=== PATIENT | male | born 1975 | race Caucasian/White ===

== ENCOUNTER → 2019-08-23 08:55 | Outpatient (CLI) | payer OTHER, SELFPAY ==
--- NOTE | 2019-08-23 09:07 | US_ITS ---
PROCEDURE: US URINARY BLADDER CLINICAL INDICATION: ABD PAIN,HEMATURIA COMPARISON: No exams were available for comparison FINDINGS: Urinary bladder measures 1.5 x 8.5 x 9.8 centimeters with a volume of 671 milliliters. The postvoid urinary bladder measures 6.3 x 1.4 by 6.9 centimeters with a volume of 33 milliliters. The singh of the urinary bladder appear normal. Bilateral ureteral jets are visualized. IMPRESSION: Unremarkable urinary bladder ultrasound. Mild postvoid residual. Dictated by: Andre Miguel 08/23/2019 14:46 Electronically signed by Andre Miguel in [place] 08/23/2019 14:46
== END ==
PROVIDERS: PCP Family Medicine; Visit Provider Family Medicine
DX: R10.2 Pelvic and perineal pain (principal); R31.29 Other microscopic hematuria
CPT/HCPCS: 76857

== ENCOUNTER 2020-01-25 18:35 | Emergency (ER) | payer OTHER, SELFPAY ==
[2020-01-25 18:40] VITALS: BP 140/73; PULSE 90; RESP 18; O2SAT 99; BMI 27.0
--- NOTE | 2020-01-25 18:49 | XR_ITS ---
PROCEDURE: XR FOOT RT MIN 3V CLINICAL INDICATION: stepped on nail Puncture wound COMPARISON: No exams were available for comparison FINDINGS: No fracture or dislocation. No lytic or blastic change. There is normal mineralization. The joint spaces are well-preserved. No significant degenerative/arthritic changes. No erosive changes evident. Other findings:There does appear to be a chronic defect at the tip of the distal phalanx of the great toe. This is well-circumscribed. There is minimal hallux valgus IMPRESSION: No acute findings. Dictated by: Nghia Collier MD 01/26/2020 08:26 Electronically signed by Nghia Collier MD in [place] 01/26/2020 08:26
[2020-01-25 18:50] VITALS: BP 140/73; PULSE 90; RESP 18; TEMP 36.8; O2SAT 99; BMI 27.1
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
[2020-01-25 19:18] VITALS: BP 140/73; PULSE 90; RESP 18; TEMP 36.8; O2SAT 99
== END 2020-01-25 19:26 | disposition home or self-care (01) ==
PROVIDERS: Emergency Provider Nurse Practitioner; PCP Family Medicine
DX: S91.331A Puncture wound without foreign body, right foot, initial encounter (principal); W22.8XXA Striking against or struck by other objects, initial encounter; Y92.89 Other specified places as the place of occurrence of the external cause; Z23 Encounter for immunization
CPT/HCPCS: 73630; 90471; 90715; 99201

== ENCOUNTER → 2020-03-01 10:15 | Outpatient (CLI) | payer OTHER, SELFPAY ==
--- NOTE | 2020-03-01 10:19 | US_ITS ---
PROCEDURE: US ABDOMEN COMPLETE CLINICAL INDICATION: PERIUMBILICAL ABD PAIN COMPARISON: No exams were available for comparison FINDINGS: PANCREAS: Pancreas is not well delineated due to overlying bowel gas. CT or MRI without and with contrast with pancreatic protocol may provide further evaluation if clinically desired. LIVER: There is a hyperechoic nodule in the left lobe of the liver measuring approximately 3 cm with some posterior acoustical shadowing. The remaining liver has an unremarkable appearance. There is appropriate direction of blood flow within non dilated portal vein. RIGHT KIDNEY: Unremarkable. Normal size and echogenicity. No hydronephrosis LEFT KIDNEY: Unremarkable. Normal size and echogenicity. No hydronephrosis GALLBLADDER: No gallstones, gallbladder wall thickening, pericholecystic fluid, or biliary dilatation. AORTA: No evidence of aneurysmal dilatation. SPLEEN: Unremarkable. Normal size and echogenicity ASCITES: None demonstrated. IMPRESSION: 1. 2.8 cm hyperechoic nodule in the left lobe of the liver. This could be due to a hemangioma. MRI or CT with hemangioma protocol suggested for confirmation 2. Pancreas not well delineated and may be better evaluated with MRI or CT if clinically warranted 3. Otherwise negative Dictated by: Nghia Collier MD 03/01/2020 16:01 Electronically signed by Nghia Collier MD in [place] 03/01/2020 16:01
== END ==
PROVIDERS: PCP Family Medicine; Visit Provider Family Medicine
DX: R10.33 Periumbilical pain (principal)
CPT/HCPCS: 76700

== ENCOUNTER → 2020-03-30 09:31 | Outpatient (CLI) | payer OTHER, MEDICAID, SELFPAY ==
--- NOTE | 2020-03-30 09:37 | CT_ITS ---
PROCEDURE: CT ABDOMEN W CON CLINICAL HISTORY: BLOOD IN STOOL Blood in stool, liver nodule 5 previous ultrasound COMPARISON: US ABDOMEN COMPLETE from 03/01/2020 TECHNIQUE: 75 mL Optiray 350 IV Axial images obtained with sagittal and coronal reformats. All CT scans at the facility use one or more dose reduction, viz: automated exposure control, ma/kV adjustment per patient size (including targeted exams where dose is matched to indication, i.e. head), or iterative reconstruction technique. FINDINGS: The the this study is not performed with the hemangioma protocol as suggested on the ultrasound of 03/01/2020. Only portal venous and 5 minutes delayed images are obtained. There are multiple hypodense liver lesions the largest in the anterior segment of the right hepatic lobe measuring 4 by 2.5 cm with some mild heterogeneous peripheral enhancement which does somewhat fill in on the delayed images. Other smaller lesions are present including an 11 mm hypodense lesion at the inferior aspect of the right hepatic lobe and a 13 mm hypodensity in the right hepatic lobe inferiorly posterior to the gallbladder fossa. The spleen, adrenal glands, and kidneys have an unremarkable appearance. There is a small umbilical hernia. The 5 minutes delayed post enhanced images were carried through the pelvis.. There is an area of thickening involving the sigmoid colon and at the rectosigmoid junction. The mucosal margins are somewhat irregular at this area. A sigmoid mass is considered and sigmoidoscopy is suggested for further evaluation. There are mildly prominent lymph nodes superior to the sigmoid colon in the upper presacral region. These measure up to 1.2 cm. IMPRESSION: 1. Abnormal appearing thickening of the sigmoid colon at the rectosigmoid junction with some irregularity of the mucosal surface. This area of thickening is approximately 7 cm in length. Neoplasm is considered and sigmoidoscopy is suggested for further evaluation. There are some mildly prominent adjacent lymph nodes at this area. Colitis would be included in the differential diagnosis. 2. Multiple lesions of the liver as described above. Leads are indeterminate and may represent hemangiomas or metastatic disease. Suggest MRI of the liver with hemangioma protocol for further evaluation Dictated by: Nghia Collier MD 03/31/2020 09:03 Electronically signed by Nghia Collier MD in [place] 03/31/2020 09:03
== END ==
PROVIDERS: PCP Family Medicine; Visit Provider Family Medicine
DX: K92.1 Melena (principal)
CPT/HCPCS: 74160; Q9967

== ENCOUNTER → 2020-04-24 08:46 | Outpatient (CLI) | payer OTHER, MEDICAID, SELFPAY ==
--- NOTE | 2020-04-24 | MR_ITS ---
PROCEDURE: MR ABDOMEN WO/W CON CLINICAL INDICATION: HEPATIC LESION Hx liver lesion and abnormal CT scan. Pt. C/o abd pain x 6 months. COMPARISON: US US ABDOMEN COMPLETE from 03/01/[address] ABDOMEN W CON from 03/30/2020 TECHNIQUE: Routine multiplanar multi echo sequences are performed without and with gadolinium enhancement. 18ml prohance used. Dynamic post enhanced images are obtained. Lot #[id number] 06/2022 FINDINGS: There are multiple small hepatic cyst. There is a 4 x 3 cm mass within the left hepatic lobe segment 4A. This is hypointense on T1 and slightly hyperintense on T2. Lesion is hyperintense on the DWI images. There is peripheral contrast enhancement. This does appear to fill in on the delayed images but shows more enhancement centrally than peripherally on the delayed images. This would be somewhat atypical for a hemangioma. However, the ultrasound does show this to have increased echogenicity as 1 would expect for a hemangioma. There is a central area of decreased signal intensity. This is hypointense on T1 and slightly hyperintense on T2 and could even be due to a central scar. Focal nodular hyperplasia is a consideration as well. There is a small focal area of contrast enhancement involving the right hepatic lobe posteriorly on the initial arterial phase images and may be due to an area of altered hepatic enhancement. IMPRESSION: 4 x 3 cm complex enhancing mass in the left hepatic lobe segment 4A. The lesion demonstrates early peripheral enhancement but on the delayed images shows centripetal enhancement which is the opposite of what 1 would expect for a hemangioma. Focal nodular hyperplasia and hemangioma are the main considerations. Either lesion would be considered a no-touch lesion. Therefore, would recommend a 3 month follow-up to confirm short term stability. Multiple a Paddock cysts are also present. Dictated by: Nghia Collier MD 05/02/2020 09:36 Nghia Collier MD in [place] 05/02/2020 09:36
== END ==
PROVIDERS: PCP Family Medicine; Visit Provider Family Medicine
DX: R93.5 Abnormal findings on diagnostic imaging of other abdominal regions, including retroperitoneum (principal); K76.9 Liver disease, unspecified
CPT/HCPCS: 74183; A9576

== ENCOUNTER → 2020-04-29 11:24 | Outpatient (CLI) | payer OTHER, MEDICAID, SELFPAY ==
[2020-04-29 13:00] LABS: Coronavirus 19 IgG Antibody Negative (Negative); Coronavirus 19 IgM Antibody Negative (Negative)
== END ==
PROVIDERS: Visit Provider Internal Medicine Gastroenterology
DX: Z03.818 Encounter for observation for suspected exposure to other biological agents ruled out (principal)
CPT/HCPCS: 36415; 86328

== ENCOUNTER 2020-05-01 07:19 | Day surgery (SDC) | payer OTHER, MEDICAID, SELFPAY ==
[2020-04-25 13:46] VITALS: BMI 26.2
[2020-05-01] VITALS (9 sets, daily range): BP systolic 112–143; BP diastolic 67–79; PULSE 66–84; RESP 12–20; TEMP 36.2–36.4; O2SAT 94–100
--- NOTE | 2020-05-01 07:56 | P.PN_ITS ---
[facility] Anesthesia Checklist - Patient Identification Patient Identification: Arm Band - Structural Data Admitted From: Home Planned Operative Procedure/s: colonoscopy Consent for Planned Operative Procedure(s) Verified: Yes Verified Documents: Surgical Consent, History and Physical - NPO Status Verified Time NPO: 00:00 - Additional verifications Anesthesia Reactions: No - Airway Assessment C-Spine Mobility Assessed: Yes (mp2) TMJ Mobility Assessed: Yes Dentition: Edentulous - Neurological Assessment Level of Consciousness: Awake, Alert - Anesthesia Plan Anesthesia Risk discussed: Yes Anesthesia Plan: Verified ASA Class: II Anesthesia Type: MAC [facility] History I have reviewed the patient's past medical history: Yes Medical History: Denies:: Cancer, Diabetes Mellitus Type 1, Diabetes Mellitus Type 2, Internal Pacemaker, MRSA, Seizures *Have you ever received a pneumonia vaccine?: No *Have you received a flu vaccine this season?: No Anesthesia experience/problems:: nac Laterality Cases: Bilateral: Myringotomy (Ear Tubes), Tonsillectomy Other Surgeries: No: Pacemaker Amputation: No - *Social History Last grade of school completed: 11th or 12th Smoking Status: Current every day smoker Tobacco Type: cigarettes # Packs/Day (cigarettes): 1 Alcohol Intake: never Substance Use Type: denies use *Occupational Status:: employed Housing: house Household Members: spouse *Travel in the last 8 weeks: None Family Hx:: Heart Attack
--- NOTE | 2020-05-01 08:08 | HMH.PROC ---
[facility] Procedure Note Procedure Note:: Colonoscopy Procedure Report: Sigmoidoscopy/attempted colonoscopy (aborted) Endoscopist: Evan Campbell II, MD Referring physician: Marcello Merchant MD Date of Procedure: May 01, 2020 Equipment: Olympus 180 variable stiffness pediatric colonoscope Sedation: MAC sedation Indication: Mr. Tomlin is a 44-year-old gentleman who is here for diagnostic colonoscopy. He has had lower abdominal pain and discomfort for the last 4 to 5 months. He also has irregular bowel function with bowel movements up to 10-15 times daily. This is often small caliber and sometimes loose bowel movements but not diarrhea. He does report a 40 pound weight loss in the last 4 months. He has noted blood once or twice. He has moderate bloating and gassiness. He reports no family history of colon cancer. This is his first colonoscopy performed for diagnostic purposes. Procedure: Prior to the procedure, a history and physical exam was performed, and patient's medications and allergies were reviewed. The risks, benefits and alternatives of the sedation and procedure were discussed with the patient. All questions were answered and informed consent was obtained. The patient was brought to the procedure room. Patient identification and proposed procedure were verified by the physician and the nurse. The patient was placed in a left lateral decubitus position and the scope was passed under direct vision. Throughout the procedure, the patient's blood pressure, pulse, and oxygen saturations were monitored continuously. The colonoscopy was accomplished without difficulty. The patient tolerated the procedure well. Findings: On digital rectal examination there was normal rectal tone. There were no external hemorrhoids. The scope was then inserted through the anal canal into the rectum and advanced to 30 cm. The preparation was very poor with brown liquid stool and some semisolid stool making visualization poor. The procedure was aborted. There was a 6 mm polyp in the rectum identified through the poor preparation. Impression: 1. Poor bowel preparation Plan: I will discuss everything with the patient and family. I would recommend that we repeat a colonoscopy with improved bowel preparation.
--- NOTE | 2020-05-01 08:35 | PC.NURSE ---
Lboitoets enema x2 admininstered per Dr.Robbins plaza
--- NOTE | 2020-05-01 09:29 | PC.NURSE ---
Pt stool light brown and small particulates noted, aware
--- NOTE | 2020-05-01 10:04 | HMH.PROC ---
[facility] Procedure Note Procedure Note:: Flexible Sigmoidoscopy Procedure Report: Sigmoidoscopy with cold biopsies Endoscopist: Evan Campbell II, MD Referring physician: Marcello Merchant MD Date of Procedure: May 01, 2020 Equipment: Olympus 180 variable stiffness pediatric colonoscope Sedation: MAC sedation Indication: Mr. Tomlin is a 44-year-old gentleman who had an attempted colonoscopy earlier this morning and it was completely unprepped. He has had lower abdominal pain and weight loss of up to 40 pounds in the last 4 months. He has had a change in bowel habits with bowel frequency (up to 10-15 bowel movements daily) and smaller stool caliber. He had noted some blood once or twice. His recent ultrasound on March 01, 2020 revealed a 2.8 cm hyperechoic nodule in the left lobe of the liver possibly been a hemangioma. A recent CAT scan of the abdomen and pelvis on March 31, 2020 revealed abnormal appearing thickened sigmoid colon at the rectosigmoid junction with some irregularity of the mucosal surface and an area of thickening approximately 7 cm in length. Neoplasm is considered a possibility and there were multiple lesions of the liver as well as mildly prominent adjacent lymph nodes in the area of the sigmoid colon. The patient reports no family history of colon cancer. Procedure: Prior to the procedure, a history and physical exam was performed, and patient's medications and allergies were reviewed. The risks, benefits and alternatives of the sedation and procedure were discussed with the patient. All questions were answered and informed consent was obtained. The patient was brought to the procedure room. Patient identification and proposed procedure were verified by the physician and the nurse. The patient was placed in a left lateral decubitus position and the scope was passed under direct vision. Throughout the procedure, the patient's blood pressure, pulse, and oxygen saturations were monitored continuously. The colonoscopy was accomplished without difficulty. The patient tolerated the procedure well. Findings: After the 2 fleets enemas the procedure was repeated. On digital rectal examination, there was normal rectal tone there were no external hemorrhoids and the mass could not immediately be palpated in the rectum. The scope was then inserted through the anal canal into the rectum. The preparation was markedly improved. The scope was advanced to the rectosigmoid area at 15 cm from the anal verge. There was a circumferential apple core elongated lesion with stricturing. This was a malignant mass with friability and fungating. There was spontaneous hemorrhage. Multiple biopsies were obtained. The scope could not be advanced beyond the distal sigmoid colon because of this strictured lesion. After the lesion was identified, this could be palpated very deeply with the digital exam and was a very fixed lesion by digital exam. Impression: 1. 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 I would consider sending to oncology initially but because this is near obstructive, I am going to discuss this with colorectal surgery. He will need LAR (low anterior resection) because of the obstructive nature. I do feel that this is advanced based upon exam and imaging studies. I will also arrange oncology follow-up locally.
--- NOTE | 2020-05-01 10:35 | PC.NURSE ---
Pt taken back for repeat colonoscopy
--- NOTE | 2020-05-01 10:37 | PC.NURSE ---
Pt returned to postop from endoscopy suite
== END 2020-05-01 11:15 | disposition home or self-care (01) ==
LOC: OUTP 07:20
PROVIDERS: PCP Family Medicine; Visit Provider Internal Medicine Gastroenterology
PROC: 0DJD8ZZ Inspection of Lower Intestinal Tract, Via Natural or Artificial Opening Endoscopic (ICD-10-PCS; CPT 45378; principal; 2020-05-01 08:30)
DX: C18.7 Malignant neoplasm of sigmoid colon (principal); Z87.19 Personal history of other diseases of the digestive system; R63.4 Abnormal weight loss; Z68.26 Body mass index [BMI] 26.0-26.9, adult; Z96.22 Myringotomy tube(s) status; Z90.89 Acquired absence of other organs; Z72.0 Tobacco use
CPT/HCPCS: 45331

== ENCOUNTER → 2020-05-05 13:41 | Outpatient (CLI) | payer OTHER, MEDICAID, SELFPAY ==
[2020-05-06 15:13] LABS: Covid-19 Nasal PCR Sendout Lex Not Detected
== END ==
PROVIDERS: Visit Provider Surgery
DX: Z03.818 Encounter for observation for suspected exposure to other biological agents ruled out (principal)
CPT/HCPCS: U0004

== ENCOUNTER → 2020-06-09 10:54 | Outpatient (CLI) | payer OTHER, MEDICAID, SELFPAY ==
[2020-06-09 11:57] LABS: Basophils % 0.4 % (0.1-2.0); Eosinophils # 0.2 K/mm3 (0.0-0.4); Eosinophils % 3.3 % (0.1-12.0); Hematocrit 41.4 % (42.0-52.0); Hemoglobin 13.3 g/dL (14.1-18.0); Lymphocytes # 1.9 K/mm3 (0.7-4.5); Lymphocytes % 26.3 % (10-50); Mean Corpuscular HGB Conc 32.1 g/dL (31.8-35.4); Mean Corpuscular Hemoglobin 29.2 pg (27.0-31.2); Monocytes # 0.6 K/mm3 (0.1-1.0); Monocytes % 7.8 % (1.7-9.3); Neutrophils # 4.5 K/mm3 (1.8-7.8); Neutrophils % 62.2 % (37.0-80.0); Platelet Count 291 K/mm3 (142-424); Red Blood Count 4.56 M/mm3 (4.60-6.20); White Blood Count 7.2 K/mm3 (4.8-10.8)
[2020-06-09 13:46] LABS: Alanine Aminotransferase 21 U/L (12-78); Albumin Level 4.7 g/dl (3.5-5.0); Albumin/Globulin Ratio 1.7 (1.1-1.8); Alkaline Phosphatase 110 U/L (38-126); Anion Gap 15.3 mEq/L (5-15); Aspartate Amino Transferase 26 U/L (17-59); Bilirubin,Total 0.6 mg/dl (0.2-1.3); Blood Urea Nitrogen 11 mg/dl (9-20); Calcium 9.8 mg/dl (8.4-10.2); Carbon Dioxide 25 mmol/L (22.0-30.0); Chloride 106 mmol/L (98-107); Estimated Glomerular Filt Rate 105 ml/min (>60); GFR (African American) 126 ML/MIN (>60); Globulin 2.8 g/dL (1.3-3.2); Glucose 74 mg/dl (74-100); Potassium 4.3 mmoL/L (3.5-5.1); Sodium 142 mmol/L (136-145); Total Protein,Serum 7.5 g/dl (6.3-8.2)
== END ==
PROVIDERS: Visit Provider Internal Medicine Medical Oncology
DX: C18.9 Malignant neoplasm of colon, unspecified (principal)
CPT/HCPCS: 36415; 80053; 82378; 85025

== ENCOUNTER → 2020-06-12 11:52 | Outpatient (CLI) | payer OTHER, MEDICAID, SELFPAY ==
[2020-06-12 14:48] LABS: Coronavirus 19 IgG Antibody Negative (Negative); Coronavirus 19 IgM Antibody Negative (Negative)
== END ==
PROVIDERS: Visit Provider Surgery
DX: Z01.89 Encounter for other specified special examinations (principal); C18.9 Malignant neoplasm of colon, unspecified
CPT/HCPCS: 36415; 86328

== ENCOUNTER 2020-06-14 06:05 | Day surgery (SDC) | payer OTHER, MEDICAID, SELFPAY ==
[2020-06-12 12:17] VITALS: BMI 25.7
[2020-06-14] VITALS (13 sets, daily range): BP systolic 110–145; BP diastolic 65–84; PULSE 65–73; RESP 15–23; TEMP 36.2–36.4; O2SAT 95–100
--- NOTE | 2020-06-14 06:58 | P.PN_ITS ---
[facility] Anesthesia Checklist - Structural Data Admitted From: Home Planned Operative Procedure/s: marylin cath Consent for Planned Operative Procedure(s) Verified: Yes - Additional verifications Anesthesia Reactions: No Hx Blood Transfusions: No Blood Transfusion Reaction: No - Airway Assessment C-Spine Mobility Assessed: Yes TMJ Mobility Assessed: Yes Dentition: Edentulous - Neurological Assessment Level of Consciousness: Awake, Alert, Appropriate - Anesthesia Plan Anesthesia Risk discussed: Yes Anesthesia Plan: Verified ASA Class: II Anesthesia Type: MAC [facility] History I have reviewed the patient's past medical history: Yes Medical History: Denies:: Cancer, Diabetes Mellitus Type 1, Diabetes Mellitus Type 2, Internal Pacemaker, MRSA, Seizures *Have you ever received a pneumonia vaccine?: No *Have you received a flu vaccine this season?: No Other Medical History: Denies: Blood Transfusion Reaction Anesthesia experience/problems:: none Laterality Cases: Bilateral: Myringotomy (Ear Tubes), Tonsillectomy Other Surgeries: Yes: Colonoscopy. No: Pacemaker Amputation: No Fractures: No - *Social History Last grade of school completed: 11th or 12th Smoking Status: Current every day smoker Tobacco Type: cigarettes # Packs/Day (cigarettes): 1 Alcohol Intake: never Substance Use Type: denies use *Occupational Status:: employed Housing: house Household Members: spouse *Travel in the last 8 weeks: None Family Hx:: Heart Attack
--- NOTE | 2020-06-14 08:17 | P.OP_ITS ---
Date of procedure: 06/14/20 Pre-op Diagnosis:: Metastatic rectal cancer, need for chemotherapy Post-op Diagnosis:: Same Procedure performed:: Placement of single-lumen 8 Maltese tunneled catheter into left subclavian vein with implantable subcutaneous reservoir port (PowerPort) Surgeon:: Santos Duque MD ASSISTANT FITNESS MANAGER:: William Petty Anesthesia: LMA Estimated blood loss (mL): 15 Clinical Note:: Patient is a 45-year-old sent for port placement. Recently he has had some symptoms of lower abdominal pain and approximately a 40 pound weight loss. He is also had decreased caliber of stool with increasing frequency of stool. He had a CT scan which revealed thickening at the rectosigmoid region. On 05/01/2020 he underwent sigmoidoscopy by Dr. Campbell which revealed a circumferential nearly obstructing mass at 15 cm from the anal verge. Patient underwent diverting colostomy by Dr. Abelino Mars at [facility] on 05/10/2020. He did undergo PET CT scan which reveals multiple hepatic lesions and adenopathy. Plan is for initiation of neoadjuvant chemotherapy with radiation. Operative findings:: Normal anatomy Operative note:: Patient was taken to the operating room. He was positioned in a supine position. General anesthesia was induced via LMA. The upper chest and neck area were prepped and draped in the standard surgical fashion. He was positioned in Trendelenburg position. Local anesthetic was infiltrated inferior to the clavicle. 18-gauge needle was inserted. With a couple of passes the left subclavian vein was cannulated with return of venous blood. Guidewire was inserted. Fluoroscopy was used to confirm appropriate positioning of the guidewire. Small incision was made at the insertion site. Subcutaneous tissues were dilated. Dilated with the breakaway sheath was inserted. Guidewire with dilator were removed. Single-lumen 8 Maltese catheter was then inserted through the breakaway sheath which was then removed. Fluoroscopy was used to position the tip of the catheter near the atrial caval junction. Skin was marked with a skin marker for planned subcutaneous tiling. Additional local anesthetic was infiltrated for subcutaneous tunnel and subcutaneous pocket. Incision was made on the upper chest. Using electrocautery subcutaneous pocket was created. Ca theter was tunneled subcutaneously. And once again fluoroscopy was used to confirm appropriate positioning. The catheter was cut to the appropriate length and secured to the implantable reservoir port. Catheter flushed and aspirated without difficulty. The reservoir port was secured into the subcutaneous pocket with interrupted 2-0 Vicryl sutures. Subdermal tissues were closed with running 2-0 Vicryl. Skin was closed with 4-0 Monocryl in a subcuticular fashion. Dressings were applied. At the completion of the procedure the port was accessed with the Kearns needle with infusion tubing. It aspirated and flushed without difficulty with saline. It was then flushed with heparinized saline. Dressing was applied. Condition: stable Disposition: PACU Complications:: None immediately apparent
--- NOTE | 2020-06-14 08:20 | XR_ITS ---
PROCEDURE: XR CHEST PORTABLE CLINICAL HISTORY: port-a-cath placement, pt in PACU COMPARISON: MR MR ABDOMEN WO/W CON from 04/24/2020 FINDINGS: The cardiomediastinal silhouette and pulmonary vascularity are within normal limits. Left subclavian Port-A-Cath has been placed. Tip is in the region the SVC. There is a faint linear lucency at the left apex. This may very well represent a carding machine operator shadow as opposed to a pneumothorax. Follow-up may confirm. Otherwise unremarkable. IMPRESSION: Status post left subclavian Port-A-Cath placement with good positioning. Faint lucency left apex which may represent a carding machine operator shadow of the rib.. Follow-up may confirm Dictated by: Nghia Collier MD 06/14/2020 08:47 Nghia Collier MD in OV 06/14/2020 08:47
--- NOTE | 2020-06-14 08:20 | HMH.ANESI ---
[facility] Anesthesia Record Part I Intake, IV Amount: 1,000 Estimated blood loss (mL): 5 Urine output (mL): 0 Blood Pressure: 121/65 SaO2: 96 Pulse Rate: 69 Respiratory Rate: 16 Temperature: 97.4 F Patient is:: Drowsy, Stable Stable to PACU at:: 08:15
--- NOTE | 2020-06-14 08:45 | FL_ITS ---
PROCEDURE: FL GUIDED CENTRAL LINE PLACEMT CLINICAL INDICATION: PORTACATH PLACEMENT IN OR COMPARISON: No exams were available for comparison FINDINGS: Fluoroscopy time: 13.4 seconds Single image shows left subclavian MediPort catheter in place. The tip is not demonstrated. IMPRESSION: Fluoro guided left subclavian MediPort catheter placement Dictated by: Nghia Collier MD 06/14/2020 09:29 Nghia Collier MD in OV 06/14/2020 09:29
--- NOTE | 2020-06-14 10:13 | HMH.ANESII ---
[facility] Anesthesia Record Part II Discharge Time: 09:04 Destination: Surgical Day Care (OP Surgery) PACU nurse assessment reviewed?: Yes Patient Condition:: Good Anesthesia Complications:: None Swallowing reflex intact?: Yes Cyanosis?: No Blood Pressure: 119/72 Pulse Rate: 70 Temperature: 97.4 F Mental Status: Alert & Oriented Pain level:: 0 Nausea and/or vomitting:: None Intake, IV Amount: 0
== END 2020-06-14 09:42 | disposition home or self-care (01) ==
LOC: OR 06:07
PROVIDERS: PCP Family Medicine; Visit Provider Surgery
PROC: (CPT 36561; principal; 2020-06-14 08:00)
DX: C18.9 Malignant neoplasm of colon, unspecified (principal); Z96.22 Myringotomy tube(s) status; Z90.89 Acquired absence of other organs; Z72.0 Tobacco use; Z82.3 Family history of stroke
CPT/HCPCS: 36561; 71045; 77001; 96374; C1788; J1642; J2405

== ENCOUNTER 2020-06-15 10:30 | Outpatient (CLI) | payer OTHER, MEDICAID, SELFPAY ==
[2020-06-15] VITALS (15 sets, daily range): BP systolic 124–148; BP diastolic 74–92; PULSE 67–79; RESP 18–20; TEMP 36.6; O2SAT 99
== END 2020-06-15 15:25 | disposition home or self-care (01) ==
PROVIDERS: Visit Provider Internal Medicine Medical Oncology
DX: Z51.11 Encounter for antineoplastic chemotherapy (principal); C18.9 Malignant neoplasm of colon, unspecified
CPT/HCPCS: 96413; 96415; J1642; J8501; J9263; Q0166

== ENCOUNTER 2020-06-23 14:05 | Outpatient (CLI) | payer OTHER, MEDICAID, SELFPAY ==
[2020-06-23 14:10] VITALS: BMI 26.0
[2020-06-23 14:28] LABS: Basophils % 0.4 % (0.1-2.0); Chloride 103 mmol/L (98-107); Eosinophils # 0.2 K/mm3 (0.0-0.4); Eosinophils % 2.4 % (0.1-12.0); Hematocrit 38.8 % (42.0-52.0); Hemoglobin 13.3 g/dL (14.1-18.0); Lymphocytes # 2.1 K/mm3 (0.7-4.5); Lymphocytes % 23.9 % (10-50); Mean Corpuscular HGB Conc 34.4 g/dL (31.8-35.4); Mean Corpuscular Volume 87.2 fl (80-94); Mean Platelet Volume 7.4 fl (7.4-10.4); Monocytes # 0.5 K/mm3 (0.1-1.0); Monocytes % 6.1 % (1.7-9.3); Neutrophils % 67.2 % (37.0-80.0); Platelet Count 327 K/mm3 (142-424); Red Blood Count 4.45 M/mm3 (4.60-6.20); Red Cell Distribution Width 13.4 % (11.5-17.5); White Blood Count 8.9 K/mm3 (4.8-10.8)
[2020-06-23 14:29] LABS: Sodium 140 mmol/L (136-145)
[2020-06-23 14:31] LABS: Alanine Aminotransferase 18 U/L (12-78); Aspartate Amino Transferase 23 U/L (17-59); Blood Urea Nitrogen 11 mg/dl (9-20); Creatinine Clearance Estimated 115 mL/min (50-200); Estimated Glomerular Filt Rate 81 ml/min (>60); GFR (African American) 98 ML/MIN (>60)
[2020-06-23 14:32] LABS: Albumin Level 4.6 g/dl (3.5-5.0); Albumin/Globulin Ratio 1.4 (1.1-1.8); Alkaline Phosphatase 99 U/L (38-126); Bilirubin,Total 0.4 mg/dl (0.2-1.3); Calcium 9.6 mg/dl (8.4-10.2); Carbon Dioxide 26 mmol/L (22.0-30.0); Globulin 3.2 g/dL (1.3-3.2); Glucose 91 mg/dl (74-100); Total Protein,Serum 7.8 g/dl (6.3-8.2)
== END 2020-06-23 14:20 | disposition home or self-care (01) ==
LOC: INF 14:09
PROVIDERS: Visit Provider Internal Medicine Medical Oncology
DX: C18.9 Malignant neoplasm of colon, unspecified (principal); Z45.2 Encounter for adjustment and management of vascular access device
CPT/HCPCS: 80053; 85025; J1642

== ENCOUNTER 2020-07-06 09:59 | Outpatient (CLI) | payer OTHER, SELFPAY ==
[2020-07-06] VITALS (14 sets, daily range): BP systolic 112–141; BP diastolic 71–91; PULSE 72–87; RESP 18–20; TEMP 37; O2SAT 99; BMI 25.7
[2020-07-06 10:28] LABS: Basophils % 0.3 % (0.1-2.0); Eosinophils # 0.1 K/mm3 (0.0-0.4); Eosinophils % 1.7 % (0.1-12.0); Hematocrit 38.8 % (42.0-52.0); Hemoglobin 12.4 g/dL (14.1-18.0); Lymphocytes % 24.1 % (10-50); Mean Corpuscular Hemoglobin 29.2 pg (27.0-31.2); Mean Corpuscular Volume 91.4 fl (80-94); Mean Platelet Volume 7.2 fl (7.4-10.4); Monocytes # 0.7 K/mm3 (0.1-1.0); Monocytes % 8.8 % (1.7-9.3); Neutrophils # 5.5 K/mm3 (1.8-7.8); Neutrophils % 65.1 % (37.0-80.0); Platelet Count 268 K/mm3 (142-424); Red Blood Count 4.24 M/mm3 (4.60-6.20); Red Cell Distribution Width 16.5 % (11.5-17.5); White Blood Count 8.4 K/mm3 (4.8-10.8)
[2020-07-06 10:29] LABS: Chloride 105 mmol/L (98-107); Potassium 3.7 mmoL/L (3.5-5.1); Sodium 140 mmol/L (136-145)
[2020-07-06 10:31] LABS: Blood Urea Nitrogen 7 mg/dl (9-20); Creatinine Clearance Estimated 142 mL/min (50-200); Estimated Glomerular Filt Rate 105 ml/min (>60); GFR (African American) 126 ML/MIN (>60)
[2020-07-06 10:32] LABS: Alanine Aminotransferase 22 U/L (12-78); Albumin Level 4.5 g/dl (3.5-5.0); Albumin/Globulin Ratio 1.6 (1.1-1.8); Alkaline Phosphatase 87 U/L (38-126); Anion Gap 11.7 mEq/L (5-15); Aspartate Amino Transferase 25 U/L (17-59); Bilirubin,Total 0.4 mg/dl (0.2-1.3); Calcium 9.4 mg/dl (8.4-10.2); Carbon Dioxide 27 mmol/L (22.0-30.0); Globulin 2.8 g/dL (1.3-3.2); Glucose 80 mg/dl (74-100); Total Protein,Serum 7.3 g/dl (6.3-8.2)
== END 2020-07-06 15:25 | disposition home or self-care (01) ==
LOC: INF 09:59
PROVIDERS: Visit Provider Internal Medicine Medical Oncology
DX: Z51.11 Encounter for antineoplastic chemotherapy (principal); C18.9 Malignant neoplasm of colon, unspecified
CPT/HCPCS: 80053; 85025; 96413; 96415; J1642; J7060; J9263; Q0166

== ENCOUNTER 2020-07-25 10:10 | Outpatient (CLI) | payer OTHER, SELFPAY ==
[2020-07-25 10:12] VITALS: BMI 57.4
[2020-07-25 10:43] LABS: Chloride 106 mmol/L (98-107); Potassium 3.6 mmoL/L (3.5-5.1); Sodium 139 mmol/L (136-145)
[2020-07-25 10:45] LABS: Alanine Aminotransferase 26 U/L (12-78); Aspartate Amino Transferase 28 U/L (17-59); Blood Urea Nitrogen 9 mg/dl (9-20); Creatinine Clearance Estimated 114 mL/min (50-200); Estimated Glomerular Filt Rate 91 ml/min (>60); GFR (African American) 110 ML/MIN (>60)
[2020-07-25 10:46] LABS: Albumin Level 4.5 g/dl (3.5-5.0); Albumin/Globulin Ratio 1.7 (1.1-1.8); Alkaline Phosphatase 92 U/L (38-126); Anion Gap 11.6 mEq/L (5-15); Bilirubin,Total 0.5 mg/dl (0.2-1.3); Calcium 9.5 mg/dl (8.4-10.2); Carbon Dioxide 25 mmol/L (22.0-30.0); Globulin 2.7 g/dL (1.3-3.2); Glucose 114 mg/dl (74-100); Total Protein,Serum 7.2 g/dl (6.3-8.2)
[2020-07-25 11:01] LABS: Basophils % 0.3 % (0.1-2.0); Eosinophils # 0.1 K/mm3 (0.0-0.4); Hematocrit 37.6 % (42.0-52.0); Lymphocytes % 32.8 % (10-50); Mean Corpuscular HGB Conc 31.9 g/dL (31.8-35.4); Mean Platelet Volume 7.3 fl (7.4-10.4); Monocytes # 0.5 K/mm3 (0.1-1.0); Monocytes % 8.1 % (1.7-9.3); Neutrophils # 3.5 K/mm3 (1.8-7.8); Neutrophils % 56.8 % (37.0-80.0); Platelet Count 245 K/mm3 (142-424); Red Cell Distribution Width 19.3 % (11.5-17.5); White Blood Count 6.2 K/mm3 (4.8-10.8)
== END 2020-07-25 11:15 | disposition home or self-care (01) ==
LOC: INF 10:10
PROVIDERS: Visit Provider Internal Medicine Medical Oncology
DX: C18.9 Malignant neoplasm of colon, unspecified (principal)
CPT/HCPCS: 80053; 85025; J1642

== ENCOUNTER 2020-07-31 09:21 | Outpatient (CLI) | payer OTHER, SELFPAY ==
[2020-07-31] VITALS (13 sets, daily range): BP systolic 123–152; BP diastolic 64–98; PULSE 61–70; RESP 18; O2SAT 99; BMI 24.9
[2020-07-31 09:51] LABS: Chloride 105 mmol/L (98-107); Potassium 3.4 mmoL/L (3.5-5.1); Sodium 139 mmol/L (136-145)
[2020-07-31 09:52] LABS: Basophils % 0.6 % (0.1-2.0); Eosinophils # 0.2 K/mm3 (0.0-0.4); Eosinophils % 2.6 % (0.1-12.0); Hematocrit 38.9 % (42.0-52.0); Hemoglobin 12.8 g/dL (14.1-18.0); Lymphocytes % 29.9 % (10-50); Mean Corpuscular HGB Conc 32.9 g/dL (31.8-35.4); Mean Corpuscular Volume 94.2 fl (80-94); Mean Platelet Volume 7.5 fl (7.4-10.4); Monocytes # 0.5 K/mm3 (0.1-1.0); Monocytes % 7.9 % (1.7-9.3); Neutrophils # 3.9 K/mm3 (1.8-7.8); Platelet Count 206 K/mm3 (142-424); Red Blood Count 4.14 M/mm3 (4.60-6.20); Red Cell Distribution Width 19.9 % (11.5-17.5); White Blood Count 6.5 K/mm3 (4.8-10.8)
[2020-07-31 09:54] LABS: Alanine Aminotransferase 35 U/L (12-78); Albumin Level 4.3 g/dl (3.5-5.0); Albumin/Globulin Ratio 1.6 (1.1-1.8); Alkaline Phosphatase 100 U/L (38-126); Anion Gap 12.4 mEq/L (5-15); Aspartate Amino Transferase 36 U/L (17-59); Bilirubin,Total 0.5 mg/dl (0.2-1.3); Blood Urea Nitrogen 7 mg/dl (9-20); Calcium 9.3 mg/dl (8.4-10.2); Carbon Dioxide 25 mmol/L (22.0-30.0); Creatinine Clearance Estimated 122 mL/min (50-200); Estimated Glomerular Filt Rate 91 ml/min (>60); GFR (African American) 110 ML/MIN (>60); Globulin 2.7 g/dL (1.3-3.2); Glucose 118 mg/dl (74-100)
== END 2020-07-31 13:55 | disposition home or self-care (01) ==
LOC: INF 09:21
PROVIDERS: Visit Provider Internal Medicine Medical Oncology
DX: Z51.11 Encounter for antineoplastic chemotherapy (principal); C18.9 Malignant neoplasm of colon, unspecified
CPT/HCPCS: 80053; 85025; 96413; 96415; J1642; J7060; J9263; Q0166

== ENCOUNTER 2020-08-22 09:44 | Outpatient (CLI) | payer OTHER, SELFPAY ==
[2020-08-22] VITALS (14 sets, daily range): BP systolic 107–135; BP diastolic 66–98; PULSE 65–73; RESP 18; TEMP 36.5; O2SAT 99; BMI 25.7
[2020-08-22 10:06] LABS: Basophils % 0.5 % (0.1-2.0); Eosinophils # 0.2 K/mm3 (0.0-0.4); Eosinophils % 3.2 % (0.1-12.0); Hematocrit 41.2 % (42.0-52.0); Hemoglobin 13.4 g/dL (14.1-18.0); Lymphocytes # 2.1 K/mm3 (0.7-4.5); Lymphocytes % 37.4 % (10-50); Mean Corpuscular HGB Conc 32.5 g/dL (31.8-35.4); Mean Corpuscular Hemoglobin 32.2 pg (27.0-31.2); Mean Corpuscular Volume 99.3 fl (80-94); Mean Platelet Volume 8.4 fl (7.4-10.4); Monocytes # 0.5 K/mm3 (0.1-1.0); Monocytes % 8.2 % (1.7-9.3); Neutrophils # 2.8 K/mm3 (1.8-7.8); Neutrophils % 50.7 % (37.0-80.0); Platelet Count 206 K/mm3 (142-424); Red Blood Count 4.15 M/mm3 (4.60-6.20); Red Cell Distribution Width 21.2 % (11.5-17.5); White Blood Count 5.5 K/mm3 (4.8-10.8)
[2020-08-22 10:12] LABS: Chloride 108 mmol/L (98-107); Sodium 140 mmol/L (136-145)
[2020-08-22 10:15] LABS: Alanine Aminotransferase 44 U/L (12-78); Albumin Level 4.2 g/dl (3.5-5.0); Albumin/Globulin Ratio 1.4 (1.1-1.8); Alkaline Phosphatase 78 U/L (38-126); Aspartate Amino Transferase 37 U/L (17-59); Bilirubin,Total 0.4 mg/dl (0.2-1.3); Blood Urea Nitrogen 6 mg/dl (9-20); Calcium 9.4 mg/dl (8.4-10.2); Carbon Dioxide 24 mmol/L (22.0-30.0); Creatinine Clearance Estimated 126 mL/min (50-200); Estimated Glomerular Filt Rate 91 ml/min (>60); GFR (African American) 110 ML/MIN (>60); Globulin 2.9 g/dL (1.3-3.2); Glucose 120 mg/dl (74-100); Total Protein,Serum 7.1 g/dl (6.3-8.2)
== END 2020-08-22 15:13 | disposition home or self-care (01) ==
LOC: INF 09:44
PROVIDERS: Visit Provider Internal Medicine Medical Oncology
DX: Z51.11 Encounter for antineoplastic chemotherapy (principal); C18.9 Malignant neoplasm of colon, unspecified
CPT/HCPCS: 80053; 85025; 96413; 96415; J1642; J7060; J9263; Q0166

== ENCOUNTER 2020-09-14 09:47 | Outpatient (CLI) | payer OTHER, SELFPAY ==
[2020-09-14] VITALS (13 sets, daily range): BP systolic 108–136; BP diastolic 65–86; PULSE 63–73; RESP 18; TEMP 36.4; O2SAT 97; BMI 27.6
[2020-09-14 10:08] LABS: Basophils % 0.6 % (0.1-2.0); Eosinophils # 0.2 K/mm3 (0.0-0.4); Eosinophils % 3.6 % (0.1-12.0); Hematocrit 42.5 % (42.0-52.0); Hemoglobin 14.3 g/dL (14.1-18.0); Lymphocytes # 2.3 K/mm3 (0.7-4.5); Lymphocytes % 37.1 % (10-50); Mean Corpuscular HGB Conc 33.6 g/dL (31.8-35.4); Mean Corpuscular Hemoglobin 33.6 pg (27.0-31.2); Mean Corpuscular Volume 99.9 fl (80-94); Mean Platelet Volume 8.1 fl (7.4-10.4); Monocytes # 0.5 K/mm3 (0.1-1.0); Monocytes % 8.4 % (1.7-9.3); Neutrophils # 3.1 K/mm3 (1.8-7.8); Neutrophils % 50.1 % (37.0-80.0); Platelet Count 213 K/mm3 (142-424); Red Blood Count 4.25 M/mm3 (4.60-6.20); Red Cell Distribution Width 18.7 % (11.5-17.5); White Blood Count 6.3 K/mm3 (4.8-10.8)
[2020-09-14 10:16] LABS: Chloride 107 mmol/L (98-107); Potassium 3.6 mmoL/L (3.5-5.1); Sodium 139 mmol/L (136-145)
[2020-09-14 10:19] LABS: Alanine Aminotransferase 55 U/L (12-78); Albumin Level 4.4 g/dl (3.5-5.0); Albumin/Globulin Ratio 1.4 (1.1-1.8); Alkaline Phosphatase 87 U/L (38-126); Anion Gap 10.6 mEq/L (5-15); Aspartate Amino Transferase 42 U/L (17-59); Bilirubin,Total 0.3 mg/dl (0.2-1.3); Blood Urea Nitrogen 6 mg/dl (9-20); Calcium 9.4 mg/dl (8.4-10.2); Carbon Dioxide 25 mmol/L (22.0-30.0); Creatinine Clearance Estimated 153 mL/min (50-200); Estimated Glomerular Filt Rate 105 ml/min (>60); GFR (African American) 126 ML/MIN (>60); Globulin 3.1 g/dL (1.3-3.2); Glucose 124 mg/dl (74-100); Total Protein,Serum 7.5 g/dl (6.3-8.2)
== END 2020-09-14 14:32 | disposition home or self-care (01) ==
LOC: INF 09:47
PROVIDERS: Visit Provider Internal Medicine Medical Oncology
DX: Z51.11 Encounter for antineoplastic chemotherapy (principal); C18.9 Malignant neoplasm of colon, unspecified
CPT/HCPCS: 80053; 85025; 96413; 96415; J1642; J7060; J9263; Q0166

== ENCOUNTER 2020-10-05 09:53 | Outpatient (CLI) | payer OTHER, SELFPAY ==
[2020-10-05] VITALS (15 sets, daily range): BP systolic 99–143; BP diastolic 74–93; PULSE 75–83; RESP 18; TEMP 36.6; O2SAT 96; BMI 26.8
[2020-10-05 10:08] LABS: Basophils # 0.1 K/mm3 (0-0.2); Basophils % 0.7 % (0.1-2.0); Eosinophils # 0.2 K/mm3 (0.0-0.4); Eosinophils % 3.6 % (0.1-12.0); Hematocrit 41.1 % (42.0-52.0); Hemoglobin 13.3 g/dL (14.1-18.0); Lymphocytes # 2.4 K/mm3 (0.7-4.5); Lymphocytes % 36.6 % (10-50); Mean Corpuscular HGB Conc 32.5 g/dL (31.8-35.4); Mean Corpuscular Hemoglobin 32.3 pg (27.0-31.2); Mean Corpuscular Volume 99.5 fl (80-94); Mean Platelet Volume 7.5 fl (7.4-10.4); Monocytes # 0.5 K/mm3 (0.1-1.0); Monocytes % 8.3 % (1.7-9.3); Neutrophils # 3.3 K/mm3 (1.8-7.8); Neutrophils % 50.9 % (37.0-80.0); Platelet Count 192 K/mm3 (142-424); Red Blood Count 4.13 M/mm3 (4.60-6.20); Red Cell Distribution Width 18.6 % (11.5-17.5); White Blood Count 6.5 K/mm3 (4.8-10.8)
[2020-10-05 10:11] LABS: Chloride 107 mmol/L (98-107); Potassium 3.7 mmoL/L (3.5-5.1); Sodium 139 mmol/L (136-145)
[2020-10-05 10:14] LABS: Alanine Aminotransferase 37 U/L (12-78); Albumin Level 4.5 g/dl (3.5-5.0); Albumin/Globulin Ratio 1.4 (1.1-1.8); Alkaline Phosphatase 91 U/L (38-126); Anion Gap 9.7 mEq/L (5-15); Aspartate Amino Transferase 39 U/L (17-59); Bilirubin,Total 0.5 mg/dl (0.2-1.3); Blood Urea Nitrogen 7 mg/dl (9-20); Carbon Dioxide 26 mmol/L (22.0-30.0); Creatinine Clearance Estimated 132 mL/min (50-200); Estimated Glomerular Filt Rate 91 ml/min (>60); GFR (African American) 110 ML/MIN (>60); Globulin 3.3 g/dL (1.3-3.2); Total Protein,Serum 7.8 g/dl (6.3-8.2)
[2020-10-05 10:15] LABS: Calcium 9.6 mg/dl (8.4-10.2); Glucose 123 mg/dl (74-100)
== END 2020-10-05 14:55 | disposition home or self-care (01) ==
LOC: INF 09:53
PROVIDERS: Visit Provider Internal Medicine Medical Oncology
DX: Z51.11 Encounter for antineoplastic chemotherapy (principal); C18.9 Malignant neoplasm of colon, unspecified
CPT/HCPCS: 80053; 85025; 96413; 96415; J1642; J7060; J9263; Q0166

== ENCOUNTER 2020-10-27 09:49 | Outpatient (CLI) | payer OTHER, SELFPAY ==
[2020-10-27] VITALS (15 sets, daily range): BP systolic 71–130; BP diastolic 38–73; PULSE 55–83; RESP 18; TEMP 36.3; O2SAT 99; BMI 26.8
[2020-10-27 10:09] LABS: Basophils % 0.8 % (0.1-2.0); Eosinophils # 0.1 K/mm3 (0.0-0.4); Eosinophils % 2.8 % (0.1-12.0); Hematocrit 40.4 % (42.0-52.0); Hemoglobin 12.9 g/dL (14.1-18.0); Lymphocytes # 2.1 K/mm3 (0.7-4.5); Lymphocytes % 41.5 % (10-50); Mean Corpuscular Hemoglobin 34.4 pg (27.0-31.2); Mean Corpuscular Volume 107.3 fl (80-94); Mean Platelet Volume 8.1 fl (7.4-10.4); Monocytes # 0.5 K/mm3 (0.1-1.0); Monocytes % 9.3 % (1.7-9.3); Neutrophils # 2.3 K/mm3 (1.8-7.8); Neutrophils % 45.6 % (37.0-80.0); Platelet Count 166 K/mm3 (142-424); Red Blood Count 3.77 M/mm3 (4.60-6.20); Red Cell Distribution Width 19.3 % (11.5-17.5)
[2020-10-27 10:10] LABS: Chloride 109 mmol/L (98-107); Potassium 3.8 mmoL/L (3.5-5.1); Sodium 139 mmol/L (136-145)
[2020-10-27 10:13] LABS: Alanine Aminotransferase 38 U/L (12-78); Albumin Level 4.3 g/dl (3.5-5.0); Albumin/Globulin Ratio 1.3 (1.1-1.8); Alkaline Phosphatase 83 U/L (38-126); Anion Gap 9.8 mEq/L (5-15); Aspartate Amino Transferase 42 U/L (17-59); Bilirubin,Total 0.5 mg/dl (0.2-1.3); Blood Urea Nitrogen 10 mg/dl (9-20); Calcium 9.2 mg/dl (8.4-10.2); Carbon Dioxide 24 mmol/L (22.0-30.0); Creatinine Clearance Estimated 132 mL/min (50-200); Estimated Glomerular Filt Rate 91 ml/min (>60); GFR (African American) 110 ML/MIN (>60); Globulin 3.2 g/dL (1.3-3.2); Glucose 90 mg/dl (74-100); Total Protein,Serum 7.5 g/dl (6.3-8.2)
== END 2020-10-27 14:55 | disposition home or self-care (01) ==
LOC: INF 09:49
PROVIDERS: Visit Provider Internal Medicine Medical Oncology
DX: Z51.11 Encounter for antineoplastic chemotherapy (principal); C18.9 Malignant neoplasm of colon, unspecified
CPT/HCPCS: 80053; 85025; 96413; 96415; J1642; J7060; J9263

== ENCOUNTER → 2021-05-14 09:51 | Outpatient (CLI) | payer OTHER, SELFPAY | PROVIDERS: Visit Provider Surgery | DX: Z20.822 Contact with and (suspected) exposure to COVID-19 (principal) | CPT/HCPCS: C9803; U0003; U0005 ==

== ENCOUNTER 2021-07-19 08:29 | Outpatient (CLI) | payer OTHER, SELFPAY ==
[2021-07-19] VITALS (10 sets, daily range): BP systolic 122–153; BP diastolic 69–89; PULSE 65–72; RESP 20; TEMP 36.9; O2SAT 95–98; BMI 29.9
[2021-07-19 08:57] LABS: Basophils # 0.1 K/mm3 (0-0.2); Basophils % 0.9 % (0.1-2.0); Eosinophils # 0.2 K/mm3 (0.0-0.4); Eosinophils % 3.1 % (0.1-12.0); Hematocrit 40.1 % (42.0-52.0); Hemoglobin 13.5 g/dL (14.1-18.0); Lymphocytes # 2.1 K/mm3 (0.7-4.5); Lymphocytes % 36.1 % (10-50); Mean Corpuscular HGB Conc 33.7 g/dL (31.8-35.4); Mean Corpuscular Hemoglobin 31.1 pg (27.0-31.2); Mean Corpuscular Volume 92.3 fl (80-94); Mean Platelet Volume 8.7 fl (7.4-10.4); Monocytes # 0.4 K/mm3 (0.1-1.0); Monocytes % 6.4 % (1.7-9.3); Neutrophils # 3.1 K/mm3 (1.8-7.8); Neutrophils % 53.4 % (37.0-80.0); Platelet Count 175 K/mm3 (142-424); Red Blood Count 4.35 M/mm3 (4.60-6.20); Red Cell Distribution Width 13.5 % (11.5-17.5); White Blood Count 5.8 K/mm3 (4.8-10.8)
[2021-07-19 09:02] LABS: Chloride 106 mmol/L (98-107); Sodium 138 mmol/L (136-145)
[2021-07-19 09:03] LABS: Potassium 3.5 mmoL/L (3.5-5.1)
[2021-07-19 09:05] LABS: Alanine Aminotransferase 44 U/L (12-78); Albumin Level 4.2 g/dl (3.5-5.0); Albumin/Globulin Ratio 1.6 (1.1-1.8); Alkaline Phosphatase 82 U/L (38-126); Anion Gap 12.5 mEq/L (5-15); Aspartate Amino Transferase 39 U/L (17-59); Bilirubin,Total 0.4 mg/dl (0.2-1.3); Blood Urea Nitrogen 15 mg/dl (9-20); Carbon Dioxide 23 mmol/L (22.0-30.0); Creatinine Clearance Estimated 131 mL/min (50-200); Estimated Glomerular Filt Rate 80 ml/min (>60); GFR (African American) 97 ML/MIN (>60); Globulin 2.7 g/dL (1.3-3.2); Glucose 119 mg/dl (74-100); Total Protein,Serum 6.9 g/dl (6.3-8.2)
[2021-07-19 09:06] LABS: Calcium 8.8 mg/dl (8.4-10.2)
[2021-07-19 12:00] LABS: Microscopic, Urine URINE MICROSCOPIC (MICROSCOPIC)
[2021-07-19 12:03] LABS: Appearance,Urine CLEAR (Clear); Bilirubin,Urine Negative (Negative); Blood, Urine TRACE-I (Negative); Color,Urine YELLOW (Yellow); Glucose,Urine (UA) Negative (Negative); Ketones,Urine Negative (Negative); Leukocyte Esterase,Urine Negative (Negative); Nitrate,Urine Negative (Negative); Protein,Urine Negative (Negative); Urobilinogen,Urine 0.2 EU/dl (0.2)
[2021-07-19 12:15] LABS: RBC,Urine Occasional #/hpf (0-3); Squamous Epithelial Cell,Urine Occasional #/hpf (0-5)
== END 2021-07-19 14:40 | disposition home or self-care (01) ==
LOC: INF 08:30
PROVIDERS: PCP Family Medicine; Visit Provider Internal Medicine Medical Oncology
DX: Z51.11 Encounter for antineoplastic chemotherapy (principal); C18.9 Malignant neoplasm of colon, unspecified
CPT/HCPCS: 80053; 81001; 85025; 96413; 96415; 96417; J1642; J7060; J9035; J9263; Q0166

== ENCOUNTER 2021-08-09 08:34 | Outpatient (CLI) | payer OTHER, SELFPAY ==
[2021-08-09] VITALS (19 sets, daily range): BP systolic 103–171; BP diastolic 65–109; PULSE 70–110; RESP 16–20; TEMP 35.9; O2SAT 97; BMI 29.9
[2021-08-09 09:10] LABS: Basophils # 0.1 K/mm3 (0-0.2); Basophils % 0.8 % (0.1-2.0); Eosinophils # 0.3 K/mm3 (0.0-0.4); Eosinophils % 3.1 % (0.1-12.0); Hematocrit 40.6 % (42.0-52.0); Hemoglobin 14.5 g/dL (14.1-18.0); Lymphocytes # 2.9 K/mm3 (0.7-4.5); Mean Corpuscular HGB Conc 35.6 g/dL (31.8-35.4); Mean Corpuscular Hemoglobin 32.6 pg (27.0-31.2); Mean Corpuscular Volume 91.5 fl (80-94); Mean Platelet Volume 8.2 fl (7.4-10.4); Monocytes # 0.6 K/mm3 (0.1-1.0); Monocytes % 7.6 % (1.7-9.3); Neutrophils # 4.1 K/mm3 (1.8-7.8); Neutrophils % 51.5 % (37.0-80.0); Platelet Count 203 K/mm3 (142-424); Red Blood Count 4.44 M/mm3 (4.60-6.20); Red Cell Distribution Width 15.9 % (11.5-17.5); White Blood Count 7.9 K/mm3 (4.8-10.8)
[2021-08-09 09:19] LABS: Alanine Aminotransferase 46 U/L (12-78); Albumin Level 4.3 g/dl (3.5-5.0); Albumin/Globulin Ratio 1.3 (1.1-1.8); Alkaline Phosphatase 80 U/L (38-126); Anion Gap 11.4 mEq/L (5-15); Aspartate Amino Transferase 52 U/L (17-59); Bilirubin,Total 0.7 mg/dl (0.2-1.3); Blood Urea Nitrogen 16 mg/dl (9-20); Calcium 9.5 mg/dl (8.4-10.2); Carbon Dioxide 24 mmol/L (22.0-30.0); Chloride 105 mmol/L (98-107); Creatinine Clearance Estimated 131 mL/min (50-200); Estimated Glomerular Filt Rate 80 ml/min (>60); GFR (African American) 97 ML/MIN (>60); Globulin 3.2 g/dL (1.3-3.2); Glucose 98 mg/dl (74-100); Potassium 4.4 mmoL/L (3.5-5.1); Sodium 136 mmol/L (136-145); Total Protein,Serum 7.5 g/dl (6.3-8.2)
[2021-08-09 09:44] LABS: Microscopic, Urine URINE MICROSCOPIC (MICROSCOPIC)
[2021-08-09 09:48] LABS: Appearance,Urine CLEAR (Clear); Bilirubin,Urine Negative (Negative); Blood, Urine 2+ (Negative); Color,Urine YELLOW (Yellow); Glucose,Urine (UA) Negative (Negative); Ketones,Urine Negative (Negative); Leukocyte Esterase,Urine Negative (Negative); Nitrate,Urine Negative (Negative); Protein,Urine Negative (Negative); Specific Gravity, Urine 1.025 (1.005-1.030); Urobilinogen,Urine 0.2 EU/dl (0.2)
[2021-08-09 10:00] LABS: RBC,Urine Occasional #/hpf (0-3)
== END 2021-08-09 15:30 | disposition home or self-care (01) ==
LOC: INF 08:35
PROVIDERS: PCP Family Medicine; Visit Provider Internal Medicine Medical Oncology
DX: Z51.11 Encounter for antineoplastic chemotherapy (principal); C18.9 Malignant neoplasm of colon, unspecified
CPT/HCPCS: 80053; 81001; 85025; 96375; 96413; 96415; 96417; J1642; J2469; J7060; J9035; J9263; Q0166

== ENCOUNTER → 2021-12-11 10:48 | Outpatient (CLI) | payer OTHER, SELFPAY ==
--- NOTE | 2021-12-11 11:01 | XR_ITS ---
FINAL REPORT CLINICAL HISTORY: .BILATERAL HAND PAIN, X 2 WEEKS , NO INJURY FINDINGS: LEFT HAND Three views demonstrate no acute fracture or dislocation. The visualized joint spaces are normally aligned. The soft tissues are unremarkable. IMPRESSION: No acute process. Reviewed, Interpreted and Dictated by Abelino Ceballos MD Transcribed by Jaylyn Gloria Authenticated by Abelino Ceballos MD on 12/11/2021 02:04:25 PM [facility]
--- NOTE | 2021-12-11 11:01 | XR_ITS ---
FINAL REPORT CLINICAL HISTORY: LEFT AND RIGHT HAND PAIN, NO INJURY, PAIN X 2 WEEKS FINDINGS: RIGHT HAND Three views demonstrate no acute fracture or dislocation. There is healed fracture deformity of the 5th metacarpal best seen on the oblique and lateral views. The soft tissues are unremarkable. IMPRESSION: No acute bony abnormality. Reviewed, Interpreted and Dictated by Abelino Ceballos MD Transcribed by Jaylyn Gloria Authenticated by Abelino Ceballos MD on 12/11/2021 02:04:[address] [facility]
[2021-12-11 12:12] LABS: Basophils # 0.1 K/mm3 (0-0.2); Basophils % 1.1 % (0.1-2.0); Eosinophils # 0.1 K/mm3 (0.0-0.4); Eosinophils % 1.7 % (0.1-12.0); Hematocrit 48.4 % (42.0-52.0); Lymphocytes # 2.4 K/mm3 (0.7-4.5); Lymphocytes % 35.1 % (10-50); Mean Corpuscular Hemoglobin 32.5 pg (27.0-31.2); Mean Corpuscular Volume 98.4 fl (80-94); Mean Platelet Volume 8.7 fl (7.4-10.4); Monocytes # 0.5 K/mm3 (0.1-1.0); Neutrophils # 3.7 K/mm3 (1.8-7.8); Platelet Count 171 K/mm3 (142-424); Red Blood Count 4.92 M/mm3 (4.60-6.20); Red Cell Distribution Width 13.5 % (11.5-17.5); White Blood Count 6.7 K/mm3 (4.8-10.8)
[2021-12-11 12:36] LABS: Erythrocyte Sedimentation Rate 12 mm/hr (0-15)
[2021-12-11 17:55] LABS: Uric Acid 5.9 mg/dl (3.5-8.5)
[2021-12-12 08:38] LABS: RA Latex Turbid. 12.5 IU/mL (<14.0)
[2021-12-13 10:14] LABS: Antinuclear Antibodies, IFA Negative (.)
== END ==
PROVIDERS: PCP Nurse Practitioner Family; Visit Provider Nurse Practitioner Family
DX: M79.642 Pain in left hand (principal); M79.671 Pain in right foot
CPT/HCPCS: 36415; 73130; 84550; 85025; 85651; 86038; 86140; 86431

== ENCOUNTER → 2022-02-07 12:48 | Outpatient (CLI) | payer OTHER, SELFPAY | PROVIDERS: PCP Nurse Practitioner Family; Visit Provider Surgery | DX: Z01.818 Encounter for other preprocedural examination (principal); Z20.822 Contact with and (suspected) exposure to COVID-19; C20 Malignant neoplasm of rectum | CPT/HCPCS: C9803; U0003; U0005 ==

== ENCOUNTER 2022-09-23 09:51 | Outpatient (CLI) | payer OTHER, SELFPAY ==
[2022-09-23 09:58] VITALS: BMI 30.7
[2022-09-23 10:18] LABS: Basophils % 0.8 % (0.1-2.0); Eosinophils # 0.1 K/mm3 (0.0-0.4); Eosinophils % 3.2 % (0.1-12.0); Hemoglobin 13.1 g/dL (14.1-18.0); Lymphocytes # 1.2 K/mm3 (0.7-4.5); Lymphocytes % 27.3 % (10-50); Mean Corpuscular HGB Conc 33.6 g/dL (31.8-35.4); Mean Corpuscular Hemoglobin 30.9 pg (27.0-31.2); Mean Corpuscular Volume 91.9 fl (80-94); Mean Platelet Volume 7.9 fl (7.4-10.4); Monocytes # 0.3 K/mm3 (0.1-1.0); Monocytes % 6.2 % (1.7-9.3); Neutrophils # 2.7 K/mm3 (1.8-7.8); Neutrophils % 62.4 % (37.0-80.0); Platelet Count 183 K/mm3 (142-424); Red Blood Count 4.24 M/mm3 (4.60-6.20); Red Cell Distribution Width 14.2 % (11.5-17.5); White Blood Count 4.4 K/mm3 (4.8-10.8)
[2022-09-23 10:22] LABS: Chloride 106 mmol/L (98-107); Potassium 3.5 mmoL/L (3.5-5.1); Sodium 140 mmol/L (136-145)
[2022-09-23 10:24] LABS: Blood Urea Nitrogen 11 mg/dl (9-20); Creatinine Clearance Estimated 133 mL/min (50-200); Estimated Glomerular Filt Rate 80 ml/min (>60); GFR (African American) 97 ML/MIN (>60)
[2022-09-23 10:25] LABS: Alanine Aminotransferase 54 U/L (12-78); Albumin Level 4.3 g/dl (3.5-5.0); Albumin/Globulin Ratio 1.4 (1.1-1.8); Alkaline Phosphatase 83 U/L (38-126); Anion Gap 14.5 mEq/L (5-15); Aspartate Amino Transferase 44 U/L (17-59); Bilirubin,Total 0.7 mg/dl (0.2-1.3); Calcium 8.8 mg/dl (8.4-10.2); Carbon Dioxide 23 mmol/L (22.0-30.0); Glucose 156 mg/dl (74-100); Magnesium 1.8 mg/dl (1.6-2.3); Total Protein,Serum 7.3 g/dl (6.3-8.2)
[2022-09-23 10:39] VITALS: BP 129/71; PULSE 82; RESP 18; TEMP 36.5; O2SAT 98
[2022-09-23 11:12] VITALS: BP 122/73; PULSE 78; RESP 18; O2SAT 98
[2022-09-23 11:42] VITALS: BP 126/75; PULSE 65; RESP 18; O2SAT 98
[2022-09-23 12:12] VITALS: BP 123/76; PULSE 69; RESP 18; O2SAT 97
[2022-09-23 12:42] VITALS: BP 127/70; PULSE 72; RESP 18; O2SAT 98
[2022-09-23 13:10] VITALS: BP 122/75; PULSE 66; RESP 18; O2SAT 98
== END 2022-09-23 13:15 | disposition home or self-care (01) ==
LOC: INF 09:52
PROVIDERS: PCP Nurse Practitioner Family; Visit Provider Internal Medicine Medical Oncology
DX: Z51.11 Encounter for antineoplastic chemotherapy (principal); C18.9 Malignant neoplasm of colon, unspecified
CPT/HCPCS: 80053; 83735; 85025; 96413; 96415; J1642; J2469; J9206; Q0166

== ENCOUNTER 2022-10-10 09:41 | Outpatient (CLI) | payer MEDICARE, OTHER, SELFPAY ==
[2022-10-10 09:45] VITALS: BMI 30.7
[2022-10-10 10:40] LABS: Alanine Aminotransferase 58 U/L (12-78); Albumin Level 4.2 g/dl (3.5-5.0); Albumin/Globulin Ratio 1.4 (1.1-1.8); Alkaline Phosphatase 88 U/L (38-126); Anion Gap 12.7 mEq/L (5-15); Aspartate Amino Transferase 44 U/L (17-59); Bilirubin,Total 0.3 mg/dl (0.2-1.3); Blood Urea Nitrogen 9 mg/dl (9-20); Calcium 8.8 mg/dl (8.4-10.2); Carbon Dioxide 22 mmol/L (22.0-30.0); Chloride 109 mmol/L (98-107); Creatinine Clearance Estimated 148 mL/min (50-200); Estimated Glomerular Filt Rate 90 ml/min (>60); GFR (African American) 109 ML/MIN (>60); Globulin 3.1 g/dL (1.3-3.2); Glucose 99 mg/dl (74-100); Potassium 3.7 mmoL/L (3.5-5.1); Sodium 140 mmol/L (136-145); Total Protein,Serum 7.3 g/dl (6.3-8.2)
[2022-10-10 10:41] LABS: Basophils % 0.6 % (0.1-2.0); Eosinophils # 0.4 K/mm3 (0.0-0.4); Eosinophils % 7.6 % (0.1-12.0); Hematocrit 39.2 % (42.0-52.0); Hemoglobin 13.1 g/dL (14.1-18.0); Lymphocytes # 1.3 K/mm3 (0.7-4.5); Mean Corpuscular HGB Conc 33.5 g/dL (31.8-35.4); Mean Corpuscular Hemoglobin 31.6 pg (27.0-31.2); Mean Corpuscular Volume 94.3 fl (80-94); Mean Platelet Volume 7.9 fl (7.4-10.4); Monocytes # 0.3 K/mm3 (0.1-1.0); Monocytes % 6.5 % (1.7-9.3); Neutrophils # 2.7 K/mm3 (1.8-7.8); Neutrophils % 58.2 % (37.0-80.0); Platelet Count 198 K/mm3 (142-424); Red Blood Count 4.16 M/mm3 (4.60-6.20); Red Cell Distribution Width 15.5 % (11.5-17.5); White Blood Count 4.6 K/mm3 (4.8-10.8)
== END 2022-10-10 11:07 | disposition home or self-care (01) ==
LOC: INF 09:41
PROVIDERS: PCP Nurse Practitioner Family; Visit Provider Internal Medicine Medical Oncology
DX: Z45.2 Encounter for adjustment and management of vascular access device (principal); C18.9 Malignant neoplasm of colon, unspecified
CPT/HCPCS: 36415; 80053; 83735; 85025; 96523; J1642

== ENCOUNTER 2022-10-17 09:20 | Outpatient (CLI) | payer OTHER, SELFPAY ==
[2022-10-17] VITALS (7 sets, daily range): BP systolic 125–158; BP diastolic 73–86; PULSE 68–77; RESP 16–18; TEMP 36.4; O2SAT 97; BMI 30.1
[2022-10-17 09:39] LABS: Basophils % 0.7 % (0.1-2.0); Eosinophils # 0.3 K/mm3 (0.0-0.4); Eosinophils % 5.1 % (0.1-12.0); Hematocrit 38.6 % (42.0-52.0); Hemoglobin 13.3 g/dL (14.1-18.0); Lymphocytes # 1.6 K/mm3 (0.7-4.5); Lymphocytes % 25.6 % (10-50); Mean Corpuscular HGB Conc 34.4 g/dL (31.8-35.4); Mean Corpuscular Hemoglobin 32.1 pg (27.0-31.2); Mean Corpuscular Volume 93.3 fl (80-94); Mean Platelet Volume 7.9 fl (7.4-10.4); Monocytes # 0.5 K/mm3 (0.1-1.0); Neutrophils # 3.7 K/mm3 (1.8-7.8); Neutrophils % 60.6 % (37.0-80.0); Platelet Count 194 K/mm3 (142-424); Red Blood Count 4.13 M/mm3 (4.60-6.20); Red Cell Distribution Width 15.7 % (11.5-17.5); White Blood Count 6.1 K/mm3 (4.8-10.8)
[2022-10-17 09:45] LABS: Chloride 108 mmol/L (98-107); Sodium 138 mmol/L (136-145)
[2022-10-17 09:46] LABS: Potassium 3.5 mmoL/L (3.5-5.1)
[2022-10-17 09:48] LABS: Alanine Aminotransferase 39 U/L (12-78); Albumin Level 3.9 g/dl (3.5-5.0); Albumin/Globulin Ratio 1.2 (1.1-1.8); Alkaline Phosphatase 111 U/L (38-126); Anion Gap 9.5 mEq/L (5-15); Aspartate Amino Transferase 37 U/L (17-59); Bilirubin,Total 0.4 mg/dl (0.2-1.3); Blood Urea Nitrogen 12 mg/dl (9-20); Carbon Dioxide 24 mmol/L (22.0-30.0); Creatinine Clearance Estimated 130 mL/min (50-200); Estimated Glomerular Filt Rate 80 ml/min (>60); GFR (African American) 97 ML/MIN (>60); Globulin 3.2 g/dL (1.3-3.2); Total Protein,Serum 7.1 g/dl (6.3-8.2)
[2022-10-17 09:49] LABS: Calcium 8.2 mg/dl (8.4-10.2); Glucose 115 mg/dl (74-100)
[2022-10-17 10:10] LABS: Magnesium 2.1 mg/dl (1.6-2.3)
== END 2022-10-17 12:30 | disposition home or self-care (01) ==
LOC: INF 09:20
PROVIDERS: PCP Nurse Practitioner Family; Visit Provider Internal Medicine Medical Oncology
DX: Z51.11 Encounter for antineoplastic chemotherapy (principal); C18.9 Malignant neoplasm of colon, unspecified
CPT/HCPCS: 80053; 83735; 85025; 96413; 96415; J1642; J2469; J9206; Q0166

== ENCOUNTER 2022-11-07 08:59 | Outpatient (CLI) | payer MEDICARE, OTHER, SELFPAY ==
[2022-11-07 09:02] VITALS: BMI 30.2
[2022-11-07 09:24] LABS: Basophils # 0.1 K/mm3 (0-0.2); Basophils % 0.7 % (0.1-2.0); Eosinophils # 0.3 K/mm3 (0.0-0.4); Hematocrit 39.9 % (42.0-52.0); Hemoglobin 13.3 g/dL (14.1-18.0); Lymphocytes # 1.5 K/mm3 (0.7-4.5); Lymphocytes % 21.6 % (10-50); Mean Corpuscular HGB Conc 33.3 g/dL (31.8-35.4); Mean Corpuscular Hemoglobin 31.7 pg (27.0-31.2); Mean Corpuscular Volume 95.2 fl (80-94); Monocytes # 0.6 K/mm3 (0.1-1.0); Monocytes % 8.6 % (1.7-9.3); Neutrophils # 4.5 K/mm3 (1.8-7.8); Neutrophils % 65.1 % (37.0-80.0); Platelet Count 227 K/mm3 (142-424); Red Blood Count 4.19 M/mm3 (4.60-6.20); Red Cell Distribution Width 15.2 % (11.5-17.5); White Blood Count 6.9 K/mm3 (4.8-10.8)
[2022-11-07 09:33] LABS: Alanine Aminotransferase 46 U/L (12-78); Albumin Level 4.4 g/dl (3.5-5.0); Albumin/Globulin Ratio 1.6 (1.1-1.8); Alkaline Phosphatase 92 U/L (38-126); Anion Gap 9.8 mEq/L (5-15); Aspartate Amino Transferase 35 U/L (17-59); Bilirubin,Total 0.5 mg/dl (0.2-1.3); Blood Urea Nitrogen 13 mg/dl (9-20); Calcium 8.7 mg/dl (8.4-10.2); Carbon Dioxide 25 mmol/L (22.0-30.0); Chloride 106 mmol/L (98-107); Creatinine Clearance Estimated 145 mL/min (50-200); Estimated Glomerular Filt Rate 90 ml/min (>60); GFR (African American) 109 ML/MIN (>60); Globulin 2.8 g/dL (1.3-3.2); Glucose 90 mg/dl (74-100); Potassium 3.8 mmoL/L (3.5-5.1); Sodium 137 mmol/L (136-145); Total Protein,Serum 7.2 g/dl (6.3-8.2)
[2022-11-07 10:34] LABS: Magnesium 2.1 mg/dl (1.6-2.3)
[2022-11-07 10:40] VITALS: BP 139/70; PULSE 71; RESP 18; TEMP 36.7; O2SAT 98
[2022-11-07 11:00] VITALS: BP 124/68; PULSE 65; RESP 18
[2022-11-07 11:20] VITALS: BP 126/73; PULSE 65; RESP 18
[2022-11-07 12:00] VITALS: BP 133/69; PULSE 63; RESP 18
[2022-11-07 12:20] VITALS: BP 142/75; PULSE 71; RESP 18
== END 2022-11-07 12:20 | disposition home or self-care (01) ==
LOC: INF 09:00
PROVIDERS: PCP Nurse Practitioner Family; Visit Provider Internal Medicine Medical Oncology
DX: Z51.11 Encounter for antineoplastic chemotherapy (principal); C18.9 Malignant neoplasm of colon, unspecified
CPT/HCPCS: 80053; 83735; 85025; 96413; 96415; J1642; J2469; J9206; Q0166

== ENCOUNTER 2022-12-02 09:41 | Outpatient (CLI) | payer MEDICARE, OTHER, SELFPAY ==
[2022-12-02 09:46] VITALS: BMI 30.4
[2022-12-02 10:09] LABS: Basophils % 0.7 % (0.1-2.0); Eosinophils # 0.3 K/mm3 (0.0-0.4); Eosinophils % 6.1 % (0.1-12.0); Hematocrit 41.3 % (42.0-52.0); Hemoglobin 13.1 g/dL (14.1-18.0); Lymphocytes # 1.3 K/mm3 (0.7-4.5); Lymphocytes % 25.1 % (10-50); Mean Corpuscular HGB Conc 31.6 g/dL (31.8-35.4); Mean Corpuscular Hemoglobin 30.9 pg (27.0-31.2); Mean Corpuscular Volume 97.6 fl (80-94); Mean Platelet Volume 7.6 fl (7.4-10.4); Monocytes # 0.4 K/mm3 (0.1-1.0); Monocytes % 7.3 % (1.7-9.3); Neutrophils # 3.1 K/mm3 (1.8-7.8); Neutrophils % 60.7 % (37.0-80.0); Platelet Count 235 K/mm3 (142-424); Red Blood Count 4.23 M/mm3 (4.60-6.20); Red Cell Distribution Width 15.1 % (11.5-17.5); White Blood Count 5.1 K/mm3 (4.8-10.8)
[2022-12-02 10:18] LABS: Alanine Aminotransferase 52 U/L (12-78); Albumin Level 4.1 g/dl (3.5-5.0); Albumin/Globulin Ratio 1.4 (1.1-1.8); Alkaline Phosphatase 77 U/L (38-126); Anion Gap 10.7 mEq/L (5-15); Aspartate Amino Transferase 43 U/L (17-59); Bilirubin,Total 0.5 mg/dl (0.2-1.3); Blood Urea Nitrogen 10 mg/dl (9-20); Calcium 8.6 mg/dl (8.4-10.2); Carbon Dioxide 25 mmol/L (22.0-30.0); Chloride 105 mmol/L (98-107); Creatinine Clearance Estimated 146 mL/min (50-200); Estimated Glomerular Filt Rate 90 ml/min (>60); GFR (African American) 109 ML/MIN (>60); Globulin 2.9 g/dL (1.3-3.2); Glucose 114 mg/dl (74-100); Magnesium 2.1 mg/dl (1.6-2.3); Potassium 3.7 mmoL/L (3.5-5.1); Sodium 137 mmol/L (136-145)
[2022-12-02 10:43] VITALS: BP 115/63; PULSE 73; RESP 18; TEMP 36.8; O2SAT 97
[2022-12-02 11:23] VITALS: BP 123/69; PULSE 75; RESP 18; O2SAT 97
[2022-12-02 11:53] VITALS: BP 136/54; PULSE 78; RESP 18; O2SAT 99
[2022-12-02 12:23] VITALS: BP 128/61; PULSE 76; RESP 18; O2SAT 98
[2022-12-02 13:05] VITALS: BP 127/63; PULSE 73; RESP 18; O2SAT 98
== END 2022-12-02 13:05 | disposition home or self-care (01) ==
LOC: INF 09:42
PROVIDERS: PCP Nurse Practitioner Family; Visit Provider Internal Medicine Medical Oncology
DX: Z51.11 Encounter for antineoplastic chemotherapy (principal); Z45.2 Encounter for adjustment and management of vascular access device; C18.9 Malignant neoplasm of colon, unspecified
CPT/HCPCS: 80053; 83735; 85025; 96413; 96415; J1642; J2469; J9206; Q0166

== ENCOUNTER → 2023-02-14 10:10 | Outpatient (CLI) | payer MEDICARE, OTHER, SELFPAY ==
[2023-02-14 10:50] LABS: Hematocrit 43.2 % (42.0-52.0); Mean Corpuscular HGB Conc 32.3 g/dL (31.8-35.4); Mean Corpuscular Hemoglobin 30.1 pg (27.0-31.2); Mean Corpuscular Volume 93.2 fl (80-94); Platelet Count 179 K/mm3 (142-424); Red Blood Count 4.64 M/mm3 (4.60-6.20); Red Cell Distribution Width 13.9 % (11.5-17.5); White Blood Count 5.9 K/mm3 (4.8-10.8)
[2023-02-14 11:39] LABS: Alanine Aminotransferase 50 U/L (12-78); Albumin Level 4.6 g/dl (3.5-5.0); Albumin/Globulin Ratio 1.7 (1.1-1.8); Alkaline Phosphatase 92 U/L (38-126); Anion Gap 16.7 mEq/L (5-15); Aspartate Amino Transferase 48 U/L (17-59); Bilirubin,Total 0.5 mg/dl (0.2-1.3); Blood Urea Nitrogen 12 mg/dl (9-20); Calcium 9.4 mg/dl (8.4-10.2); Carbon Dioxide 23 mmol/L (22.0-30.0); Chloride 105 mmol/L (98-107); Estimated Glomerular Filt Rate 90 ml/min (>60); GFR (African American) 109 ML/MIN (>60); Globulin 2.7 g/dL (1.3-3.2); Glucose 109 mg/dl (74-100); Potassium 3.7 mmoL/L (3.5-5.1); Sodium 141 mmol/L (136-145); Total Protein,Serum 7.3 g/dl (6.3-8.2)
[2023-02-15 12:10] LABS: CEA 2.1 ng/mL (0.0-4.7)
== END ==
LOC: LAB 10:13
PROVIDERS: PCP Nurse Practitioner Family; Visit Provider Urology
DX: C20 Malignant neoplasm of rectum (principal); N39.0 Urinary tract infection, site not specified
CPT/HCPCS: 36415; 80053; 82378; 85014; 85018; 85048; 85049; 87086

== ENCOUNTER 2023-04-11 10:29 | Outpatient (CLI) | payer MEDICARE, OTHER, SELFPAY ==
[2023-04-11 10:35] VITALS: BMI 30.5
[2023-04-11 10:58] LABS: Basophils % 0.6 % (0.1-2.0); Eosinophils # 0.2 K/mm3 (0.0-0.4); Hematocrit 41.6 % (42.0-52.0); Hemoglobin 13.6 g/dL (14.1-18.0); Lymphocytes # 1.8 K/mm3 (0.7-4.5); Lymphocytes % 34.5 % (10-50); Mean Corpuscular HGB Conc 32.7 g/dL (31.8-35.4); Mean Corpuscular Hemoglobin 29.2 pg (27.0-31.2); Mean Corpuscular Volume 89.5 fl (80-94); Monocytes # 0.5 K/mm3 (0.1-1.0); Monocytes % 10.4 % (1.7-9.3); Neutrophils # 2.6 K/mm3 (1.8-7.8); Neutrophils % 51.4 % (37.0-80.0); Platelet Count 167 K/mm3 (142-424); Red Blood Count 4.65 M/mm3 (4.60-6.20); White Blood Count 5.1 K/mm3 (4.8-10.8)
[2023-04-11 11:02] LABS: Chloride 108 mmol/L (98-107); Potassium 3.9 mmoL/L (3.5-5.1); Sodium 140 mmol/L (136-145)
[2023-04-11 11:04] LABS: Blood Urea Nitrogen 13 mg/dl (9-20)
[2023-04-11 11:05] LABS: Alanine Aminotransferase 44 U/L (12-78); Albumin Level 4.1 g/dl (3.5-5.0); Albumin/Globulin Ratio 1.3 (1.1-1.8); Alkaline Phosphatase 106 U/L (38-126); Anion Gap 12.9 mEq/L (5-15); Aspartate Amino Transferase 44 U/L (17-59); Bilirubin,Total 0.5 mg/dl (0.2-1.3); Calcium 9.5 mg/dl (8.4-10.2); Carbon Dioxide 23 mmol/L (22.0-30.0); Creatinine Clearance Estimated 120 mL/min (50-200); Estimated Glomerular Filt Rate 72 ml/min (>60); GFR (African American) 87 ML/MIN (>60); Globulin 3.2 g/dL (1.3-3.2); Glucose 93 mg/dl (74-100); Total Protein,Serum 7.3 g/dl (6.3-8.2)
[2023-04-12 10:52] LABS: CEA 3.9 ng/mL (0.0-4.7)
== END 2023-04-11 10:48 | disposition home or self-care (01) ==
LOC: INF 10:31
PROVIDERS: PCP Nurse Practitioner Family; Visit Provider Internal Medicine Medical Oncology
DX: C18.9 Malignant neoplasm of colon, unspecified (principal); Z45.2 Encounter for adjustment and management of vascular access device
CPT/HCPCS: 36591; 80053; 82378; 85025; J1642

== ENCOUNTER → 2023-04-14 11:29 | Outpatient (CLI) | payer MEDICARE, OTHER, SELFPAY ==
--- NOTE | 2023-04-14 12:03 | CT_ITS ---
FINAL REPORT TECHNIQUE: Pre and postcontrast axial imaging of the chest was obtained. Reformatted images were also obtained and reviewed. This study was performed with techniques to keep radiation doses as low as reasonably achievable (ALARA). Individualized dose reduction techniques using automated exposure control or adjustment of mA and/or kV according to the patient's size were employed. CLINICAL HISTORY: COLON CANCER FINDINGS: There is a right subclavian chest port in place. Multiple bilateral noncalcified pulmonary nodules are seen with the largest in the right lung seen in the right upper lobe measuring 9 mm. Largest in the left lung, in the left upper lobe measures 7 mm. Findings are most consistent with pulmonary metastasis. There are areas of scarring or atelectasis bilaterally. There is no pleural or pericardial effusion. There is no pneumothorax. Heart is normal in size. IMPRESSION: Bilateral pulmonary nodules measuring up to 9 mm consistent with pulmonary metastasis. Reviewed, Interpreted and Dictated by Santos Faulkner III, MD Transcribed by Jenise Gaston Authenticated and [facility]
--- NOTE | 2023-04-14 12:04 | CT_ITS ---
FINAL REPORT TECHNIQUE: Axial CT images of the abdomen and pelvis were obtained before and after the administration of IV contrast. Oral contrast was administered.This study was performed with techniques to keep radiation doses as low as reasonably achievable (ALARA). Individualized dose reduction techniques using automated exposure control or adjustment of mA and/or kV according to the patient''s size were employed. CLINICAL HISTORY: COLON CANCER COMPARISON: 03/30/2020 FINDINGS: Abdomen: There is postoperative change in the left liver dome. The prior mass seen on the CT of 2019 in the left hepatic lobe is no longer present consistent with interval surgical resection. There is a new mass in the inferior right hepatic lobe measuring 3.4 x 2.2 cm in size, which may be partially calcified at its center, worrisome for metastatic disease in this patient with known colon carcinoma. There is an 8 mm low-attenuation focus in the liver dome not seen on the prior CT, nonspecific, small metastasis not excluded. The patient is post cholecystectomy and there is no evidence of biliary ductal dilatation. . The spleen is unremarkable. No adrenal masses present. The pancreas has an unremarkable appearance. There is moderate left hydronephrosis with hydroureter. There are multiple mildly enlarged retroperitoneal nodes. There are para-aortic nodes at the L4 level, measuring 14 millimeters in diameter, was 10 mm. There are several other enlarged para-aortic nodes now more prominent than noted on the prior CT. There are multiple abdominal wall hernias anteriorly, new, containing fat and nonobstructed small bowel loops. The aorta is normal in caliber. Pelvis: The appendix is not well visualized. There is interval postoperative change in the rectosigmoid colon. There is a left sided 9 mm focus of density in the left common iliac sam chain, and the dilated left ureter extends to this point. This may be a soft tissue mass or treated adenopathy. The urinary bladder is unremarkable. No inflammatory process is seen. There is no evidence of bowel obstruction. IMPRESSION: There is a new mass in the inferior right lobe of the liver measuring 3.4 x 2.2 cm in size, which may be partially calcified at its center, worrisome for a metastasis. There is another 8 mm low-attenuation focus in the liver dome that was not present on the prior CT, and a small mass or metastasis cannot be excluded as well. Moderate left hydronephrosis and hydroureter extending to the L4 level, where there is a 9 mm retroperitoneal density, that may represent treated adenopathy or other soft tissue mass. The ureter extends to this point, and is normal in size distal to this mass or node. There are also multiple para-aortic nodes at the L4 level, which have enlarged somewhat since the prior CT. Multiple abdominal wall hernias anteriorly, new, containing fat and nonobstructed small bowel loops. Reviewed, Interpreted and Dictated by Santos Faulkner III, MD Transcribed by Pamela Ruby Authenticated and [facility]
== END ==
PROVIDERS: PCP Nurse Practitioner Family; Visit Provider Internal Medicine Medical Oncology
DX: C18.9 Malignant neoplasm of colon, unspecified (principal)
CPT/HCPCS: 71270; 74178; J1642; Q9967

== ENCOUNTER 2023-05-01 14:08 | Emergency (ER) | payer MEDICARE, OTHER, SELFPAY ==
--- NOTE | 2023-05-01 | CA_ITS ---
APPROVED REPORT EXAM: Limited 2D Echocardiogram Shower Screen Installer: Lilly Amos, RCS, RVS Ht: 6 ft 0 in Wt: 225lbs BSA: 2.24 BP: 156/87 mmHg Indications: STEMI , chemo therapy for metastaic colon,lung & liver Cancer, HTN M-Mode Dimensions RVDd 2.02 cm (0.9-2.6) LVDd 4.62 cm (3.5-5.7) LVDs 2.95 cm (3.5-5.7) IVSd 0.87 cm (0.6-1.1) PWd 1.27 cm (0.6-1.1) EF (Teich) 65.80% FS 36.10% EDV (Teich) 98.30 mL ESV (Teich) 33.60 mL Other Information Study Quality: Technically Difficult Conclusion This is a limited study to evaluate for LVEF and wall motion abnormalities in the setting of recent STEMI. This is a technically difficult study due to poor accoustic windows. The LV appears normal in size and function. There is no evidence of regional wall motion abnormalities. LVEF is 60%. The RV free wall is not well visualized. No evidence of pericardial effusion in the available images. Electronically signed by : Elina Warren, 05/21/2023 14:29:35
[2023-05-01 14:09] VITALS: BMI 32.3
--- NOTE | 2023-05-01 14:09 | PC.NURSE ---
Pt brought to ER room 3 from Infusion by MD Miranda and other staff after a possible anaphylaxis reaction to a new chemo drug. Pt arrived cool to touch, diaphoretic, lethargic and resistive to care but able to answer questions appropriately. Pt was given 50mg of Benadryl and 20mg of Pepcid in infusion, as well as 0.4mg of IM epi. 1410- in ED- FS of 133. 92% on 15LPM blowby O2 d/t pt not keeping non-rebreather on. 1412- EKG obtained and reviewed by MD Adiel who requested it be sent to MD Michael 1414- Michael consulted and requested pt be straight to carpenter/labor 1418- Levo gtt started 141- Pt transported to carpenter/labor via stretcher with zoll pads and monitor in place by Rey Pederson K.Eubanks, K.Hill, and RT as well as MD Miranda and MD Michael.
--- NOTE | 2023-05-01 14:14 | ECG_ITS ---
APPROVED REPORT Exam: Resting ECG HR:63 bpm ECG Measurements Heart Rate 63 AXES NH 163 P 67 QRSd 97 QRS 85 QT 322 T -14 QTc 328 Conclusion SINUS RHYTHM RIGHT ATRIAL ENLARGEMENT [0.3mV P-WAVE] POSSIBLE LEFT ATRIAL ENLARGEMENT [-0.1mV P-WAVE IN V1/V2] ST ELEVATION, CONSIDER INFERIOR INJURY [MARKED ST ELEVATION W/O NORMALLY INFLECTED T-WAVE IN II/aVF] ACUTE DC UNCONFIRMED REPORT Electronically signed by : Marcello Cheema MD 05/01/2023 18:30:27
[2023-05-01 14:19] LABS: POC Glucose,Bedside 133 (70-110)
[2023-05-01 14:20] VITALS: BP 106/89; PULSE 133; RESP 20; TEMP 36.9; O2SAT 92
--- NOTE | 2023-05-01 14:20 | IR_ITS ---
APPROVED REPORT Patient Location: Emergent Celebrity Manager: TAYA Arenas RT (R) PROCEDURES Left heart catheterization Left ventriculogram Selective coronary angiogram Drug-eluting stent deployment to the ostial proximal mid right coronary artery in a contiguous manner Drug-eluting stent deployment to the posterior descending artery Right femoral vein central access Endotracheal intubation INDICATION Acute inferolateral right ventricular ST elevation myocardial infarction, Cardiogenic shock, Second and third-degree AV block Informed consent was obtained prior to the procedure. Estimated Blood Loss: 10 mls isovue 370 TECHNIQUE 1% lidocaine used anesthetize right groin the right femoral vein was accessed via the Salinger technique and a 6 Danish sheath was placed in the right femoral vein. 1% lidocaine was then used to anesthetize the left groin and the left femoral artery was accessed via the Salinger technique and a 6 Danish sheath was placed in the left femoral artery. Therapeutic heparin was administered giving a therapeutic ACT. A JR4 guide catheter was placed in the right coronary artery and angiography was performed. A Choice PT extra-support wire was placed distally and a 3 mm x 27 mm balloon was inflated several times up and down the right coronary artery. This restored MILTON-3 flow. The emergency room physician then proceeded with endotracheal intubation. The ET tube was verified with fluoroscopic guidance as well as and CO2 monitoring. At this point a 4 mm x 38 mm Louis frontier stent was deployed at 20 donis in the mid to distal right coronary artery. An additional 3.5 x 38 mm Louis frontier stent was placed distal to this extending into the posterior descending artery and deployed at 14 donis. The balloon was brought back and deployed at 20 donis to help mesh the stents. An additional 4 mm x 30 mm Muir frontier stent was placed in the ostial proximal segment which overlapped the first stent which was deployed. MILTON I flow was present at the beginning of the procedure with MILTON-3 flow at the end of the procedure. Intracoronary Integrilin was administered as well as a continuous IV drip. Patient received intra venous epinephrine as well as atropine due to second and third-degree AV block. Left heart catheterization as well as LV gram was performed. A 6 Danish JL 4 guide catheter was placed in the left main artery where a severe stenosis was identified in the circumflex artery accompanied by MILTON II flow distal to the stenosis. A Choice PT extra-support wire was placed distally and just prior to stenting repeat angiography demonstrated the vessel was actually not stenosed but rather spastic. The wire was pulled back and no other manipulation was performed in the circumflex artery. At this point it was believed patient was bleeding. Because the right femoral artery was extensively calcified catheter was placed into the right external iliac artery and antegrade angiography demonstrated extravasation at the femoral artery indicating an active bleed. At this point manual pressure was given while IV fluids were continued. FemoStop was then placed with hemostasis being achieved and immediate islam of blood pressure and excellent hemodynamics. Patient maintained sinus rhythm with one-to-one conduction and resolution of ST segments. He was then switched over to a ventilator. Multiple blood gases were monitored and acid-base therapy administered periodically. At the end of the procedure the patient was transferred to the postop holding area intubated hemodynamically stable with a FemoStop in place and the left femoral sheath sewn into place. ANGIOGRAPHIC RESULTS The left main artery Normal The left anterior descending artery Has mild 10% proximal stenos
--- NOTE | 2023-05-01 14:30 | PC.NURSE ---
Pt transported straight to label paster per [facility] at [address] Accompanied by LYNNE Rosa,RT and myself, as well as .
--- NOTE | 2023-05-01 15:04 | HMH.EDGENADL ---
Discharge Plan Disposition Patient Disposition: Admitted Referrals Follow up/Referrals: Provider,Referral, [Primary Care Provider] - See instructions Clinical Impressions Clinical Impression: Acute inferior myocardial infarction, Chemotherapy adverse reaction Discharge ED Provider: Behzad Jean General Adult HPI General Chief complaint: Allergic Reaction Stated complaint: Allergic reation to chemo Time Seen by Provider: 05/01/23 14:08 History of Present Illness HPI narrative: Patient is a 47-year-old male with past medical history of colon cancer status postresection who was alerted as a rapid response in the setting of recent chemotherapy initiation. No other history is able to be obtained at this time given patient's status. Related Data Allergies Allergy/AdvReac Type Severity Reaction Status Date / Time cetuximab [From Erbitux] Allergy Severe Anaphylaxis Verified 05/01/23 14:53 [facility] Disclaimer: The information contained in this section may have been updated after the patient was seen, as this information can be updated by other users. Medical History Colon cancer Surgical History Hx of myringotomy Hx of tonsillectomy Family History Other No significant family history Social History Smoking Status: Current every day smoker tobacco type: smokeless tobacco alcohol intake: former substance use type: denies use current occupational status: disabled Travel in the last 8 weeks: None household members: spouse housing: house current occupation: pain line current occupational exposures/hazards: No caffeine: Yes ROS Obtained: Yes unobtainable due to mental status Physical Exam General General appearance: in no apparent distress, lethargic and other (Diaphoretic) Respiratory Respiratory exam: Present respiratory distress; Absent normal lung sounds bilaterally (Coarse breath sounds bilaterally) Cardiovascular Cardiovascular exam: Present tachycardia Neurological Exam Neurological exam: Present other (GCS 6) Medical Decision Making William Inquiry Pt receiving controlled substance: No Lab Data Lab Results 05/01/23 14:12: POC Glucose 133 H Orders (Tests/Meds): ORDERS Category Date Time Status POC Glucose,Bedside Routine Lab 05/01/23 14:12 Completed Medical Decision Narrative: In summary patient is a 47-year-old male with limited past medical history who was alerted as a rapid response in the setting of colorectal cancer with new chemotherapy initiation. Upon my arrival to infusion clinic patient is diaphoretic, tachycardic, coarse breath sounds bilaterally, encephalopathic. Pulse ox intermittently unreliable however he was hypoxic in the high 70s and low 80s. Patient was immediately placed on nonrebreather. 0.4 mg of intramuscular epinephrine was injected in the right thigh given concern for possible anaphylaxis without skin findings. Patient was immediately wheeled down to the emergency room into a critical room. Patient had some improvement of encephalopathy, persistent hypoxia in the 80s despite nonrebreather. EKG was obtained showing right-sided NJ with reciprocal changes in the septal leads. Patient's heart rate and blood pressure were downtrending and unacceptable, patient was therefore placed on Levophed through his PICC line. The case was immediately discussed with cardiology who recommended immediate Cutting Table Operator transfer. I personally walked patient to the Cutting Table Operator with respiratory and pharmacy. Cardiac management proceeded with Dr. Rodriguez. Given that patient was hypotensive he was intermittently bagged to saturations in the 80s until cath was complete given that it was felt if patient was paralyzed it would be deleterious to hi
[2023-05-01 15:46] LABS: ABG Base Excess -25.8 mmol/L (-2.4-2.3); ABG Oxygen Saturation 100 % (90-100); ABG PCO2 35.9 mmhg (35.0-45.0); ABG PO2 542.2 mmhg (80-100); ABG TCO2 8.1 mmhg (23-27); Oxygen 100% %
[2023-05-01 15:47] LABS: ABG PH 6.91 mmol/L (7.35-7.45); Source ART LINE
[2023-05-01 15:48] LABS: ABG Base Excess -20.6 mmol/L (-2.4-2.3); ABG HCO3 10.6 mmhg (22.0-26.0); ABG Oxygen Saturation 99 % (90-100); ABG PCO2 43.7 mmhg (35.0-45.0); ABG PO2 485.4 mmhg (80-100); Oxygen 100% %; Source ART LINE
--- NOTE | 2023-05-01 15:48 | EXP.HP ---
[facility] Disclaimer: The information contained in this section may have been updated after the patient was seen, as this information can be updated by other users. Medical History Colon cancer Surgical History Hx of myringotomy Hx of tonsillectomy Family History Other No significant family history Social History Smoking Status: Current every day smoker tobacco type: smokeless tobacco alcohol intake: former substance use type: denies use current occupational status: disabled Travel in the last 8 weeks: None household members: spouse housing: house current occupation: pain line current occupational exposures/hazards: No caffeine: Yes Meds Home Medications and Allergies New Prescriptions to Start Prescriptions: Allergies Allergy/AdvReac Type Severity Reaction Status Date / Time cetuximab [From Erbitux] Allergy Severe Anaphylaxis Verified 05/01/23 14:53 Exam Data for Last 24 hours Vital signs and Labs for Last 24 Hours: Laboratory Results - last 24 hr 05/01/23 14:12: POC Glucose 133 H 05/01/23 15:00: Specimen Source Art line, O2 % 100%, ABG pH 6.91 L*, ABG pCO2 35.9, ABG pO2 542.2 H, ABG HCO3 7.0 L, ABG Total CO2 8.1 L, ABG O2 Saturation 100, ABG Base Excess -25.8 L 05/01/23 15:15: Specimen Source Art line, O2 % 100%, ABG pH 7.00 L*, ABG pCO2 43.7, ABG pO2 485.4 H, ABG HCO3 10.6 L, ABG Total CO2 12.0 L, ABG O2 Saturation 99, ABG Base Excess -20.6 L I & O for Last 24 hours: Intake & Output 04/28/23 04/29/23 04/30/23 05/01/23 23:59 23:59 23:59 23:59 Weight 102.058 kg
[2023-05-01 15:53] LABS: CATHL Activated Clotting Time > 400 SEC (74-125)
--- NOTE | 2023-05-01 15:55 | XR_ITS ---
PROCEDURE INFORMATION: Exam: XR Chest Exam date and time: 05/01/2023 4:26 PM Age: 47 years old Clinical indication: Device placement; Ett placement (vent status); Patient HX: Patient had a cardiac cath today. Placed on ventillator today as well. Patient is in critical condition. ; Additional info: Ntubated TECHNIQUE: Imaging protocol: Radiologic exam of the chest. Views: 1 view. COMPARISON: CT CHEST WO/W CON 04/14/2023 12:18 PM FINDINGS: Tubes, catheters and devices: There is a right tunneled catheter with its tip in the cavoatrial junction. There is an endotracheal tube in place terminating above the estefany. Lungs: Lungs are hypoaerated. No evidence of pneumonia or interstitial edema. Pleural spaces: Unremarkable. No pleural effusion. No pneumothorax. Heart/Mediastinum: Unremarkable. No cardiomegaly. Bones/joints: Unremarkable. IMPRESSION: Lungs are hypoaerated. No evidence of pneumonia or interstitial edema.
--- NOTE | 2023-05-01 15:55 | CT_ITS ---
PROCEDURE INFORMATION: Exam: CT Head Without Contrast Exam date and time: 05/01/2023 5:05 PM Age: 47 years old Clinical indication: Coma or unconsciousness; Additional info: Seizures mets colon CA TECHNIQUE: Imaging protocol: Computed tomography of the head without contrast. Radiation optimization: All CT scans at this facility use at least one of these dose optimization techniques: automated exposure control; mA and/or kV adjustment per patient size (includes targeted exams where dose is matched to clinical indication); or iterative reconstruction. REPORTING DATA: Count of CT and Cardiac NM exams in prior 12 months: This patient has received 2 known CTs and 0 known cardiac nuclear medicine studies in the 12 months prior to the current study. COMPARISON: No relevant prior studies available. FINDINGS: Limitations: Intravascular material obscures the assessment for subarachnoid/extra-axial hemorrhage. Brain: Hyperattenuating appearance along the sulci in the superior convexity, and basal ganglia. No evidence of obvious acute parenchymal hemorrhage, extra-axial collection or local regional mass effect. Cerebral ventricles: The ventricles, sulci and cisterns are normal in size and configuration. No hydrocephalus or midline structure shift Pituitary gland and sella: Sellar/parasellar structures, orbits and craniocervical junction are unremarkable Paranasal sinuses: Visualized sinuses are unremarkable. No fluid levels. Mastoid air cells: Visualized mastoid air cells are well aerated. Bones/joints: No calvarial fracture Soft tissues: Unremarkable. IMPRESSION: Hyperattenuating appearance along the sulci in the superior convexity and basal ganglia are indeterminate. Further evaluation with brain MRI is recommended.
[2023-05-01 16:02] LABS: ABG Base Excess -11.4 mmol/L (-2.4-2.3); ABG Oxygen Saturation 100 % (90-100); ABG PH 7.24 mmol/L (7.35-7.45); ABG PO2 425.5 mmhg (80-100); ABG TCO2 17.2 mmhg (23-27)
[2023-05-01 16:44] LABS: Chloride 109 mmol/L (98-107); Sodium 140 mmol/L (136-145)
[2023-05-01 16:46] LABS: Blood Urea Nitrogen 14 mg/dl (9-20); Creatinine Clearance Estimated 110 mL/min (50-200); Estimated Glomerular Filt Rate 65 ml/min (>60); GFR (African American) 79 ML/MIN (>60)
[2023-05-01 16:47] LABS: Alanine Aminotransferase 49 U/L (12-78); Alkaline Phosphatase 75 U/L (38-126); Aspartate Amino Transferase 70 U/L (17-59); Bilirubin,Total 0.5 mg/dl (0.2-1.3); Carbon Dioxide 15 mmol/L (22.0-30.0); Glucose 196 mg/dl (74-100); Magnesium 1.7 mg/dl (1.6-2.3)
[2023-05-01 16:56] LABS: Basophils % 0.2 % (0.1-2.0); Eosinophils # 0.1 K/mm3 (0.0-0.4); Eosinophils % 0.6 % (0.1-12.0); Hemoglobin 14.3 g/dL (14.1-18.0); Lymphocytes # 1.2 K/mm3 (0.7-4.5); Lymphocytes % 8.6 % (10-50); Mean Corpuscular HGB Conc 33.2 g/dL (31.8-35.4); Mean Corpuscular Hemoglobin 30.3 pg (27.0-31.2); Mean Corpuscular Volume 91.1 fl (80-94); Monocytes # 0.5 K/mm3 (0.1-1.0); Monocytes % 3.9 % (1.7-9.3); Neutrophils # 11.9 K/mm3 (1.8-7.8); Neutrophils % 86.8 % (37.0-80.0); Platelet Count 183 K/mm3 (142-424); Red Blood Count 4.72 M/mm3 (4.60-6.20); Red Cell Distribution Width 13.9 % (11.5-17.5); White Blood Count 13.6 K/mm3 (4.8-10.8)
[2023-05-01 16:59] LABS: MANUAL DIFFERENTIAL MANUAL DIFFERENTIAL (MANUAL DIFF)
[2023-05-01 17:38] LABS: Eosinophils % 1 % (0-3); Lymphocytes % 6 % (10-50); Monocytes % 1 % (2-9); Neutrophils % 92 % (42-76); Platelet Estimate Normal; RBC Morphology Normal; Total Cells Counted 100
--- NOTE | 2023-05-02 06:00 | XR_ITS ---
PROCEDURE INFORMATION: Exam: XR Chest Exam date and time: 05/02/2023 5:09 AM Age: 47 years old Clinical indication: Device placement; Ett placement (vent status); Additional info: Pneumonia mechanical ventilation TECHNIQUE: Imaging protocol: Radiologic exam of the chest. Views: 1 view. COMPARISON: CR XR CHEST PORTABLE 05/01/2023 4:26 PM FINDINGS: Tubes, catheters and devices: ET tube is in good position. Central venous catheters in good position. Lungs: Unremarkable. No consolidation. Pleural spaces: Unremarkable. No pleural effusion. No pneumothorax. Heart/Mediastinum: Unremarkable. No cardiomegaly. Bones/joints: Unremarkable. IMPRESSION: ET tube in good position.
--- NOTE | 2023-05-03 06:38 | HMH.ITSTN ---
Shaun went to do the Xray on patient and was told to cancel it. Patient is no longer on the ventilator. xray canceled
== END 2023-05-01 14:20 | disposition admitted as inpatient to this hospital (09) ==
PROVIDERS: Emergency Medicine; Internal Medicine; Internal Medicine Pulmonary Disease; Emergency Provider Emergency Medicine
DX: I21.9 Acute myocardial infarction, unspecified (principal); T45.1X5A Adverse effect of antineoplastic and immunosuppressive drugs, initial encounter; R09.02 Hypoxemia; F17.290 Nicotine dependence, other tobacco product, uncomplicated
CPT/HCPCS: 36415; 70450; 71045; 80053; 82803; 82962; 83735; 84100; 85007; 85025; 85347; 87040; 87070; 87205; 93005; 93308; 99291; Q9967

== ENCOUNTER 2023-05-01 15:46 | Inpatient (IN) | payer MEDICARE, OTHER, SELFPAY ==
[2023-05-01] VITALS (31 sets, daily range): BP systolic 73–146; BP diastolic 48–81; PULSE 63–112; RESP 15–31; TEMP 35.9–36.9; O2SAT 94–100; BMI 30.9; BMI 31.1; BMI 31.0
[2023-05-01 10:21] LABS: Basophils % 0.5 % (0.1-2.0); Eosinophils # 0.2 K/mm3 (0.0-0.4); Eosinophils % 3.3 % (0.1-12.0); Hematocrit 42.2 % (42.0-52.0); Hemoglobin 14.1 g/dL (14.1-18.0); Lymphocytes # 1.5 K/mm3 (0.7-4.5); Lymphocytes % 30.6 % (10-50); Mean Corpuscular HGB Conc 33.5 g/dL (31.8-35.4); Mean Corpuscular Hemoglobin 29.7 pg (27.0-31.2); Mean Corpuscular Volume 88.6 fl (80-94); Mean Platelet Volume 7.9 fl (7.4-10.4); Monocytes # 0.4 K/mm3 (0.1-1.0); Monocytes % 8.8 % (1.7-9.3); Neutrophils # 2.8 K/mm3 (1.8-7.8); Neutrophils % 56.7 % (37.0-80.0); Platelet Count 165 K/mm3 (142-424); Red Blood Count 4.76 M/mm3 (4.60-6.20); Red Cell Distribution Width 13.9 % (11.5-17.5); White Blood Count 4.9 K/mm3 (4.8-10.8)
[2023-05-01 10:48] LABS: Alanine Aminotransferase 42 U/L (12-78); Albumin Level 4.7 g/dl (3.5-5.0); Albumin/Globulin Ratio 1.4 (1.1-1.8); Alkaline Phosphatase 112 U/L (38-126); Anion Gap 15.9 mEq/L (5-15); Aspartate Amino Transferase 39 U/L (17-59); Bilirubin,Total 0.6 mg/dl (0.2-1.3); Blood Urea Nitrogen 15 mg/dl (9-20); Calcium 9.4 mg/dl (8.4-10.2); Carbon Dioxide 23 mmol/L (22.0-30.0); Chloride 106 mmol/L (98-107); Creatinine Clearance Estimated 111 mL/min (50-200); Estimated Glomerular Filt Rate 65 ml/min (>60); GFR (African American) 79 ML/MIN (>60); Globulin 3.4 g/dL (1.3-3.2); Glucose 101 mg/dl (74-100); Magnesium 1.9 mg/dl (1.6-2.3); Potassium 3.9 mmoL/L (3.5-5.1); Sodium 141 mmol/L (136-145); Total Protein,Serum 8.1 g/dl (6.3-8.2)
--- NOTE | 2023-05-01 14:52 | PC.NURSE ---
1347- BP- 127/69, O2 97%, HR 94. This RN started Erbitux per mar at 275ml/hr post premeds (50mg IV benedryl, 50mg IV Pepcid) 30 mins prior. approx 4 mins later, family came and told RN that pt said he didn't feel right 1348- This RN responded right away and stopped chemo immediately. Pt began stating he doesn't feel right and he needed to pee badly and was tingling all over . BP at this time was 108/45, HR 100, O2 90%. RN asked for an oxygen tank to be brought to the bedside. 1354- pt condition began to deteriorate rapidly and pt began to seize for approx 1 min. and became unresponsive and diaphoretic. Rapid response was called immediately. 1355- Pt was laid flat in chair, NS was hung wide open. Nasal cannula applied @ 10L. pulse present and rapid. port was accessed and 20g started in right hand. crash cart obtained. 1356- rapid response team arrived with respiratory (julien beck, apuline obregon), nursing staff (darshana hardin, charles cordon, suzanne pedroza), pharmacist Ami Marrero, and ER doc Behzad Jean. 1358- Pt assessed by Dr. Jean, NRB applied at 100% oxygen, portable suction set up. 1400- Epi 0.4mg/1ml IM given in thigh. 1402- Benedryl 50mg IV and Hydrocortisone 200mg IV given. 1404- IVF infusing, NRB in place, pulse present. Pt stabilized and transferred to [facility] for transport to ER. 1406- pt transferred with MD, respiratory, and nursing staff to ER. Pt son-in-law with patient during transport.
--- NOTE | 2023-05-01 16:17 | EXP.PHA.CONS ---
Pharmacy Consult Date: 05/01/23 Time: 16:17 Referring provider: DR. RASCON Reason for Consult:: VANCOMYCIN DOSING Allergies Allergy/AdvReac Type Severity Reaction Status Date / Time cetuximab [From Erbitux] Allergy Severe Anaphylaxis Verified 05/01/23 14:53 New Prescriptions to Start Prescriptions: Height: 1.83 m Weight: 103.419 kg Laboratory Results:: Laboratory Results - last 24 hr 05/01/23 10:09: WBC 4.9, RBC 4.76, Hgb 14.1, Hct 42.2, MCV 88.6, MCH 29.7, MCHC 33.5, RDW 13.9, Plt Count 165, MPV 7.9, Neut % (Auto) 56.7, Lymph % (Auto) 30.6, [place] % (Auto) 8.8, Eos % (Auto) 3.3, Baso % (Auto) 0.5, Neut # (Auto) 2.8, Lymph # (Auto) 1.5, [place] # (Auto) 0.4, Eos # (Auto) 0.2, Baso # (Auto) 0.0, Sodium 141, Potassium 3.9, Chloride 106, Carbon Dioxide 23, Anion Gap 15.9 H, BUN 15, Creatinine 1.20, Estimated Creat Clear 111, Estimated GFR 65, Est GFR ( Amer) 79, Glucose 101 H, Calcium 9.4, Magnesium 1.9, Total Bilirubin 0.6, AST 39, ALT 42, Alkaline Phosphatase 112, Total Protein 8.1, Albumin 4.7, Globulin 3.4 H, Albumin/Globulin Ratio 1.4 Medical History: Medical History (Updated 05/01/23 @ 15:15 by Behzad Jean MD) Colon cancer Assessment and Plan Assessment and plan all Dx Assessment and Plan for all problems:: Pharmacokinetic dosing service Objective: Patient: Floor: Age: 47 yo Serum creatinine: 1.2 mg/dL Height: 72.0 Inches Weight (kg): 103.5 Assessment: IBW (kg): 77.60 Dosing wt(kg): 103.5 Estimated Creatinine clearance (ml/min): 83.5 CRCL method: Cockcroft and Gault using ibw(default). Drug selected: Vancomycin Loading dose (mg): 0 Vd (liters): 82.8 (factor used: 0.8 L/kg) Kwesi (hr-1): 0.074 Half life (hrs): 9.37 Recommended dose: 1750 mg Interval: 12 hrs Infusion time (hrs): 2.0 Predicted peak (mcg/mL): 33.4 Predicted trough (mcg/mL): 15.94 Total body weight is being used for vancomycin dosing. Recommendations: Give Vancomycin 1750 mg q 12 hrs with an expected Cpeak of 33.4 mcg/ml and an expected Ctrough of 15.94 mcg/ml ----Vanco only - ignore for aminoglycosides----- CLvanco= 6.13 L/hr AUC 0-24 /ALINE Data: ALINE 0.5 mcg/mL: AUC/ALINE: 1141.9 ALINE 1.0 mcg/mL: AUC/ALINE: 571.0 --------- ALINE 1.5 mcg/mL: AUC/ALINE: 380.6 ALINE 2.0 mcg/mL: AUC/ALINE: 285.5
--- NOTE | 2023-05-01 16:25 | PC.NURSE ---
pt has not been weighed yet due to not being able roll pt. pt must lay flat. weight was given by bed laborer.
--- NOTE | 2023-05-01 16:28 | EXP.PULM.CON ---
History of Present Illness History of present illness: Mr. Tomlin is a 47-year-old male stage IV colon cancer s/p surgery with worsening disease progression recent to reestablish care with oncology plan for outpatient chemotherapy history experienced as what appeared to be infusion reaction, non-ST elevation MT status post left heart Image bleeding intubation mechanical ventilatory support and pulmonary was called for further evaluation and management. [facility] Disclaimer: The information contained in this section may have been updated after the patient was seen, as this information can be updated by other users. Medical History (Updated 05/01/23 @ 16:28 by Ritesh Lopez MD) Colon cancer On mechanically assisted ventilation Shock Surgical History Hx of myringotomy Hx of tonsillectomy Family History Other No significant family history Social History Smoking Status: Current every day smoker tobacco type: smokeless tobacco alcohol intake: former substance use type: denies use current occupational status: disabled Travel in the last 8 weeks: None household members: spouse housing: house current occupation: pain line current occupational exposures/hazards: No caffeine: Yes Review of Systems Review of Systems Review of systems:: unable to obtain Review of systems (narrative): Intubated And Sedated Pulmonology Exam Inpatient Vital signs and Labs for Last 24 Hours: Temp Pulse Resp BP Pulse Ox O2 Del Method 98.4 F 63 18 127/69 97 Room Air 05/01/23 11:50 05/01/23 13:47 05/01/23 11:50 05/01/23 13:47 05/01/23 11:50 05/01/23 11:50 Laboratory Results - last 24 hr 05/01/23 10:09: WBC 4.9, RBC 4.76, Hgb 14.1, Hct 42.2, MCV 88.6, MCH 29.7, MCHC 33.5, RDW 13.9, Plt Count 165, MPV 7.9, Neut % (Auto) 56.7, Lymph % (Auto) 30.6, [place] % (Auto) 8.8, Eos % (Auto) 3.3, Baso % (Auto) 0.5, Neut # (Auto) 2.8, Lymph # (Auto) 1.5, [place] # (Auto) 0.4, Eos # (Auto) 0.2, Baso # (Auto) 0.0, Sodium 141, Potassium 3.9, Chloride 106, Carbon Dioxide 23, Anion Gap 15.9 H, BUN 15, Creatinine 1.20, Estimated Creat Clear 111, Estimated GFR 65, Est GFR ( Amer) 79, Glucose 101 H, Calcium 9.4, Magnesium 1.9, Total Bilirubin 0.6, AST 39, ALT 42, Alkaline Phosphatase 112, Total Protein 8.1, Albumin 4.7, Globulin 3.4 H, Albumin/Globulin Ratio 1.4 I & O for Labs for Last 24 Hours: Intake & Output 04/28/23 04/29/23 04/30/23 05/01/23 23:59 23:59 23:59 23:59 Weight 230 lb Constitutional: Present severe distress Comment:: Intubated and Sedated Head: Present normocephalic and atraumatic Neck: Present normal inspection and trachea midline Respiratory: Present patient mechanically ventilated, prolonged expiratory phase, rhonchi and wheezes Cardiac: Present S1/S2 and Tachycardia GI: Present soft; Absent distention or tenderness Skin: Present intact; Absent cyanosis Neuro: Absent alert, awake or oriented x 3 Comment:: Intubated and sedated Extremities: Present normal inspection; Absent clubbing or cyanosis Psychiatric: Present unable to assess Meds Home Medications and Allergies New Prescriptions to Start Prescriptions: Allergies Allergy/AdvReac Type Severity Reaction Status Date / Time cetuximab [From Erbitux] Allergy Severe Anaphylaxis Verified 05/01/23 14:53 Results Laboratory Findings 05/01/23 10:09 05/01/23 10:09 Abnormal lab findings: Abnormal Labs 05/01/23 10:09 Anion Gap 15.9 H Glucose 101 H Globulin 3.4 H Assessment and Plan *Assessment and plan (1) On mechanically assisted ventilation: Status: Acute Category: Medical Code(s): Z99.11 - Dependence on respirator [ventilator] status (2) Shock: Status: Acute Category: Medical Code
--- NOTE | 2023-05-01 17:28 | PC.NURSE ---
first bolus completed prior to going to ct scan, notified MD Kendall that pt still hypotensive, instructed to give 2amps bicarb and then another LR liter bolus and if map doesn't stay above 65 after that than can start levophed drip took pt to ct scan and back pt on 30mcg/kg/min propofol, 25mcg/hr fentanyl, and integrilin at 2mcg/kg/min pt has 7.5 OETT 24cm at the lip, vent settings are 100%FIO2, 30 RR, peep of 5, TV 440 pt has femstop on right groin, tried to deflate but then bleeding occurred so reinflated pt has arterial line sheath at left groin pt has SC portacath, IV left hand and IV left forearm temp sensing ponce catheter placed draining clear yellow UOP
[2023-05-01 18:32] LABS: ABG Base Excess -8.5 mmol/L (-2.4-2.3); ABG HCO3 18.4 mmhg (22.0-26.0); ABG Oxygen Saturation 99 % (90-100); ABG PCO2 40.6 mmhg (35.0-45.0); ABG PH 7.27 mmol/L (7.35-7.45); ABG PO2 164.9 mmhg (80-100); ABG TCO2 19.6 mmhg (23-27)
[2023-05-01 18:36] LABS: Oxygen 60% %
[2023-05-01 18:37] LABS: Allen's Test Non Applicable; PEEP 5; Source A-LINE; Tidal Volume 440; Vent Rate 30
--- NOTE | 2023-05-01 19:41 | PC.NURSE ---
decreased propofol to 20mcg/kg/min and MD Rodriguez stated to stop integrillin drip at 2100 and then start heparin drip per pharmacy dosing, sent pharmacy requisition
[2023-05-01 20:15] LABS: PTT Heparin (inpatient only) 58.9 Seconds (23.6-34.0)
--- NOTE | 2023-05-01 20:30 | PC.NURSE ---
Spoke with Dr. Lopez. He calls in regards to patient potassium level at 2.0, which had not been reported to him from 1600 labs. New orders received for 40meq K+ to be administered with BMP recheck after completion, with repeat back. Pharmacy form filled out and faxed for verification. Mail List Librarian Génesis made aware of critical lab, and new orders.
--- NOTE | 2023-05-01 20:45 | PC.NURSE ---
Received call from Dr. Rodriguez at 2044 requesting updated report on patient. Patient vital signs remain stable. Informed of critical K+ level which is currently being treated with IV potassium. He states he will remove left femoral sheath tomorrow during day shift.
[2023-05-02] VITALS (27 sets, daily range): BP systolic 99–129; BP diastolic 53–80; PULSE 89–111; RESP 18–32; TEMP 36.6–37.5; O2SAT 93–100; BMI 31.3
[2023-05-02 02:10] LABS: Chloride 111 mmol/L (98-107); Potassium 4.4 mmoL/L (3.5-5.1); Sodium 140 mmol/L (136-145)
[2023-05-02 02:12] LABS: Blood Urea Nitrogen 18 mg/dl (9-20); Creatinine Clearance Estimated 112 mL/min (50-200); Estimated Glomerular Filt Rate 65 ml/min (>60); GFR (African American) 79 ML/MIN (>60)
[2023-05-02 02:13] LABS: Anion Gap 14.4 mEq/L (5-15); Calcium 7.9 mg/dl (8.4-10.2); Carbon Dioxide 19 mmol/L (22.0-30.0); Glucose 154 mg/dl (74-100)
[2023-05-02 02:19] LABS: PTT Heparin (inpatient only) 38.2 Seconds (23.6-34.0)
--- NOTE | 2023-05-02 05:34 | EXP.HP ---
History of Present Illness *Admission Date: 05/01/23 *Reason for visit:: STEMI *History of present illness: This note is a late entry for patient encounter on 05/01/23 Oscar Tomlin is a 47 year old male with a past medical history of colon cancer with metastasis to the liver status post partial colectomy, partial hepatectomy and chemotherapy who was in infusion clinic for initiationof new chemotherapy when he developed tachycardia, diaphoresis, confusion and coarse breath sound. A rapid response was called and spo2 was found to be in high 70s. He was immediately placed on nonrebreather and 0.4mg of IM epinephrine was injected into the right thigh. There was some concern for possible seizure like activity so the patient was loaded with Keppra. EKG was obtained and revealed R sided STEMI. He was taken to manager cath lab and he had successful reconstruction of the ostial proximal mid distal right coronary artery extending in to the posterior descending artery with 3 drug eluting stents. He had an active bleed from the right femoral site which resolved with FemoStop. He was given plavix and aspirin per rectum and was [facility] an [facility] Dis[facility]: The information contained in this section may have been updated after the patient was seen, as this information can be updated by other users. Medical History Colon cancer On mechanically assisted ventilation Shock Surgical History Hx of myringotomy Hx of tonsillectomy Family History Other No significant family history Social History (Updated 05/01/23 @ 16:54 by Adriane Russell RN) Smoking Status: Current every day smoker tobacco type: smokeless tobacco alcohol intake: former substance use type: denies use current occupational status: disabled Travel in the last 8 weeks: None household members: spouse housing: house current occupation: pain line current occupational exposures/hazards: No caffeine: Yes Review of Systems Review of Systems Review of systems:: unable to obtain Meds Home Medications and Allergies New Prescriptions to Start Prescriptions: Allergies Allergy/AdvReac Type Severity Reaction Status Date / Time cetuximab [From Erbitux] Allergy Severe Anaphylaxis Verified 05/01/23 14:53 Exam Data for Last 24 hours Vital signs and Labs for Last 24 Hours: Temp Pulse Resp BP Pulse Ox O2 Del Method FiO2 99.0 F 90 30 H 120/73 100 Mechanical Ventilation 50 05/02/23 05:00 05/02/23 05:00 05/02/23 05:00 05/02/23 05:00 05/02/23 05:00 05/02/23 05:00 05/02/23 05:00 Laboratory Results - last 24 hr 05/01/23 10:09: WBC 4.9, RBC 4.76, Hgb 14.1, Hct 42.2, MCV 88.6, MCH 29.7, MCHC 33.5, RDW 13.9, Plt Count 165, MPV 7.9, Neut % (Auto) 56.7, Lymph % (Auto) 30.6, [place] % (Auto) 8.8, Eos % (Auto) 3.3, Baso % (Auto) 0.5, Neut # (Auto) 2.8, Lymph # (Auto) 1.5, [place] # (Auto) 0.4, Eos # (Auto) 0.2, Baso # (Auto) 0.0, Sodium 141, Potassium 3.9, Chloride 106, Carbon Dioxide 23, Anion Gap 15.9 H, BUN 15, Creatinine 1.20, Estimated Creat Clear 111, Estimated GFR 65, Est GFR ( Amer) 79, Glucose 101 H, Calcium 9.4, Magnesium 1.9, Total Bilirubin 0.6, AST 39, ALT 42, Alkaline Phosphatase 112, Total Protein 8.1, Albumin 4.7, Globulin 3.4 H, Albumin/Globulin Ratio 1.4 05/01/23 18:28: Specimen Source A-line, O2 % 60%, ABG pH 7.27 L, ABG pCO2 40.6, ABG pO2 164.9 H, ABG HCO3 18.4 L, ABG Total CO2 19.6 L, ABG O2 Saturation 99, ABG Base Excess -8.5 L, Nghia Test Non applicable, Vent Rate 30, Tidal Volume 440, PEEP 5 05/01/23 19:54: APTT 58.9 H* 05/02/23 01:40: APTT 38.2 H, Sodium 140, Potassium 4.4 D, Chloride 111 H, Carbon Dioxide 19 L, Anion Gap 14.4, BUN 18 D, Creatinine 1.20, Estimated Creat Clear 112, Estimated GFR 65, Est GFR ( Amer) 79, Glucose 154 H
[2023-05-02 06:06] LABS: Basophils % 0.1 % (0.1-2.0); Eosinophils % 0.1 % (0.1-12.0); Hematocrit 42.3 % (42.0-52.0); Hemoglobin 13.9 g/dL (14.1-18.0); Lymphocytes # 0.7 K/mm3 (0.7-4.5); Lymphocytes % 3.9 % (10-50); Mean Corpuscular HGB Conc 32.8 g/dL (31.8-35.4); Mean Corpuscular Hemoglobin 29.6 pg (27.0-31.2); Mean Corpuscular Volume 90.4 fl (80-94); Mean Platelet Volume 8.6 fl (7.4-10.4); Monocytes # 0.9 K/mm3 (0.1-1.0); Monocytes % 4.7 % (1.7-9.3); Neutrophils % 91.2 % (37.0-80.0); Platelet Count 179 K/mm3 (142-424); Red Blood Count 4.67 M/mm3 (4.60-6.20); Red Cell Distribution Width 14.3 % (11.5-17.5); White Blood Count 18.6 K/mm3 (4.8-10.8)
[2023-05-02 06:16] LABS: MANUAL DIFFERENTIAL MANUAL DIFFERENTIAL (MANUAL DIFF)
[2023-05-02 06:22] LABS: Anion Gap 16.4 mEq/L (5-15); Blood Urea Nitrogen 18 mg/dl (9-20); Calcium 7.6 mg/dl (8.4-10.2); Carbon Dioxide 20 mmol/L (22.0-30.0); Chloride 110 mmol/L (98-107); Creatinine Clearance Estimated 112 mL/min (50-200); Estimated Glomerular Filt Rate 65 ml/min (>60); GFR (African American) 79 ML/MIN (>60); Glucose 138 mg/dl (74-100); Potassium 4.4 mmoL/L (3.5-5.1); Sodium 142 mmol/L (136-145)
[2023-05-02 07:03] LABS: ABG Base Excess -5.5 mmol/L (-2.4-2.3); ABG HCO3 20.1 mmhg (22.0-26.0); ABG Oxygen Saturation 99 % (90-100); ABG PH 7.35 mmol/L (7.35-7.45); ABG PO2 141.8 mmhg (80-100); ABG TCO2 21.2 mmhg (23-27); Oxygen 50 %; Tidal Volume 440
[2023-05-02 07:04] LABS: PEEP 5; Source A LINE; Vent Rate 30
[2023-05-02 07:34] LABS: Lymphocytes % 2 % (10-50); Monocytes % 4 % (2-9); Neutrophils % 94 % (42-76); Platelet Estimate Normal; RBC Morphology Normal; Total Cells Counted 100
--- NOTE | 2023-05-02 07:48 | PC.NURSE ---
prop decreased to 10 mcg/kg/min, and fentanyl decreased ti 20 mcg/hr, patient able to communicate with writing board, head nods and shakes, and thumbs up at this time
--- NOTE | 2023-05-02 08:00 | PC.NURSE ---
heparin turned off at this time per Chase
--- NOTE | 2023-05-02 09:00 | EXP.PN ---
Subjective *Date: 05/02/23 *Time: 19:21 Interval history: No acute events overnight. No seizure like activity. Blood pressures have been within normal limits and a vasopressor did not have to be started. The patient was examined during SBT. He follows simple commands for me. Exam Data for Last 24 hours Vital signs and Labs for Last 24 Hours: Temp Pulse Resp BP Pulse Ox O2 Del Method FiO2 99.0 F 91 H 30 H 99/57 L 100 Mechanical Ventilation 50 05/02/23 08:00 05/02/23 08:00 05/02/23 08:00 05/02/23 08:00 05/02/23 08:00 05/02/23 08:00 05/02/23 08:00 Laboratory Results - last 24 hr 05/01/23 10:09: WBC 4.9, RBC 4.76, Hgb 14.1, Hct 42.2, MCV 88.6, MCH 29.7, MCHC 33.5, RDW 13.9, Plt Count 165, MPV 7.9, Neut % (Auto) 56.7, Lymph % (Auto) 30.6, [place] % (Auto) 8.8, Eos % (Auto) 3.3, Baso % (Auto) 0.5, Neut # (Auto) 2.8, Lymph # (Auto) 1.5, [place] # (Auto) 0.4, Eos # (Auto) 0.2, Baso # (Auto) 0.0, Sodium 141, Potassium 3.9, Chloride 106, Carbon Dioxide 23, Anion Gap 15.9 H, BUN 15, Creatinine 1.20, Estimated Creat Clear 111, Estimated GFR 65, Est GFR ( Amer) 79, Glucose 101 H, Calcium 9.4, Magnesium 1.9, Total Bilirubin 0.6, AST 39, ALT 42, Alkaline Phosphatase 112, Total Protein 8.1, Albumin 4.7, Globulin 3.4 H, Albumin/Globulin Ratio 1.4 05/01/23 18:28: Specimen Source A-line, O2 % 60%, ABG pH 7.27 L, ABG pCO2 40.6, ABG pO2 164.9 H, ABG HCO3 18.4 L, ABG Total CO2 19.6 L, ABG O2 Saturation 99, ABG Base Excess -8.5 L, Nghia Test Non applicable, Vent Rate 30, Tidal Volume 440, PEEP 5 05/01/23 19:54: APTT 58.9 H* 05/02/23 01:40: APTT 38.2 H, Sodium 140, Potassium 4.4 D, Chloride 111 H, Carbon Dioxide 19 L, Anion Gap 14.4, BUN 18 D, Creatinine 1.20, Estimated Creat Clear 112, Estimated GFR 65, Est GFR ( Amer) 79, Glucose 154 H D, Calcium 7.9 L 05/02/23 05:25: WBC 18.6 H D, RBC 4.67, Hgb 13.9 L, Hct 42.3, MCV 90.4, MCH 29.6, MCHC 32.8, RDW 14.3, Plt Count 179, MPV 8.6, Neut % (Auto) 91.2 H, Lymph % (Auto) 3.9 L, [place] % (Auto) 4.7, Eos % (Auto) 0.1, Baso % (Auto) 0.1, Neut # (Auto) 17.0 H, Lymph # (Auto) 0.7, [place] # (Auto) 0.9, Eos # (Auto) 0.0, Baso # (Auto) 0.0, Total Counted 100, Neutrophils % (Manual) 94 H, Lymphocytes % (Manual) 2 L, Monocytes % (Manual) 4, Platelet Estimate Normal, RBC Morphology Normal, Sodium 142, Potassium 4.4, Chloride 110 H, Carbon Dioxide 20 L, Anion Gap 16.4 H, BUN 18, Creatinine 1.20, Estimated Creat Clear 112, Estimated GFR 65, Est GFR ( Amer) 79, Glucose 138 H, Calcium 7.6 L 05/02/23 07:00: Specimen Source A line, O2 % 50, ABG pH 7.35, ABG pCO2 37.0, ABG pO2 141.8 H, ABG HCO3 20.1 L, ABG Total CO2 21.2 L, ABG O2 Saturation 99, ABG Base Excess -5.5 L, Vent Rate 30, Tidal Volume 440, PEEP 5 I & O for Last 24 hours: Intake & Output 04/29/23 04/30/23 05/01/23 05/02/23 23:59 23:59 23:59 23:59 Intake Total 274 / 312 392 / 392 Output Total 620 / 770 485 / 485 Balance -346 / -458 -93 / -93 Weight 104.014 kg 105.007 kg Constitutional Constitutional: no acute distress *Routine HEENT Exam Head: Present normocephalic Eye: Present EOMI and PERRL ENT: Present mucous membranes moist *Routine Neck Exam Neck: Present supple; Absent lymphadenopathy *Routine Respiratory Exam Respiratory: Present CTA bilaterally Comments: intubated *Routine Cardiovascular Exam Cardiovascular: Present RRR *Routine Abdominal Exam Abdominal: Present soft and normoactive bowel sounds; Absent tenderness *Routine Extremities Exam Extremities: Absent cyanosis, clubbing or edema *Routine Skin Exam Skin: Present warm; Absent rash *Routine Neurological Exam Neurological: Present alert Comments: follows simple commands Assessment and Plan *Assessment and plan (1) Shock: Status: Acute Category: Medical Code(s): R57.9 - Shock, unspecified (2) On mechanically assisted ventilation: Status: Acute Category: Medical Code(s): Z99.11 - Dependence on respirator [ventilator] status
--- NOTE | 2023-05-02 09:02 | EXP.CARD.CON ---
History of Present Illness History of Present Illness Consult date: 05/02/23 Requesting physician: Ruy Valenzuela Chief complaint: STEMI Additional Medical History:: 1. Inferolateral STEMI, 05/01/2023 A. LHC, 05/01/2023, 3 SAGAR to dominant RCA. Mild CAD of LAD and Cx, EF 60-65% with mild inferior basal hypokinesis, LVEDP 10 mm Hg. Cardiogenic shock due to STEMI and right femoral site bleeding contributing to hypotension that resolved with FemStop placement. 2. Tobacco use 3. History of metastatic colorectal cancer to liver and now lungs A. History of XELOX plus Avastin x7 cycles completed October 2020 then chemoradiation at B. Status post LAR, colostomy reversal with resection and anastomosis with diverting loop ileostomy and partial hepatectomy and CCY 12/11/2020 C. 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 Left ureteral stent placed 07/03/2022 for left-sided hydronephrosis induced by one of the pelvic tumor/lymph nodes E. 1 fraction of SBRT to the left pelvis F. Xeliri started September 19 G. 04/2023, Progression of disease noted on evaluation recently. KRAS wildtype. Patient is not a surgical candidate. They recommended continuing xeliri and adding Erbitux History of present illness: Oscar Tomlin is a 47 year old male with a past medical history of colon cancer with metastasis to the liver status post partial colectomy, partial hepatectomy and chemotherapy who was in infusion clinic for initiationof new chemotherapy when he developed tachycardia, diaphoresis, confusion and coarse breath sound. A rapid response was called and spo2 was found to be in high 70s. He was immediately placed on nonrebreather and 0.4mg of IM epinephrine was injected into the right thigh. There was some concern for possible seizure like activity so the patient was loaded with Keppra. EKG was obtained and revealed R sided STEMI. He was taken to petroleum laboratory technician and he had successful reconstruction of the ostial proximal mid distal right coronary artery extending in to the posterior descending artery with 3 drug eluting stents. He had an active bleed from the right femoral site which resolved with FemoStop. He was given plavix and aspirin per rectum and was started on an integrillin drip. The above per Dr. Valenzuela This a.m. patient is alert but is still intubated. Femoral sheath in the left groin is still present with plans for removal this morning. We anticipate that he will be extubated later today. He is on low-dose fentanyl and propofol at this time with systolic pressures around 100 mmHg. He is on no pressure support. [facility] Disclaimer: The information contained in this section may have been updated after the patient was seen, as this information can be updated by other users. Medical History (Updated 05/02/23 @ 09:21 by AMY Armendariz) Colon cancer On mechanically assisted ventilation Shock Surgical History Hx of myringotomy Hx of tonsillectomy Family History Other No significant family history Social History (Updated 05/01/23 @ 16:54 by Adriane Russell RN) Smoking Status: Current every day smoker tobacco type: smokeless tobacco alcohol intake: former substance use type: denies use current occupational status: disabled Travel in the last 8 weeks: None household members: spouse housing: house current occupation: pain line current occupational exposures/hazards: No caffeine: Yes Review of Systems Review of Systems Review of systems:: unable to obtain Exam Data for Last 24 hours Vital signs and Labs for Last 24 Hours: Temp Pulse Resp BP Pulse Ox O2 Del Method FiO2 99.0 F 91 H 30 H 99/57 L 100 Mechanical Ventilation 50 05/02/23 08:00 05/02/23 08:00 05/02/23 08:00 05/02/23 08:00 05/02/23
--- NOTE | 2023-05-02 09:15 | PC.NURSE ---
propofol turned off at this time
--- NOTE | 2023-05-02 09:25 | CA_ITS ---
APPROVED REPORT EXAM: Comprehensive 2D, Doppler, and color-flow Echocardiogram Retail Analytics Manager: Adriane Pino RVT Ht: 6 ft 0 in Wt: 231lbs BSA: 2.27 BP: 99/57 mmHg Indications: STEMI,COLON CA WITH METS,SMOKER,INTUBATED BEST EXAM POSSIBLE PT FLAT ON BACK POST FEMORAL SHEATH REMOVAL PT HAS PACER PADS ON CHEST 2D Dimensions LVOT 2.51 cm (M/F) 1.5-2.5 M-Mode Dimensions RVDd 2.80 cm (0.9-2.6) LA Diam 3.28 cm (1.9-4.0) LVDd 5.65 cm (3.5-5.7) Ao Diam 3.47 cm (2.0-3.7) LVDs 4.13 cm (3.5-5.7) IVSd 0.42 cm (0.6-1.1) PWd 0.80 cm (0.6-1.1) EF (Teich) 51.80% FS 26.90% EDV (Teich) 156.80 mL ESV (Teich) 75.50 mL LV Diastology E Decel Time 213.00 (160-240 msec) E/A Ratio 0.9 MED E' 5.00 (< 7 cm/sec) E'/MED E' Ratio 11.68 (>14) LAT E' 7.30 (<10 cm/sec) E/LAT E' Ratio 8.00 (>14) Aortic Valve AO Peak GR. 5.30 mmHg Mitral Valve MV E Max Fareed. 58.00 (40-130 cm/s) MV A Velocity 65.00 (40-130 cm/s) E/A Ratio 0.90 MV Decel. Time 213.00 (160-240 ms) MV PHT 62.00 ms Pulmonary Valve PV Peak Velocity 115.00 (50-150 cm/s) Left Ventricle The left ventricle is normal size. The left ventricular systolic function is normal. The left ventricular ejection fraction is within the normal range. There is normal left ventricular wall thickness. There are no regional wall motion abnormalities. The left ventricular diastolic function is normal. LVEF is 60-65%. Right Ventricle The right ventricle is normal size. The right ventricular systolic function is normal. Atria The left atrium size is normal. The interatrial septum is not well visualized. Aortic Valve The aortic valve opens well. There is no aortic valvular stenosis. Trace aortic regurgitation. Mitral Valve The mitral valve is normal in structure. No evidence of mitral valve stenosis. There is no mitral valve regurgitation noted. Tricuspid Valve The tricuspid valve leaflets are thin and pliable. There is trace tricuspid valve regurgitation noted. There is insufficient TR jet to estimate RVSP. Pulmonic Valve The pulmonary valve is normal in structure. Trace pulmonic regurgitation. Great Vessels The aortic root is normal in size. The ascending aorta is not well visualized. The IVC is not visualized. Pericardium There is no pericardial effusion. Other Information Study Quality: Technically Difficult Conclusion This is a technically difficult study due to patient position in the setting of recent STEMI with presence of chest pads and femoral sheath. Normal biventricular systolic function. No evidence of regional wall motion abnormalities. No significant valvular stenosis or regurgitation. Electronically signed by : Elina Warren, 05/02/2023 14:33:55
--- NOTE | 2023-05-02 09:40 | PC.NURSE ---
Addendum entered by Mallorie Sullivan RN 05/02/23 09:59: ACT 158 Original Note: left femoral sheath pulled at 0900, manual pressure held for half an hour by RT Sayra, dressing applied, no bleeding noted at this time, patient made aware of risks, what site should feel like, and educated on when to call out for the RN
--- NOTE | 2023-05-02 09:43 | EXP.PULM.PN ---
Subjective *Date: 05/02/23 *Time: 10:17 Interval history: No acute respiratory vents overnight. Stable oxygen equipments. Pulmonology Exam Inpatient Vital signs and Labs for Last 24 Hours: Temp Pulse Resp BP Pulse Ox O2 Del Method FiO2 99.1 F 89 30 H 108/75 L 100 Mechanical Ventilation 50 05/02/23 09:00 05/02/23 09:00 05/02/23 09:00 05/02/23 09:00 05/02/23 09:00 05/02/23 09:00 05/02/23 08:00 Laboratory Results - last 24 hr 05/01/23 10:09: WBC 4.9, RBC 4.76, Hgb 14.1, Hct 42.2, MCV 88.6, MCH 29.7, MCHC 33.5, RDW 13.9, Plt Count 165, MPV 7.9, Neut % (Auto) 56.7, Lymph % (Auto) 30.6, Jerome % (Auto) 8.8, Eos % (Auto) 3.3, Baso % (Auto) 0.5, Neut # (Auto) 2.8, Lymph # (Auto) 1.5, Jerome # (Auto) 0.4, Eos # (Auto) 0.2, Baso # (Auto) 0.0, Sodium 141, Potassium 3.9, Chloride 106, Carbon Dioxide 23, Anion Gap 15.9 H, BUN 15, Creatinine 1.20, Estimated Creat Clear 111, Estimated GFR 65, Est GFR ( Amer) 79, Glucose 101 H, Calcium 9.4, Magnesium 1.9, Total Bilirubin 0.6, AST 39, ALT 42, Alkaline Phosphatase 112, Total Protein 8.1, Albumin 4.7, Globulin 3.4 H, Albumin/Globulin Ratio 1.4 05/01/23 18:28: Specimen Source A-line, O2 % 60%, ABG pH 7.27 L, ABG pCO2 40.6, ABG pO2 164.9 H, ABG HCO3 18.4 L, ABG Total CO2 19.6 L, ABG O2 Saturation 99, ABG Base Excess -8.5 L, Nghia Test Non applicable, Vent Rate 30, Tidal Volume 440, PEEP 5 05/01/23 19:54: APTT 58.9 H* 05/02/23 01:40: APTT 38.2 H, Sodium 140, Potassium 4.4 D, Chloride 111 H, Carbon Dioxide 19 L, Anion Gap 14.4, BUN 18 D, Creatinine 1.20, Estimated Creat Clear 112, Estimated GFR 65, Est GFR ( Amer) 79, Glucose 154 H D, Calcium 7.9 L 05/02/23 05:25: WBC 18.6 H D, RBC 4.67, Hgb 13.9 L, Hct 42.3, MCV 90.4, MCH 29.6, MCHC 32.8, RDW 14.3, Plt Count 179, MPV 8.6, Neut % (Auto) 91.2 H, Lymph % (Auto) 3.9 L, Jerome % (Auto) 4.7, Eos % (Auto) 0.1, Baso % (Auto) 0.1, Neut # (Auto) 17.0 H, Lymph # (Auto) 0.7, Jerome # (Auto) 0.9, Eos # (Auto) 0.0, Baso # (Auto) 0.0, Total Counted 100, Neutrophils % (Manual) 94 H, Lymphocytes % (Manual) 2 L, Monocytes % (Manual) 4, Platelet Estimate Normal, RBC Morphology Normal, Sodium 142, Potassium 4.4, Chloride 110 H, Carbon Dioxide 20 L, Anion Gap 16.4 H, BUN 18, Creatinine 1.20, Estimated Creat Clear 112, Estimated GFR 65, Est GFR ( Amer) 79, Glucose 138 H, Calcium 7.6 L 05/02/23 07:00: Specimen Source A line, O2 % 50, ABG pH 7.35, ABG pCO2 37.0, ABG pO2 141.8 H, ABG HCO3 20.1 L, ABG Total CO2 21.2 L, ABG O2 Saturation 99, ABG Base Excess -5.5 L, Vent Rate 30, Tidal Volume 440, PEEP 5 I & O for Labs for Last 24 Hours: Intake & Output 04/29/23 04/30/23 05/01/23 05/02/23 23:59 23:59 23:59 23:59 Intake Total 274 / 312 400 / 400 Output Total 620 / 770 660 / 660 Balance -346 / -458 -260 / -260 Weight 229 lb 5 oz 231 lb 8 oz Constitutional: Present severe distress Comment:: Intubated and Sedated Head: Present normocephalic and atraumatic Neck: Present normal inspection and trachea midline Respiratory: Present patient mechanically ventilated; Absent prolonged expiratory phase, rhonchi or wheezes Cardiac: Present S1/S2 and Tachycardia GI: Present soft; Absent distention or tenderness Skin: Present intact; Absent cyanosis Neuro: Present alert and awake Comment:: Intubated and sedated Extremities: Present normal inspection; Absent clubbing or cyanosis Psychiatric: Present unable to assess Assessment and Plan *Assessment and plan (1) On mechanically assisted ventilation: Status: Acute Category: Medical Code(s): Z99.11 - Dependence on respirator [ventilator] status (2) Shock: Status: Acute Category: Medical Code(s): R57.9 - Shock, unspecified Plan Mr. Tomlin is a 47-year-old male stage IV colon cancer s/p surgery with worsening disease progression recent to reestablish care with oncology plan for outpatient chemotherapy history experienced as what appeared to be infusion reaction, non-ST eleva
[2023-05-02 09:45] LABS: CATHL Activated Clotting Time 158 SEC (74-125)
--- NOTE | 2023-05-02 10:05 | PC.NURSE ---
verbal order to stop vancomycin from Dr. Lopez
--- NOTE | 2023-05-02 11:49 | PC.NURSE ---
Aleena in speech contacted in regards to speech evaluation needed for post extubation, informed someone would be here tomorrow.
--- NOTE | 2023-05-02 14:07 | PC.NURSE ---
pt extubated by Malia at this time to 2L NC
--- NOTE | 2023-05-02 14:32 | PC.NURSE ---
pt took O2 off, RA sat 96%
--- NOTE | 2023-05-02 15:11 | PC.NURSE ---
ponce catheter removed at this time, urinal placed at bedside, pt to ring when urinal is used so accurate output can be documented
--- NOTE | 2023-05-02 15:36 | PC.NURSE ---
pt bedside swallow with no issues noted, no coughing, no evidence of aspiration, no change in O2 sats, Dr. Valenzuela notified and ordered cardiac diet
--- NOTE | 2023-05-02 16:48 | PC.NURSE ---
IS at bedside, pt educated on using, verbalizes understanding
[2023-05-03] VITALS (12 sets, daily range): BP systolic 91–114; BP diastolic 56–63; PULSE 78–97; RESP 14–20; TEMP 36.8–37; O2SAT 90–97; BMI 30.9
[2023-05-03 07:45] LABS: Eosinophils % 0.3 % (0.1-12.0); Hematocrit 30.6 % (42.0-52.0); Hemoglobin 10.4 g/dL (14.1-18.0); Lymphocytes # 1.6 K/mm3 (0.7-4.5); Lymphocytes % 12.9 % (10-50); Mean Corpuscular Hemoglobin 30.5 pg (27.0-31.2); Mean Corpuscular Volume 89.5 fl (80-94); Mean Platelet Volume 8.3 fl (7.4-10.4); Monocytes # 0.4 K/mm3 (0.1-1.0); Monocytes % 3.2 % (1.7-9.3); Neutrophils # 10.2 K/mm3 (1.8-7.8); Neutrophils % 83.4 % (37.0-80.0); Platelet Count 143 K/mm3 (142-424); Red Blood Count 3.42 M/mm3 (4.60-6.20); Red Cell Distribution Width 14.4 % (11.5-17.5); White Blood Count 12.2 K/mm3 (4.8-10.8)
[2023-05-03 08:21] LABS: Blood Urea Nitrogen 24 mg/dl (9-20); Calcium 8.3 mg/dl (8.4-10.2); Carbon Dioxide 27 mmol/L (22.0-30.0); Chloride 105 mmol/L (98-107); Creatinine Clearance Estimated 111 mL/min (50-200); Estimated Glomerular Filt Rate 65 ml/min (>60); GFR (African American) 79 ML/MIN (>60); Glucose 105 mg/dl (74-100)
[2023-05-03 08:29] LABS: Potassium 3.9 mmoL/L (3.5-5.1)
--- NOTE | 2023-05-03 12:40 | EXP.DC.SUM ---
General Admission date:: 05/01/23 Discharge date: 05/03/23 HPI HPI HPI: Forwarded from Admission H&P Oscar Tomlin is a 47 year old male with a past medical history of colon cancer with metastasis to the liver status post partial colectomy, partial hepatectomy and chemotherapy who was in infusion clinic for initiation of new chemotherapy when he developed tachycardia, diaphoresis, confusion and coarse breath sounds. A rapid response was called and spo2 was found to be in high 70s. He was immediately placed on nonrebreather and 0.4mg of IM epinephrine was injected into the right thigh. There was some concern for possible seizure like activity so the patient was loaded with Keppra. EKG was obtained and revealed R sided STEMI. He was taken to labor relations analyst and he had successful reconstruction of the ostial proximal mid distal right coronary artery extending in to the posterior descending artery with 3 drug eluting stents. He had an active bleed from the right femoral site which resolved with FemoStop. He was given plavix and aspirin per rectum and was started an heparin and Integrillin drips. Shortly after his left heart catheterization he developed hypotension which resolved after administering IV fluid boluses. Hospital Course Hospital Course Hospital Course: #STEMI On the day of discharge the patient was doing well and without chest pain, shortness of breath or any other concerning symptom. He was discharged with new medications of aspirin, Plavix and Lipitor. ARB/entrest and a beta ketan were not started because of soft blood pressures. He will need to follow up with his PCP in 1 week and with Cardiology in 1 week. Exam Data for Last 24 hours Vital signs and Labs for Last 24 Hours: Temp Pulse Resp BP Pulse Ox O2 Del Method O2 Flow Rate 98.2 F 82 16 113/57 L 93 L Room Air 15 05/03/23 08:00 05/03/23 07:00 05/03/23 07:00 05/03/23 07:00 05/03/23 07:00 05/03/23 07:00 05/03/23 04:00 FiO2 50 05/03/23 04:00 Laboratory Results - last 24 hr 05/03/23 06:38: WBC 12.2 H D, RBC 3.42 L D, Hgb 10.4 L, Hct 30.6 L, MCV 89.5, MCH 30.5, MCHC 34.0, RDW 14.4, Plt Count 143, MPV 8.3, Neut % (Auto) 83.4 H, Lymph % (Auto) 12.9, Duchesne % (Auto) 3.2, Eos % (Auto) 0.3, Baso % (Auto) 0.0 L, Neut # (Auto) 10.2 H, Lymph # (Auto) 1.6, Duchesne # (Auto) 0.4, Eos # (Auto) 0.0, Baso # (Auto) 0.0, Sodium 141, Potassium 3.9, Chloride 105, Carbon Dioxide 27, BUN 24 H D, Creatinine 1.20, Estimated Creat Clear 111, Estimated GFR 65, Est GFR ( Amer) 79, Glucose 105 H, Calcium 8.3 L I & O for Last 24 hours: Intake & Output 04/30/23 05/01/23 05/02/23 05/03/23 23:59 23:59 23:59 23:59 Intake Total 274 / 312 1102 / 1222 340 / 340 Output Total 620 / 770 2835 / 2835 0 / 0 Balance -346 / -458 -1733 / -1613 340 / 340 Weight 104.014 kg 105.007 kg 103.504 kg Constitutional Constitutional: no acute distress *Routine HEENT Exam Head: Present normocephalic Eye: Present EOMI and PERRL ENT: Present mucous membranes moist *Routine Neck Exam Neck: Present supple; Absent lymphadenopathy *Routine Respiratory Exam Respiratory: Present CTA bilaterally and normal respiratory effort; Absent wheezes or crackles *Routine Cardiovascular Exam Cardiovascular: Present RRR *Routine Abdominal Exam Abdominal: Present soft and normoactive bowel sounds; Absent tenderness *Routine Extremities Exam Extremities: Absent cyanosis, clubbing or edema *Routine Skin Exam Skin: Present warm; Absent rash *Routine Neurological Exam Neurological: Present alert and oriented X3; Absent altered mental status Results Data Completed and Pending Completed studies during hospitalization [Text1]: Comprehensive 2D, Doppler, and color-flow Echocardiogram (05/02/23) Conclusion This is a technically difficult study due to patient position in the setting of recent STEMI with presence of chest pads and femoral sheath. Normal biventricular systolic function. No evidence
--- NOTE | 2023-05-03 13:13 | HMH.PHACL ---
PHA Computer Systems Hardware Analyst Discharge Med Illusionist: Oscar Tomlin has received discharge medication counseling on the following medications: ASPIRIN 81 MG DAILY ATORVASTATIN 80 MG HS PLAVIX 75 MG DAILY
--- NOTE | 2023-05-03 14:19 | PC.NURSE ---
[address] Rodriguez to check on pt. per ok for pt to be discharged this afternoon. info relayed to Dr Valenzuela [id number]
[2023-05-03 14:30] LABS: Anion Gap 12.9 mEq/L (5-15); Sodium 141 mmol/L (136-145)
--- NOTE | 2023-05-03 14:33 | HMH.SLDYSPHA ---
Speech & Language Evaluation Speech/Language Dysphagia Evaluation Start: 05/03/23 14:26 Freq: ONCE Status: Active Protocol: Document 05/03/23 14:26 ELROY (Rec: 05/03/23 14:33 [id number][facility] Dysphagia Assess/Goals/Plan Assessment Date of Evaluation: 05/03/23 Evaluation Type Initial Certification Assessment/Problems post extubation protocol per MD order. Does Patient Qualify for Service Yes Qualify/Failure Comment Based on clinical observations made during the CSE, the oropharyngeal phase of the swallow and mastication appear to be WFL. No skilled speech therapy services are warranted at this time. Recommendations PHYSICIAN CERTIFICATION: The specified therapy services are required, authorized, and reviewed every 30 days. Diet Recommendations Normal Liquid Type Recommendations Normal/Thin SL Swallow Guidelines Standard Aspiration Prec. Dysphagia Swallow Precautions/Strategies Sitting Upright (90 deg),Small Bites and Sips,Alternate Liquids/Solids Place Food on Either side of Mouth Plan Pt/Guardian verbally ack understanding Yes of dx/prognosis/goals G -code Required No Education Instructions provided Discussed results of CSE, diet recommendations, and aspiration precautions with pt /family and nursing both of which expressed understanding. Pt/Caregiver able to recall information Able to recall/restate Reinforcement needed No Speech & Language HPI History Present Illness Description of Patient Problem [employer] ENFORCEMENT AGENT pulled following information from chart review Oscar Tomlin is a 47 year old male with a past medical history of colon cancer with metastasis to the liver status post partial colectomy, partial hepatectomy and chemotherapy who was in infusion clinic for initiationof new chemotherapy when he developed tachycardia, diaphoresis, confusion and coarse breath sound. A rapid response was called on 05/01/23 and spo2 was found to be in high 70s. He was immediately
--- NOTE | 2023-05-06 13:16 | CARE MANAGER ---
Contacted patient related to hospital discharge. Patient picked up new medications and denies question and concerns. He has not made follow up appointments but declines wanting me to assist with scheduling those. LYNNE Perez
== END 2023-05-03 15:20 | disposition home or self-care (01) | DRG 248 ==
LOC: 2ND 15:53
PROVIDERS: Internal Medicine Medical Oncology; Internal Medicine Pulmonary Disease; Nurse Practitioner Family; Physician Assistant; Admitting Provider Internal Medicine; PCP Nurse Practitioner Family; Referring Provider Internal Medicine; Visit Provider Internal Medicine
DX: I21.19 ST elevation (STEMI) myocardial infarction involving other coronary artery of inferior wall (principal); J96.01 Acute respiratory failure with hypoxia; R57.0 Cardiogenic shock; C18.9 Malignant neoplasm of colon, unspecified; C78.7 Secondary malignant neoplasm of liver and intrahepatic bile duct; C78.02 Secondary malignant neoplasm of left lung; C78.01 Secondary malignant neoplasm of right lung; F17.290 Nicotine dependence, other tobacco product, uncomplicated; Z71.6 Tobacco abuse counseling; I25.10 Atherosclerotic heart disease of native coronary artery without angina pectoris
CPT/HCPCS: 31500; 94002; 36415; 70450; 71045; 80048; 80053; 82803; 82962; 83735; 84100; 85007; 85025; 85347; 85730; 87040; 87070; 87205; 92610; 92928; 92941; 93005; 93306; 93308; 93458; 94003; 94760; 94761; 96413; 99152; 99153; 99291; C1725; C1769; C1876; C1894; C9600; C9606; J0330; J1327; J1642; J1644; J2469; J2704; J9055; J9206; Q9967

== ENCOUNTER → 2023-06-09 09:44 | Outpatient (CLI) | payer MEDICARE, OTHER, SELFPAY ==
[2023-06-09 09:47] VITALS: BMI 28.8
[2023-06-09 10:14] LABS: Chloride 107 mmol/L (98-107); Potassium 4.2 mmoL/L (3.5-5.1); Sodium 139 mmol/L (136-145)
[2023-06-09 10:17] LABS: Anion Gap 15.2 mEq/L (5-15); Blood Urea Nitrogen 18 mg/dl (9-20); Carbon Dioxide 21 mmol/L (22.0-30.0); Creatinine Clearance Estimated 103 mL/min (50-200); Estimated Glomerular Filt Rate 65 ml/min (>60); GFR (African American) 78 ML/MIN (>60)
[2023-06-09 10:18] LABS: Glucose 94 mg/dl (74-100)
== END ==
PROVIDERS: PCP Physician Assistant; Visit Provider Physician Assistant
DX: C18.9 Malignant neoplasm of colon, unspecified (principal); I25.10 Atherosclerotic heart disease of native coronary artery without angina pectoris; Z45.2 Encounter for adjustment and management of vascular access device
CPT/HCPCS: 36591; 80048; J1642

== ENCOUNTER 2023-07-04 10:16 | Emergency (ER) | payer MEDICARE, OTHER, SELFPAY ==
[2023-07-04 10:18] VITALS: BP 129/74; PULSE 95; RESP 16; TEMP 36.6; O2SAT 97; BMI 29.2
[2023-07-04 10:30] VITALS: BP 112/71; PULSE 83; O2SAT 96
--- NOTE | 2023-07-04 10:30 | XR_ITS ---
FINAL REPORT CLINICAL HISTORY: injured right index finger at work yesterday COMPARISON: None FINDINGS: RIGHT HAND: 3 views of the right hand were obtained. There is no acute fracture or dislocation. There is a chronic fracture with fracture deformity of the fifth metacarpal. There is mild degenerative change present. There is a small calcification in the third DIP dorsally that may be the result of prior trauma or degenerative change. Soft tissues are unremarkable. IMPRESSION: No acute bony abnormality. Chronic fracture with deformity of the fifth metacarpal. Reviewed, Interpreted and Dictated by Santos Faulkner III, MD Transcribed by Pamela Ruby Authenticated and [facility]
--- NOTE | 2023-07-04 10:30 | HMH.EDGENADL ---
Discharge Plan Disposition Patient Disposition: Home, Self-Care Condition: Fair Prescriptions Prescriptions: No Action Entresto 24-26 mg tablet 1 tab PO BID Qty: 60 2RF atorvastatin 80 mg tablet 80 mg PO HS Patient Comments: TAKE ONE TABLET BY MOUTH EVERY DAY AT BEDTIME clopidogrel 75 mg tablet See Rx Instructions .ROUTE .COMPLEX Qty: 90 4RF Dose Instruction: TAKE ONE TABLET BY MOUTH EVERY DAY Rx Instructions: TAKE ONE TABLET BY MOUTH EVERY DAY aspirin 81 mg tablet,chewable See Rx Instructions .ROUTE .COMPLEX Qty: 90 1RF Dose Instruction: TAKE ONE TABLET BY MOUTH EVERY DAY Rx Instructions: TAKE ONE TABLET BY MOUTH EVERY DAY Referrals Follow up/Referrals: Dolores Grande APRN [Primary Care Provider] - See instructions Activity Restrictions/Add. Instructions Additional Instructions/Restrictions: You were evaluated in the emergency department today after hand injury. You do not have fracture or dislocation. Take Tylenol and ibuprofen if needed for pain. Do not exceed the recommended doses on the bottles. Rest and ice the area as well. Follow-up with your primary care physician in 2 to 3 days for reevaluation. Return to the emergency department with any new, worsening, or otherwise concerning symptoms. Clinical Impressions Clinical Impression: Hand pain, right Discharge ED Provider: Shauna Vanessa General Adult HPI General Chief complaint: Extremity Injury, Upper Stated complaint: AO11/2@home, pain in Rt index finger Time Seen by Provider: 07/04/23 10:28 Mode of Arrival: Ambulatory Source of Information: Patient Limitations: No Limitations Description of Symptoms (Recalled from ER Triage Doc. by RN): Pt c/o pain and swelling to R index finger. Pt reports got his finger caught in a pallet yesterday at home. Small abrasion noted to knuckle area. History of Present Illness HPI narrative: This 48-year-old male presents to the emergency department with pain and swelling of his right index finger. He states it got caught in a pallet yesterday at home and he jerked it sideways. He did not feel a pop but today it is more swollen and painful than it was yesterday. He has small abrasion over the right index finger PIP but states most of his pain is at the MCP joint of this digit. Sensation intact. He is able to move the finger but states it is painful. Related Data Home Medications Medication Instructions Recorded Confirmed atorvastatin 80 mg tablet 80 mg PO HS 05/09/23 06/09/23 Previous Rx's Medication Instructions Recorded sacubitril 24 mg-valsartan 26 mg 1 tab PO BID #60 tabs 05/08/23 tablet (Entresto) aspirin 81 mg chewable tablet See Rx Instructions .Route 07/02/23 .COMPLEX #90 tabs clopidogrel 75 mg tablet See Rx Instructions .Route 07/02/23 .COMPLEX #90 tabs Allergies Allergy/AdvReac Type Severity Reaction Status Date / Time cetuximab [From Erbitux] Allergy Severe Anaphylaxis Verified 06/09/23 09:27 [facility] Disclaimer: The information contained in this section may have been updated after the patient was seen, as this information can be updated by other users. Medical History Colon cancer On mechanically assisted ventilation Shock STEMI (ST elevation myocardial infarction) Surgical History Hx of myringotomy Hx of tonsillectomy Family History Other No significant family history Social History Smoking Status: Current every day smoker tobacco type: smokeless tobacco alcohol intake: former substance use type: denies use current occupational status: disabled Travel in the last 8 weeks: None household members: spouse housing: house current occupation: pain line current occupational exposures/hazards: No
--- NOTE | 2023-07-04 11:11 | PC.NURSE ---
RAD at BS
--- NOTE | 2023-07-04 12:30 | PC.NURSE ---
contacted rad to check on status of xray results-states in locked status
[2023-07-04 13:42] VITALS: BP 122/74; PULSE 77; RESP 16; TEMP 36.7; O2SAT 99
== END 2023-07-04 13:48 | disposition home or self-care (01) ==
PROVIDERS: Emergency Provider Emergency Medicine; PCP Nurse Practitioner Family
DX: M79.644 Pain in right finger(s) (principal); F17.290 Nicotine dependence, other tobacco product, uncomplicated; W23.0XXA Caught, crushed, jammed, or pinched between moving objects, initial encounter
CPT/HCPCS: 73130; 99283

== ENCOUNTER 2023-09-18 10:33 | Outpatient (CLI) | payer MEDICARE, OTHER, SELFPAY ==
[2023-09-18] MEDS: SODIUM CHLORIDE 0.9% 10ML FLUSH SYRINGE 10 ML IV (10:35)
[2023-09-18 10:45] VITALS: BMI 30.2
[2023-09-18 10:59] LABS: Basophils % 0.7 % (0.1-2.0); Eosinophils # 0.2 K/mm3 (0.0-0.4); Eosinophils % 2.5 % (0.1-12.0); Hemoglobin 14.4 g/dL (14.1-18.0); Lymphocytes # 2.1 K/mm3 (0.7-4.5); Lymphocytes % 34.2 % (10-50); Mean Corpuscular HGB Conc 35.2 g/dL (31.8-35.4); Mean Corpuscular Hemoglobin 32.2 pg (27.0-31.2); Mean Corpuscular Volume 91.4 fl (80-94); Monocytes # 0.5 K/mm3 (0.1-1.0); Monocytes % 7.9 % (1.7-9.3); Neutrophils # 3.4 K/mm3 (1.8-7.8); Neutrophils % 54.8 % (37.0-80.0); Platelet Count 191 K/mm3 (142-424); Red Blood Count 4.48 M/mm3 (4.60-6.20); Red Cell Distribution Width 14.1 % (11.5-17.5); White Blood Count 6.2 K/mm3 (4.8-10.8)
[2023-09-18 11:08] LABS: Alanine Aminotransferase 44 U/L (12-78); Albumin Level 4.6 g/dl (3.5-5.0); Albumin/Globulin Ratio 1.6 (1.1-1.8); Alkaline Phosphatase 72 U/L (38-126); Anion Gap 13.9 mEq/L (5-15); Aspartate Amino Transferase 40 U/L (17-59); Bilirubin,Total 0.8 mg/dl (0.2-1.3); Blood Urea Nitrogen 14 mg/dl (9-20); Calcium 8.9 mg/dl (8.4-10.2); Carbon Dioxide 25 mmol/L (22.0-30.0); Chloride 104 mmol/L (98-107); Creatinine Clearance Estimated 99 mL/min (50-200); Estimated Glomerular Filt Rate 59 ml/min (>60); GFR (African American) 71 ML/MIN (>60); Globulin 2.9 g/dL (1.3-3.2); Glucose 86 mg/dl (74-100); Potassium 3.9 mmoL/L (3.5-5.1); Sodium 139 mmol/L (136-145); Total Protein,Serum 7.5 g/dl (6.3-8.2)
[2023-09-19 08:39] LABS: CEA 11.1 ng/mL (0.0-4.7)
== END 2023-09-18 10:50 | disposition home or self-care (01) ==
LOC: INF 10:34
PROVIDERS: PCP Nurse Practitioner Family; Visit Provider Internal Medicine Medical Oncology
DX: C18.9 Malignant neoplasm of colon, unspecified (principal); Z45.2 Encounter for adjustment and management of vascular access device; R97.0 Elevated carcinoembryonic antigen [CEA]
CPT/HCPCS: 36591; 80053; 82378; 85025; J1642

== ENCOUNTER 2023-10-09 08:22 | Outpatient (CLI) | payer MEDICARE, OTHER, SELFPAY ==
[2023-10-09] VITALS (14 sets, daily range): BP systolic 96–119; BP diastolic 57–89; PULSE 66–89; RESP 18–19; TEMP 36.6; O2SAT 98; BMI 30.2
[2023-10-09 08:58] LABS: Basophils % 0.5 % (0.1-2.0); Eosinophils # 0.2 K/mm3 (0.0-0.4); Hematocrit 37.4 % (42.0-52.0); Hemoglobin 12.8 g/dL (14.1-18.0); Lymphocytes # 2.2 K/mm3 (0.7-4.5); Lymphocytes % 37.5 % (10-50); Mean Corpuscular HGB Conc 34.2 g/dL (31.8-35.4); Mean Corpuscular Volume 90.6 fl (80-94); Mean Platelet Volume 7.5 fl (7.4-10.4); Monocytes # 0.4 K/mm3 (0.1-1.0); Monocytes % 7.4 % (1.7-9.3); Neutrophils % 51.6 % (37.0-80.0); Platelet Count 190 K/mm3 (142-424); Red Blood Count 4.13 M/mm3 (4.60-6.20); White Blood Count 5.9 K/mm3 (4.8-10.8)
[2023-10-09 09:11] LABS: Chloride 106 mmol/L (98-107); Potassium 3.7 mmoL/L (3.5-5.1); Sodium 137 mmol/L (136-145)
[2023-10-09 09:14] LABS: Alanine Aminotransferase 46 U/L (12-78); Albumin Level 4.4 g/dl (3.5-5.0); Albumin/Globulin Ratio 1.5 (1.1-1.8); Alkaline Phosphatase 92 U/L (38-126); Anion Gap 8.7 mEq/L (5-15); Aspartate Amino Transferase 40 U/L (17-59); Bilirubin,Total 0.6 mg/dl (0.2-1.3); Blood Urea Nitrogen 19 mg/dl (9-20); Calcium 9.2 mg/dl (8.4-10.2); Carbon Dioxide 26 mmol/L (22.0-30.0); Creatinine Clearance Estimated 92 mL/min (50-200); Estimated Glomerular Filt Rate 54 ml/min (>60); GFR (African American) 65 ML/MIN (>60); Globulin 2.9 g/dL (1.3-3.2); Glucose 107 mg/dl (74-100); Total Protein,Serum 7.3 g/dl (6.3-8.2)
[2023-10-09] MEDS: ONDANSETRON 4MG ODT 16 MG (09:50)
[2023-10-09] MEDS: ACETAMINOPHEN 325MG TAB 650 MG (09:50)
[2023-10-09] MEDS: DEXAMETHASONE 4MG TABLET 12 MG (09:50)
[2023-10-09] MEDS: diphenhydrAMINE 25MG CAPSULE 25 MG PO (09:50)
[2023-10-09] MEDS: SODIUM CHLORIDE 0.9% 50ML BAG 50 ML IV (09:57)
[2023-10-09] MEDS: PANITUMUMAB IV (10:23)
[2023-10-09] MEDS: SODIUM CHLORIDE 0.9% IV (10:23)
[2023-10-09] MEDS: IRINOTECAN HCL IV (11:51)
[2023-10-09] MEDS: DEXTROSE 5% IV (11:51)
[2023-10-09] MEDS: WATER IV (11:51)
[2023-10-09] MEDS: SODIUM CHLORIDE 0.9% 10ML FLUSH SYRINGE 10 ML IV (13:36)
== END 2023-10-09 13:41 | disposition home or self-care (01) ==
LOC: INF 08:24
PROVIDERS: PCP Nurse Practitioner Family; Visit Provider Internal Medicine Medical Oncology
DX: C18.9 Malignant neoplasm of colon, unspecified (principal); Z51.11 Encounter for antineoplastic chemotherapy; Z79.899 Other long term (current) drug therapy
CPT/HCPCS: 80053; 83735; 85025; 96413; 96415; 96417; J1642; J9206; J9303

== ENCOUNTER 2023-10-15 10:47 | Outpatient (CLI) | payer MEDICARE, OTHER, SELFPAY ==
[2023-10-15 10:48] VITALS: BMI 30.4
[2023-10-15 11:12] LABS: Basophils % 0.2 % (0.1-2.0); Eosinophils # 0.2 K/mm3 (0.0-0.4); Eosinophils % 2.2 % (0.1-12.0); Hematocrit 37.5 % (42.0-52.0); Hemoglobin 13.1 g/dL (14.1-18.0); Lymphocytes # 2.4 K/mm3 (0.7-4.5); Lymphocytes % 33.5 % (10-50); Mean Corpuscular HGB Conc 34.9 g/dL (31.8-35.4); Mean Corpuscular Hemoglobin 31.7 pg (27.0-31.2); Mean Platelet Volume 7.9 fl (7.4-10.4); Monocytes # 0.1 K/mm3 (0.1-1.0); Monocytes % 1.8 % (1.7-9.3); Neutrophils # 4.5 K/mm3 (1.8-7.8); Neutrophils % 62.3 % (37.0-80.0); Platelet Count 229 K/mm3 (142-424); Red Blood Count 4.13 M/mm3 (4.60-6.20); Red Cell Distribution Width 13.3 % (11.5-17.5); White Blood Count 7.2 K/mm3 (4.8-10.8)
[2023-10-15 11:15] VITALS: BP 108/65; PULSE 80; RESP 18; TEMP 36.9; O2SAT 96
[2023-10-15] MEDS: 0.9 % SODIUM CHLORIDE 1000ML 1,000 ML 999 ML IV (11:15)
[2023-10-15 11:17] LABS: Chloride 104 mmol/L (98-107); Potassium 3.6 mmoL/L (3.5-5.1); Sodium 133 mmol/L (136-145)
[2023-10-15 11:19] LABS: Blood Urea Nitrogen 22 mg/dl (9-20); Creatinine Clearance Estimated 93 mL/min (50-200); Estimated Glomerular Filt Rate 54 ml/min (>60); GFR (African American) 65 ML/MIN (>60)
[2023-10-15 11:20] LABS: Alanine Aminotransferase 33 U/L (12-78); Albumin Level 3.8 g/dl (3.5-5.0); Albumin/Globulin Ratio 1.4 (1.1-1.8); Alkaline Phosphatase 76 U/L (38-126); Anion Gap 10.6 mEq/L (5-15); Aspartate Amino Transferase 26 U/L (17-59); Bilirubin,Total 0.9 mg/dl (0.2-1.3); Calcium 8.6 mg/dl (8.4-10.2); Carbon Dioxide 22 mmol/L (22.0-30.0); Globulin 2.8 g/dL (1.3-3.2); Glucose 93 mg/dl (74-100); Total Protein,Serum 6.6 g/dl (6.3-8.2)
[2023-10-15] MEDS: SODIUM CHLORIDE 0.9% 10ML FLUSH SYRINGE 10 ML IV (12:10)
[2023-10-15 12:15] VITALS: BP 124/74; PULSE 82; RESP 18; O2SAT 96
== END 2023-10-15 12:20 | disposition home or self-care (01) ==
LOC: INF 10:48
PROVIDERS: PCP Nurse Practitioner Family; Visit Provider Internal Medicine Medical Oncology
DX: C18.9 Malignant neoplasm of colon, unspecified (principal); Z45.2 Encounter for adjustment and management of vascular access device; E86.0 Dehydration
CPT/HCPCS: 80053; 85025; 96360; J1642

== ENCOUNTER 2023-10-23 10:48 | Outpatient (CLI) | payer MEDICARE, OTHER, SELFPAY ==
[2023-10-23 10:58] VITALS: BMI 30.2
[2023-10-23 11:19] LABS: Basophils % 0.2 % (0.1-2.0); Eosinophils # 0.3 K/mm3 (0.0-0.4); Eosinophils % 3.8 % (0.1-12.0); Hematocrit 33.4 % (42.0-52.0); Lymphocytes # 2.1 K/mm3 (0.7-4.5); Lymphocytes % 28.2 % (10-50); Mean Corpuscular HGB Conc 33.1 g/dL (31.8-35.4); Mean Corpuscular Hemoglobin 31.4 pg (27.0-31.2); Mean Corpuscular Volume 94.8 fl (80-94); Mean Platelet Volume 8.7 fl (7.4-10.4); Monocytes # 0.5 K/mm3 (0.1-1.0); Monocytes % 6.2 % (1.7-9.3); Neutrophils # 4.6 K/mm3 (1.8-7.8); Neutrophils % 61.6 % (37.0-80.0); Platelet Count 246 K/mm3 (142-424); Red Blood Count 3.52 M/mm3 (4.60-6.20); Red Cell Distribution Width 14.1 % (11.5-17.5); White Blood Count 7.4 K/mm3 (4.8-10.8)
[2023-10-23 11:27] LABS: Alanine Aminotransferase 46 U/L (12-78); Albumin Level 3.7 g/dl (3.5-5.0); Albumin/Globulin Ratio 1.5 (1.1-1.8); Alkaline Phosphatase 82 U/L (38-126); Anion Gap 8.3 mEq/L (5-15); Aspartate Amino Transferase 34 U/L (17-59); Bilirubin,Total 0.4 mg/dl (0.2-1.3); Blood Urea Nitrogen 5 mg/dl (9-20); Calcium 8.3 mg/dl (8.4-10.2); Carbon Dioxide 27 mmol/L (22.0-30.0); Chloride 107 mmol/L (98-107); Creatinine Clearance Estimated 129 mL/min (50-200); Estimated Glomerular Filt Rate 80 ml/min (>60); GFR (African American) 97 ML/MIN (>60); Globulin 2.5 g/dL (1.3-3.2); Glucose 79 mg/dl (74-100); Magnesium 2.1 mg/dl (1.6-2.3); Potassium 3.3 mmoL/L (3.5-5.1); Sodium 139 mmol/L (136-145); Total Protein,Serum 6.2 g/dl (6.3-8.2)
[2023-10-23] MEDS: DEXAMETHASONE 4MG TABLET 12 MG (11:41)
[2023-10-23] MEDS: 0.9 % SODIUM CHLORIDE 50 ML 1000 ML IV (11:41)
[2023-10-23] MEDS: ACETAMINOPHEN 325MG TAB 650 MG (11:41)
[2023-10-23] MEDS: diphenhydrAMINE 25MG CAPSULE 25 MG PO (11:42)
[2023-10-23] MEDS: ONDANSETRON 4MG ODT 16 MG (11:42)
[2023-10-23] MEDS: SODIUM CHLORIDE 0.9% IV (12:09)
[2023-10-23] MEDS: PANITUMUMAB IV (12:09)
[2023-10-23 12:15] VITALS: BP 94/54; PULSE 78; RESP 16; TEMP 36.9; O2SAT 99
[2023-10-23 12:30] VITALS: BP 99/58; PULSE 77; RESP 16
[2023-10-23 12:45] VITALS: BP 100/60; PULSE 75; RESP 16
[2023-10-23 13:00] VITALS: BP 96/58; PULSE 75; RESP 16
[2023-10-23 13:15] VITALS: BP 98/52; PULSE 74; RESP 16
[2023-10-23 13:25] VITALS: BP 103/49; PULSE 77; RESP 16
== END 2023-10-23 13:35 | disposition home or self-care (01) ==
LOC: INF 10:50
PROVIDERS: PCP Nurse Practitioner Family; Visit Provider Internal Medicine Medical Oncology
DX: C18.9 Malignant neoplasm of colon, unspecified (principal); Z79.899 Other long term (current) drug therapy
CPT/HCPCS: 80053; 83735; 85025; 96413; J1642; J9303

== ENCOUNTER 2023-10-30 09:29 | Outpatient (CLI) | payer MEDICARE, OTHER, SELFPAY ==
[2023-10-30 09:33] VITALS: BMI 30.4
[2023-10-30 09:45] LABS: Basophils % 0.4 % (0.1-2.0); Eosinophils # 0.4 K/mm3 (0.0-0.4); Eosinophils % 4.9 % (0.1-12.0); Hematocrit 37.2 % (42.0-52.0); Hemoglobin 12.3 g/dL (14.1-18.0); Lymphocytes # 2.3 K/mm3 (0.7-4.5); Lymphocytes % 27.5 % (10-50); Mean Corpuscular Hemoglobin 32.2 pg (27.0-31.2); Mean Corpuscular Volume 97.5 fl (80-94); Mean Platelet Volume 9.1 fl (7.4-10.4); Monocytes # 0.5 K/mm3 (0.1-1.0); Monocytes % 5.7 % (1.7-9.3); Neutrophils # 5.1 K/mm3 (1.8-7.8); Neutrophils % 61.4 % (37.0-80.0); Platelet Count 230 K/mm3 (142-424); Red Blood Count 3.82 M/mm3 (4.60-6.20); Red Cell Distribution Width 15.5 % (11.5-17.5); White Blood Count 8.4 K/mm3 (4.8-10.8)
[2023-10-30 10:01] LABS: Chloride 107 mmol/L (98-107); Sodium 137 mmol/L (136-145)
[2023-10-30 10:02] LABS: Potassium 3.3 mmoL/L (3.5-5.1)
[2023-10-30 10:04] LABS: Alanine Aminotransferase 38 U/L (12-78); Albumin Level 3.6 g/dl (3.5-5.0); Alkaline Phosphatase 84 U/L (38-126); Anion Gap 8.3 mEq/L (5-15); Aspartate Amino Transferase 32 U/L (17-59); Bilirubin,Total 0.4 mg/dl (0.2-1.3); Blood Urea Nitrogen 13 mg/dl (9-20); Carbon Dioxide 25 mmol/L (22.0-30.0); Creatinine Clearance Estimated 118 mL/min (50-200); Estimated Glomerular Filt Rate 71 ml/min (>60); GFR (African American) 86 ML/MIN (>60); Globulin 2.8 g/dL (1.3-3.2); Total Protein,Serum 6.4 g/dl (6.3-8.2)
[2023-10-30 10:05] LABS: Albumin/Globulin Ratio 1.3 (1.1-1.8); Calcium 8.5 mg/dl (8.4-10.2); Glucose 115 mg/dl (74-100)
[2023-10-30] MEDS: SODIUM CHLORIDE 0.9% 10ML FLUSH SYRINGE 10 ML IV (10:14)
[2023-10-31 08:19] LABS: CEA 5.9 ng/mL (0.0-4.7)
== END 2023-10-30 10:16 | disposition home or self-care (01) ==
LOC: INF 09:30
PROVIDERS: PCP Nurse Practitioner Family; Visit Provider Internal Medicine Medical Oncology
DX: C18.9 Malignant neoplasm of colon, unspecified (principal); R97.0 Elevated carcinoembryonic antigen [CEA]
CPT/HCPCS: 36591; 80053; 82378; 85025; J1642

== ENCOUNTER 2023-11-06 10:27 | Outpatient (CLI) | payer MEDICARE, OTHER, SELFPAY ==
[2023-11-06 10:39] VITALS: BMI 29.7
[2023-11-06] MEDS: ONDANSETRON 4MG ODT 16 MG (11:39)
[2023-11-06] MEDS: DEXAMETHASONE 4MG TABLET 12 MG (11:39)
[2023-11-06 11:40] VITALS: BP 116/71; PULSE 74; RESP 18; TEMP 36.4; O2SAT 100
[2023-11-06] MEDS: ACETAMINOPHEN 325MG TAB 650 MG (11:40)
[2023-11-06] MEDS: DEXTROSE 5 % IN WATER 100 ML 25 ML IV (11:40)
[2023-11-06] MEDS: diphenhydrAMINE 25MG CAPSULE 25 MG PO (11:40)
[2023-11-06 12:10] VITALS: BP 97/60; PULSE 67; RESP 18; O2SAT 99
[2023-11-06] MEDS: DEXTROSE 5% IV (12:10)
[2023-11-06] MEDS: IRINOTECAN HCL IV (12:10)
[2023-11-06] MEDS: WATER IV (12:10)
[2023-11-06] MEDS: SODIUM CHLORIDE 0.9% 10ML FLUSH SYRINGE 10 ML IV (12:16)
[2023-11-06 12:40] VITALS: BP 107/61; PULSE 69; RESP 18; O2SAT 100
[2023-11-06 13:10] VITALS: BP 102/69; PULSE 70; RESP 18; O2SAT 100
[2023-11-06 13:55] VITALS: BP 111/64; PULSE 68; RESP 18; O2SAT 99
== END 2023-11-06 14:00 | disposition home or self-care (01) ==
LOC: INF 10:28
PROVIDERS: PCP Nurse Practitioner Family; Visit Provider Internal Medicine Medical Oncology
DX: C18.9 Malignant neoplasm of colon, unspecified (principal)
CPT/HCPCS: 96413; 96415; J1642; J9206

== ENCOUNTER 2023-11-10 12:47 | Outpatient (CLI) | payer MEDICARE, OTHER, SELFPAY ==
[2023-11-10 12:50] VITALS: BMI 29.5
[2023-11-10 12:52] VITALS: BP 91/51; PULSE 97; RESP 17; O2SAT 98
[2023-11-10] MEDS: 0.9 % SODIUM CHLORIDE 1000ML 1,000 ML 999 ML IV (12:52)
[2023-11-10 13:47] LABS: Chloride 106 mmol/L (98-107); Potassium 3.3 mmoL/L (3.5-5.1); Sodium 135 mmol/L (136-145)
[2023-11-10 13:49] LABS: Alanine Aminotransferase 39 U/L (12-78); Aspartate Amino Transferase 32 U/L (17-59); Blood Urea Nitrogen 18 mg/dl (9-20); Creatinine Clearance Estimated 126 mL/min (50-200); Estimated Glomerular Filt Rate 80 ml/min (>60); GFR (African American) 97 ML/MIN (>60)
[2023-11-10 13:50] LABS: Albumin Level 3.6 g/dl (3.5-5.0); Albumin/Globulin Ratio 1.5 (1.1-1.8); Alkaline Phosphatase 67 U/L (38-126); Anion Gap 7.3 mEq/L (5-15); Calcium 8.5 mg/dl (8.4-10.2); Carbon Dioxide 25 mmol/L (22.0-30.0); Globulin 2.4 g/dL (1.3-3.2); Glucose 90 mg/dl (74-100)
[2023-11-10] MEDS: SODIUM CHLORIDE 0.9% 10ML FLUSH SYRINGE 10 ML IV (14:40)
[2023-11-10 14:44] VITALS: BP 98/55; PULSE 83; RESP 18; O2SAT 97
[2023-11-10] MEDS: POTASSIUM CHLORIDE 10MEQ CAPSULE.ER 10 MEQ PO (14:44)
== END 2023-11-10 14:44 | disposition home or self-care (01) ==
LOC: INF 12:48
PROVIDERS: Visit Provider Internal Medicine Medical Oncology
DX: C18.9 Malignant neoplasm of colon, unspecified (principal); E86.0 Dehydration; Z79.899 Other long term (current) drug therapy
CPT/HCPCS: 80053; 83735; 96360; J1642

== ENCOUNTER 2023-11-27 09:44 | Outpatient (CLI) | payer MEDICARE, OTHER, SELFPAY ==
[2023-11-27] VITALS (8 sets, daily range): BP systolic 123–167; BP diastolic 82–99; PULSE 59–72; RESP 16–17; O2SAT 98; BMI 27.6
[2023-11-27 10:10] LABS: Basophils # 0.1 K/mm3 (0-0.2); Basophils % 1.1 % (0.1-2.0); Eosinophils # 0.3 K/mm3 (0.0-0.4); Eosinophils % 5.7 % (0.1-12.0); Hematocrit 37.3 % (42.0-52.0); Hemoglobin 12.1 g/dL (14.1-18.0); Lymphocytes # 1.6 K/mm3 (0.7-4.5); Lymphocytes % 33.7 % (10-50); Mean Corpuscular HGB Conc 32.5 g/dL (31.8-35.4); Mean Corpuscular Hemoglobin 32.8 pg (27.0-31.2); Monocytes # 0.5 K/mm3 (0.1-1.0); Monocytes % 9.8 % (1.7-9.3); Neutrophils # 2.3 K/mm3 (1.8-7.8); Neutrophils % 49.7 % (37.0-80.0); Platelet Count 267 K/mm3 (142-424); Red Cell Distribution Width 15.7 % (11.5-17.5); White Blood Count 4.7 K/mm3 (4.8-10.8)
[2023-11-27 10:23] LABS: Alanine Aminotransferase 44 U/L (12-78); Albumin Level 4.3 g/dl (3.5-5.0); Albumin/Globulin Ratio 1.7 (1.1-1.8); Alkaline Phosphatase 87 U/L (38-126); Anion Gap 12.6 mEq/L (5-15); Aspartate Amino Transferase 38 U/L (17-59); Bilirubin,Total 0.8 mg/dl (0.2-1.3); Blood Urea Nitrogen 11 mg/dl (9-20); Calcium 9.2 mg/dl (8.4-10.2); Carbon Dioxide 21 mmol/L (22.0-30.0); Chloride 108 mmol/L (98-107); Creatinine Clearance Estimated 96 mL/min (50-200); Estimated Glomerular Filt Rate 59 ml/min (>60); GFR (African American) 71 ML/MIN (>60); Globulin 2.6 g/dL (1.3-3.2); Glucose 86 mg/dl (74-100); Potassium 3.6 mmoL/L (3.5-5.1); Sodium 138 mmol/L (136-145); Total Protein,Serum 6.9 g/dl (6.3-8.2)
[2023-11-27] MEDS: ACETAMINOPHEN 325MG TAB 650 MG PO (11:02)
[2023-11-27] MEDS: diphenhydrAMINE 25MG CAPSULE 25 MG PO (11:03)
[2023-11-27] MEDS: ONDANSETRON 4MG ODT 16 MG SL (11:03)
[2023-11-27] MEDS: DEXAMETHASONE 4MG TABLET 12 MG PO (11:04)
[2023-11-27] MEDS: SODIUM CHLORIDE 0.9% 50ML BAG 50 ML IV (11:04)
[2023-11-27] MEDS: WATER IV (11:30)
[2023-11-27] MEDS: IRINOTECAN HCL IV (11:30)
[2023-11-27] MEDS: DEXTROSE 5% IV (11:30)
[2023-11-27] MEDS: SODIUM CHLORIDE 0.9% 10ML FLUSH SYRINGE 10 ML IV (13:23)
[2023-11-28 11:14] LABS: CEA 6.8 ng/mL (0.0-4.7)
== END 2023-11-27 13:30 | disposition home or self-care (01) ==
LOC: INF 09:45
PROVIDERS: PCP Nurse Practitioner Family; Visit Provider Internal Medicine Medical Oncology
DX: C18.9 Malignant neoplasm of colon, unspecified (principal); Z79.899 Other long term (current) drug therapy; R97.0 Elevated carcinoembryonic antigen [CEA]
CPT/HCPCS: 80053; 82378; 83735; 85025; 96413; 96415; J1642; J9206

== ENCOUNTER 2023-12-17 09:33 | Outpatient (CLI) | payer MEDICARE, OTHER, SELFPAY ==
[2023-12-17 09:39] VITALS: BMI 29.4
[2023-12-17 10:02] LABS: Basophils % 0.8 % (0.1-2.0); Eosinophils # 0.3 K/mm3 (0.0-0.4); Eosinophils % 5.5 % (0.1-12.0); Hematocrit 36.2 % (42.0-52.0); Hemoglobin 11.8 g/dL (14.1-18.0); Lymphocytes # 1.8 K/mm3 (0.7-4.5); Lymphocytes % 36.6 % (10-50); Mean Corpuscular HGB Conc 32.6 g/dL (31.8-35.4); Mean Corpuscular Hemoglobin 32.8 pg (27.0-31.2); Mean Corpuscular Volume 100.8 fl (80-94); Mean Platelet Volume 8.6 fl (7.4-10.4); Monocytes # 0.5 K/mm3 (0.1-1.0); Monocytes % 9.3 % (1.7-9.3); Neutrophils # 2.4 K/mm3 (1.8-7.8); Neutrophils % 47.8 % (37.0-80.0); Platelet Count 195 K/mm3 (142-424); Red Cell Distribution Width 15.8 % (11.5-17.5); White Blood Count 4.9 K/mm3 (4.8-10.8)
[2023-12-17 10:17] LABS: Chloride 111 mmol/L (98-107); Potassium 3.6 mmoL/L (3.5-5.1); Sodium 140 mmol/L (136-145)
[2023-12-17 10:19] LABS: Alanine Aminotransferase 33 U/L (12-78); Aspartate Amino Transferase 35 U/L (17-59); Blood Urea Nitrogen 13 mg/dl (9-20); Creatinine Clearance Estimated 105 mL/min (50-200); Estimated Glomerular Filt Rate 65 ml/min (>60); GFR (African American) 78 ML/MIN (>60)
[2023-12-17 10:20] LABS: Albumin Level 4.1 g/dl (3.5-5.0); Albumin/Globulin Ratio 1.6 (1.1-1.8); Alkaline Phosphatase 81 U/L (38-126); Anion Gap 9.6 mEq/L (5-15); Bilirubin,Total 0.7 mg/dl (0.2-1.3); Calcium 9.1 mg/dl (8.4-10.2); Carbon Dioxide 23 mmol/L (22.0-30.0); Globulin 2.6 g/dL (1.3-3.2); Glucose 75 mg/dl (74-100); Total Protein,Serum 6.7 g/dl (6.3-8.2)
[2023-12-17] MEDS: diphenhydrAMINE 25MG CAPSULE 25 MG PO (10:47)
[2023-12-17] MEDS: ACETAMINOPHEN 325MG TAB 650 MG PO (10:47)
[2023-12-17 10:48] VITALS: BP 126/80; PULSE 65; RESP 18; TEMP 36.8; O2SAT 98
[2023-12-17] MEDS: SODIUM CHLORIDE 0.9% 50ML BAG 50 ML IV (10:48)
[2023-12-17] MEDS: DEXAMETHASONE 4MG TABLET 12 MG PO (10:48)
[2023-12-17] MEDS: ONDANSETRON 4MG ODT 16 MG SL (10:48)
[2023-12-17] MEDS: SODIUM CHLORIDE 0.9% 10ML FLUSH SYRINGE 10 ML IV (10:48)
[2023-12-17 11:05] LABS: Magnesium 1.9 mg/dl (1.6-2.3)
[2023-12-17 11:34] VITALS: BP 120/77; PULSE 68; RESP 18; O2SAT 98
[2023-12-17] MEDS: WATER IV (11:34)
[2023-12-17] MEDS: DEXTROSE 5% IV (11:34)
[2023-12-17] MEDS: IRINOTECAN HCL IV (11:34)
[2023-12-17 12:04] VITALS: BP 123/70; PULSE 64; RESP 18; O2SAT 97
[2023-12-17 12:34] VITALS: BP 114/72; PULSE 69; RESP 18; O2SAT 98
[2023-12-17 13:04] VITALS: BP 109/67; PULSE 58; RESP 18; O2SAT 98
[2023-12-17 13:30] VITALS: BP 123/76; PULSE 69; RESP 18; O2SAT 98
== END 2023-12-17 13:30 | disposition home or self-care (01) ==
LOC: INF 09:34
PROVIDERS: PCP Nurse Practitioner Family; Visit Provider Internal Medicine Medical Oncology
DX: C18.9 Malignant neoplasm of colon, unspecified (principal)
CPT/HCPCS: 80053; 83735; 85025; 96413; 96415; J1642; J9206

== ENCOUNTER 2024-01-01 08:27 | Outpatient (CLI) | payer MEDICARE, SELFPAY ==
--- NOTE | 2024-01-01 08:35 | CT_ITS ---
FINAL REPORT TECHNIQUE: Axial CT with contrast with 3-D MIP reconstruction CLINICAL HISTORY: COLON CANCER COMPARISON: 04/14/2023 FINDINGS: Pulmonary vessels enhance in normal fashion without evidence of embolism. Thoracic aorta shows no dissection or aneurysm. Multiple pulmonary nodules are again noted consistent with metastasis. In the right apex there is a 13 mm nodule, was 9 mm on the prior exam. Other nodules show similar mild progression. There are discoid areas of soft tissue density in the right upper lobe and left lower lobe, that also appears slightly more prominent. On coronal images the left lower lobe discoid soft tissue density measures up to 12 mm in thickness, and is more solid than on the prior exam. The right upper lobe soft tissue density measures 13 mm in thickness, was previously 7 mm. There is no significant pleural effusion. There is no significant pericardial effusion. No mediastinal or hilar adenopathy is present. IMPRESSION: Progression of metastatic disease, with enlarging pulmonary nodules and discoid areas of soft tissue density as described. Reviewed, Interpreted and Dictated by Marlys Briscoe MD Transcribed by Pamela Ruby Authenticated and . [facility]
--- NOTE | 2024-01-01 08:35 | CT_ITS ---
FINAL REPORT TECHNIQUE: Oral and IV contrast enhanced exam CLINICAL HISTORY: COLON CANCER COMPARISON: 04/14/2023 FINDINGS: Abdomen: The gallbladder has been surgically resected. There is a 7 mm hypodense area in the left hepatic dome, which is similar in appearance when compared to the prior CT. There is a heterogeneous right hepatic lobe mass, measuring 31 x 21 mm in size, previously was 34 x 22 mm in size, likely unchanged in appearance, probably related to slice variation. The spleen, pancreas and adrenal glands are unremarkable. There there is severe left hydronephrosis and hydroureter, worse than seen on the prior examination with increasing parenchymal atrophy. There is obstruction of the left ureter secondary to an 11 mm retroperitoneal node along the left common iliac artery, which was previously 9 mm in size, likely adenopathy. There is left para-aortic adenopathy, with the largest nodes measuring 15 mm in size, new since prior exam. There are surgical changes in the abdominal wall with multiple hernias similar to seen on the previous exam. No bowel obstruction or fluid collection is seen. Pelvis: No other adenopathy is identified in the pelvis. There is moderate enlargement of the prostate. IMPRESSION: Worsening left hydronephrosis and hydroureter since the prior CT of April 2023. The retroperitoneal node which appears to be causing the left ureteral obstruction has enlarged, and now measures 11 mm in size. There is also left para-aortic adenopathy, new since the prior exam. Stable heterogeneous mass right hepatic lobe and 7 mm hypodense lesion in the left hepatic lobe. Reviewed, Interpreted and Dictated by Marlys Briscoe MD Transcribed by Pamela Ruby Authenticated and [facility]
[2024-01-01 08:59] VITALS: BMI 28.7
[2024-01-01 09:09] LABS: Basophils % 0.7 % (0.1-2.0); Eosinophils # 0.2 K/mm3 (0.0-0.4); Eosinophils % 3.6 % (0.1-12.0); Hemoglobin 12.1 g/dL (14.1-18.0); Lymphocytes # 1.7 K/mm3 (0.7-4.5); Lymphocytes % 37.8 % (10-50); Mean Corpuscular HGB Conc 32.7 g/dL (31.8-35.4); Mean Corpuscular Hemoglobin 32.5 pg (27.0-31.2); Mean Corpuscular Volume 99.4 fl (80-94); Mean Platelet Volume 8.1 fl (7.4-10.4); Monocytes # 0.3 K/mm3 (0.1-1.0); Monocytes % 6.6 % (1.7-9.3); Neutrophils # 2.3 K/mm3 (1.8-7.8); Neutrophils % 51.2 % (37.0-80.0); Platelet Count 201 K/mm3 (142-424); Red Blood Count 3.72 M/mm3 (4.60-6.20); Red Cell Distribution Width 15.3 % (11.5-17.5); White Blood Count 4.5 K/mm3 (4.8-10.8)
[2024-01-01 09:15] LABS: Alanine Aminotransferase 29 U/L (12-78); Albumin Level 4.3 g/dl (3.5-5.0); Albumin/Globulin Ratio 1.7 (1.1-1.8); Alkaline Phosphatase 84 U/L (38-126); Anion Gap 9.5 mEq/L (5-15); Aspartate Amino Transferase 28 U/L (17-59); Bilirubin,Total 0.4 mg/dl (0.2-1.3); Blood Urea Nitrogen 13 mg/dl (9-20); Calcium 9.2 mg/dl (8.4-10.2); Carbon Dioxide 23 mmol/L (22.0-30.0); Chloride 112 mmol/L (98-107); Creatinine Clearance Estimated 112 mL/min (50-200); Estimated Glomerular Filt Rate 71 ml/min (>60); GFR (African American) 86 ML/MIN (>60); Globulin 2.6 g/dL (1.3-3.2); Glucose 98 mg/dl (74-100); Potassium 3.5 mmoL/L (3.5-5.1); Sodium 141 mmol/L (136-145); Total Protein,Serum 6.9 g/dl (6.3-8.2)
[2024-01-01] MEDS: IOPAMIDOL-370 (76%);100ML BOTTLE 75 ML IV (09:25)
[2024-01-01] MEDS: SODIUM CHLORIDE 0.9% 10ML SYR (RAD ONLY) 10 ML IV (09:25)
[2024-01-01] MEDS: SODIUM CHLORIDE 0.9% 10ML FLUSH SYRINGE 10 ML IV (09:26)
[2024-01-01] MEDS: BARIUM SULFATE(READI-CAT2);450ML BOTTLE 450 ML PO (10:13)
== END 2024-01-01 09:30 | disposition home or self-care (01) ==
LOC: RAD 08:28 → INF 09:05
PROVIDERS: PCP Nurse Practitioner Family; Visit Provider Internal Medicine Medical Oncology
DX: C18.9 Malignant neoplasm of colon, unspecified (principal); Z45.2 Encounter for adjustment and management of vascular access device
CPT/HCPCS: 36591; 71260; 74177; 80053; 85025; J1642; Q9967

== ENCOUNTER 2024-01-07 09:34 | Outpatient (CLI) | payer MEDICARE, SELFPAY ==
[2024-01-07 09:39] VITALS: BMI 29.0
--- NOTE | 2024-01-07 15:46 | MR_ITS ---
FINAL REPORT CLINICAL HISTORY: COMPARISON OF CT lower back pain COMPARISON: CT abdomen and pelvis January 01, 2024 FINDINGS: Multiplanar MR imaging of the lumbar spine was performed without and with contrast. On the sagittal T2-weighted images, disc degeneration is seen at multiple levels. Mild retrolisthesis is seen of L4 on L5. Presumed hemangiomas are seen at several levels. There is no evidence of fracture. The conus is seen at approximately the L1 level and has an unremarkable appearance. L1-2: An annular bulge is present. No significant canal stenosis or neuroforaminal narrowing is seen. L2-3: No significant canal stenosis or neuroforaminal narrowing is seen. L3-4: An annular bulge is present. No significant canal stenosis or neuroforaminal narrowing is seen. L4-5: An annular bulge is present. Mild bilateral neural foraminal narrowing is seen. L5-S1: An annular bulge is present. A left paracentral disc protrusion is present which contacts the left S1 nerve root. Severe bilateral neural foraminal narrowing is seen. Contrast-enhancement is noted of the posterior aspect of the disc consistent with an annular tear. Note is made of moderate left hydronephrosis and hydroureter, stable since the recent CT. Para-aortic adenopathy is seen which is stable since the recent CT. IMPRESSION: Multilevel mild degenerative disc disease and spondylosis with areas of neural foraminal narrowing as described. Left paracentral L5-S1 disc protrusion with left S1 nerve root impingement and severe bilateral neural foraminal narrowing. Moderate left hydronephrosis and hydroureter with para-aortic adenopathy. Authenticated and [facility]
[2024-01-07] MEDS: SODIUM CHLORIDE 0.9% 10ML SYR (RAD ONLY) 10 ML IV (17:07)
[2024-01-07] MEDS: GADOTERIDOL INJ 17ML SYRINGE 20 ML IV (17:07)
[2024-01-08 08:19] LABS: CEA 14.2 ng/mL (0.0-4.7)
== END 2024-01-07 23:59 | disposition home or self-care (01) ==
PROVIDERS: PCP Nurse Practitioner Family; Visit Provider Internal Medicine Medical Oncology
DX: C18.9 Malignant neoplasm of colon, unspecified (principal); M54.50 Low back pain, unspecified
CPT/HCPCS: 36591; 72158; 76376; 82378; A9576; J1642

== ENCOUNTER 2024-01-29 08:17 | Outpatient (CLI) | payer MEDICARE, SELFPAY ==
[2024-01-29 08:21] VITALS: BMI 29.0
[2024-01-29] MEDS: SODIUM CHLORIDE 0.9% 10ML FLUSH SYRINGE 10 ML IV (08:30)
[2024-01-29 08:38] LABS: Basophils % 0.5 % (0.1-2.0); Eosinophils # 0.2 K/mm3 (0.0-0.4); Eosinophils % 3.4 % (0.1-12.0); Hematocrit 40.5 % (42.0-52.0); Lymphocytes # 1.8 K/mm3 (0.7-4.5); Lymphocytes % 30.3 % (10-50); Mean Corpuscular Hemoglobin 31.8 pg (27.0-31.2); Mean Corpuscular Volume 99.2 fl (80-94); Mean Platelet Volume 8.4 fl (7.4-10.4); Monocytes # 0.4 K/mm3 (0.1-1.0); Monocytes % 5.7 % (1.7-9.3); Neutrophils # 3.7 K/mm3 (1.8-7.8); Neutrophils % 60.1 % (37.0-80.0); Platelet Count 178 K/mm3 (142-424); Red Blood Count 4.08 M/mm3 (4.60-6.20); Red Cell Distribution Width 14.4 % (11.5-17.5); White Blood Count 6.1 K/mm3 (4.8-10.8)
[2024-01-29 08:56] LABS: Chloride 107 mmol/L (98-107); Potassium 3.7 mmoL/L (3.5-5.1); Sodium 139 mmol/L (136-145)
[2024-01-29 08:58] LABS: Blood Urea Nitrogen 14 mg/dl (9-20); Creatinine Clearance Estimated 103 mL/min (50-200); Estimated Glomerular Filt Rate 65 ml/min (>60); GFR (African American) 78 ML/MIN (>60)
[2024-01-29 08:59] LABS: Alanine Aminotransferase 26 U/L (12-78); Albumin Level 4.3 g/dl (3.5-5.0); Albumin/Globulin Ratio 1.6 (1.1-1.8); Alkaline Phosphatase 82 U/L (38-126); Anion Gap 12.7 mEq/L (5-15); Aspartate Amino Transferase 28 U/L (17-59); Bilirubin,Total 0.3 mg/dl (0.2-1.3); Calcium 9.8 mg/dl (8.4-10.2); Carbon Dioxide 23 mmol/L (22.0-30.0); Globulin 2.7 g/dL (1.3-3.2); Glucose 96 mg/dl (74-100)
[2024-01-30 15:05] LABS: CEA 15.4 ng/mL (0.0-4.7)
== END 2024-01-29 08:30 | disposition home or self-care (01) ==
LOC: INF 08:18
PROVIDERS: PCP Nurse Practitioner Family; Visit Provider Internal Medicine Medical Oncology
DX: C18.9 Malignant neoplasm of colon, unspecified (principal); Z79.899 Other long term (current) drug therapy; Z45.2 Encounter for adjustment and management of vascular access device
CPT/HCPCS: 36591; 80053; 82378; 85025; J1642

== ENCOUNTER 2024-02-18 08:58 | Outpatient (POV) | payer MEDICARE, OTHER, SELFPAY ==
[2024-02-18 09:35] VITALS: BP 139/86; PULSE 81; RESP 20; O2SAT 97; BMI 29.1
--- NOTE | 2024-02-18 10:36 | EXP.PAIN.OV ---
HPI Data of Consult Patient: new to practice Consult date: 02/18/24 Requesting Physician: Hafsa Gunn APRN Primary Care Provider: Dolores Grande APRN Consult Narrative Reason for consult: Low back pain History of present illness: Mr. Tomlin is a 48 year old male who presents today as a new patient. He is a referral from Dr. Triveid's office. Today he rates his pain at 8 out of 10. Patient states over the last couple of months he has been experiencing more low back pain along the left side and denies any radiating symptoms into his legs. Patient describes it as a constant sharp sensation that is worse with increased activity. He states that even standing for prolonged periods or laying in bed aggravates it. Patient states that he has not really gotten much improvement with anything he has tried. Patient has tried [id number] Tylenol along with heat and ice and topicals with minimal relief. Patient does state that he is currently doing chemo medication for his colon cancer and at this time it is still not seeming to react overall. Patient states he is on the oral chemo pills. Patient states that the pain does interfere with his ability perform activities of daily living such as cooking and cleaning. Patient denies any prior back issues before. Patient has had recent imaging. He was prescribed Lortab and states it really did not seem to do much. His William has been reviewed and is appropriate. CC: Hafsa Gunn APRN [facility] Disclaimer: The information contained in this section may have been updated after the patient was seen, as this information can be updated by other users. Medical History STEMI (ST elevation myocardial infarction) Shock On mechanically assisted ventilation Colon cancer Surgical History Hx of tonsillectomy Hx of myringotomy Family History Other No significant family history Social History (Updated 02/18/24 @ 09:37 by Cathi Yang RN) Smoking Status: Current every day smoker tobacco type: smokeless tobacco alcohol intake: former substance use type: denies use current occupational status: disabled Travel in the last 8 weeks: None household members: spouse housing: house current occupation: [employer] current occupational exposures/hazards: No caffeine: Yes Review of Systems Review of Systems Review of systems:: pertinent systems reviewed and negative unless documented below Review of systems (narrative): Review of Systems: General: No recent weight changes, no fever, no sleep disturbances Respiratory: No cough, no shortness of air, no recurring pulmonary infections Cardiovascular/peripheral vascular: No chest pain, no palpitations, no edema, no shortness of breath Gastrointestinal: No new onset incontinence, normal bowel movements reported Genitourinary: No new onset incontinence Musculoskeletal: Low back pain Psychiatric: [Normal mood/affect] Neurological: [Denies weakness in extremities], [denies balance issues] Meds Home Medications and Allergies Home Medications Medication Instructions Recorded Confirmed Type atorvastatin 80 mg tablet 80 mg PO HS Cholesterol #30 tabs 12/23/23 02/18/24 Rx clopidogrel 75 mg tablet 75 mg PO DAILY 01/07/24 02/18/24 History sacubitril 24 mg-valsartan 26 mg 1 tab PO DAILY 01/07/24 02/18/24 History tablet (Entresto) hydrocodone 7.5 mg-acetaminophen See Rx Instructions PO Q8H PRN 02/10/24 02/18/24 Rx 325 mg tablet pain #60 tabs aspirin 81 mg chewable tablet 81 mg PO DAILY Blood Thinner #100 02/17/24 02/18/24 Rx tabs New Prescriptions to Start Prescriptions: Allergies Allergy/AdvReac Type Severity Reaction Status Date / Time cetuximab [From Erbitux] Allergy Severe Anaphylaxis Verified 01/29/24 08:59 Objective Vital signs: Pulse Resp BP Pulse Ox O2 Del Method 81 20 139/86 97 Room Air 02/18/24 09:35 02/18/24 09:35 02/18/24 09:35 02/18/24 09:35 02/18/24 09:35 Narrative: Physical Exam: General: Alert and oriented x3, no acute distress, pleasant and cooperative Lungs: Respirations even and unlabored, symmetrical chest expansion Eyes: PERRL Musculoskeletal: Flexion and extension of lumbar [spine] somewhat guarded secondary to pain, [antalgic gait noted] positive Kemps test Neurological: Speech clear, no gross sensory deficit Assessment and Plan *Assessment and plan (1) Low back pain: Status: Acute Qualifiers: Chronicity: acute Back pain laterality: left Sciatica presence: without sciatica Qualified Code(s): M54.50 - Low back pain, unspecified Category: Medical Code(s): M54.50 - Low back pain, unspecified (2) Colon cancer: Status: Acute Qualifiers: Colon location: unspecified part of colon Qualified Code(s): C18.9 - Malignant neoplasm of colon, unspecified Category: Medical Code(s): C18.9 - Malignant neoplasm of colon, unspecified Plan I have discussed with the patient that he may benefit from lumbar facet joint injection. Risk and benefits were discussed with patient and at this time he would like to wait. I will order the patient a compounded cream and see if this will help additionally to his overall low back pain. Patient did have more prominent symptoms with his most recent MRI in the L4-L5 and L5-S1 level. We will follow-up with the patient in 1 month for reevaluation of symptoms and plan of care. Patient has been instructed to contact the clinic with any concerns before the next appointment. Dr. Najera has reviewed this note and agrees with this plan of care. This note was dictated using voice recognition software and make contain errors or omissions.
== END 2024-02-18 23:59 | disposition home or self-care (01) ==
LOC: SC.PAIN 08:59
PROVIDERS: PCP Nurse Practitioner Family; Visit Provider Nurse Practitioner Family
DX: M54.50 Low back pain, unspecified (principal); C18.9 Malignant neoplasm of colon, unspecified
CPT/HCPCS: 99202; G0463

== ENCOUNTER 2024-03-02 09:40 | Outpatient (CLI) | payer MEDICARE, OTHER, SELFPAY ==
[2024-03-02 09:44] VITALS: BMI 28.3
[2024-03-02] MEDS: SODIUM CHLORIDE 0.9% 10ML FLUSH SYRINGE 10 ML IV (09:45)
[2024-03-02 10:01] LABS: Basophils % 0.4 % (0.1-2.0); Eosinophils # 0.1 K/mm3 (0.0-0.4); Eosinophils % 2.4 % (0.1-12.0); Hematocrit 33.6 % (42.0-52.0); Hemoglobin 11.7 g/dL (14.1-18.0); Lymphocytes # 1.2 K/mm3 (0.7-4.5); Lymphocytes % 40.6 % (10-50); Mean Corpuscular HGB Conc 34.9 g/dL (31.8-35.4); Mean Corpuscular Hemoglobin 33.7 pg (27.0-31.2); Mean Corpuscular Volume 96.5 fl (80-94); Mean Platelet Volume 8.9 fl (7.4-10.4); Monocytes # 0.1 K/mm3 (0.1-1.0); Monocytes % 2.4 % (1.7-9.3); Neutrophils # 1.6 K/mm3 (1.8-7.8); Neutrophils % 54.2 % (37.0-80.0); Platelet Count 150 K/mm3 (142-424); Red Blood Count 3.48 M/mm3 (4.60-6.20); Red Cell Distribution Width 13.9 % (11.5-17.5); White Blood Count 2.9 K/mm3 (4.8-10.8)
[2024-03-02 10:07] LABS: Chloride 111 mmol/L (98-107); Sodium 140 mmol/L (136-145)
[2024-03-02 10:08] LABS: Potassium 4.1 mmoL/L (3.5-5.1)
[2024-03-02 10:10] LABS: Alanine Aminotransferase 23 U/L (12-78); Alkaline Phosphatase 81 U/L (38-126); Anion Gap 11.1 mEq/L (5-15); Aspartate Amino Transferase 25 U/L (17-59); Bilirubin,Total 0.4 mg/dl (0.2-1.3); Blood Urea Nitrogen 16 mg/dl (9-20); Carbon Dioxide 22 mmol/L (22.0-30.0); Creatinine Clearance Estimated 110 mL/min (50-200); Estimated Glomerular Filt Rate 71 ml/min (>60); GFR (African American) 86 ML/MIN (>60)
[2024-03-02 10:11] LABS: Albumin Level 4.3 g/dl (3.5-5.0); Albumin/Globulin Ratio 1.7 (1.1-1.8); Calcium 9.2 mg/dl (8.4-10.2); Globulin 2.6 g/dL (1.3-3.2); Glucose 95 mg/dl (74-100); Total Protein,Serum 6.9 g/dl (6.3-8.2)
== END 2024-03-02 10:10 | disposition home or self-care (01) ==
LOC: INF 09:40
PROVIDERS: PCP Nurse Practitioner Family; Visit Provider Internal Medicine Medical Oncology
DX: C18.7 Malignant neoplasm of sigmoid colon (principal)
CPT/HCPCS: 36415; 80053; 85025; 96523; J1642

== ENCOUNTER 2024-03-16 08:41 | Outpatient (CLI) | payer MEDICARE, SELFPAY ==
[2024-03-16 08:53] VITALS: BMI 27.9
[2024-03-16] MEDS: SODIUM CHLORIDE 0.9% 10ML FLUSH SYRINGE 10 ML IV (08:55)
[2024-03-16 09:07] LABS: Basophils % 0.7 % (0.1-2.0); Eosinophils # 0.1 K/mm3 (0.0-0.4); Eosinophils % 2.2 % (0.1-12.0); Hematocrit 33.1 % (42.0-52.0); Hemoglobin 11.3 g/dL (14.1-18.0); Lymphocytes # 1.8 K/mm3 (0.7-4.5); Lymphocytes % 69.1 % (10-50); Mean Corpuscular HGB Conc 34.1 g/dL (31.8-35.4); Mean Corpuscular Hemoglobin 32.9 pg (27.0-31.2); Mean Corpuscular Volume 96.3 fl (80-94); Mean Platelet Volume 9.4 fl (7.4-10.4); Monocytes # 0.2 K/mm3 (0.1-1.0); Monocytes % 8.9 % (1.7-9.3); Neutrophils # 0.5 K/mm3 (1.8-7.8); Platelet Count 225 K/mm3 (142-424); Red Blood Count 3.44 M/mm3 (4.60-6.20); Red Cell Distribution Width 16.1 % (11.5-17.5); White Blood Count 2.7 K/mm3 (4.8-10.8)
[2024-03-16 09:10] LABS: MANUAL DIFFERENTIAL MANUAL DIFFERENTIAL (MANUAL DIFF)
[2024-03-16 09:12] LABS: Chloride 110 mmol/L (98-107); Potassium 3.3 mmoL/L (3.5-5.1); Sodium 142 mmol/L (136-145)
[2024-03-16 09:14] LABS: Alanine Aminotransferase 30 U/L (12-78); Aspartate Amino Transferase 29 U/L (17-59); Blood Urea Nitrogen 11 mg/dl (9-20); Creatinine Clearance Estimated 99 mL/min (50-200); Estimated Glomerular Filt Rate 65 ml/min (>60); GFR (African American) 78 ML/MIN (>60)
[2024-03-16 09:15] LABS: Albumin Level 4.1 g/dl (3.5-5.0); Albumin/Globulin Ratio 1.5 (1.1-1.8); Alkaline Phosphatase 100 U/L (38-126); Anion Gap 13.3 mEq/L (5-15); Bilirubin,Total 0.2 mg/dl (0.2-1.3); Calcium 9.1 mg/dl (8.4-10.2); Carbon Dioxide 22 mmol/L (22.0-30.0); Globulin 2.7 g/dL (1.3-3.2); Glucose 123 mg/dl (74-100); Total Protein,Serum 6.8 g/dl (6.3-8.2)
[2024-03-16 09:21] LABS: Eosinophils % 1 % (0-3); Lymphocytes % 53 % (10-50); Monocytes % 8 % (2-9); Neutrophils % 38 % (42-76); Ovalocytes 1+; Platelet Estimate Normal; RBC Morphology Normal; Total Cells Counted 100
[2024-03-17 15:04] LABS: CEA 22.2 ng/mL (0.0-4.7)
== END 2024-03-16 09:10 | disposition home or self-care (01) ==
LOC: INF 08:42
PROVIDERS: PCP Nurse Practitioner Family; Visit Provider Internal Medicine Medical Oncology
DX: C18.7 Malignant neoplasm of sigmoid colon (principal)
CPT/HCPCS: 36591; 80050; 80053; 82378; 85007; 85025; J1642

== ENCOUNTER 2024-03-18 08:50 | Outpatient (POV) | payer MEDICARE, SELFPAY ==
[2024-03-18 09:07] VITALS: BP 125/77; PULSE 68; RESP 16; O2SAT 97; BMI 27.5
--- NOTE | 2024-03-18 09:07 | A.OFFVIS_ITS ---
[facility] Disclaimer: The information contained in this section may have been updated after the patient was seen, as this information can be updated by other users. Medical History STEMI (ST elevation myocardial infarction) Shock On mechanically assisted ventilation Colon cancer Surgical History Hx of tonsillectomy Hx of myringotomy Family History Other No significant family history Social History Smoking Status: Current every day smoker tobacco type: smokeless tobacco alcohol intake: former substance use type: denies use current occupational status: disabled Travel in the last 8 weeks: None household members: spouse housing: house current occupation: pain [employer] current occupational exposures/hazards: No caffeine: Yes PM Subjective & Objective Subjective Subjective:: Patient is a pleasant 48-year-old male who presents today for follow-up. Today he rates his pain a 7 out of 10. Patient denies any new trauma or injury. He does state that he still is experiencing pain along his low back on the left side and denies any radiating symptoms into his legs. Patient was ordered compounded cream and he does state that this is helping. Patient at our last visit we had discussed possible lumbar facet injections however at that time he was wanting to wait. Patient does state today that he still would like to wait a little bit longer. Patient has tried and failed conservative therapy and is doing current chemo treatment for colon cancer. Patient is prescribed [place] fr om Dr. Trivedi's office. His William has been reviewed and is appropriate. Review of Systems: General: No recent weight changes, no fever, no sleep disturbances Respiratory: No cough, no shortness of air, no recurring pulmonary infections Cardiovascular/peripheral vascular: No chest pain, no palpitations, no edema, no shortness of breath Gastrointestinal: No new onset incontinence, normal bowel movements reported Genitourinary: No new onset incontinence Musculoskeletal: Left-sided low back pain Psychiatric: [Normal mood/affect] Neurological: [Denies weakness in extremities], [denies balance issues] Pain at rest (0-10 scale): 7 Objective Objective:: Physical Exam: General: Alert and oriented x3, no acute distress, pleasant and cooperative Lungs: Respirations even and unlabored, symmetrical chest expansion Eyes: PERRL Musculoskeletal: Flexion and extension of lumbar [spine] somewhat guarded secondary to pain, [antalgic gait noted] Neurological: Speech clear, no gross sensory deficit Has patient had previous pain injection?: No Conservative treatment options previously tried: Home exercise plan Length of treatment: Longer than 6 weeks and Prescription medications Length of treatment: Longer than 6 weeks Meds Home Medications and Allergies Home Medications Medication Instructions Recorded Confirmed Type atorvastatin 80 mg tablet 80 mg PO HS Cholesterol #30 tabs 12/23/23 03/16/24 Rx clopidogrel 75 mg tablet 75 mg PO DAILY 01/07/24 03/16/24 History sacubitril 24 mg-valsartan 26 mg 1 tab PO DAILY 01/07/24 03/16/24 History tablet (Entresto) aspirin 81 mg chewable tablet 81 mg PO DAILY Blood Thinner #100 02/17/24 03/16/24 Rx tabs hydrocodone 7.5 mg-acetaminophen See Rx Instructions PO Q8H PRN 03/15/24 03/16/24 Rx 325 mg tablet pain #60 tabs New Prescriptions to Start Prescriptions: Allergies Allergy/AdvReac Type Severity Reaction Status Date / Time cetuximab [From Erbitux] Allergy Severe Anaphylaxis Verified 03/16/24 09:16 Assessment and Plan *Assessment and plan (1) Low back pain: Status: Acute Qualifiers: Chronicity: acute Back pain laterality: left Sciatica presence: without sciatica Qualified Code(s): M54.50 - Low back pain, unspecified Category: Medical Code(s): M54.50 - Low back pain, unspecified Plan I have discussed with patient again over as well as lumbar facet injections and we will follow-up with this option at a later date. I will send in a prescription of baclofen 5 mg 3 times daily as needed with a 2-week supply. Patient was counseled that he will return to clinic in 2 weeks for reevaluation of symptoms and plan of care. Patient has been instructed to contact the clinic with any concerns before the next appointment. Dr. Najera has reviewed this note and agrees with this plan of care. This note was dictated using voice recognition software and make contain errors or omissions.
== END 2024-03-18 23:59 | disposition home or self-care (01) ==
PROVIDERS: PCP Nurse Practitioner Family; Visit Provider Nurse Practitioner Family
DX: M54.59 Other low back pain (principal)
CPT/HCPCS: 99212; G0463

== ENCOUNTER 2024-03-23 10:12 | Outpatient (CLI) | payer MEDICARE, SELFPAY ==
[2024-03-23 10:15] VITALS: BMI 28.3
[2024-03-23 10:38] LABS: Basophils % 0.4 % (0.1-2.0); Hematocrit 38.7 % (42.0-52.0); Hemoglobin 12.6 g/dL (14.1-18.0); Lymphocytes # 1.5 K/mm3 (0.7-4.5); Lymphocytes % 39.8 % (10-50); Mean Corpuscular HGB Conc 32.5 g/dL (31.8-35.4); Mean Corpuscular Hemoglobin 32.1 pg (27.0-31.2); Mean Corpuscular Volume 98.9 fl (80-94); Mean Platelet Volume 8.3 fl (7.4-10.4); Monocytes # 0.3 K/mm3 (0.1-1.0); Monocytes % 6.8 % (1.7-9.3); Neutrophils # 1.9 K/mm3 (1.8-7.8); Neutrophils % 51.9 % (37.0-80.0); Platelet Count 176 K/mm3 (142-424); Red Blood Count 3.91 M/mm3 (4.60-6.20); Red Cell Distribution Width 16.3 % (11.5-17.5); White Blood Count 3.7 K/mm3 (4.8-10.8)
[2024-03-23] MEDS: SODIUM CHLORIDE 0.9% 10ML FLUSH SYRINGE 10 ML IV (10:40)
== END 2024-03-23 10:30 | disposition home or self-care (01) ==
LOC: INF 10:13
PROVIDERS: PCP Nurse Practitioner Family; Visit Provider Internal Medicine Medical Oncology
DX: C18.7 Malignant neoplasm of sigmoid colon (principal)
CPT/HCPCS: 36591; 85025; J1642

== ENCOUNTER 2024-04-05 11:29 | Outpatient (POV) | payer MEDICARE, SELFPAY ==
--- NOTE | 2024-04-05 11:40 | A.OFFVIS_ITS ---
[facility] Disclaimer: The information contained in this section may have been updated after the patient was seen, as this information can be updated by other users. Medical History STEMI (ST elevation myocardial infarction) Shock On mechanically assisted ventilation Colon cancer Surgical History Hx of tonsillectomy Hx of myringotomy Family History Other No significant family history Social History Smoking Status: Current every day smoker tobacco type: smokeless tobacco alcohol intake: former substance use type: denies use current occupational status: employed Travel in the last 8 weeks: None household members: spouse housing: house current occupation: [employer] current occupational exposures/hazards: No caffeine: Yes PM Subjective & Objective Subjective Subjective:: Patient is a pleasant 48-year-old male who presents today for follow-up. Today he rates his pain as an 8 out of 10. Patient states that he still continues to have chronic pain throughout his low back and does have ongoing colon cancer. Patient does states that the baclofen we sent and did not seem to do much and that the pain medication of [place] 7.5 mg from an outside provider just still is not providing significant relief. His William has been reviewed and is appropriate. Review of Systems: General: No recent weight changes, no fever, no sleep disturbances Respiratory: No cough, no shortness of air, no recurring pulmonary infections Cardiovascular/peripheral vascular: No chest pain, no palpitations, no edema, no shortness of breath Gastrointestinal: No new onset incontinence, normal bowel movements reported Genitourinary: No new onset incontinence Musculoskeletal: Low back pain Psychiatric: [Normal mood/affect] Neurological: [Denies weakness in extremities], [denies balance issues] Pain at rest (0-10 scale): 8 Objective Objective:: Physical Exam: General: Alert and oriented x3, no acute distress, pleasant and cooperative Lungs: Respirations even and unlabored, symmetrical chest expansion Eyes: PERRL Musculoskeletal: Flexion and extension of lumbar [spine] somewhat guarded secondary to pain, [antalgic gait noted] Neurological: Speech clear, no gross sensory deficit Has patient had previous pain injection?: No Conservative treatment options previously tried: Prescription medications Length of treatment: Longer than 6 weeks Meds Home Medications and Allergies Home Medications ?Medication ?Instructions ?Recorded ?Confirmed ?Type atorvastatin 80 mg tablet 80 mg PO HS Cholesterol #30 tabs 12/23/23 03/18/24 Rx clopidogrel 75 mg tablet 75 mg PO DAILY 01/07/24 03/18/24 History sacubitril 24 mg-valsartan 26 mg 1 tab PO DAILY 01/07/24 03/18/24 History tablet (Entresto) aspirin 81 mg chewable tablet 81 mg PO DAILY Blood Thinner #100 02/17/24 03/18/24 Rx tabs baclofen 5 mg tablet 5 mg PO TID #42 tabs 03/18/24 Rx baclofen 10 mg tablet 10 mg PO TID #42 tabs 03/22/24 Rx hydrocodone 7.5 mg-acetaminophen See Rx Instructions PO Q8H PRN 03/30/24 Rx 325 mg tablet pain #60 tabs New Prescriptions to Start Prescriptions: Allergies Allergy/AdvReac Type Severity Reaction Status Date / Time cetuximab [From Erbitux] Allergy Severe Anaphylaxis Verified 03/16/24 09:16 Assessment and Plan *Assessment and plan (1) Colon cancer: Status: Acute Qualifiers: Colon location: unspecified part of colon Qualified Code(s): C18.9 - Malignant neoplasm of colon, unspecified Category: Medical Code(s): C18.9 - Malignant neoplasm of colon, unspecified (2) Low back pain: Status: Acute Qualifiers: Chronicity: acute Back pain laterality: left Sciatica presence: without sciatica Qualified Code(s): M54.50 - Low back pain, unspecified Category: Medical Code(s): M54.50 - Low back pain, unspecified Plan Patient is still experiencing significant pain throughout his low back and does still have ongoing treatment for his colon cancer. I have discussed with the patient that I will send in a prescription for Percocet 7.5 mg 3 times a day and provide a 1 month supply of this medication. Patient was counseled that that would mean he would have to discontinue all of the prior [place] or Lortab and he is agreeable to this plan of care. Patient was also counseled that we would be the 1 taking over his pain medication prescription and that we would have to see him monthly. Patient is agreeable to this. Patient will return to clinic in 1 month for reevaluation of symptoms and plan of care. Risks and benefits of the medication have been explained in detail to the patient. The patient does understand the risk of dependence on the medication when given over a prolonged period. Patient has been advised of risks of oversedation with the prescribed medication. Narcan has been offered to the paitent in the event of oversedation. Patient has been advised that a family member should also be educated regarding administration of Narcan. The patient has been advised to consult with his/her primary care provider and pharmacist regarding drug-drug interaction of medications currently prescribed. Patient has been prescribed a controlled substance after being counseled on the medication, medication safety, and possible side effects. Opioid contract was reviewed and signed by the patient, and that they have agreed to all of the terms set forth by our compliance program. Patient has been instructed to contact the clinic with any concerns before the next appointment. Dr. Najera has reviewed this note and agrees with this plan of care. This note was dictated using voice recognition software and make contain errors or omissions.
[2024-04-05 12:00] VITALS: BP 120/74; PULSE 77; RESP 16; O2SAT 95; BMI 27.5
== END 2024-04-05 23:59 | disposition home or self-care (01) ==
PROVIDERS: PCP Nurse Practitioner Family; Visit Provider Nurse Practitioner Family
DX: C18.9 Malignant neoplasm of colon, unspecified (principal); M54.50 Low back pain, unspecified; F17.220 Nicotine dependence, chewing tobacco, uncomplicated; Z95.5 Presence of coronary angioplasty implant and graft; I25.2 Old myocardial infarction
CPT/HCPCS: 99212; G0463

== ENCOUNTER 2024-04-13 09:17 | Outpatient (CLI) | payer MEDICARE, SELFPAY ==
[2024-04-13 09:24] VITALS: BMI 27.5
[2024-04-13 09:47] LABS: Basophils % 0.2 % (0.1-2.0); Eosinophils # 0.1 K/mm3 (0.0-0.4); Eosinophils % 1.9 % (0.1-12.0); Hematocrit 30.2 % (42.0-52.0); Hemoglobin 11.3 g/dL (14.1-18.0); Lymphocytes # 1.1 K/mm3 (0.7-4.5); Lymphocytes % 34.3 % (10-50); Mean Corpuscular HGB Conc 37.5 g/dL (31.8-35.4); Mean Corpuscular Hemoglobin 37.4 pg (27.0-31.2); Mean Corpuscular Volume 99.7 fl (80-94); Mean Platelet Volume 8.2 fl (7.4-10.4); Monocytes # 0.1 K/mm3 (0.1-1.0); Neutrophils % 61.6 % (37.0-80.0); Platelet Count 130 K/mm3 (142-424); Red Blood Count 3.03 M/mm3 (4.60-6.20); Red Cell Distribution Width 16.1 % (11.5-17.5); White Blood Count 3.3 K/mm3 (4.8-10.8)
[2024-04-13 09:49] LABS: Albumin Level 4.5 g/dl (3.5-5.0); Chloride 111 mmol/L (98-107); Potassium 3.7 mmoL/L (3.5-5.1); Sodium 138 mmol/L (136-145)
[2024-04-13 09:51] LABS: Blood Urea Nitrogen 14 mg/dl (9-20); Creatinine Clearance Estimated 107 mL/min (50-200); Estimated Glomerular Filt Rate 71 ml/min (>60); GFR (African American) 86 ML/MIN (>60)
[2024-04-13 09:52] LABS: Alanine Aminotransferase 35 U/L (12-78); Albumin/Globulin Ratio 1.7 (1.1-1.8); Alkaline Phosphatase 89 U/L (38-126); Anion Gap 7.7 mEq/L (5-15); Aspartate Amino Transferase 32 U/L (17-59); Bilirubin,Total 0.7 mg/dl (0.2-1.3); Calcium 8.7 mg/dl (8.4-10.2); Carbon Dioxide 23 mmol/L (22.0-30.0); Globulin 2.6 g/dL (1.3-3.2); Glucose 103 mg/dl (74-100); Total Protein,Serum 7.1 g/dl (6.3-8.2)
--- NOTE | 2024-04-13 09:57 | XR_ITS ---
FINAL REPORT CLINICAL HISTORY: SOA FINDINGS: TWO-VIEW CHEST The heart size is normal. The mediastinum is normal. Right chest port tip terminates in the mid SVC. There are linear bilateral pulmonary opacities, may represent atelectasis or scar. There is no pneumothorax. IMPRESSION: Bilateral opacities, may represent atelectasis or scar. Reviewed, Interpreted and Dictated by Santos Faulkner III, MD Transcribed by Jaylyn Gloria Authenticated and [facility]
[2024-04-13] MEDS: SODIUM CHLORIDE 0.9% 10ML FLUSH SYRINGE 10 ML IV (10:25)
== END 2024-04-13 10:30 | disposition home or self-care (01) ==
LOC: INF 09:18
PROVIDERS: PCP Nurse Practitioner Family; Visit Provider Internal Medicine Medical Oncology
DX: C18.9 Malignant neoplasm of colon, unspecified (principal)
CPT/HCPCS: 36591; 71046; 80053; 85025; J1642

== ENCOUNTER 2024-04-27 09:10 | Outpatient (CLI) | payer MEDICARE, SELFPAY ==
[2024-04-27] MEDS: SODIUM CHLORIDE 0.9% 10ML FLUSH SYRINGE 10 ML IV (09:18)
[2024-04-27 09:20] VITALS: BMI 27.5
[2024-04-27 09:30] LABS: Albumin Level 4.3 g/dl (3.5-5.0); Chloride 107 mmol/L (98-107); Sodium 138 mmol/L (136-145)
[2024-04-27 09:31] LABS: Basophils % 0.6 % (0.1-2.0); Eosinophils % 1.1 % (0.1-12.0); Hematocrit 33.2 % (42.0-52.0); Hemoglobin 10.6 g/dL (14.1-18.0); Lymphocytes # 1.2 K/mm3 (0.7-4.5); Lymphocytes % 60.9 % (10-50); Mean Corpuscular HGB Conc 32.1 g/dL (31.8-35.4); Mean Corpuscular Volume 102.8 fl (80-94); Mean Platelet Volume 9.9 fl (7.4-10.4); Monocytes # 0.2 K/mm3 (0.1-1.0); Monocytes % 9.7 % (1.7-9.3); Neutrophils # 0.6 K/mm3 (1.8-7.8); Neutrophils % 27.7 % (37.0-80.0); Platelet Count 231 K/mm3 (142-424); Potassium 3.9 mmoL/L (3.5-5.1); Red Blood Count 3.23 M/mm3 (4.60-6.20); Red Cell Distribution Width 18.5 % (11.5-17.5)
[2024-04-27 09:33] LABS: Alanine Aminotransferase 38 U/L (12-78); Albumin/Globulin Ratio 1.6 (1.1-1.8); Alkaline Phosphatase 101 U/L (38-126); Anion Gap 10.9 mEq/L (5-15); Aspartate Amino Transferase 33 U/L (17-59); Bilirubin,Total 0.5 mg/dl (0.2-1.3); Blood Urea Nitrogen 12 mg/dl (9-20); Carbon Dioxide 24 mmol/L (22.0-30.0); Creatinine Clearance Estimated 107 mL/min (50-200); Estimated Glomerular Filt Rate 71 ml/min (>60); GFR (African American) 86 ML/MIN (>60); Globulin 2.7 g/dL (1.3-3.2)
[2024-04-27 09:34] LABS: Calcium 8.9 mg/dl (8.4-10.2); Glucose 138 mg/dl (74-100)
[2024-04-27 09:38] LABS: MANUAL DIFFERENTIAL MANUAL DIFFERENTIAL (MANUAL DIFF)
[2024-04-27 11:58] LABS: Lymphocytes % 64 % (10-50); Monocytes % 8 % (2-9); Neutrophils % 28 % (42-76); Total Cells Counted 100
[2024-04-27 11:59] LABS: Macrocytosis 1+; Platelet Estimate Normal
[2024-04-29 11:25] LABS: CEA 30.5 ng/mL (0.0-4.7)
== END 2024-04-27 09:18 | disposition home or self-care (01) ==
LOC: INF 09:12
PROVIDERS: PCP Nurse Practitioner Family; Visit Provider Internal Medicine Medical Oncology
DX: C18.9 Malignant neoplasm of colon, unspecified (principal)
CPT/HCPCS: 36591; 80053; 82378; 85007; 85025; 85027; J1642

== ENCOUNTER 2024-05-04 09:14 | Outpatient (CLI) | payer MEDICARE, SELFPAY ==
[2024-05-04 09:22] VITALS: BMI 26.9
[2024-05-04] MEDS: SODIUM CHLORIDE 0.9% 10ML FLUSH SYRINGE 10 ML IV (09:25)
[2024-05-04 09:33] LABS: Basophils % 0.8 % (0.1-2.0); Eosinophils % 0.6 % (0.1-12.0); Hematocrit 35.3 % (42.0-52.0); Hemoglobin 11.5 g/dL (14.1-18.0); Lymphocytes # 1.6 K/mm3 (0.7-4.5); Lymphocytes % 38.4 % (10-50); Mean Corpuscular HGB Conc 32.6 g/dL (31.8-35.4); Mean Corpuscular Hemoglobin 33.1 pg (27.0-31.2); Mean Corpuscular Volume 101.5 fl (80-94); Mean Platelet Volume 8.3 fl (7.4-10.4); Monocytes # 0.3 K/mm3 (0.1-1.0); Monocytes % 7.7 % (1.7-9.3); Neutrophils # 2.2 K/mm3 (1.8-7.8); Neutrophils % 52.7 % (37.0-80.0); Platelet Count 226 K/mm3 (142-424); Red Blood Count 3.48 M/mm3 (4.60-6.20); Red Cell Distribution Width 18.1 % (11.5-17.5); White Blood Count 4.1 K/mm3 (4.8-10.8)
== END 2024-05-04 09:28 | disposition home or self-care (01) ==
LOC: INF 09:15
PROVIDERS: PCP Nurse Practitioner Family; Visit Provider Internal Medicine Medical Oncology
DX: C18.9 Malignant neoplasm of colon, unspecified (principal)
CPT/HCPCS: 36591; 85025; J1642

== ENCOUNTER 2024-05-10 12:49 | Outpatient (POV) | payer MEDICARE, SELFPAY ==
--- NOTE | 2024-05-10 13:12 | A.OFFVIS_ITS ---
[facility] Disclaimer: The information contained in this section may have been updated after the patient was seen, as this information can be updated by other users. Medical History STEMI (ST elevation myocardial infarction) Shock On mechanically assisted ventilation Colon cancer Surgical History Hx of tonsillectomy Hx of myringotomy Family History Other No significant family history Social History Smoking Status: Current every day smoker tobacco type: smokeless tobacco alcohol intake: former substance use type: denies use current occupational status: employed Travel in the last 8 weeks: None household members: spouse housing: house current occupation: [employer] current occupational exposures/hazards: No caffeine: Yes PM Subjective & Objective Subjective Subjective:: Patient is a pleasant 48-year-old male who presents today for medication refill and follow-up. Today he rates his pain a 5 out of 10. He denies any new trauma or injury. Patient does state that he has no changes to his ongoing colon cancer treatment. Patient is currently managed with Percocet 7.5 mg 3 times a day. He denies any side effects from this medication. He does state that this medication does significantly help his overall pain compared to his prior [place]. He is also prescribed compounded cream. His William has been reviewed and is appropriate. Review of Systems: General: No recent weight changes, no fever, no sleep disturbances Respiratory: No cough, no shortness of air, no recurring pulmonary infections Cardiovascular/peripheral vascular: No chest pain, no palpitations, no edema, no shortness of breath Gastrointestinal: No new onset incontinence, normal bowel movements reported Genitourinary: No new onset incontinence Musculoskeletal: Abdominal pain Psychiatric: [Normal mood/affect] Neurological: [Denies weakness in extremities], [denies balance issues] Pain at rest (0-10 scale): 5 Objective Objective:: Physical Exam: General: Alert and oriented x3, no acute distress, pleasant and cooperative Lungs: Respirations even and unlabored, symmetrical chest expansion Eyes: PERRL Musculoskeletal: Flexion and extension of lumbar [spine] somewhat guarded secondary to pain, [antalgic gait noted] Neurological: Speech clear, no gross sensory deficit Has patient had previous pain injection?: No Conservative treatment options previously tried: Prescription medications Length of treatment: Longer than 6 weeks Meds Home Medications and Allergies Home Medications ?Medication ?Instructions ?Recorded ?Confirmed ?Type atorvastatin 80 mg tablet 80 mg PO HS Cholesterol #30 tabs 12/23/23 04/27/24 Rx clopidogrel 75 mg tablet 75 mg PO DAILY 01/07/24 04/27/24 History sacubitril 24 mg-valsartan 26 mg 1 tab PO DAILY 01/07/24 04/27/24 History tablet (Entresto) aspirin 81 mg chewable tablet 81 mg PO DAILY Blood Thinner #100 02/17/24 04/27/24 Rx tabs baclofen 10 mg tablet 10 mg PO TID #42 tabs 03/22/24 04/27/24 Rx hydrocodone 7.5 mg-acetaminophen See Rx Instructions PO Q8H PRN 03/30/24 04/27/24 Rx 325 mg tablet pain #60 tabs oxycodone-acetaminophen 7.5 mg-325 1 tab PO TID #90 tabs 04/05/24 04/27/24 Rx mg tablet (Percocet) trifluridine 20 mg-tipiracil 8.19 1 tab PO .COMPLEX 04/27/24 04/27/24 History mg tablet ([place]) New Prescriptions to Start Prescriptions: Allergies Allergy/AdvReac Type Severity Reaction Status Date / Time cetuximab [From Erbitux] Allergy Severe Anaphylaxis Verified 04/27/24 09:25 Assessment and Plan *Assessment and plan (1) Low back pain: Status: Acute Qualifiers: Chronicity: acute Back pain laterality: left Sciatica presence: without sciatica Qualified Code(s): M54.50 - Low back pain, unspecified Category: Medical Code(s): M54.50 - Low back pain, unspecified (2) Bulging lumbar disc: Status: Acute Category: Medical Code(s): M51.36 - Other intervertebral disc degeneration, lumbar region (3) Colon cancer: Status: Acute Qualifiers: Colon location: unspecified part of colon Qualified Code(s): C18.9 - Malignant neoplasm of colon, unspecified Category: Medical Code(s): C18.9 - Malignant neoplasm of colon, unspecified Plan We will refill the patient's Percocet and provide a 1 month supply of this medication. Patient will return to clinic in 1 month for reevaluation of symptoms and plan of care. Risks and benefits of the medication have been explained in detail to the patient. The patient does understand the risk of dependence on the medication when given over a prolonged period. Patient has been advised of risks of oversedation with the prescribed me dication. Narcan has been offered to the paitent in the event of oversedation. Patient has been advised that a family member should also be educated regarding administration of Narcan. The patient has been advised to consult with his/her primary care provider and pharmacist regarding drug-drug interaction of medications currently prescribed. Patient has been prescribed a controlled substance after being counseled on the medication, medication safety, and possible side effects. Opioid contract was reviewed and signed by the patient, and that they have agreed to all of the terms set forth by our compliance program. Patient has been instructed to contact the clinic with any concerns before the next appointment. Dr. Najera has reviewed this note and agrees with this plan of care. This note was dictated using voice recognition software and make contain errors or omissions.
[2024-05-10 14:49] VITALS: BP 100/64; PULSE 76; RESP 16; O2SAT 100; BMI 26.9
== END 2024-05-10 23:59 | disposition home or self-care (01) ==
PROVIDERS: PCP Nurse Practitioner Family; Visit Provider Nurse Practitioner Family
DX: M54.50 Low back pain, unspecified (principal); M51.36 Other intervertebral disc degeneration, lumbar region; C18.9 Malignant neoplasm of colon, unspecified; Z95.828 Presence of other vascular implants and grafts; Z95.5 Presence of coronary angioplasty implant and graft; F17.220 Nicotine dependence, chewing tobacco, uncomplicated
CPT/HCPCS: 99212; G0463

== ENCOUNTER 2024-05-27 08:30 | Outpatient (CLI) | payer MEDICARE, SELFPAY ==
--- NOTE | 2024-05-27 08:33 | CT_ITS ---
FINAL REPORT TECHNIQUE: Oral and IV contrast enhanced exam This study was performed with techniques to keep radiation doses as low as reasonably achievable, (ALARA). Individualized dose reduction techniques using automated exposure control or adjustment of mA and/or kV according to the patient''s size were employed. CLINICAL HISTORY: colon cancer COMPARISON: 01/01/2024 FINDINGS: Abdomen: There is a right hepatic lobe mass measuring 28 x 19 mm, previously measured 31 x 21 mm. There are smaller, subcentimeter liver lesions which are stable. There is severe left hydroureter and hydronephrosis with significant renal atrophy. Remaining solid abdominal organs are unremarkable. Patient is status postcholecystectomy. There is left periaortic adenopathy measuring 22 x 20 mm, previously measured 17 x 15 mm. There is a separate, more inferior left periaortic lymph node measuring 21 x 18 mm, previously measured 17 x 17 mm. There are a few other, mildly enlarged retroperitoneal lymph nodes noted. There are surgical changes seen at the central abdominal wall. No bowel obstruction or fluid collection is seen. Pelvis: The appendix is is normal. Pelvic bowel loops are unremarkable. There are small bilateral inguinal hernias. IMPRESSION: Minimal improvement of dominant liver metastasis without new lesion. Mild worsening retroperitoneal adenopathy. Reviewed, Interpreted and Dictated by Marlys Briscoe MD Transcribed by Jenise Gaston Authenticated and [facility]
--- NOTE | 2024-05-27 08:33 | CT_ITS ---
FINAL REPORT TECHNIQUE: After the administration of intravenous contrast, axial images through the chest were performed by computed tomography.This study was performed with techniques to keep radiation doses as low as reasonably achievable, (ALARA). Individualized dose reduction techniques using automated exposure control or adjustment of mA and/or kV according to the patient''s size were employed. CLINICAL HISTORY: COLON CANCER COMPARISON: 01/01/2024 FINDINGS: There is no axillary adenopathy. There is no hilar or mediastinal adenopathy. The heart size is normal. There is no pericardial or pleural effusion. There are multiple pulmonary lesions. A spiculated right lung apex nodule is seen measuring 17 mm, previously measured 14 mm. There is a new nodule in the left upper lobe measuring 10 mm on image 29. Ovoid, spiculated mass in the left lower lobe measures 26 x 15 mm, previously measured 22 x 15 mm. Discoid soft tissue in the right upper lobe is visually stable. IMPRESSION: Minimal worsening pulmonary metastasis. Reviewed, Interpreted and Dictated by Marlys Briscoe MD Transcribed by Jenise Gaston Authenticated and [facility]
[2024-05-27] MEDS: 0.9 % SODIUM CHLORIDE 50 ML VIAL IV (09:01)
[2024-05-27] MEDS: SODIUM CHLORIDE 0.9% 10ML SYR (RAD ONLY) 10 ML IV (09:02)
[2024-05-27] MEDS: IOPAMIDOL-370 (76%);100ML BOTTLE 75 ML IV (09:02)
[2024-05-27] MEDS: BARIUM SULFATE(READI-CAT2);450ML BOTTLE 450 ML PO (09:03)
== END 2024-05-27 23:59 | disposition home or self-care (01) ==
LOC: RAD 08:31
PROVIDERS: PCP Nurse Practitioner Family; Visit Provider Internal Medicine Medical Oncology
DX: C18.9 Malignant neoplasm of colon, unspecified (principal)
CPT/HCPCS: 71260; 74177; Q9967

== ENCOUNTER 2024-06-01 09:17 | Outpatient (CLI) | payer MEDICARE, SELFPAY ==
[2024-06-01 09:23] VITALS: BMI 26.9
[2024-06-01] MEDS: SODIUM CHLORIDE 0.9% 10ML FLUSH SYRINGE 10 ML IV (09:35)
[2024-06-01 09:47] LABS: Basophils % 0.6 % (0.1-2.0); Eosinophils # 0.1 K/mm3 (0.0-0.4); Eosinophils % 2.2 % (0.1-12.0); Hematocrit 30.7 % (42.0-52.0); Lymphocytes # 1.4 K/mm3 (0.7-4.5); Lymphocytes % 64.2 % (10-50); Mean Corpuscular HGB Conc 32.6 g/dL (31.8-35.4); Mean Corpuscular Hemoglobin 33.8 pg (27.0-31.2); Mean Corpuscular Volume 103.7 fl (80-94); Mean Platelet Volume 9.9 fl (7.4-10.4); Monocytes # 0.2 K/mm3 (0.1-1.0); Neutrophils # 0.5 K/mm3 (1.8-7.8); Platelet Count 237 K/mm3 (142-424); Red Blood Count 2.96 M/mm3 (4.60-6.20); Red Cell Distribution Width 17.9 % (11.5-17.5); White Blood Count 2.1 K/mm3 (4.8-10.8)
[2024-06-01 09:59] LABS: Chloride 106 mmol/L (98-107)
[2024-06-01 10:00] LABS: Albumin Level 4.2 g/dl (3.5-5.0); Potassium 3.5 mmoL/L (3.5-5.1); Sodium 137 mmol/L (136-145)
[2024-06-01 10:01] LABS: MANUAL DIFFERENTIAL MANUAL DIFFERENTIAL (MANUAL DIFF)
[2024-06-01 10:02] LABS: Alanine Aminotransferase 34 U/L (12-78); Anion Gap 13.5 mEq/L (5-15); Aspartate Amino Transferase 32 U/L (17-59); Blood Urea Nitrogen 14 mg/dl (9-20); Carbon Dioxide 21 mmol/L (22.0-30.0); Creatinine Clearance Estimated 104 mL/min (50-200); Estimated Glomerular Filt Rate 71 ml/min (>60); GFR (African American) 86 ML/MIN (>60)
[2024-06-01 10:03] LABS: Albumin/Globulin Ratio 1.4 (1.1-1.8); Alkaline Phosphatase 121 U/L (38-126); Bilirubin,Total 0.4 mg/dl (0.2-1.3); Calcium 9.3 mg/dl (8.4-10.2); Globulin 2.9 g/dL (1.3-3.2); Glucose 90 mg/dl (74-100); Total Protein,Serum 7.1 g/dl (6.3-8.2)
[2024-06-01 10:41] LABS: Microscopic, Urine URINE MICROSCOPIC (MICROSCOPIC)
[2024-06-01 10:58] LABS: Appearance,Urine CLEAR (Clear); Bilirubin,Urine Negative (Negative); Blood, Urine Negative (Negative); Color,Urine YELLOW (Yellow); Glucose,Urine (UA) Negative (Negative); Ketones,Urine Negative (Negative); Leukocyte Esterase,Urine Negative (Negative); Nitrate,Urine Negative (Negative); Protein,Urine Negative (Negative); Urobilinogen,Urine 0.2 EU/dl (0.2)
[2024-06-01 11:05] LABS: Bacteria,Urine Trace /lpf; Squamous Epithelial Cell,Urine Occasional #/hpf (0-5)
[2024-06-01 12:07] LABS: Lymphocytes % 56 % (10-50); Macrocytosis 1+; Monocytes % 6 % (2-9); Neutrophils % 38 % (42-76); Platelet Estimate Normal; Total Cells Counted 100
[2024-06-02 13:27] LABS: CEA 35.6 ng/mL (0.0-4.7)
== END 2024-06-01 09:45 | disposition home or self-care (01) ==
LOC: INF 09:19
PROVIDERS: PCP Nurse Practitioner Family; Visit Provider Internal Medicine Medical Oncology
DX: C18.9 Malignant neoplasm of colon, unspecified (principal)
CPT/HCPCS: 36415; 80053; 81001; 82378; 85007; 85025; 85027; J1642

== ENCOUNTER 2024-06-14 09:29 | Outpatient (POV) | payer MEDICARE, SELFPAY ==
--- NOTE | 2024-06-14 10:06 | A.OFFVIS_ITS ---
[facility] Disclaimer: The information contained in this section may have been updated after the patient was seen, as this information can be updated by other users. Medical History STEMI (ST elevation myocardial infarction) Shock On mechanically assisted ventilation Colon cancer Surgical History Hx of tonsillectomy Hx of myringotomy Family History Other No significant family history Social History Smoking Status: Current every day smoker tobacco type: smokeless tobacco alcohol intake: former substance use type: denies use current occupational status: other Travel in the last 8 weeks: None household members: spouse housing: house current occupation: pain line current occupational exposures/hazards: No caffeine: Yes PM Subjective & Objective Subjective Subjective:: Patient is a pleasant 49-year-old male who presents today for medication refill via telehealth appointment. This appointment is occurring at the patient's home and he has given verbal consent for this audio appointment. Patient rates his pain an 8 out of 10. He denies any new trauma or injury. He does state that his hip has still been bothering him more with increased activity or walking. Patient is still currently under treatment for colon cancer. He states that his last visit they did discuss that it had gotten larger in size. Patient is currently managed with Percocet 7.5 mg 3 times a day from our office. He denies any side effects from this medication. His William has been reviewed and is appropriate. Review of Systems: General: No recent weight changes, no fever, no sleep disturbances Respiratory: No cough, no shortness of air, no recurring pulmonary infections Cardiovascular/peripheral vascular: No chest pain, no palpitations, no edema, no shortness of breath Gastrointestinal: No new onset incontinence, normal bowel movements reported Genitourinary: No new onset incontinence Musculoskeletal: Abdominal pain, low back, hip pain Psychiatric: [Normal mood/affect] Neurological: [Denies weakness in extremities], [denies balance issues] Pain at rest (0-10 scale): 8 Objective Objective:: General: Alert and oriented x3, pleasant and cooperative Lungs: Patient is able to say complete sentences without dyspnea Neurological: Speech clear Has patient had previous pain injection?: No Conservative treatment options previously tried: Home exercise plan Length of treatment: Longer than 6 weeks Meds Home Medications and Allergies Home Medications ?Medication ?Instructions ?Recorded ?Confirmed ?Type atorvastatin 80 mg tablet 80 mg PO HS Cholesterol #30 tabs 12/23/23 06/01/24 Rx clopidogrel 75 mg tablet 75 mg PO DAILY 01/07/24 06/01/24 History sacubitril 24 mg-valsartan 26 mg 1 tab PO DAILY 01/07/24 06/01/24 History tablet (Entresto) baclofen 10 mg tablet 10 mg PO TID #42 tabs 03/22/24 06/01/24 Rx hydrocodone 7.5 mg-acetaminophen See Rx Instructions PO Q8H PRN 03/30/24 06/01/24 Rx 325 mg tablet pain #60 tabs trifluridine 20 mg-tipiracil 8.19 1 tab PO .COMPLEX 04/27/24 06/01/24 History mg tablet (Lonsurf) oxycodone-acetaminophen 7.5 mg-325 1 tab PO TID #90 tabs 05/10/24 06/01/24 Rx mg tablet (Percocet) aspirin 81 mg chewable tablet 81 mg PO DAILY Blood Thinner #100 06/10/24 Rx tabs oxycodone-acetaminophen 7.5 mg-325 1 tab PO TID #12 tabs 06/11/24 Rx mg tablet (Percocet) New Prescriptions to Start Prescriptions: Allergies Allergy/AdvReac Type Severity Reaction Status Date / Time cetuximab [From Erbitux] Allergy Severe Anaphylaxis Verified 06/01/24 09:52 Assessment and Plan *Assessment and plan (1) Colon carcinoma metastatic to multiple sites: Status: Acute Category: Medical Code(s): C18.9 - Malignant neoplasm of colon, unspecified (2) Low back pain: Status: Acute Qualifiers: Chronicity: acute Back pain laterality: left Sciatica presence: without sciatica Qualified Code(s): M54.50 - Low back pain, unspecified Category: Medical Code(s): M54.50 - Low back pain, unspecified Plan I will refill the patient's Percocet and provide a 1 month supply of medication. Patient will return to clinic in 1 month for reevaluation of symptoms and plan of care. This visit did go from 0955 to 10 AM. Risks and benefits of the medication have been explained in detail to the patient. The patient does understand the risk of dependence on the medication when given over a prolonged period. Patient has been advised of risks of oversedation with the prescribed medication. Narcan has been offered to the paitent in the event of oversedation. Patient has been advised that a family member should also be educated regarding administration of Narcan. The patient has been advised to consult with his/her primary care provider and pharmacist regarding drug-drug interaction of medications currently prescribed. Patient has been prescribed a controlled substance after being counseled on the medication, medication safety, and possible side effects. Opioid contract was reviewed and signed by the patient, and that they have agreed to all of the terms set forth by our compliance program. Patient has been instructed to contact the clinic with any concerns before the next appointment. Dr. Najera has reviewed this note and agrees with this plan of care. This note was dictated using voice recognition software and make contain errors or omissions.
== END 2024-06-14 23:59 | disposition home or self-care (01) ==
PROVIDERS: Visit Provider Nurse Practitioner Family
DX: C18.9 Malignant neoplasm of colon, unspecified (principal); M54.50 Low back pain, unspecified; F17.220 Nicotine dependence, chewing tobacco, uncomplicated
CPT/HCPCS: 99212; G0463

== ENCOUNTER 2024-07-12 08:20 | Outpatient (POV) | payer MEDICARE, SELFPAY ==
--- NOTE | 2024-07-12 09:03 | EXP.PAIN.SOA ---
[facility] Disclaimer: The information contained in this section may have been updated after the patient was seen, as this information can be updated by other users. Medical History STEMI (ST elevation myocardial infarction) Shock On mechanically assisted ventilation Colon cancer Surgical History Hx of tonsillectomy Hx of myringotomy Family History Other No significant family history Social History Smoking Status: Current every day smoker tobacco type: smokeless tobacco alcohol intake: former substance use type: denies use current occupational status: other Travel in the last 8 weeks: None household members: spouse housing: house current occupation: pain line current occupational exposures/hazards: No caffeine: Yes PM Subjective & Objective Subjective Subjective:: Patient is a pleasant 49-year-old male who presents today for medication refill and follow-up. Today he rates his pain a 10 out of 10. Patient denies any new trauma or injury. He does state that he has been having more low back and upper thigh pain. He states this been going on for at least several weeks. Patient is currently managed with Percocet 7.5 mg 3 times a day from our office. Patient is still ongoing colon cancer treatment. His William has been reviewed and is appropriate. Review of Systems: General: No recent weight changes, no fever, no sleep disturbances Respiratory: No cough, no shortness of air, no recurring pulmonary infections Cardiovascular/peripheral vascular: No chest pain, no palpitations, no edema, no shortness of breath Gastrointestinal: No new onset incontinence, normal bowel movements reported Genitourinary: No new onset incontinence Musculoskeletal: Low back pain, upper thigh pain Psychiatric: [Normal mood/affect] Neurological: [Denies weakness in extremities], [denies balance issues] Pain at rest (0-10 scale): 10 Objective Objective:: Physical Exam: General: Alert and oriented x3, no acute distress, pleasant and cooperative Lungs: Respirations even and unlabored, symmetrical chest expansion Eyes: PERRL Musculoskeletal: Flexion and extension of lumbar [spine] somewhat guarded secondary to pain, [antalgic gait noted] Neurological: Speech clear, no gross sensory deficit Has patient had previous pain injection?: No Conservative treatment options previously tried: Home exercise plan Length of treatment: Longer than 12 weeks Meds Home Medications and Allergies Home Medications ?Medication ?Instructions ?Recorded ?Confirmed ?Type aspirin 81 mg chewable tablet 81 mg PO DAILY Blood Thinner #100 06/10/24 06/22/24 Rx tabs oxycodone-acetaminophen 7.5 mg-325 1 tab PO TID #12 tabs 06/11/24 06/22/24 Rx mg tablet (Percocet) oxycodone-acetaminophen 7.5 mg-325 1 tab PO TID #90 tabs 06/14/24 06/22/24 Rx mg tablet (Percocet) ibuprofen 800 mg tablet 800 mg PO Q8H #90 tabs 06/22/24 06/22/24 Rx New Prescriptions to Start Prescriptions: Allergies Allergy/AdvReac Type Severity Reaction Status Date / Time cetuximab [From Erbitux] Allergy Severe Anaphylaxis Verified 06/22/24 10:26 Assessment and Plan *Assessment and plan (1) Bulging lumbar disc: Status: Acute Category: Medical Code(s): M51.36 - Other intervertebral disc degeneration, lumbar region (2) Low back pain: Status: Acute Qualifiers: Chronicity: acute Back pain laterality: left Sciatica presence: without sciatica Qualified Code(s): M54.50 - Low back pain, unspecified Category: Medical Code(s): M54.50 - Low back pain, unspecified (3) Colon cancer: Status: Acute Qualifiers: Colon location: unspecified part of colon Qualified Code(s): C18.9 - Malignant neoplasm of colon, unspecified Category: Medical Code(s): C18.9 - Malignant neoplasm of colon, unspecified Plan I did discuss at length with the patient that he may benefit from additional injection therapy. At this time he would like to wait. I will send in lidocaine 5% patches for him to try in the meantime. Patient does have a history of 3 heart stents and cannot tolerate NSAIDs. I will refill his Percocet and provide a 1 month supply of this medication. Patient will return to clinic in 1 month for reevaluation of symptoms and plan of care. Risks and benefits of the medication have been explained in detail to the patient. The patient does understand the risk of dependence on the medication when given over a prolonged period. Patient has been advised of risks of oversedation with the prescribed medication. Narcan has been offered to the paitent in the event of oversedation. Patient has been advised that a family member should also be educated regarding administration of Narcan. The patient has been advised to consult with his/her primary care provider and pharmacist regarding drug-drug interaction of medications currently prescribed. Patient has been prescribed a controlled substance after being counseled on the medication, medication safety, and possible side effects. Opioid contract was reviewed and signed by the patient, and that they have agreed to all of the terms set forth by our compliance program. Patient has been instructed to contact the clinic with any concerns before the next appointment. Dr. Najera has reviewed this note and agrees with this plan of care. This note was dictated using voice recognition software and make contain errors or omissions.
[2024-07-12 09:18] VITALS: BP 131/82; PULSE 75; RESP 18; O2SAT 99; BMI 29.5
== END 2024-07-12 23:59 | disposition home or self-care (01) ==
PROVIDERS: PCP Nurse Practitioner Family; Visit Provider Nurse Practitioner Family
DX: M54.50 Low back pain, unspecified; C18.9 Malignant neoplasm of colon, unspecified; M51.369 Other intervertebral disc degeneration, lumbar region without mention of lumbar back pain or lower extremity pain
CPT/HCPCS: 99212; G0463

== ENCOUNTER 2024-07-21 08:27 | Outpatient (CLI) | payer MEDICARE, SELFPAY ==
[2024-07-21 08:49] LABS: Microscopic, Urine URINE MICROSCOPIC (MICROSCOPIC)
[2024-07-21 08:55] LABS: Appearance,Urine CLEAR (Clear); Bilirubin,Urine Negative (Negative); Blood, Urine TRACE-I (Negative); Color,Urine YELLOW (Yellow); Glucose,Urine (UA) Negative (Negative); Ketones,Urine Negative (Negative); Leukocyte Esterase,Urine Negative (Negative); Nitrate,Urine Negative (Negative); Protein,Urine Negative (Negative); Specific Gravity, Urine >= 1.030 (1.005-1.030); Urobilinogen,Urine 0.2 EU/dl (0.2)
[2024-07-21] MEDS: SODIUM CHLORIDE 0.9% 10ML FLUSH SYRINGE 10 ML IV (09:07)
[2024-07-21 09:11] LABS: Bacteria,Urine Trace /lpf; RBC,Urine Occasional #/hpf (0-3); Squamous Epithelial Cell,Urine Occasional #/hpf (0-5); WBC,Urine Occasional #/hpf (0-3)
[2024-07-21 09:20] LABS: Alanine Aminotransferase 29 U/L (12-78); Albumin Level 4.3 g/dl (3.5-5.0); Albumin/Globulin Ratio 1.7 (1.1-1.8); Alkaline Phosphatase 94 U/L (38-126); Anion Gap 13.5 mEq/L (5-15); Aspartate Amino Transferase 28 U/L (17-59); Bilirubin,Total 0.4 mg/dl (0.2-1.3); Blood Urea Nitrogen 13 mg/dl (9-20); Calcium 9.2 mg/dl (8.4-10.2); Carbon Dioxide 23 mmol/L (22.0-30.0); Chloride 106 mmol/L (98-107); Estimated Glomerular Filt Rate 64 ml/min (>60); GFR (African American) 78 ML/MIN (>60); Globulin 2.6 g/dL (1.3-3.2); Glucose 133 mg/dl (74-100); Potassium 3.5 mmoL/L (3.5-5.1); Sodium 139 mmol/L (136-145); Total Protein,Serum 6.9 g/dl (6.3-8.2)
[2024-07-21 09:25] LABS: Basophils % 0.5 % (0.1-2.0); Eosinophils # 0.3 K/mm3 (0.0-0.4); Eosinophils % 5.3 % (0.1-12.0); Hematocrit 36.3 % (42.0-52.0); Hemoglobin 12.6 g/dL (14.1-18.0); Lymphocytes # 1.7 K/mm3 (0.7-4.5); Lymphocytes % 31.5 % (10-50); Mean Corpuscular HGB Conc 34.8 g/dL (31.8-35.4); Mean Corpuscular Volume 97.8 fl (80-94); Mean Platelet Volume 7.5 fl (7.4-10.4); Monocytes # 0.3 K/mm3 (0.1-1.0); Monocytes % 6.4 % (1.7-9.3); Neutrophils % 56.3 % (37.0-80.0); Platelet Count 211 K/mm3 (142-424); Red Blood Count 3.71 M/mm3 (4.60-6.20); Red Cell Distribution Width 14.5 % (11.5-17.5); White Blood Count 5.2 K/mm3 (4.8-10.8)
== END 2024-07-21 08:45 | disposition home or self-care (01) ==
LOC: INF 08:30
PROVIDERS: PCP Nurse Practitioner Family; Visit Provider Internal Medicine Medical Oncology
DX: C18.9 Malignant neoplasm of colon, unspecified (principal)
CPT/HCPCS: 36591; 80053; 81001; 85025; G0463; J1642

== ENCOUNTER 2024-08-02 11:26 | Outpatient (CLI) | payer MEDICARE, SELFPAY ==
--- NOTE | 2024-08-02 11:42 | XR_ITS ---
FINAL REPORT CLINICAL HISTORY: shortness of breath/ on chemo COMPARISON: 04/13/2024 FINDINGS: Two views of the chest were obtained. A right-sided chest port is present. The heart size and pulmonary vascularity are within normal limits. The mediastinum is normal. There is persistent scar or atelectasis in the left lung base. Right upper lobe atelectasis or scarring is noted. There is no pneumothorax. The bony thorax is intact. IMPRESSION: Bilateral scarring or atelectasis. Reviewed, Interpreted and Dictated by Santos Faulkner III, MD Transcribed by Yazmin Pierce Authenticated and [facility]
[2024-08-02 11:46] LABS: Basophils % 0.5 % (0.1-2.0); Eosinophils # 0.1 K/mm3 (0.0-0.4); Eosinophils % 1.8 % (0.1-12.0); Hematocrit 39.7 % (42.0-52.0); Hemoglobin 13.4 g/dL (14.1-18.0); Lymphocytes # 1.7 K/mm3 (0.7-4.5); Lymphocytes % 22.7 % (10-50); Mean Corpuscular HGB Conc 33.7 g/dL (31.8-35.4); Mean Corpuscular Hemoglobin 32.9 pg (27.0-31.2); Mean Corpuscular Volume 97.4 fl (80-94); Mean Platelet Volume 7.9 fl (7.4-10.4); Monocytes # 0.6 K/mm3 (0.1-1.0); Monocytes % 8.3 % (1.7-9.3); Neutrophils % 66.7 % (37.0-80.0); Platelet Count 232 K/mm3 (142-424); Red Blood Count 4.07 M/mm3 (4.60-6.20); White Blood Count 7.4 K/mm3 (4.8-10.8)
[2024-08-02 11:51] LABS: Albumin Level 4.5 g/dl (3.5-5.0); Chloride 107 mmol/L (98-107); Potassium 4.2 mmoL/L (3.5-5.1); Sodium 141 mmol/L (136-145)
[2024-08-02 11:54] LABS: Alanine Aminotransferase 32 U/L (12-78); Albumin/Globulin Ratio 1.4 (1.1-1.8); Alkaline Phosphatase 100 U/L (38-126); Anion Gap 15.2 mEq/L (5-15); Aspartate Amino Transferase 35 U/L (17-59); Bilirubin,Total 0.5 mg/dl (0.2-1.3); Blood Urea Nitrogen 14 mg/dl (9-20); Carbon Dioxide 23 mmol/L (22.0-30.0); Estimated Glomerular Filt Rate 59 ml/min (>60); GFR (African American) 71 ML/MIN (>60); Globulin 3.2 g/dL (1.3-3.2); Total Protein,Serum 7.7 g/dl (6.3-8.2)
[2024-08-02 11:55] LABS: Calcium 9.5 mg/dl (8.4-10.2); Glucose 86 mg/dl (74-100)
[2024-08-02] MEDS: SODIUM CHLORIDE 0.9% 10ML FLUSH SYRINGE 10 ML IV (12:08)
--- NOTE | 2024-08-02 12:09 | PC.NURSE ---
1209-pt d/c home will call pt after cxr results come back.
== END 2024-08-02 12:09 | disposition home or self-care (01) ==
LOC: INF 11:28
PROVIDERS: PCP Nurse Practitioner Family; Visit Provider Internal Medicine Medical Oncology
DX: C18.9 Malignant neoplasm of colon, unspecified (principal); R06.02 Shortness of breath
CPT/HCPCS: 36591; 71046; 80053; 85025; J1642

== ENCOUNTER 2024-08-10 10:08 | Outpatient (CLI) | payer MEDICARE, SELFPAY ==
[2024-08-10] MEDS: SODIUM CHLORIDE 0.9% 10ML FLUSH SYRINGE 10 ML IV (10:25)
[2024-08-10 10:34] LABS: Basophils % 0.4 % (0.1-2.0); Eosinophils # 0.1 K/mm3 (0.0-0.4); Eosinophils % 2.7 % (0.1-12.0); Hematocrit 36.8 % (42.0-52.0); Hemoglobin 12.2 g/dL (14.1-18.0); Lymphocytes # 1.7 K/mm3 (0.7-4.5); Lymphocytes % 35.7 % (10-50); Mean Corpuscular HGB Conc 33.1 g/dL (31.8-35.4); Mean Corpuscular Hemoglobin 31.5 pg (27.0-31.2); Mean Corpuscular Volume 95.1 fl (80-94); Mean Platelet Volume 7.7 fl (7.4-10.4); Monocytes # 0.4 K/mm3 (0.1-1.0); Monocytes % 8.1 % (1.7-9.3); Neutrophils # 2.6 K/mm3 (1.8-7.8); Neutrophils % 53.1 % (37.0-80.0); Platelet Count 254 K/mm3 (142-424); Red Blood Count 3.87 M/mm3 (4.60-6.20); Red Cell Distribution Width 14.3 % (11.5-17.5); White Blood Count 4.8 K/mm3 (4.8-10.8)
[2024-08-10 10:43] LABS: Albumin Level 4.1 g/dl (3.5-5.0); Chloride 108 mmol/L (98-107); Potassium 3.8 mmoL/L (3.5-5.1); Sodium 139 mmol/L (136-145)
[2024-08-10 10:46] LABS: Alanine Aminotransferase 31 U/L (12-78); Albumin/Globulin Ratio 1.5 (1.1-1.8); Alkaline Phosphatase 109 U/L (38-126); Anion Gap 10.8 mEq/L (5-15); Aspartate Amino Transferase 35 U/L (17-59); Bilirubin,Total 0.3 mg/dl (0.2-1.3); Blood Urea Nitrogen 14 mg/dl (9-20); Calcium 9.1 mg/dl (8.4-10.2); Carbon Dioxide 24 mmol/L (22.0-30.0); Estimated Glomerular Filt Rate 64 ml/min (>60); GFR (African American) 78 ML/MIN (>60); Globulin 2.8 g/dL (1.3-3.2); Glucose 82 mg/dl (74-100); Total Protein,Serum 6.9 g/dl (6.3-8.2)
[2024-08-10 15:30] LABS: Alanine Aminotransferase 30 U/L (12-78); Alkaline Phosphatase 115 U/L (38-126); Aspartate Amino Transferase 33 U/L (17-59); Bilirubin,Direct 0.3 mg/dl (0.0-0.4); Bilirubin,Total 0.3 mg/dl (0.2-1.3); Chol/HDL Ratio 6.2 (1-3.5); Cholesterol 181 mg/dl (140-200); HDL Cholesterol 29 mg/dl (40-60); Total Protein,Serum 6.5 g/dl (6.3-8.2); Triglycerides 372 mg/dl (30-150); VLDL Cholesterol 74 mg/dL (0-40)
[2024-08-11 12:29] LABS: CEA 92.5 ng/mL (0.0-4.7)
== END 2024-08-10 10:30 | disposition home or self-care (01) ==
LOC: INF 10:09
PROVIDERS: Physician Assistant; PCP Nurse Practitioner Family; Visit Provider Internal Medicine Medical Oncology
DX: C18.9 Malignant neoplasm of colon, unspecified (principal); I25.10 Atherosclerotic heart disease of native coronary artery without angina pectoris; I11.9 Hypertensive heart disease without heart failure
CPT/HCPCS: 36591; 80053; 80061; 80076; 82378; 85025; J1642

== ENCOUNTER 2024-08-12 08:24 | Outpatient (POV) | payer MEDICARE, SELFPAY ==
--- NOTE | 2024-08-12 08:56 | A.OFFVIS_ITS ---
[facility] Disclaimer: The information contained in this section may have been updated after the patient was seen, as this information can be updated by other users. Medical History STEMI (ST elevation myocardial infarction) Shock On mechanically assisted ventilation Colon cancer Surgical History Hx of tonsillectomy Hx of myringotomy Family History Other No significant family history Social History Smoking Status: Current every day smoker tobacco type: smokeless tobacco alcohol intake: former substance use type: denies use current occupational status: other Travel in the last 8 weeks: None household members: spouse housing: house current occupation: pain line current occupational exposures/hazards: No caffeine: Yes PM Subjective & Objective Subjective Subjective:: Patient is a pleasant 49-year-old male who presents today for medication refill. Today he rates his pain a 0 out of 10. Patient denies any new trauma or injury. He does state that the salon patches that we did send in last visit did not seem to do anything. Patient is currently managed with Percocets 7.5 mg 3 times a day. Patient is ongoing cancer treatment. His William has been reviewed and is appropriate. Review of Systems: General: No recent weight changes, no fever, no sleep disturbances Respiratory: No cough, no shortness of air, no recurring pulmonary infections Cardiovascular/peripheral vascular: No chest pain, no palpitations, no edema, no shortness of breath Gastrointestinal: No new onset incontinence, normal bowel movements reported Genitourinary: No new onset incontinence Musculoskeletal: Low back pain, abdominal pain Psychiatric: [Normal mood/affect] Neurological: [Denies weakness in extremities], [denies balance issues] Pain at rest (0-10 scale): 0 Objective Objective:: Physical Exam: General: Alert and oriented x3, no acute distress, pleasant and cooperative Lungs: Respirations even and unlabored, symmetrical chest expansion Eyes: PERRL Musculoskeletal: Flexion and extension of lumbar [spine] somewhat guarded secondary to pain Neurological: Speech clear, no gross sensory deficit Has patient had previous pain injection?: No Conservative treatment options previously tried: Home exercise plan Length of treatment: Longer than 12 weeks Meds Home Medications and Allergies Home Medications ?Medication ?Instructions ?Recorded ?Confirmed ?Type aspirin 81 mg chewable tablet 81 mg PO DAILY Blood Thinner #100 06/10/24 Rx tabs camphor 3.1 %-methyl salicylate 10 1 patch topical DAILY 5 days #20 ea 07/12/24 08/10/24 Rx %-menthol 6 % topical patch (Salonpas) oxycodone-acetaminophen 7.5 mg-325 1 tab PO TID #90 tabs 07/12/24 08/10/24 Rx mg tablet (Percocet) ibuprofen 800 mg tablet 800 mg PO Q8H #90 tabs 07/26/24 08/10/24 Rx New Prescriptions to Start Prescriptions: Allergies Allergy/AdvReac Type Severity Reaction Status Date / Time cetuximab (From Erbitux) Allergy Severe Anaphylaxis Verified 08/10/24 10:50 Assessment and Plan *Assessment and plan (1) Low back pain: Status: Acute Qualifiers: Chronicity: acute Back pain laterality: left Sciatica presence: without sciatica Qualified Code(s): M54.50 - Low back pain, unspecified Category: Medical Code(s): M54.50 - Low back pain, unspecified (2) Colon cancer: Status: Acute Qualifiers: Colon location: unspecified part of colon Qualified Code(s): C18.9 - Malignant neoplasm of colon, unspecified Category: Medical Code(s): C18.9 - Malignant neoplasm of colon, unspecified Plan We will fill the patient's Percocet prescription and provide a 1 month supply of this medication. Patient will return to clinic in 1 month for reevaluation of symptoms and plan of care. Risks and benefits of the medication have been explained in detail to the patient. The patient does understand the risk of dependence on the medication when given over a prolonged period. Patient has been advised of risks of oversedation with the prescribed medication. Narcan has been offered to the paitent in the event of oversedation. Patient has been advised that a family member should also be educated regarding administration of Narcan. The patient has been advised to consult with his/her primary care provider and pharmacist regarding drug-drug interaction of medications currently prescribed. Patient has been prescribed a controlled substance after being counseled on the medication, medication safety, and possible side effects. Opioid contract was reviewed and signed by the patient, and that they have agreed to all of the terms set forth by our compliance program. Patient has been instructed to contact the clinic with any concerns before the next appointment. Dr. Najera has reviewed this note and agrees with this plan of care. This note was dictated using voice recognition software and make contain errors or omissions.
[2024-08-12 09:47] VITALS: BP 128/76; PULSE 84; RESP 16; O2SAT 100; BMI 28.7
== END 2024-08-12 23:59 | disposition home or self-care (01) ==
PROVIDERS: PCP Nurse Practitioner Family; Visit Provider Nurse Practitioner Family
DX: M54.50 Low back pain, unspecified (principal); C18.9 Malignant neoplasm of colon, unspecified; F17.220 Nicotine dependence, chewing tobacco, uncomplicated
CPT/HCPCS: 99212; G0463

== ENCOUNTER 2024-09-02 10:04 | Outpatient (CLI) | payer MEDICARE, SELFPAY ==
[2024-09-02 10:09] VITALS: BMI 29.4
[2024-09-02] MEDS: SODIUM CHLORIDE 0.9% 10ML FLUSH SYRINGE 10 ML IV (10:18)
[2024-09-02 10:25] VITALS: BP 141/90; PULSE 71; RESP 18; O2SAT 97
[2024-09-02 10:31] LABS: Basophils % 0.2 % (0.1-2.0); Eosinophils # 0.1 K/mm3 (0.0-0.4); Eosinophils % 2.3 % (0.1-12.0); Hematocrit 35.4 % (42.0-52.0); Hemoglobin 12.3 g/dL (14.1-18.0); Lymphocytes # 1.9 K/mm3 (0.7-4.5); Lymphocytes % 31.7 % (10-50); Mean Corpuscular HGB Conc 34.7 g/dL (31.8-35.4); Mean Corpuscular Hemoglobin 30.9 pg (27.0-31.2); Mean Corpuscular Volume 88.9 fl (80-94); Mean Platelet Volume 9.4 fl (7.4-10.4); Monocytes # 0.6 K/mm3 (0.1-1.0); Monocytes % 10.5 % (1.7-9.3); Neutrophils # 3.3 K/mm3 (1.8-7.8); Platelet Count 182 K/mm3 (142-424); Red Blood Count 3.98 M/mm3 (4.60-6.20); Red Cell Distribution Width 12.4 % (11.5-17.5)
[2024-09-02 10:41] LABS: Alanine Aminotransferase 31 U/L (12-78); Albumin/Globulin Ratio 1.4 (1.1-1.8); Alkaline Phosphatase 120 U/L (38-126); Anion Gap 12.7 mEq/L (5-15); Aspartate Amino Transferase 31 U/L (17-59); Bilirubin,Total 0.6 mg/dl (0.2-1.3); Blood Urea Nitrogen 15 mg/dl (9-20); Calcium 9.5 mg/dl (8.4-10.2); Carbon Dioxide 22 mmol/L (22.0-30.0); Chloride 104 mmol/L (98-107); Creatinine Clearance Estimated 113 mL/min (50-200); Estimated Glomerular Filt Rate 71 ml/min (>60); GFR (African American) 86 ML/MIN (>60); Globulin 2.8 g/dL (1.3-3.2); Glucose 166 mg/dl (74-100); Potassium 3.7 mmoL/L (3.5-5.1); Sodium 135 mmol/L (136-145); Total Protein,Serum 6.8 g/dl (6.3-8.2)
== END 2024-09-02 10:25 | disposition home or self-care (01) ==
LOC: INF 10:05
PROVIDERS: PCP Nurse Practitioner Family; Visit Provider Internal Medicine Medical Oncology
DX: C18.9 Malignant neoplasm of colon, unspecified (principal)
CPT/HCPCS: 36415; 80053; 85025; 96523; J1642

== ENCOUNTER 2024-09-10 08:32 | Outpatient (POV) | payer MEDICARE, SELFPAY ==
--- NOTE | 2024-09-10 08:46 | A.OFFVIS_ITS ---
[facility] Disclaimer: The information contained in this section may have been updated after the patient was seen, as this information can be updated by other users. Medical History STEMI (ST elevation myocardial infarction) Shock On mechanically assisted ventilation Colon cancer Surgical History Hx of tonsillectomy Hx of myringotomy Family History Other No significant family history Social History Smoking Status: Current every day smoker tobacco type: smokeless tobacco alcohol intake: former substance use type: denies use current occupational status: other Travel in the last 8 weeks: None household members: spouse housing: house current occupation: pain line current occupational exposures/hazards: No caffeine: Yes Have you lived/traveled outside [place] in past 30 days?: No Contact w/someone who lives/traveled outside [place] past 30 days?: No Exposure to someone with infectious disease in past 14 days?: No Do you have a fever (greater than 100.4 F or 38 C)?: No Have you tested positive for COVID-19: No Exposed to someone with COVID-19 in past 14 days?: No Do you have a sore throat?: No Do you have a cough?: No Do you have any weakness?: No Do you have any diarrhea?: No Are you experiencing any unusual bleeding?: No Do you have any muscle aches/pain?: No Do you have any abdominal pain?: No Are you experiencing loss of taste or smell?: No PM Subjective & Objective Subjective Subjective:: Patient is a pleasant 49-year-old male who presents today for medication refill and follow-up. Today he rates his pain a 9 out of 10. Patient denies any new trauma or injury. He is currently prescribed Percocet 7.5 mg 3 times a day. He denies any side effects from this medication. Patient denies any new changes with his ongoing cancer treatment. His William has been reviewed and is appropriate. Review of Systems: General: No recent weight changes, no fever, no sleep disturbances Respiratory: No cough, no shortness of air, no recurring pulmonary infections Cardiovascular/peripheral vascular: No chest pain, no palpitations, no edema, no shortness of breath Gastrointestinal: No new onset incontinence, normal bowel movements reported Genitourinary: No new onset incontinence Musculoskeletal: Low back pain, abdominal pain Psychiatric: [Normal mood/affect] Neurological: [Denies weakness in extremities], [denies balance issues] Pain at rest (0-10 scale): 9 Objective Objective:: Physical Exam: General: Alert and oriented x3, no acute distress, pleasant and cooperative Lungs: Respirations even and unlabored, symmetrical chest expansion Eyes: PERRL Musculoskeletal: Flexion and extension of lumbar [spine] somewhat guarded secondary to pain, [antalgic gait noted] Neurological: Speech clear, no gross sensory deficit Has patient had previous pain injection?: No Conservative treatment options previously tried: Prescription medications Length of treatment: Longer than 12 weeks Meds Home Medications and Allergies Home Medications ?Medication ?Instructions ?Recorded ?Confirmed ?Type aspirin 81 mg chewable tablet 81 mg PO DAILY Blood Thinner #100 06/10/24 08/12/24 Rx tabs camphor 3.1 %-methyl salicylate 10 1 patch topical DAILY 5 days #20 ea 07/12/24 08/12/24 Rx %-menthol 6 % topical patch (Salonpas) oxycodone-acetaminophen 7.5 mg-325 1 tab PO TID #90 tabs 08/12/24 Rx mg tablet (Percocet) ibuprofen 800 mg tablet 800 mg PO Q8H #90 tabs 08/23/24 Rx New Prescriptions to Start Prescriptions: Allergies Allergy/AdvReac Type Severity Reaction Status Date / Time cetuximab (From Erbitux) Allergy Severe Anaphylaxis Verified 08/10/24 10:50 Assessment and Plan *Assessment and plan (1) Colon cancer: Status: Acute Qualifiers: Colon location: unspecified part of colon Qualified Code(s): C18.9 - Malignant neoplasm of colon, unspecified Category: Medical Code(s): C18.9 - Malignant neoplasm of colon, unspecified (2) Low back pain: Status: Acute Qualifiers: Chronicity: acute Back pain laterality: left Sciatica presence: without sciatica Qualified Code(s): M54.50 - Low back pain, unspecified Category: Medical Code(s): M54.50 - Low back pain, unspecified Plan We will refill his Percocet and provide a 1 month supply of this medication. Patient is having a little bit more pain today unrelated to any new falls or injuries. I did discuss with the patient that whether or not he believes part of it was related to the weather. I will send in a 2-week dose of methocarbamol 500 mg 3 times daily. He was counseled to contact our office between now and his next visit if he needs additional refills and if it does help. Patient agrees with this plan of care. Patient will return to clinic in 1 month for reevaluation of symptoms and plan of care. Risks and benefits of the medication have been explained in detail to the patient. The patient does understand the risk of dependence on the medication when given over a prolonged period. Patient has been advised of risks of oversedation with the prescribed medication. Narcan has been offered to the paitent in the event of oversedation. Patient has been advised that a family member should also be educated regarding administration of Narcan. The patient has been advised to consult with his/her primary care provider and pharmacist regarding drug-drug interaction of medications currently prescribed. Patient has been prescribed a controlled substance after being counseled on the medication, medication safety, and possible side effects. Opioid contract was reviewed and signed by the patient, and that they have agreed to all of the terms set forth by our compliance program. A UDS is needed to verify patient's compliance with our office pain contract. This is ordered based off specific treatments related to chronic pain with the potential to abuse certain medications. Patient has been instructed to contact the clinic with any concerns before the next appointment. Dr. Najera has reviewed this note and agrees with this plan of care. This note was dictated using voice recognition software and make contain errors or omissions.
[2024-09-10 08:57] VITALS: BP 133/81; PULSE 88; RESP 18; O2SAT 97; BMI 28.7
== END 2024-09-10 23:59 | disposition home or self-care (01) ==
PROVIDERS: PCP Nurse Practitioner Family; Visit Provider Nurse Practitioner Family
DX: C18.9 Malignant neoplasm of colon, unspecified (principal); M54.50 Low back pain, unspecified; F17.220 Nicotine dependence, chewing tobacco, uncomplicated
CPT/HCPCS: 99212; G0463

== ENCOUNTER 2024-09-17 09:29 | Outpatient (CLI) | payer MEDICARE, SELFPAY ==
[2024-09-17 09:39] VITALS: BMI 28.7
[2024-09-17] MEDS: SODIUM CHLORIDE 0.9% 10ML FLUSH SYRINGE 10 ML IV (09:43)
[2024-09-17 09:45] VITALS: BP 107/63; PULSE 81; RESP 18; O2SAT 97
[2024-09-17 09:55] LABS: Basophils % 0.7 % (0.1-2.0); Eosinophils # 0.1 K/mm3 (0.0-0.4); Eosinophils % 3.3 % (0.1-12.0); Hematocrit 35.7 % (42.0-52.0); Hemoglobin 11.9 g/dL (14.1-18.0); Lymphocytes # 1.8 K/mm3 (0.7-4.5); Lymphocytes % 42.6 % (10-50); Mean Corpuscular HGB Conc 33.3 g/dL (31.8-35.4); Mean Corpuscular Hemoglobin 29.8 pg (27.0-31.2); Mean Corpuscular Volume 89.3 fl (80-94); Mean Platelet Volume 9.4 fl (7.4-10.4); Monocytes # 0.5 K/mm3 (0.1-1.0); Monocytes % 10.5 % (1.7-9.3); Neutrophils # 1.8 K/mm3 (1.8-7.8); Neutrophils % 42.7 % (37.0-80.0); Platelet Count 307 K/mm3 (142-424); Red Cell Distribution Width 12.9 % (11.5-17.5); White Blood Count 4.3 K/mm3 (4.8-10.8)
[2024-09-17 10:04] LABS: Albumin Level 4.2 g/dl (3.5-5.0); Chloride 103 mmol/L (98-107); Sodium 136 mmol/L (136-145)
[2024-09-17 10:06] LABS: Blood Urea Nitrogen 13 mg/dl (9-20); Creatinine Clearance Estimated 110 mL/min (50-200); Estimated Glomerular Filt Rate 71 ml/min (>60); GFR (African American) 86 ML/MIN (>60)
[2024-09-17 10:07] LABS: Alanine Aminotransferase 31 U/L (12-78); Albumin/Globulin Ratio 1.4 (1.1-1.8); Alkaline Phosphatase 113 U/L (38-126); Aspartate Amino Transferase 34 U/L (17-59); Bilirubin,Total 0.3 mg/dl (0.2-1.3); Calcium 9.3 mg/dl (8.4-10.2); Carbon Dioxide 24 mmol/L (22.0-30.0); Globulin 3.1 g/dL (1.3-3.2); Glucose 98 mg/dl (74-100); Total Protein,Serum 7.3 g/dl (6.3-8.2)
== END 2024-09-17 09:45 | disposition home or self-care (01) ==
LOC: INF 09:31
PROVIDERS: PCP Nurse Practitioner Family; Visit Provider Internal Medicine Medical Oncology
DX: C19 Malignant neoplasm of rectosigmoid junction (principal)
CPT/HCPCS: 36591; 80053; 85025; J1642

== ENCOUNTER 2024-09-22 09:58 | Outpatient (CLI) | payer MEDICARE, SELFPAY ==
--- NOTE | 2024-09-22 09:58 | CT_ITS ---
FINAL REPORT TECHNIQUE: After the administration of oral and intravenous contrast, axial images were obtained through the abdomen and pelvis by computed tomography. The study was performed with techniques to keep radiation dose as low as reasonably achievable, (ALARA). Individual dose reduction techniques using automated exposure control or adjustment of mA and/or kV according to the patient's size were employed. CLINICAL HISTORY: colon cancer COMPARISON: 05/27/2024 FINDINGS: There is a complex low-attenuation focus in the right lobe of the liver measuring 3.0 x 2.0 cm, similar to previous. The gallbladder is absent. Multiple calcified granulomas in the spleen. The pancreas and adrenals are unremarkable. There is marked left hydronephrosis and proximal left hydroureter. There are multitude enlarged left periaortic lymph nodes. Individual sam conglomerate's measure up to 2.7 cm, increased in size over previous. On the coronal images, the sam mass measures up to 9 cm in craniocaudal dimension, slightly increased in size over periods. There is a fat-containing hernia of the right anterior abdominal wall, increased since previous. There is a midline hernia containing a segment of colon, significantly large then previous. There are postoperative changes within the underlying colon. The appendix is not identified. No pelvic free fluid is identified. The urinary bladder is contracted. IMPRESSION: Mass in the right lobe of the liver, stable. Worsening left periaortic adenopathy. Increased sizes of fat-containing hernia of the right anterior abdominal wall and a colon containing hernia of the midline anterior abdominal wall. Reviewed, Interpreted and Dictated by Abelino Ceballos MD Transcribed by Jaylyn Gloria Authenticated and [facility]
--- NOTE | 2024-09-22 09:58 | CT_ITS ---
FINAL REPORT TECHNIQUE: Routine axial images were obtained from the lung apices to below the diaphragm following IV contrast administration. Individualized dose reduction techniques using automated exposure control or adjustment of the mA and/or kV according to the patient size were employed. CLINICAL HISTORY: colon cancer COMPARISON: 05/27/2024 FINDINGS: There is a right upper anterior right chest port. Port catheter tip terminates in the SVC. There are calcified right paratracheal and right hilar lymph nodes. Multiple noncalcified pulmonary nodules are identified. Index nodule in the superior right upper lobe measures 2.0 cm, was 1.7 cm. Nodule in the left upper lobe measures 1.7 cm, was 1.1 cm. There is an increased number of subcentimeter nodules at the lung bases bilaterally. IMPRESSION: Significant interval progression of pulmonary metastatic disease. Reviewed, Interpreted and Dictated by Abelino Ceballos MD Transcribed by Jaylyn Gloria Authenticated and [facility]
[2024-09-22] MEDS: SODIUM CHLORIDE 0.9% 10ML SYR (RAD ONLY) 10 ML IV (10:21)
[2024-09-22] MEDS: BARIUM SULFATE(READI-CAT2);450ML BOTTLE 450 ML PO (10:21)
[2024-09-22] MEDS: IOPAMIDOL-370 (76%);100ML BOTTLE 75 ML IV (10:22)
== END 2024-09-22 23:59 | disposition home or self-care (01) ==
LOC: RAD 09:58
PROVIDERS: PCP Nurse Practitioner Family; Visit Provider Internal Medicine Medical Oncology
DX: C18.9 Malignant neoplasm of colon, unspecified (principal)
CPT/HCPCS: 71260; 74177; Q9967

== ENCOUNTER 2024-09-27 10:22 | Outpatient (CLI) | payer MEDICARE, SELFPAY ==
--- NOTE | 2024-09-27 10:23 | NM_ITS ---
FINAL REPORT CLINICAL HISTORY: colon cancer 10:30AM 26.8 MCI TC MDP COMPARISON: None FINDINGS: EXISTING RELEVANT IMAGING STUDIES: None TECHNIQUE: The patient was injected with 26.8 mCi of technetium 99-MDP. 3 hour delayed images were obtained. FINDINGS: There is no abnormal increased uptake in the skeleton. No uptake of tracer is noted in the left kidney, secondary to chronic obstruction. Nor abnormal tracer activity is identified to suggest occult fracture or metastatic disease. IMPRESSION: No findings to indicate metastatic bone disease. Reviewed, Interpreted and Dictated by Abelino Ceballos MD Transcribed by Pamela Ruby Authenticated and [facility]
[2024-09-27] MEDS: SODIUM CHLORIDE 0.9% 10ML SYR (RAD ONLY) 10 ML IV (10:48)
[2024-09-27] MEDS: ISOTOPE MDP (BONE);1 DOSE VIAL IV (10:48)
== END 2024-09-27 23:59 | disposition home or self-care (01) ==
LOC: RAD 10:23
PROVIDERS: PCP Nurse Practitioner Family; Visit Provider Internal Medicine Medical Oncology
DX: C18.9 Malignant neoplasm of colon, unspecified (principal)
CPT/HCPCS: 78306; A9503

== ENCOUNTER 2024-09-28 09:46 | Outpatient (CLI) | payer MEDICARE, SELFPAY ==
[2024-09-28] MEDS: SODIUM CHLORIDE 0.9% 10ML FLUSH SYRINGE 10 ML IV (09:55)
[2024-09-28 09:58] VITALS: BMI 28.6
[2024-09-28 10:05] LABS: Basophils % 0.7 % (0.1-2.0); Eosinophils # 0.2 K/mm3 (0.0-0.4); Eosinophils % 3.8 % (0.1-12.0); Hematocrit 34.3 % (42.0-52.0); Hemoglobin 11.4 g/dL (14.1-18.0); Lymphocytes # 1.5 K/mm3 (0.7-4.5); Lymphocytes % 32.4 % (10-50); Mean Corpuscular HGB Conc 33.2 g/dL (31.8-35.4); Mean Corpuscular Hemoglobin 29.5 pg (27.0-31.2); Mean Corpuscular Volume 88.9 fl (80-94); Mean Platelet Volume 9.7 fl (7.4-10.4); Monocytes # 0.4 K/mm3 (0.1-1.0); Monocytes % 8.9 % (1.7-9.3); Neutrophils # 2.4 K/mm3 (1.8-7.8); Platelet Count 164 K/mm3 (142-424); Red Blood Count 3.86 M/mm3 (4.60-6.20); Red Cell Distribution Width 13.4 % (11.5-17.5); White Blood Count 4.5 K/mm3 (4.8-10.8)
[2024-09-28 10:13] LABS: Chloride 107 mmol/L (98-107); Sodium 140 mmol/L (136-145)
[2024-09-28 10:16] LABS: Alanine Aminotransferase 35 U/L (12-78); Albumin/Globulin Ratio 1.3 (1.1-1.8); Alkaline Phosphatase 82 U/L (38-126); Aspartate Amino Transferase 32 U/L (17-59); Bilirubin,Total 0.2 mg/dl (0.2-1.3); Blood Urea Nitrogen 10 mg/dl (9-20); Calcium 8.9 mg/dl (8.4-10.2); Carbon Dioxide 24 mmol/L (22.0-30.0); Creatinine Clearance Estimated 110 mL/min (50-200); Estimated Glomerular Filt Rate 71 ml/min (>60); GFR (African American) 86 ML/MIN (>60); Glucose 110 mg/dl (74-100)
[2024-09-29 12:10] LABS: CEA 33.4 ng/mL (0.0-4.7)
== END 2024-09-28 09:58 | disposition home or self-care (01) ==
LOC: INF 09:46
PROVIDERS: PCP Nurse Practitioner Family; Visit Provider Internal Medicine Medical Oncology
DX: C18.9 Malignant neoplasm of colon, unspecified (principal)
CPT/HCPCS: 36591; 80053; 82378; 85025; J1642

== ENCOUNTER 2024-10-11 08:20 | Outpatient (POV) | payer MEDICARE, SELFPAY ==
[2024-10-11 08:40] VITALS: BP 147/84; PULSE 91; RESP 14; O2SAT 99; BMI 29.1
--- NOTE | 2024-10-11 08:50 | A.OFFVIS_ITS ---
[facility] Disclaimer: The information contained in this section may have been updated after the patient was seen, as this information can be updated by other users. Medical History STEMI (ST elevation myocardial infarction) Shock On mechanically assisted ventilation Colon cancer Surgical History Hx of tonsillectomy Hx of myringotomy Family History Other No significant family history Social History Smoking Status: Current every day smoker tobacco type: smokeless tobacco alcohol intake: former substance use type: denies use current occupational status: other Travel in the last 8 weeks: None household members: spouse housing: house current occupation: pain line current occupational exposures/hazards: No caffeine: Yes PM Subjective & Objective Subjective Subjective:: Patient is a pleasant 49-year-old male who presents today for medication refill. Today he rates his pain a 10 out of 10. He denies any new trauma or injury. He does state that the muscle relaxer did help his legs however did not do his much for his back. Patient is currently managed with Percocet 7.5 mg 3 times a day and methocarbamol 500 mg 3 times a day. He denies any side effects. His William has been reviewed and is appropriate. Review of Systems: General: No recent weight changes, no fever, no sleep disturbances Respiratory: No cough, no shortness of air, no recurring pulmonary infections Cardiovascular/peripheral vascular: No chest pain, no palpitations, no edema, no shortness of breath Gastrointestinal: No new onset incontinence, normal bowel movements reported Genitourinary: No new onset incontinence Musculoskeletal: Low back pain Psychiatric: [Normal mood/affect] Neurological: [Denies weakness in extremities], [denies balance issues] Pain at rest (0-10 scale): 10 Objective Objective:: Physical Exam: General: Alert and oriented x3, no acute distress, pleasant and cooperative Lungs: Respirations even and unlabored, symmetrical chest expansion Eyes: PERRL Musculoskeletal: Flexion and extension of lumbar [spine] somewhat guarded secondary to pain, [antalgic gait noted] Neurological: Speech clear, no gross sensory deficit Has patient had previous pain injection?: No Conservative treatment options previously tried: Home exercise plan Length of treatment: Longer than 12 weeks Meds Home Medications and Allergies Home Medications ?Medication ?Instructions ?Recorded ?Confirmed ?Type aspirin 81 mg chewable tablet 81 mg PO DAILY Blood Thinner #100 06/10/24 10/11/24 Rx tabs camphor 3.1 %-methyl salicylate 10 1 patch topical DAILY 5 days #20 ea 07/12/24 10/11/24 Rx %-menthol 6 % topical patch (Salonpas) oxycodone-acetaminophen 7.5 mg-325 1 tab PO TID #90 tabs 09/10/24 10/11/24 Rx mg tablet (Percocet) gabapentin 300 mg capsule 300 mg PO TID #90 caps 09/17/24 10/11/24 Rx ibuprofen 800 mg tablet 800 mg PO Q8H #90 tabs 09/24/24 10/11/24 Rx methocarbamol 500 mg tablet 500 mg PO TID #90 tabs 09/30/24 10/11/24 Rx New Prescriptions to Start Prescriptions: Allergies Allergy/AdvReac Type Severity Reaction Status Date / Time cetuximab (From Erbitux) Allergy Severe Anaphylaxis Verified 09/28/24 10:15 Assessment and Plan *Assessment and plan (1) Low back pain: Status: Acute Qualifiers: Back pain laterality: left Chronicity: acute Sciatica presence: without sciatica Qualified Code(s): M54.50 - Low back pain, unspecified Category: Medical Code(s): M54.50 - Low back pain, unspecified (2) Bulging lumbar disc: Status: Acute Category: Medical Code(s): M51.369 - Other intervertebral disc degeneration, lumbar region without mention of lumbar back pain or lower extremity pain (3) Colon cancer: Status: Acute Qualifiers: Colon location: unspecified part of colon Qualified Code(s): C18.9 - Malignant neoplasm of colon, unspecified Category: Medical Code(s): C18.9 - Malignant neoplasm of colon, unspecified Plan I will refill the patient's Percocet and methocarbamol and provide a 1 month supply of this medication. Patient will return to clinic in 1 month. Risks and benefits of the medication have been explained in detail to the patient. The patient does understand the risk of dependence on the medication when given over a prolonged period. Patient has been advised of risks of oversedation with the prescribed medication. Narcan has been offered to the paitent in the event of oversedation. Patient has been advised that a family member should also be educated regarding administration of Narcan. The patient has been advised to consult with his/her primary care provider and pharmacist regarding drug-drug interaction of medications currently prescribed. Patient has been prescribed a controlled substance after being counseled on the medication, medication safety, and possible side effects. Opioid contract was reviewed and signed by the patient, and that they have agreed to all of the terms set forth by our compliance program. A UDS is needed to verify patient's compliance with our office pain contract. This is ordered based off specific treatments related to chronic pain with the potential to abuse certain medications. Patient has been instructed to contact the clinic with any concerns before the next appointment. Dr. Najera has reviewed this note and agrees with this plan of care. This note was dictated using voice recognition software and make contain errors or omissions.
== END 2024-10-11 23:59 | disposition home or self-care (01) ==
PROVIDERS: PCP Nurse Practitioner Family; Visit Provider Nurse Practitioner Family
DX: M54.50 Low back pain, unspecified (principal); M51.369 Other intervertebral disc degeneration, lumbar region without mention of lumbar back pain or lower extremity pain; C18.9 Malignant neoplasm of colon, unspecified; F17.220 Nicotine dependence, chewing tobacco, uncomplicated
CPT/HCPCS: 99212; G0463

== ENCOUNTER 2024-10-27 09:55 | Outpatient (CLI) | payer MEDICARE, SELFPAY ==
[2024-10-27 10:15] LABS: Basophils % 0.6 % (0.1-2.0); Eosinophils # 0.2 K/mm3 (0.0-0.4); Eosinophils % 3.2 % (0.1-12.0); Hematocrit 33.7 % (42.0-52.0); Hemoglobin 11.2 g/dL (14.1-18.0); Lymphocytes # 1.4 K/mm3 (0.7-4.5); Lymphocytes % 26.4 % (10-50); Mean Corpuscular HGB Conc 33.2 g/dL (31.8-35.4); Mean Corpuscular Hemoglobin 29.2 pg (27.0-31.2); Mean Platelet Volume 9.7 fl (7.4-10.4); Monocytes # 0.5 K/mm3 (0.1-1.0); Monocytes % 9.4 % (1.7-9.3); Neutrophils # 3.2 K/mm3 (1.8-7.8); Neutrophils % 60.2 % (37.0-80.0); Platelet Count 176 K/mm3 (142-424); Red Blood Count 3.83 M/mm3 (4.60-6.20); Red Cell Distribution Width 14.8 % (11.5-17.5); White Blood Count 5.3 K/mm3 (4.8-10.8)
[2024-10-27 10:25] LABS: Chloride 103 mmol/L (98-107)
[2024-10-27 10:26] LABS: Albumin Level 4.3 g/dl (3.5-5.0); Sodium 138 mmol/L (136-145)
[2024-10-27 10:28] LABS: Alanine Aminotransferase 37 U/L (12-78); Aspartate Amino Transferase 37 U/L (17-59); Blood Urea Nitrogen 11 mg/dl (9-20); Carbon Dioxide 25 mmol/L (22.0-30.0); Estimated Glomerular Filt Rate 59 ml/min (>60); GFR (African American) 71 ML/MIN (>60)
[2024-10-27 10:29] LABS: Albumin/Globulin Ratio 1.5 (1.1-1.8); Alkaline Phosphatase 80 U/L (38-126); Bilirubin,Total 0.3 mg/dl (0.2-1.3); Calcium 9.1 mg/dl (8.4-10.2); Globulin 2.8 g/dL (1.3-3.2); Glucose 140 mg/dl (74-100); Total Protein,Serum 7.1 g/dl (6.3-8.2)
[2024-10-27] MEDS: SODIUM CHLORIDE 0.9% 10ML FLUSH SYRINGE 10 ML IV (12:05)
[2024-10-28 12:26] LABS: CEA 68.5 ng/mL (0.0-4.7)
== END 2024-10-27 10:15 | disposition home or self-care (01) ==
LOC: INF 09:56
PROVIDERS: PCP Nurse Practitioner Family; Visit Provider Internal Medicine Medical Oncology
DX: C18.9 Malignant neoplasm of colon, unspecified (principal)
CPT/HCPCS: 36591; 80053; 82378; 85025; J1642

== ENCOUNTER 2024-11-08 08:40 | Outpatient (POV) | payer MEDICARE, SELFPAY ==
--- NOTE | 2024-11-08 08:45 | EXP.PAIN.SOA ---
[facility] Disclaimer: The information contained in this section may have been updated after the patient was seen, as this information can be updated by other users. Medical History STEMI (ST elevation myocardial infarction) Shock On mechanically assisted ventilation Colon cancer Surgical History Hx of tonsillectomy Hx of myringotomy Family History Other No significant family history Social History Smoking Status: Current every day smoker tobacco type: smokeless tobacco alcohol intake: former substance use type: denies use current occupational status: other Travel in the last 8 weeks: None household members: spouse housing: house current occupation: pain line current occupational exposures/hazards: No caffeine: Yes PM Subjective & Objective Subjective Subjective:: Patient is a pleasant 49-year-old male who presents today for his monthly medication refill. He rates his pain a 7out of 10. He denies any new falls or injuries. Patient is currently managed with Percocet 7.5 mg 3 times a day and methocarbamol 500 mg 3 times a day. He denies any side effects. He is prescribed gabapentin from an outside provider. His William has been reviewed and is appropriate. Review of Systems: General: No recent weight changes, no fever, no sleep disturbances Respiratory: No cough, no shortness of air, no recurring pulmonary infections Cardiovascular/peripheral vascular: No chest pain, no palpitations, no edema, no shortness of breath Gastrointestinal: No new onset incontinence, normal bowel movements reported Genitourinary: No new onset incontinence Musculoskeletal: Low back pain Psychiatric: [Normal mood/affect] Neurological: [Denies weakness in extremities], [denies balance issues] Pain at rest (0-10 scale): 7 Objective Objective:: Physical Exam: General: Alert and oriented x3, no acute distress, pleasant and cooperative Lungs: Respirations even and unlabored, symmetrical chest expansion Eyes: PERRL Musculoskeletal: Flexion and extension of lumbar [spine] somewhat guarded secondary to pain, [antalgic gait noted] Neurological: Speech clear, no gross sensory deficit Has patient had previous pain injection?: No Conservative treatment options previously tried: Home exercise plan Length of treatment: Longer than 12 weeks Meds Home Medications and Allergies Home Medications ?Medication ?Instructions ?Recorded ?Confirmed ?Type camphor 3.1 %-methyl salicylate 10 1 patch topical DAILY 5 days #20 ea 07/12/24 10/27/24 Rx %-menthol 6 % topical patch (Salonpas) methocarbamol 500 mg tablet 500 mg PO TID #90 tabs 09/30/24 10/27/24 Rx oxycodone-acetaminophen 7.5 mg-325 1 tab PO TID #90 tabs 10/11/24 10/27/24 Rx mg tablet (Percocet) aspirin 81 mg chewable tablet 81 mg PO DAILY Blood Thinner #100 10/13/24 10/27/24 Rx tabs ibuprofen 800 mg tablet 800 mg PO Q8H #90 tabs 10/27/24 Rx gabapentin 300 mg capsule 300 mg PO TID #90 caps 11/02/24 Rx New Prescriptions to Start Prescriptions: Allergies Allergy/AdvReac Type Severity Reaction Status Date / Time cetuximab (From Erbitux) Allergy Severe Anaphylaxis Verified 10/27/24 09:43 Assessment and Plan *Assessment and plan (1) Bulging lumbar disc: Status: Acute Category: Medical Code(s): M51.369 - Other intervertebral disc degeneration, lumbar region without mention of lumbar back pain or lower extremity pain (2) Low back pain: Status: Acute Qualifiers: Back pain laterality: left Chronicity: acute Sciatica presence: without sciatica Qualified Code(s): M54.50 - Low back pain, unspecified Category: Medical Code(s): M54.50 - Low back pain, unspecified (3) Colon carcinoma metastatic to multiple sites: Status: Acute Category: Medical Code(s): C18.9 - Malignant neoplasm of colon, unspecified Plan We will refill his Percocet make sure he has refills on his methocarbamol. Patient will return to clinic in 1 month. Risks and benefits of the medication have been explained in detail to the patient. The patient does understand the risk of dependence on the medication when given over a prolonged period. Patient has been advised of risks of oversedation with the prescribed medication. Narcan has been offered to the paitent in the event of oversedation. Patient has been advised that a family member should also be educated regarding administration of Narcan. The patient has been advised to consult with his/her primary care provider and pharmacist regarding drug-drug interaction of medications currently prescribed. Patient has been prescribed a controlled substance after being counseled on the medication, medication safety, and possible side effects. Opioid contract was reviewed and signed by the patient, and that they have agreed to all of the terms set forth by our compliance program. A UDS is needed to verify patient's compliance with our office pain contract. This is ordered based off specific treatments related to chronic pain with the potential to abuse certain medications. Patient has been instructed to contact the clinic with any concerns before the next appointment. Dr. Najera has reviewed this note and agrees with this plan of care. This note was dictated using voice recognition software and make contain errors or omissions.
[2024-11-08 09:02] VITALS: BP 133/81; PULSE 89; RESP 14; O2SAT 97; BMI 29.8
== END 2024-11-08 23:59 | disposition home or self-care (01) ==
PROVIDERS: PCP Nurse Practitioner Family; Visit Provider Nurse Practitioner Family
DX: M51.369 Other intervertebral disc degeneration, lumbar region without mention of lumbar back pain or lower extremity pain (principal); M54.50 Low back pain, unspecified; C18.9 Malignant neoplasm of colon, unspecified; F17.220 Nicotine dependence, chewing tobacco, uncomplicated
CPT/HCPCS: 99212; G0463

== ENCOUNTER 2024-12-02 08:28 | Outpatient (CLI) | payer MEDICARE, SELFPAY ==
--- NOTE | 2024-12-02 08:31 | XR_ITS ---
FINAL REPORT CLINICAL HISTORY: cough x 1 month on chemotherapy COMPARISON: 08/02/2024 FINDINGS: CHEST 2 VIEWS A right suprahilar mass is again noted, as well as a left lower lobe irregular density which is similar to that seen on the prior exam of 08/02/2024. The patient has known numerous pulmonary nodules that are not significantly changed but not well-appreciated on radiographs. A right port is present. No acute pulmonary density or effusion is noted. The cardiac silhouette is unremarkable. IMPRESSION: Stable metastatic disease. No acute intrathoracic abnormality identified. Reviewed, Interpreted and Dictated by Marlys Briscoe MD Transcribed by Pamela Ruby Authenticated and [facility]
[2024-12-02 09:11] LABS: Basophils % 0.4 % (0.1-2.0); Eosinophils # 0.2 K/mm3 (0.0-0.4); Eosinophils % 3.4 % (0.1-12.0); Hematocrit 37.2 % (42.0-52.0); Hemoglobin 12.6 g/dL (14.1-18.0); Lymphocytes # 2.3 K/mm3 (0.7-4.5); Lymphocytes % 45.7 % (10-50); Mean Corpuscular HGB Conc 33.9 g/dL (31.8-35.4); Mean Corpuscular Hemoglobin 29.5 pg (27.0-31.2); Mean Corpuscular Volume 87.1 fl (80-94); Mean Platelet Volume 9.9 fl (7.4-10.4); Monocytes # 0.4 K/mm3 (0.1-1.0); Monocytes % 7.5 % (1.7-9.3); Neutrophils # 2.1 K/mm3 (1.8-7.8); Neutrophils % 42.8 % (37.0-80.0); Platelet Count 274 K/mm3 (142-424); Red Blood Count 4.27 M/mm3 (4.60-6.20); Red Cell Distribution Width 14.9 % (11.5-17.5)
[2024-12-02 09:21] LABS: Albumin Level 3.9 g/dl (3.5-5.0); Chloride 105 mmol/L (98-107); Potassium 3.7 mmoL/L (3.5-5.1); Sodium 140 mmol/L (136-145)
[2024-12-02 09:24] LABS: Alanine Aminotransferase 23 U/L (12-78); Albumin/Globulin Ratio 1.2 (1.1-1.8); Alkaline Phosphatase 116 U/L (38-126); Anion Gap 14.7 mEq/L (5-15); Aspartate Amino Transferase 31 U/L (17-59); Bilirubin,Total 0.3 mg/dl (0.2-1.3); Blood Urea Nitrogen 12 mg/dl (9-20); Carbon Dioxide 24 mmol/L (22.0-30.0); Estimated Glomerular Filt Rate 71 ml/min (>60); GFR (African American) 86 ML/MIN (>60); Globulin 3.3 g/dL (1.3-3.2); Total Protein,Serum 7.2 g/dl (6.3-8.2)
[2024-12-02 09:25] LABS: Calcium 9.1 mg/dl (8.4-10.2); Glucose 80 mg/dl (74-100)
[2024-12-03 03:41] LABS: CEA 52.8 ng/mL (0.0-4.7)
== END 2024-12-02 09:15 | disposition home or self-care (01) ==
LOC: INF 08:29
PROVIDERS: PCP Nurse Practitioner Family; Visit Provider Internal Medicine Medical Oncology
DX: C18.9 Malignant neoplasm of colon, unspecified (principal)
CPT/HCPCS: 36591; 71046; 80053; 82378; 85025; J1642

== ENCOUNTER 2024-12-08 09:06 | Outpatient (POV) | payer MEDICARE, SELFPAY ==
[2024-12-08 09:14] VITALS: BP 135/89; PULSE 67; RESP 14; O2SAT 97; BMI 28.8
--- NOTE | 2024-12-08 09:19 | EXP.PAIN.SOA ---
[facility] Disclaimer: The information contained in this section may have been updated after the patient was seen, as this information can be updated by other users. Medical History STEMI (ST elevation myocardial infarction) Shock On mechanically assisted ventilation Colon cancer Surgical History Hx of tonsillectomy Hx of myringotomy Family History Other No significant family history Social History Smoking Status: Current every day smoker tobacco type: smokeless tobacco alcohol intake: former substance use type: denies use current occupational status: other Travel in the last 8 weeks: None household members: spouse housing: house current occupation: pain line current occupational exposures/hazards: No caffeine: Yes PM Subjective & Objective Subjective Subjective:: Patient is a pleasant 49-year-old male who presents today for his monthly medication refill and follow-up. He rates his pain a 8 out of 10. He denies any new injuries from her last appointment. Patient is currently still going through cancer treatments related to colon cancer with Dr. Trivedi. He has prescribed Percocet 7.5 mg 3 times a day and methocarbamol 500 mg 3 times a day. He denies any side effects or any changes to his pharmacy. He is also prescribed gabapentin from an outside provider. His William has been reviewed and is appropriate. Review of Systems: General: No recent weight changes, no fever, no sleep disturbances Respiratory: No cough, no shortness of air, no recurring pulmonary infections Cardiovascular/peripheral vascular: No chest pain, no palpitations, no edema, no shortness of breath Gastrointestinal: No new onset incontinence, normal bowel movements reported Genitourinary: No new onset incontinence Musculoskeletal: Low back pain, abdominal pain Psychiatric: [Normal mood/affect] Neurological: [Denies weakness in extremities], [denies balance issues] Pain at rest (0-10 scale): 8 Objective Objective:: Physical Exam: General: Alert and oriented x3, no acute distress, pleasant and cooperative Lungs: Respirations even and unlabored, symmetrical chest expansion Eyes: PERRL Musculoskeletal: Flexion and extension of lumbar [spine] somewhat guarded secondary to pain, [antalgic gait noted] Neurological: Speech clear, no gross sensory deficit Has patient had previous pain injection?: No Conservative treatment options previously tried: Prescription medications Length of treatment: Longer than 12 weeks Meds Home Medications and Allergies Home Medications ?Medication ?Instructions ?Recorded ?Confirmed ?Type camphor 3.1 %-methyl salicylate 10 1 patch topical DAILY 5 days #20 ea 07/12/24 12/08/24 Rx %-menthol 6 % topical patch (Salonpas) methocarbamol 500 mg tablet 500 mg PO TID #90 tabs 09/30/24 12/08/24 Rx aspirin 81 mg chewable tablet 81 mg PO DAILY Blood Thinner #100 10/13/24 12/08/24 Rx tabs ibuprofen 800 mg tablet 800 mg PO Q8H #90 tabs 10/27/24 12/08/24 Rx gabapentin 300 mg capsule 300 mg PO TID #90 caps 11/02/24 12/08/24 Rx oxycodone-acetaminophen 7.5 mg-325 1 tab PO TID #90 tabs 11/08/24 12/08/24 Rx mg tablet (Percocet) fruquintinib 1 mg capsule 4 mg PO DAILY 12/02/24 12/08/24 History New Prescriptions to Start Prescriptions: Allergies Allergy/AdvReac Type Severity Reaction Status Date / Time cetuximab (From Erbitux) Allergy Severe Anaphylaxis Verified 10/27/24 09:43 Assessment and Plan *Assessment and plan (1) Low back pain: Status: Acute Qualifiers: Chronicity: acute Back pain laterality: left Sciatica presence: without sciatica Qualified Code(s): M54.50 - Low back pain, unspecified Category: Medical Code(s): M54.50 - Low back pain, unspecified (2) Colon carcinoma metastatic to multiple sites: Status: Acute Category: Medical Code(s): C18.9 - Malignant neoplasm of colon, unspecified (3) Colon cancer: Status: Acute Qualifiers: Colon location: unspecified part of colon Qualified Code(s): C18.9 - Malignant neoplasm of colon, unspecified Category: Medical Code(s): C18.9 - Malignant neoplasm of colon, unspecified Plan I will refill his Percocet and also change his methocarbamol to 750 mg 3 times a day. Patient will return to clinic in 1 month. Risks and benefits of the medication have been explained in detail to the patient. The patient does understand the risk of dependence on the medication when given over a prolonged period. Patient has been advised of risks of oversedation with the prescribed medication. Narcan has been offered to the paitent in the event of oversedation. Patient has been advised that a family member should also be educated regarding administration of Narcan. The patient has been advised to consult with his/her primary care provider and pharmacist regarding drug-drug interaction of medications currently prescribed. Patient has been prescribed a controlled substance after being counseled on the medication, medication safety, and possible side effects. Opioid contract was reviewed and signed by the patient, and that they have agreed to all of the terms set forth by our compliance program. A UDS is needed to verify patient's compliance with our office pain contract. This is ordered based off specific treatments related to chronic pain with the potential to abuse certain medications. Patient has been instructed to contact the clinic with any concerns before the next appointment. Dr. Najera has reviewed this note and agrees with this plan of care. This note was dictated using voice recognition software and make contain errors or omissions.
== END 2024-12-08 23:59 | disposition home or self-care (01) ==
PROVIDERS: PCP Nurse Practitioner Family; Visit Provider Nurse Practitioner Family
DX: M54.50 Low back pain, unspecified (principal); C18.9 Malignant neoplasm of colon, unspecified; F17.220 Nicotine dependence, chewing tobacco, uncomplicated
CPT/HCPCS: 99212; G0463

== ENCOUNTER 2024-12-30 08:58 | Outpatient (CLI) | payer MEDICARE, SELFPAY ==
[2024-12-30] MEDS: SODIUM CHLORIDE 0.9% 10ML FLUSH SYRINGE 10 ML IV (09:01)
[2024-12-30 09:19] LABS: Basophils % 0.2 % (0.1-2.0); Eosinophils # 0.1 Kmm3 (0.0-0.4); Hematocrit 36.5 % (42.0-52.0); Hemoglobin 12.1 g/dL (14.1-18.0); Lymphocytes # 1.8 K/mm3 (0.7-4.5); Lymphocytes % 39.1 % (10-50); Mean Corpuscular HGB Conc 33.2 g/dL (31.8-35.4); Mean Corpuscular Hemoglobin 29.4 pg (27.0-31.2); Mean Corpuscular Volume 88.6 fl (80-94); Mean Platelet Volume 9.8 fl (7.4-10.4); Monocytes # 0.3 K/mm3 (0.1-1.0); Neutrophils # 2.4 K/mm3 (1.8-7.8); Neutrophils % 50.5 % (37.0-80.0); Nucleated Red Blood Cells # 0 10^3/uL; Nucleated Red Blood Cells % 0 %; Platelet Count 185 K/mm3 (142-424); Red Blood Count 4.12 M/mm3 (4.60-6.20); Red Cell Distribution Width 16.1 % (11.5-17.5); Red Cell Distribution Width-SD 52.2 fL; White Blood Count 4.7 K/mm3 (4.8-10.8)
[2024-12-30 09:30] LABS: Albumin Level 3.9 g/dl (3.5-5.0); Chloride 108 mmol/L (98-107)
[2024-12-30 09:31] LABS: Potassium 3.8 mmoL/L (3.5-5.1); Sodium 135 mmol/L (136-145)
[2024-12-30 09:33] LABS: Alanine Aminotransferase 34 U/L (12-78); Anion Gap 9.8 mEq/L (5-15); Aspartate Amino Transferase 41 U/L (17-59); Blood Urea Nitrogen 11 mg/dl (9-20); Carbon Dioxide 21 mmol/L (22.0-30.0); Estimated Glomerular Filt Rate 64 ml/min (>60); GFR (African American) 78 ML/MIN (>60)
[2024-12-30 09:34] LABS: Albumin/Globulin Ratio 1.3 (1.1-1.8); Alkaline Phosphatase 103 U/L (38-126); Bilirubin,Total 0.3 mg/dl (0.2-1.3); Calcium 9.3 mg/dl (8.4-10.2); Glucose 162 mg/dl (74-100); Total Protein,Serum 6.9 g/dl (6.3-8.2)
[2024-12-31 10:18] LABS: CEA 26.6 ng/mL (0.0-4.7)
== END 2024-12-30 09:15 | disposition home or self-care (01) ==
LOC: INF 08:59
PROVIDERS: PCP Nurse Practitioner Family; Visit Provider Internal Medicine Medical Oncology
DX: C18.9 Malignant neoplasm of colon, unspecified (principal)
CPT/HCPCS: 36415; 80053; 82378; 85025; 96523; J1642

== ENCOUNTER 2025-01-05 11:09 | Outpatient (POV) | payer MEDICARE, SELFPAY ==
--- NOTE | 2025-01-05 11:14 | A.OFFVIS_ITS ---
[facility] Disclaimer: The information contained in this section may have been updated after the patient was seen, as this information can be updated by other users. Medical History STEMI (ST elevation myocardial infarction) Shock On mechanically assisted ventilation Colon cancer Surgical History Hx of tonsillectomy Hx of myringotomy Family History Other No significant family history Social History Smoking Status: Current every day smoker tobacco type: smokeless tobacco alcohol intake: former substance use type: denies use current occupational status: other Travel in the last 8 weeks?: None household members: spouse housing: house current occupation: pain line current occupational exposures/hazards: No caffeine: Yes PM Subjective & Objective Subjective Subjective:: Patient is a pleasant 49-year-old male who presents today for his 1 month medication refill. Today he rates his pain a 8 out of 10. He denies any new changes or falls from our last visit. He is currently prescribed Percocet 7.5 mg 3 times a day and methocarbamol 750 mg 3 times a day from our office. He denies any side effects. He does state that the increased muscle relaxer did help but he still having quite a bit of pain at night when he tries to sleep. His William has been reviewed and is appropriate. Review of Systems: General: No recent weight changes, no fever, no sleep disturbances Respiratory: No cough, no shortness of air, no recurring pulmonary infections Cardiovascular/peripheral vascular: No chest pain, no palpitations, no edema, no shortness of breath Gastrointestinal: No new onset incontinence, normal bowel movements reported Genitourinary: No new onset incontinence Musculoskeletal: Low back pain Psychiatric: [Normal mood/affect] Neurological: [Denies weakness in extremities], [denies balance issues] Pain at rest (0-10 scale): 8 Objective Objective:: Physical Exam: General: Alert and oriented x3, no acute distress, pleasant and cooperative Lungs: Respirations even and unlabored, symmetrical chest expansion Eyes: PERRL Musculoskeletal: Flexion and extension of lumbar [spine] somewhat guarded secondary to pain, [antalgic gait noted] Neurological: Speech clear, no gross sensory deficit Has patient had previous pain injection?: No Conservative treatment options previously tried: Home exercise plan Length of treatment: Longer than 12 weeks Meds Home Medications and Allergies Home Medications ?Medication ?Instructions ?Recorded ?Confirmed ?Type camphor 3.1 %-methyl salicylate 10 1 patch topical DAILY 5 days #20 ea 07/12/24 01/05/25 Rx %-menthol 6 % topical patch (Salonpas) methocarbamol 500 mg tablet 500 mg PO TID #90 tabs 09/30/24 01/05/25 Rx aspirin 81 mg chewable tablet 81 mg PO DAILY Blood Thinner #100 10/13/24 01/05/25 Rx tabs ibuprofen 800 mg tablet 800 mg PO Q8H #90 tabs 10/27/24 01/05/25 Rx gabapentin 300 mg capsule 300 mg PO TID #90 caps 11/02/24 01/05/25 Rx fruquintinib 1 mg capsule 4 mg PO DAILY 12/02/24 01/05/25 History oxycodone-acetaminophen 7.5 mg-325 1 tab PO TID #90 tabs 12/08/24 01/05/25 Rx mg tablet (Percocet) methocarbamol 750 mg tablet 750 mg PO TID #90 tabs 12/27/24 01/05/25 Rx New Prescriptions to Start Prescriptions: Allergies Allergy/AdvReac Type Severity Reaction Status Date / Time cetuximab (From Erbitux) Allergy Severe Anaphylaxis Verified 12/30/24 09:28 Assessment and Plan *Assessment and plan (1) Low back pain: Status: Acute Qualifiers: Back pain laterality: left Chronicity: acute Sciatica presence: without sciatica Qualified Code(s): M54.50 - Low back pain, unspecified Category: Medical Code(s): M54.50 - Low back pain, unspecified (2) Colon carcinoma metastatic to multiple sites: Status: Acute Category: Medical Code(s): C18.9 - Malignant neoplasm of colon, unspecified Plan We will refill the patient's Percocet and change it to 4 times per day and methocarbamol will provide a 1 month supply of this medication. Patient will return to clinic in 1 month for reevaluation of symptoms and plan of care. Risks and benefits of the medication have been explained in detail to the patient. The patient does understand the risk of dependence on the medication when given over a prolonged period. Patient has been advised of risks of oversedation with the prescribed medication. Narcan has been offered to the paitent in the event of oversedation. Patient has been advised that a family member should also be educated regarding administration of Narcan. The patient has been advised to consult with his/her primary care provider and pharmacist regarding drug-drug interaction of medications currently prescribed. Patient has been prescribed a controlled substance after being counseled on the medication, medication safety, and possible side effects. Opioid contract was reviewed and signed by the patient, and that they have agreed to all of the terms set forth by our compliance program. A UDS is needed to verify patient's compliance with our office pain contract. This is ordered based off specific treatments related to chronic pain with the potential to abuse certain medications. Patient has been instructed to contact the clinic with any concerns before the next appointment. Dr. Najera has reviewed this note and agrees with this plan of care. This note was dictated using voice recognition software and make contain errors or omissions.
[2025-01-05 11:37] VITALS: BP 130/88; PULSE 69; RESP 14; O2SAT 97; BMI 28.8
== END 2025-01-05 23:59 | disposition home or self-care (01) ==
PROVIDERS: PCP Nurse Practitioner Family; Visit Provider Nurse Practitioner Family
DX: M54.50 Low back pain, unspecified (principal); C18.9 Malignant neoplasm of colon, unspecified; F17.290 Nicotine dependence, other tobacco product, uncomplicated
CPT/HCPCS: 99212; G0463

== ENCOUNTER 2025-02-01 09:31 | Outpatient (CLI) | payer MEDICARE, SELFPAY ==
[2025-02-01 09:33] VITALS: BMI 29.2
[2025-02-01] MEDS: SODIUM CHLORIDE 0.9% 10ML FLUSH SYRINGE 10 ML IV (09:45)
[2025-02-01 09:53] LABS: Basophils % 0.2 % (0.1-2.0); Eosinophils # 0.2 Kmm3 (0.0-0.4); Eosinophils % 2.6 % (0.1-12.0); Hematocrit 38.6 % (42.0-52.0); Hemoglobin 12.9 g/dL (14.1-18.0); Immature Granulocytes # 0.01 10^3uL; Immature Granulocytes % 0.2 %; Lymphocytes # 2.3 K/mm3 (0.7-4.5); Lymphocytes % 37.1 % (10-50); Mean Corpuscular HGB Conc 33.4 g/dL (31.8-35.4); Mean Corpuscular Hemoglobin 29.8 pg (27.0-31.2); Mean Corpuscular Volume 89.1 fl (80-94); Mean Platelet Volume 9.8 fl (7.4-10.4); Monocytes # 0.6 K/mm3 (0.1-1.0); Monocytes % 9.6 % (1.7-9.3); Neutrophils # 3.2 K/mm3 (1.8-7.8); Neutrophils % 50.3 % (37.0-80.0); Nucleated Red Blood Cells # 0 10^3/uL; Nucleated Red Blood Cells % 0 %; Platelet Count 158 K/mm3 (142-424); Red Blood Count 4.33 M/mm3 (4.60-6.20); Red Cell Distribution Width 15.7 % (11.5-17.5); Red Cell Distribution Width-SD 51.8 fL; White Blood Count 6.3 K/mm3 (4.8-10.8)
[2025-02-01 09:58] LABS: Albumin Level 4.4 g/dl (3.5-5.0); Chloride 105 mmol/L (98-107); Potassium 4.1 mmoL/L (3.5-5.1); Sodium 138 mmol/L (136-145)
[2025-02-01 10:01] LABS: Alanine Aminotransferase 43 U/L (12-78); Albumin/Globulin Ratio 1.3 (1.1-1.8); Alkaline Phosphatase 82 U/L (38-126); Anion Gap 11.1 mEq/L (5-15); Aspartate Amino Transferase 45 U/L (17-59); Bilirubin,Total 0.5 mg/dl (0.2-1.3); Blood Urea Nitrogen 17 mg/dl (9-20); Carbon Dioxide 26 mmol/L (22.0-30.0); Creatinine Clearance Estimated 106 mL/min (50-200); Estimated Glomerular Filt Rate 64 ml/min (>60); GFR (African American) 78 ML/MIN (>60); Globulin 3.3 g/dL (1.3-3.2); Total Protein,Serum 7.7 g/dl (6.3-8.2)
[2025-02-01 10:02] LABS: Calcium 9.2 mg/dl (8.4-10.2); Glucose 102 mg/dl (74-100)
[2025-02-02 09:13] LABS: CEA 20.8 ng/mL (0.0-4.7)
== END 2025-02-01 11:47 | disposition home or self-care (01) ==
LOC: INF 09:31
PROVIDERS: PCP Nurse Practitioner Family; Visit Provider Internal Medicine Medical Oncology
DX: C18.9 Malignant neoplasm of colon, unspecified (principal)
CPT/HCPCS: 36591; 80053; 82378; 85025; J1642

== ENCOUNTER 2025-02-01 10:00 | Outpatient (POV) | payer MEDICARE, SELFPAY ==
--- NOTE | 2025-02-01 10:24 | A.OFFVIS_ITS ---
[facility] Disclaimer: The information contained in this section may have been updated after the patient was seen, as this information can be updated by other users. Medical History STEMI (ST elevation myocardial infarction) Shock On mechanically assisted ventilation Colon cancer Surgical History Hx of tonsillectomy Hx of myringotomy Family History Other No significant family history Social History Smoking Status: Current every day smoker tobacco type: smokeless tobacco alcohol intake: former substance use type: denies use current occupational status: other Travel in the last 8 weeks?: None household members: spouse housing: house current occupation: pain line current occupational exposures/hazards: No caffeine: Yes Have you lived/traveled outside US in past 30 days?: No Contact w/someone who lives/traveled outside US past 30 days?: No Exposure to someone with infectious disease in past 14 days?: No Do you have a fever (greater than 100.4 F or 38 C)?: No Have you tested positive for COVID-19?: No Exposed to someone with COVID-19 in past 14 days?: No Do you have a sore throat?: No Do you have a cough?: No Do you have any weakness?: No Do you have any diarrhea?: No Are you experiencing any unusual bleeding?: No Do you have any muscle aches/pain?: No Do you have any abdominal pain?: No Are you experiencing loss of taste or smell?: No PM Subjective & Objective Subjective Subjective:: Patient is a pleasant 49-year-old male who presents today for his 1 month medication refill. Today he rates his pain as 6 out of 10. He denies any new falls or changes. He does state the extra tablet did really help overall. Patient is currently managed with Percocet 7.5 mg 4 times a day and methocarbamol 750 mg 3 times a day from our office. He denies any side effects. His William has been reviewed and is appropriate. Review of Systems: General: No recent weight changes, no fever, no sleep disturbances Respiratory: No cough, no shortness of air, no recurring pulmonary infections Cardiovascular/peripheral vascular: No chest pain, no palpitations, no edema, no shortness of breath Gastrointestinal: No new onset incontinence, normal bowel movements reported Genitourinary: No new onset incontinence Musculoskeletal: Back pain Psychiatric: [Normal mood/affect] Neurological: [Denies weakness in extremities], [denies balance issues] Pain at rest (0-10 scale): 6 Objective Objective:: Physical Exam: General: Alert and oriented x3, no acute distress, pleasant and cooperative Lungs: Respirations even and unlabored, symmetrical chest expansion Eyes: PERRL Musculoskeletal: Flexion and extension of lumbar [spine] somewhat guarded secondary to pain Neurological: Speech clear, no gross sensory deficit Has patient had previous pain injection?: No Conservative treatment options previously tried: Prescription medications Length of treatment: Longer than 12 weeks Meds Home Medications and Allergies Home Medications ?Medication ?Instructions ?Recorded ?Confirmed ?Type camphor 3.1 %-methyl salicylate 10 1 patch topical DAVID LY 5 days #20 ea 07/12/24 01/05/25 Rx %-menthol 6 % topical patch (Salonpas) methocarbamol 500 mg tablet 500 mg PO TID #90 tabs 01/05/25 Rx aspirin 81 mg chewable tablet 81 mg PO DAILY Blood Thi nner #100 10/13/24 01/05/25 Rx tabs gabapentin 300 mg capsule 300 mg PO TID #90 caps 11/0201/05/25 Rx fruquintinib 1 mg capsule 4 mg PO DAILY 12/02/2401/05 History methocarbamol 750 mg tablet 750 mg PO TID #90 tabs 03/25 Rx oxycodone-acetaminophen 7.5 mg-325 1 tab PO QID #120 t abs 01/05/25 Rx mg tablet (Percocet) albuterol sulfate 90 mcg/actuation 1 puff inhalation Q 6H PRN 01/11/25 Rx aerosol inhaler shortness of breath or wheez ing #6.7 grams ibuprofen 800 mg tablet See Rx Instructions .Route 0 01/18/25 Rx .COMPLEX #90 tabs New Prescriptions to Start Prescriptions: Allergies Allergy/AdvReac Type Severity Reaction Status Date / Time cetuximab (From Erbitux) Allergy Severe Anaphylaxis Verified 12/30/24 09:28 Assessment and Plan *Assessment and plan (1) Bulging lumbar disc: Status: Acute Category: Medical Code(s): M51.369 - Other intervertebral disc degeneration, lumbar region without mention of lumbar back pain or lower extremity pain (2) Low back pain: Status: Acute Qualifiers: Chronicity: acute Back pain laterality: left Sciatica presence: without sciatica Qualified Code(s): M54.50 - Low back pain, unspecified Category: Medical Code(s): M54.50 - Low back pain, unspecified (3) Colon cancer: Status: Acute Qualifiers: Colon location: unspecified part of colon Qualified Code(s): C18.9 - Malignant neoplasm of colon, unspecified Category: Medical Code(s): C18.9 - Malignant neoplasm of colon, unspecified Plan I will refill his Percocet and make sure he has refills on his methocarbamol. Patient will return to clinic in 1 month. Risks and benefits of the medication have been explained in detail to the patient. The patient does understand the risk of dependence on the medication when given over a prolonged period. Patient has been advised of risks of oversedation with the prescribed medication. Narcan has been offered to the paitent in the event of oversedation. Patient has been advised that a family member should also be educated regarding administration of Narcan. The patient has been advised to consult with his/her primary care provider and pharmacist regarding drug-drug interaction of medications currently prescribed. Patient has been prescribed a controlled substance after being counseled on the medication, medication safety, and possible side effects. Opioid contract was reviewed and signed by the patient, and that they have agreed to all of the terms set forth by our compliance program. A UDS is needed to verify patient's compliance with our office pain contract. This is ordered based off specific treatments related to chronic pain with the potential to abuse certain medications. Patient has been instructed to contact the clinic with any concerns before the next appointment. Dr. Najera has reviewed this note and agrees with this plan of care. This note was dictated using voice recognition software and make contain errors or omissions.
[2025-02-01 12:57] VITALS: BP 132/82; PULSE 70; RESP 14; O2SAT 98; BMI 30.1
== END 2025-02-01 23:59 | disposition home or self-care (01) ==
PROVIDERS: PCP Nurse Practitioner Family; Visit Provider Nurse Practitioner Family
DX: M51.362 Other intervertebral disc degeneration, lumbar region with discogenic back pain and lower extremity pain (principal); C18.9 Malignant neoplasm of colon, unspecified; Z79.899 Other long term (current) drug therapy; Z79.891 Long term (current) use of opiate analgesic
CPT/HCPCS: 99212; G0463

== ENCOUNTER 2025-02-18 07:45 | Outpatient (CLI) | payer MEDICARE, SELFPAY ==
--- OUTSIDE RECORDS SUMMARY | 2025-02-18 07:47 | XMS_ITS ---
Author Organization [facility] Address [address] [place] [address] Care Team Providers Care Supply Room Clerk Name Role Phone Abelino Mars MD Unavailable [phone] Michael Rodriguez MD Unavailable [phone] Dolores Grande APRN Primary Care Provider [phone] Luis M Maldonado MD Unavailable [phone] Active Problems Problem Noted Date Diagnosed Date Second hand smoke exposure 05/27/2023 Gastroesophageal reflux disease 02/18/2023 Tobacco use disorder 09/03/2022 Lung nodules 06/06/2022 Malignant neoplasm of rectum 04/24/2021 Cancer Staging:Pathologic stage from 12/12/2020:Stage YASMIN(ypT3, ypN1b, cM1a) - Signed by Michael Rodriguez MD on 05/02/2021 Overview (04/24/2021): Added automatically from request for surgery [id number] Current Treatment and Therapy Plans No current plan information found. Past Treatment and Therapy Plans Oncology Treatment Plan Name Start Date Discontinue Date Treatment Medications Discontinue Reason Plan Provider Cycles Panitumumab Biweekly / Irinotecan Biweekly Every 28 Days 3 07/29/2023 irinotecan (Camptosar)rothman itumumab (Vectibix) Patient Preference Trina Brown MD Treatment not started Past Radiation Episodes * SBRT: Left PelvisOverview* First Treatment Date Last Treatment Date Treatment Site Technique Goal Episod e Provider 08/27/2022 09/05/2022 Left Pelvis SBRT * Linked Problems Rectal cancer Treatment Courses* Course C2 08/27/2022 - 09/05/2022 Treatment Period Fraction Dose Fractions Total Dose Plans Planned LEFT pelvic LN [LEFTPelvicLN] 08/27/2022 - 09/05/2022 700 cGy 4 / 5 3,500 cG y Reference Points Delivered PTVLEFTpelvic LN 08/27/2022 - 09/05/2022 2,800 cGy * SBRT: Bilateral LungOverview* First Treatment Date Last Treatment Date Treatment Site Technique Goal Episod e Provider 06/19/2022 06/28/2022 Bilateral Lung SBRT * Linked Problems Multiple lung nodules Treatment Courses* Course C1 06/19/2022 - 06/28/2022 Treatment Period Fraction Dose Fractions Total Dose Plans Planned Left Lung 06/19/2022 - 06/28/2022 1,000 cGy 5 / 5 5 ,000 cGy Right Iliac 06/19/2022 - 06/28/2022 1,000 cGy 5 / 5 5,000 cGy Right Lung 06/19/2022 - 06/28/2022 1,000 cGy 5 / 5 5 ,000 cGy Reference Points Delivered PTVRHILAR 06/19/2022 - 06/28/2022 5,000 cGy PTVlLLL 06/19/2022 - 06/28/2022 5,000 cGy Right Iliac 06/19/2022 - 06/28/2022 5,000 cGy Lifetime Dose Tracking * Chemical Lifetime Dose Automatic Entry Manual Entr y Fluoro Time 3.515 minutes 3.515 minutes 0 minutes Air Kerma 60.06 mGy 60.06 mGy 0 mGy
--- OUTSIDE RECORDS SUMMARY | 2025-02-18 07:47 | XMS_ITS | Encounter Summary ---
Author Organization [facility] Address [address] [place] [address] Care Team Providers Care Office Messenger Helper Name Role Phone Marcello Merchant MD Primary Care Provider [phone] Abelino Mars MD Unavailable [phone] Michael Rodriguez MD Unavailable [phone] Dolores Grande APRN Primary Care Provider [phone] Luis M Maldonado MD Unavailable [phone] Encounter Details Date Type Department Care Team (Late st Contact Info) Description 07/05/2021 Lab Requisition [facility] [address] [place] [address] Sherin Saleh MD [address] [place] [id number] Malignant neoplasm of rectosigmoid junction (CMS/HCC); 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 Immunohistochemist ry (IHC) testing for mismatch repair (MMR) proteins is performed and the results are as follows: MLH1 Intact nuclear expression MSH2 Intact nuclear expression MSH6 Intact nuclear expression PMS2 Intact nuclear expression Background nonneoplastic tissue/internal control with intact nuclear expression IHC Interpretation# No loss of nuclear expression of MMR proteins: low probability of microsatellite instability-high (MSI-H). # There are exceptions to the above IHC interpretations. These results should not be considered in isolation, and clinical correlation with genetic counseling is recommended to assess the need for germline testing. All controls show appropriate reactivity. All immunohistochemist ry, in situ hybridization, and histochemical tests were developed by and are performed at the [facility], [address] [place] [address]. All tests reported here, except those addressing HER2 (breast) and PD-L1 expression as predictive markers, have not been cleared by or approved by the US Food and Drug Administration (FDA). The FDA has determined that such clearance or approval is not necessary. The laboratory is regulated under CLIA as qualified to perform high-complexity testing. The tests are used for clinical purposes. They should not be regarded as investigational or for research. T his assay has not been validated on decalcified tissues. Results should be interpreted with caution given the likelihood of false negativity on decalcified specimens. 07/06/2021 2:53 PM EDT [facility] at 1453 EDT Gross Description A. [id number] Reaccessioned for billing purposes only. 07/06/2021 2:53 PM EDT [facility] Note: A resident was involved in the service. I attest I examined the relevant preparations for the specimens and confirmed the diagnosis or interpretation. 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) documented in this encounter Additional Health Concerns Assessment Noted Time A fall risk assessment has been complete d for the patient 06/19/2021 1:10 PM EDT documented as of this encounter Care Teams Office Messenger Helper Relationship Specialty Start Date End Date Marcello Merchant MD [address] [place] [address] PCP - General 01/12/21 02/10/22 Dolores Grande APRN [address] [place] [address] PCP - General 02/11/22 Abelino Mars MD [id number] [place] [id number] Surgeon Colon and Rectal Surgery 06/19/21 Michael Rodriguez MD [address] [address] Surgeon Surgical Oncology 06/19/21 Luis M Maldonado MD [address] [facility] [address] [place] [address] Consulting Physician Radiation Oncology 06/06/22 documented as of this encounter
--- OUTSIDE RECORDS SUMMARY | 2025-02-18 07:47 | XMS_ITS | Encounter Summary ---
Author Organization [facility] Address [address] [id number] Care Team Providers Care Grape Picker Name Role Phone Abelino Mars MD Unavailable [phone] Michael Rodriguez MD Unavailable [phone] Dolores Grande APRN Primary Care Provider [phone] Luis M Maldonado MD Unavailable [phone] Encounter Details Date Type Department Care Team (Late st Contact Info) Description 01/07/2023 Lab Requisition [facility] [address] [place] [address] Michael Rodriguez MD [address] [address] Malignant neoplasm of rectum (CMS/HCC) Social History Tobacco Use Types Packs/Day Years Used Date Smoking Tobacco: Every Day Cigarettes 0.5 20 Smokeless Tobacco: Current Chew Alcohol Use Standard Drinks/Week Comments Never 0 (1 standard drink = 0.6 oz pur e alcohol) PHQ-2 Answer Date Recorded Patient Health Questionnaire-2 Score 0 11/15/2022 Sex and Gender Information Value Date Recorded Sex Assigned at Male 09/18/2022 8:50 AM EST Legal Sex Male 7:55 PM EDT Gender Identity Male 09/18/2022 8:50 AM EST Sexual Orientation Not on file COVID-19 Exposure Response Date Recorded In the last 10 days, have yo u been in contact with someone who was confirmed or suspected to have Coronavirus/COVID-19? No / Unsure 12/25/2022 4:58 PM EDT documented as of this encounter Plan of Treatment Not on file documented as of this encounter Procedures Procedure Name Priority Date/Time Associated Diagnosis Comments AP MISCELLANEOUS LAB TEST (SO) Routine 01/07/2023 3:47 PM EDT Malignant neoplasm of rectum (CMS/HCC) documented in this encounter Results * - AP Miscellaneous Test (01/07/2023 3:47 PM EDT) Test name MT Profile 01/30/2023 12:[address] [facility] Comment:[id number] Test Result see scan 01/30/2023 12:[address] [facility] See Scanned Result 01/30/2023 12:[address] [facility] Tissue 01/07/2023 3:47 PM EDT 01/07/2023 3:47 PM EDT Michael Rodriguez MD LAB REF LAB BLOOD AND FLUID ORD Final Result [facility] documented in this encounter Visit Diagnoses Diagnosis Malignant neoplasm of rectum (CMS/HCC) Malignant neoplasm of rectum documented in this encounter Additional Health Concerns Assessment Noted Time A fall risk assessment has been complete d for the patient 11/15/2022 9:02 AM EDT A Body Mass Index follow-up plan has been documented for the patient 01/07/2023 6:45 PM EDT documented as of this encounter Care Teams Grape Picker Relationship Specialty Start Date End Date Dolores Grande APRN [address] [place] [address] PCP - General 02/11/22 Abelino Mars MD [address] [facility] [address] [place] [address] Surgeon Colon and Rectal Surgery 06/19/21 Michael Rodriguez MD [address] [phone] Surgeon Surgical Oncology 06/19/21 Luis M Maldonado MD [address] [facility] [address] [place] [address] Consulting Physician Radiation Oncology 06/06/22 documented as of this encounter
--- OUTSIDE RECORDS SUMMARY | 2025-02-18 07:47 | XMS_ITS | Clinical Summary ---
Author Organization [facility] Address [address] [place] [address] Care Team Providers Care Industrial Chemist Name Role Phone Abelino Mars MD Unavailable [phone] Michael Rodriguez MD Unavailable [phone] Dolores Grande APRN Primary Care Provider [phone] Luis M Maldonado MD Unavailable [phone] Allergies Active Allergy Reactions Criticality Noted Date Comments Cetuximab Anaphylaxis High 05/27/2023 STEMI @ OSH w/ Cetuximab Medications Aspirin Low Dose 81 MG chewable tablet Chew 1 tablet (81 mg) 1 (one) time each day. 05/03/2023 Active atorvastatin (Lipitor) 80 MG tablet Take 1 tablet (80 mg) by mouth every night. 05/03/2023 Active clopidogrel (Plavix) 75 MG tablet Take 1 tablet (75 mg) by mouth 1 (one) time each day. 05/03/2023 Active Entresto 24-26 MG tablet Take 1 tablet by mouth. 05/08/2023 Active dexamethasone (Decadron) 4 MG tabletIndicatio ns:Malignant neoplasm of rectum (CMS/HCC) Take 2 tablets (8 mg) by mouth 1 (one) time each day. For 2 days starting the day after chemotherapy. 48 tablet 05/27/2023 Active prochlorperazin e (Compazine) 10 MG tabletIndicatio ns:Malignant neoplasm of rectum (CMS/HCC) Take 1 tablet (10 mg) by mouth every 6 (six) hours if needed for nausea or vomiting. 30 tablet 5 05/27/2023 Active loperamide (Imodium A-D) 2 MG tabletIndicatio ns:Malignant neoplasm of rectum (CMS/HCC) 2 mg by mouth every 2 hours as needed for diarrhea; Not to exceed 16 mg in 24 hours 30 tablet 5 05/27/2023 Active Active Problems Problem Noted Date Diagnosed Date Second hand smoke exposure 05/27/2023 Gastroesophageal reflux disease 02/18/2023 Tobacco use disorder 09/03/2022 Lung nodules 06/06/2022 Malignant neoplasm of rectum 04/24/2021 Cancer Staging:Pathologic stage from 12/12/2020:Stage YASMIN(ypT3, ypN1b, cM1a) - Signed by Michael Rodriguez MD on 05/02/2021 Overview (04/24/2021): Added automatically from request for surgery [id number] Family History Medical History Relation Name Comments Cancer Father Teo tomlin Heart disease Father Teo tomlin Anesthesia problems Neg Hx Malig Hyperthermia Neg Hx Relation Name Status Comments Father Teo tomlin Social History Tobacco Use Types Packs/Day Years Used Date Smoking Tobacco: Every Day Cigarettes 0.5 20 Smokeless Tobacco: Current Chew Tobacco Cessation:Ready to Q uit: Not Asked; Counseling Given: Not Answered Alcohol Use Standard Drinks/Week Comments Never 0 (1 standard drink = 0.6 oz pur e alcohol) PHQ-2 Answer Date Recorded Patient Health Questionnaire-2 Score 0 05/27/2023 PHQ-2A Answer Date Recorded Patient Health Questionnaire-2 Score 0 05/27/2023 Sex and Gender Information Value Date Recorded Sex Assigned at Male 09/18/2022 8:50 AM EST Legal Sex Male 7:55 PM EDT Gender Identity Male 09/18/2022 8:50 AM EST Sexual Orientation Not on file Last Filed Vital Signs Vital Sign Reading Time Taken Comments Blood Pressure 113/71 05/27/2023 9:36 AM EDT Pulse 69 05/27/2023 9:35 AM EDT Temperature 36.5 C (97.7 F) 05/27/2023 9:35 AM EDT Respiratory Rate 16 05/27/2023 9:35 AM EDT Oxygen Saturation 98% 05/27/2023 9:35 AM EDT Inhaled Oxygen Concentration - - Weight 97.4 kg (214 lb 11.7 oz) 05/27/2023 9:35 AM EDT Height 177.8 cm (5' 10 ) 05/27/2023 9:35 AM EDT Body Mass Index 30.81 05/27/2023 9:35 AM EDT Plan of Treatment Health Maintenance Due Date Last Done Comments CT Colonography 1975 FIT-DNA 1975 FIT 1975 FOBT 1975 Sigmoidoscopy 1975 [facility]-HIV Screening 1975 [facility]-Hepatitis C Screening 1975 [facility]-Infant/Child/Adol SDOH Screenings 1975 [facility]- SDOH Screenings 1993 [facility]-Adult SDOH Screenings 1993 [facility]-Hepatitis B Vaccines (1 of 3 - 19+ 3-dose series) 1994 [facility]-Pneumococcal Vaccine: Pediatrics (0 to 5 Years) and At-Risk Patients (6 to 49 Years) (1 of 2 - PCV) 1994 [facility]-Zoster Vaccines (1 of 2) 1994 [id number] Vaccine (3 - Pfizer risk series) 06/28/2021 2021, 05/03/2021 Colonoscopy 02/11/2023 02/11/2022, 09/11/2020 [facility]-Colorectal Cancer Screening 02/11/2023 [facility]-Depression Screening 05/27/2024 05/27/2023, 10/02 [facility]-Influenza Vaccine (Season Ended) 2025 [facility]-DTaP,Tdap,and Td Vaccines (2 - Td or Tdap) 01/24/2030 01/25/2020 [facility]-Obesity Intervention Completed 023, 12/31/2022, 11/15/2022, Additional history exists HPV Vaccines Aged Out No longer eligi ble based on patient's age to complete this topic [facility]-HIB Vaccines Aged Out No longer e ligible based on patient's age to complete this topic UKY-Hepatitis A Vaccines Aged Out No longer eligible based on patient's age to complete this topic UKY-IPV Vaccines Aged Out No longer e ligible based on patient's age to complete this topic UKY-Rotavirus Vaccines Aged Out No lo nger eligible based on patient's age to complete this topic Medical Devices Implanted Type Area Per Diem Physical Therapist Assistant Device Identifier Shelf Expiration Date Model / Serial / Lot Stent Ureteral Double Pigtail Pos 7fr 26cm - S.. - [id number] Implanted:Qty: 1 on 07/03/2022 by Ruy Fleming MD at [facility] Stent Left: Ureter [employer] [id number] 09/21/2023 [id number] / .. / [id number] Stent Ureteral Double Pigtal Miquel Sun [id number] - [id number] Implanted:Qty: 1 on 09/18/2022 by Ruy Fleming MD at [facility] Stent [employer] [id number] 02/27/2025 [id number] / / [id number] Port Clearvue Power 8fr - [id number] Implanted:Qty: 1 on 05/16/2021 by Michael Rodriguez MD at [facility] [employer]-[id number] 07/31/2022 [id number] / / Procedures Procedure Name Priority Date/Time Associated Diagnosis Comments COLONOSCOPY Routine 02/11/2022 10:41 AM EDT Malignant neoplasm of rectum (CMS/HCC) from Last 3 Months or Most Recently Relevant to Health Maintenance Results * Colonoscopy (02/11/2022 10:41 AM EDT) Anatomical Region Laterality Modality Endoscopy Narrative 02/11/2022 10:41 AM EDT Impression Overall Impression: Small right colon polyp removed. Healthy colorectal anastomosis. Repeat colonoscopy in 1 year. No evidence of recurrence. Recommendation Repeat colonoscopy in 1 year Indication Malignant neoplasm of rectum (CMS/HCC) Medications midazolam (Versed) injection 3 mg fentaNYL (Sublimaze) injection 75 mcg (Totals for administrations occurring from 1010 to 1039 on 02/11/22) Staff Staff Role Maico Nobles APRN Endo Nurse Mykel Elise RN Endo Nurse Carlos Alberto Ambrose MD Proceduralist Kendall Kaba RN Endo Nurse Abelino Mars MD Proceduralist Unknown Proceduralist 1 Proceduralist Preprocedure A history and physical has been performed, and patient medication allergies have been reviewed. The patient's tolerance of previous anesthesia has been reviewed. The risks and benefits of the procedure and the sedation options and risks were discussed with the patient. All questions were answered and informed consent obtained. Details of the Procedure The patient underwent moderate sedation, which was administered by the procedural nurse. The patient's blood pressure, heart rate, level of consciousness, oxygen and respirations were monitored throughout the procedure. A digital rectal exam was performed. A perianal exam was performed. The scope was introduced through the anus and advanced to the cecum. Retroflexion was performed in the rectum. The quality of bowel preparation was evaluated using the [place] Bowel Preparation Scale with scores of: right colon = 2, transverse colon = 2, left colon = 2. The total BBPS score was 6. Bowel prep was adequate. The patient experienced no blood loss. The procedure was not difficult. The patient tolerated the procedure well. There were no apparent complications. Conscious sedation administered by myself, PADMINI Mars MD; monitored and without complication. Maico Nobles RN was independent observer. See nursing notes for details. Attestation I personally performed the entire procedure Events Procedure Events Event Event Time ENDO SCOPE IN TIME 02/11/2022 10:26 AM ENDO CECUM REACHED 02/11/2022 10:32 AM ENDO SCOPE OUT TIME 02/11/2022 10:38 AM Specimens ID Type Source Tests Collected by Time A : Right Colon POLYP Tissue Other (specify site) SURGICAL PATHOLOGY EXAM Abelino Mars MD 02/11/2022 1034 Findings Sessile polyp measuring 5-9 mm in the ascending colon with no bleeding; performed complete en bloc removal by cold forceps biopsy Healthy end-to-end colorectal anastomosis with no bleeding in the mid rectum Exam otherwise normal including retroflexion. Abelino Mars MD GI PROCEDURE ORDERABLES Final Result from Last 3 Months or Most Recently Relevant to Health Maintenance Insurance [employer] BET[employer] MEDICAID MEDICARE Member Subscriber Plan / Payer (Ef fective 2023-Present) Name:Oscar Tomlin Member ID:[id number] Relation to Subscriber:Self Name:Oscar Tomlin Subscriber ID:[id number] Payer ID:MEDICARE Group ID:Not on file Type:Medicare [place] [facility] [place] [address] [address] [place] [address] Care Teams Industrial Chemist Relationship Specialty Start Date End Date Dolores Grande APRN [address] [place] [address] PCP - General 02/11/22 Abelino Mars MD [address] [place] [address] Surgeon Colon and Rectal Surgery 06/19/21 Michael Rodriguez MD 800 [facility] [address] [place] [address] Surgeon Surgical Oncology 06/19/21 Luis M Maldonado MD 800 [facility] [address] [place] [address] Consulting Physician Radiation Oncology 06/06/22
--- OUTSIDE RECORDS SUMMARY | 2025-02-18 07:47 | XMS_ITS | Encounter Summary ---
Author Organization [facility] Address [address] [place] [address] Care Team Providers Care Tag Clerk Name Role Phone Marcello Merchant MD Primary Care Provider [phone] Abelino Mars MD Unavailable [phone] Michael Rodriguez MD Unavailable [phone] Dolores Grande APRN Primary Care Provider + [phone] Luis M Maldonado MD Unavailable [phone] Encounter Details Date Type Department Care Team (Late st Contact Info) Description 01/12/2021 Abstract [facility] [address] [place] [address] Vera Schaeffer, RN [facility] Social History Tobacco Use Types Packs/Day Years Used Date Smoking Tobacco: Passive Smo ke Exposure - Never Smoker Sex and Gender Information Value Date Recorded Sex Assigned at Male 09/18/2022 8:50 AM EST Legal Sex Male 7:55 PM EDT Gender Identity Male 09/18/2022 8:50 AM EST Sexual Orientation Not on file documented as of this encounter Plan of Treatment Not on file documented as of this encounter Visit Diagnoses Not on filedocumented in this encounter Care Teams Tag Clerk Relationship Specialty Start Date End Date Marcello Merchant MD [address] [place] [address] PCP - General 01/12/21 02/10/22 Dolores Grande APRN [address] [place] [address] PCP - General 02/11/22 Abelino Mars MD [address] [facility] [address] [place] [address] Surgeon Colon and Rectal Surgery 06/19/21 Michael Rodriguez MD [address] [address] Surgeon Surgical Oncology 06/19/21 Luis M Maldonado MD 800 [facility] [address] [place] [address] Consulting Physician Radiation Oncology 06/06/22 documented as of this encounter
--- OUTSIDE RECORDS SUMMARY | 2025-02-18 07:47 | XMS_ITS | Encounter Summary ---
Author Organization [facility] Address [address] [place] [address] Care Team Providers Care Electronic Train Control Technician Name Role Phone Marcello Merchant MD Primary Care Provider [phone] Abelino Mars MD Unavailable [phone] Michael Rodriguez MD Unavailable [phone] Dolores Grande APRN Primary Care Provider [phone] Luis M Maldonado MD Unavailable [phone] Encounter Details Date Type Department Care Team (Late st Contact Info) Description 07/09/2021 Lab Requisition [facility] [address] [place] [address] Michael Rodriguez MD [address] [phone] Malignant neoplasm of rectosigmoid junction (CMS/HCC); Secondary [...] Comments AP MISCELLANEOUS LAB TEST (SO) Routine 07/09/2021 12:00 PM EST 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) documented in this encounter Results * - Miscellaneous Test (07/09/2021 12:00 PM EST) Test name Signatera 08/28/2021 10:54 AM EST [facility] Comment:Jackie Test Result see scan 08/28/2021 10:54 AM EST [facility] See Scanned Result 08/28/2021 10:54 AM EST [facility] Tissue 07/09/2021 12:0 0 PM EST 07/09/2021 3:39 PM EST us Michael Rodriguez MD LAB REF LAB BLOOD AND FLUID ORD Final Result [facility] [address] [place] [address] documented in this encounter Visit Diagnoses Diagnosis 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) documented in this encounter Additional Health Concerns Assessment Noted Time A fall risk assessment has been complete d for the patient 06/19/2021 1:10 PM EDT documented as of this encounter Care Teams Electronic Train Control Technician Relationship Specialty Start Date End Date Marcello Merchant MD [address] [place] [address] PCP - General 01/12/21 02/10/22 Dolores Grande APRN [address] [place] [address] PCP - General 02/11/22 Abelino Mars MD [address] [place] [address] Surgeon Colon and Rectal Surgery 06/19/21 Michael Rodriguez MD [address] [address] Surgeon Surgical Oncology 06/19/21 Luis M Maldonado MD [address] [facility] [address] [place] [address] Consulting Physician Radiation Oncology 06/06/22 documented as of this encounter
--- NOTE | 2025-02-18 08:00 | CT_ITS ---
FINAL REPORT TECHNIQUE: Thin section axial images were obtained from the thoracic inlet through the upper abdomen after intravenous contrast injection. Reconstruction images were obtained from the axial data. Exam was performed using dose reduction technique. CLINICAL HISTORY: hx of colon cancer that was spread to liver and lungs per patient COMPARISON: 09/22/2024 FINDINGS: There is no mediastinal, hilar, or axillary lymphadenopathy. There is no pleural or pericardial effusion. Again seen are bilateral pulmonary nodules. Right apical spiculated nodule measuring 26 mm was 20 mm. Second right apical nodule more laterally on image 22 of series 4 measures 9 mm, was 5 mm. Spiculated left lower lobe nodule on image 52 of series 4 measures 28 mm and was 24 mm. Also appear to be new small nodules bilaterally. No acute osseous abnormality. IMPRESSION: Progressive pulmonary metastases. Reviewed, Interpreted and Dictated by Rubi Santiago MD Transcribed by Yazmin Pierce Authenticated and [facility]
--- NOTE | 2025-02-18 08:00 | CT_ITS ---
FINAL REPORT TECHNIQUE: Thin section axial images are obtained through the abdomen and pelvis after intravenous contrast. Reconstruction images were obtained from the axial data. Exam was performed using dose reduction techniques. CLINICAL HISTORY: hx of colon cancer that has spread to liver and lungs per patient COMPARISON: 09/22/2024 FINDINGS: LIVER: 3 cm lesion right lobe of the liver is unchanged. No new liver lesions identified. GALLBLADDER/BILIARY SYSTEM: Gallbladder is absent. No biliary dilatation. SPLEEN: Unremarkable. PANCREAS: Unremarkable. ADRENALS: Unremarkable. KIDNEYS/URETERS/BLADDER: Severe left hydronephrosis is unchanged. Right kidney unremarkable. Unremarkable urinary bladder. GI TRACT: No small bowel obstruction or dilatation. Normal appendix. Postoperative changes appear similar to the prior study. PELVIC ORGANS: Unremarkable for age. LYMPH NODES/RETROPERITONEUM/MESENTERY: Retroperitoneal adenopathy again noted. Left para-aortic lymph node at the level of the mid kidneys measures 28 mm, was 30 mm and not significantly changed. In craniocaudal dimension this is unchanged. No new lymphadenopathy. No abdominal aortic aneurysm. ABDOMINAL WALL: Multiple abdominal wall hernias appear not significantly changed.. FREE FLUID: No ascites. BONES: No acute osseous abnormality. IMPRESSION: Stable liver lesion. Stable retroperitoneal sam mass causing chronic left hydronephrosis. No acute findings. Reviewed, Interpreted and Dictated by Rubi Santiago MD Transcribed by Yazmin Pierce Authenticated and [facility]
[2025-02-18] MEDS: SODIUM CHLORIDE 0.9% 10ML SYR (RAD ONLY) 10 ML IV ×2 (08:11→08:33)
[2025-02-18] MEDS: IOPAMIDOL-370 (76%);100ML BOTTLE 75 ML IV (08:11)
== END 2025-02-18 08:34 | disposition home or self-care (01) ==
LOC: RAD 07:45 → INF 08:20
PROVIDERS: PCP Nurse Practitioner Family; Visit Provider Internal Medicine Medical Oncology
DX: C18.9 Malignant neoplasm of colon, unspecified (principal)
CPT/HCPCS: 71260; 74177; J1642; Q9967

== ENCOUNTER 2025-03-01 10:16 | Outpatient (CLI) | payer MEDICARE, SELFPAY ==
--- OUTSIDE RECORDS SUMMARY | 2025-03-01 10:18 | XMS_ITS | Encounter Summary ---
Author Organization [facility] Address [address] [place] [address] Care Team Providers Care Data Network Architect Name Role Phone Marcello Merchant MD Primary Care Provider [phone] Abelino Mars MD Unavailable [phone] Michael Rodriguez MD Unavailable [phone] Dolores Grande APRN Primary Care Provider [phone] Luis M Maldonado MD Unavailable [phone] Encounter Details Date Type Department Care Team (Late st Contact Info) Description 07/05/2021 Lab Requisition [facility] [address] [place] [address] Sherin Saleh MD [address] [place] [address] Malignant neoplasm of rectosigmoid junction (CMS/HCC); [...] EDT) Case Report Historical Case Addendum/Amendment Case: [id number] Authorizing Provider: Sherin Saleh MD Collected: 07/05/2021 1200 Ordering Location: [facility] Received: 07/05/2021 1645 Pathologist: Yusra Blue MD Specimen: [id number] 07/06/2021 2:53 PM EDT [facility] Final Diagnosis This case was collected on 12/11/2020, was originally reported as case [id number].The entire [id number] report can be viewed as a scanned [...] developed by and are performed at the [facility], [address] [place] [address]. All tests reported here, except those addressing [...] LAB at 1453 EDT Gross Description A. [id number] Reaccessioned for billing purposes only. 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) documented in this encounter Additional Health Concerns Assessment Noted Time A fall risk assessment has been complete d for the patient 06/19/2021 1:10 PM EDT documented as of this encounter Care Teams Data Network Architect Relationship Specialty Start Date End Date Marcello Merchant MD [address] [place] [address] PCP - General 01/12/21 02/10/22 Dolores Grande APRN [address] [place] [address] PCP - General 02/11/22 Abelino Mars MD [id number] [place] [address] Surgeon Colon and Rectal Surgery 06/19/21 Michael Rodriguez MD [address] [address] Surgeon Surgical Oncology 06/19/21 Luis M Maldonado MD [address] [facility] [address] [place] [address] Consulting Physician Radiation Oncology 06/06/22 documented as of this encounter
--- OUTSIDE RECORDS SUMMARY | 2025-03-01 10:19 | XMS_ITS | Encounter Summary ---
Author Organization [facility] Address [address] [id number] Care Team Providers Care Junior Paralegal Name Role Phone Abelino Mars MD Unavailable [phone] Michael Rodriguez MD Unavailable [phone] Dolores Grande APRN Primary Care Provider + [phone] Luis M Maldonado MD Unavailable [phone] Encounter Details Date Type Department Care Team (Late st Contact Info) Description 01/07/2023 Lab Requisition [facility] [address] [place] [address] Michael Rodriguez MD [address] [address] Malignant neoplasm of rectum (CMS/HCC) [...] Test (01/07/2023 3:47 PM EDT) Test name SC Profile 01/30/2023 12:41 PM EDT [facility] Comment:[id number] Test Result see scan 01/30/2023 12:41 PM EDT [facility] See Scanned Result 01/30/2023 12:41 PM EDT [facility] Tissue 01/07/2023 3:47 PM EDT 01/07/2023 3:47 PM EDT Michael Rodriguez MD LAB REF LAB BLOOD AND FLUID ORD Final Result [facility] documented in this encounter Visit Diagnoses [...] documented as of this encounter Care Teams Junior Paralegal Relationship Specialty Start Date End Date Dolores Grande APRN [address] [place] [address] PCP - General 02/11/22 Abelino Mars MD [address] [facility] [address] [place] [address] Surgeon Colon and Rectal Surgery 06/19/21 Michael Rodriguez MD [address] [address] Surgeon Surgical Oncology 06/19/21 Luis M Maldonado MD 800 [facility] [address] [place] [address] Consulting Physician Radiation Oncology 06/06/22 documented as of this encounter
--- OUTSIDE RECORDS SUMMARY | 2025-03-01 10:19 | XMS_ITS | Clinical Summary ---
Author Organization [facility] Address [address] [place] [address] Care Team Providers Care Roofer Assistant Name Role Phone Abelino Mars MD Unavailable [phone] Michael Rodriguez MD Unavailable [phone] Dolores Grande APRN Primary Care Provider [phone] Luis M Maldonado MD Unavailable [phone] Allergies Active Allergy Reactions Criticality Noted [...] (04/24/2021): Added automatically from request for surgery [id number] Family History Medical History Relation Name Comments [...] [facility]-HIV Screening 1975 [facility]-Hepatitis C Screening 1975 [facility]-/Child/Adol SDOH Screenings 1975 [facility]- SDOH Screenings 1993 [facility]-Adult SDOH Screenings 1993 [facility]-Hepatitis B Vaccines (1 of 3 - 19+ 3-dose series) 1994 [facility]-Pneumococcal Vaccine: Pediatrics (0 to 5 Years) and At-Risk Patients (6 to 49 Years) (1 of 2 - PCV) 1994 [facility]Y-Zoster Vaccines (1 of 2) 1994 [id number] Vaccine (3 - Pfizer risk series) 06/28/2021 2021, 05/03/2021 Colonoscopy 02/11/2023 02/11/2022, 09/11/2020 [facility]-Colorectal Cancer Screening 02/11/2023 [facility]-Depression Screening 05/27/2024 05/27/2023, 10/02 [facility]-Influenza Vaccine (#1) 2025 [facility]-DTaP,Tdap,and Td Vaccines (2 - Td [...] this topic Medical Devices Implanted Type Area Diesel Truck Driver Device Identifier Shelf Expiration Date Model / Serial / Lot Stent Ureteral Double Pigtail Pos 7fr 26cm - S.. - [id number] Implanted:Qty: 1 on 07/03/2022 by Ruy Fleming MD at [facility] Stent Left: Ureter [employer] Inc-[id number] 09/21/2023 [id number] / .. / [id number] Stent Ureteral Double Pigtal Miquel Sun [id number] - [id number] Implanted:Qty: 1 on 09/18/2022 by Ruy Fleming MD at [facility] Stent [employer] Inc-[id number] 02/27/2025 [id number] / / [id number] Port [employer]vue [employer] 8fr - [id number] Implanted:Qty: 1 on 05/16/2021 by Michael Rodriguez MD at [facility] [employer]-[id number] 07/31/2022 [id number] / / Procedures Procedure Name Priority Date/Time [...] of bowel preparation was evaluated using the [place] Bowel Preparation Scale with scores of: right [...] Maintenance Insurance [employer] [place] [address] Care Teams Roofer Assistant Relationship Specialty Start Date End Date Dolores Grande APRN [address] [place] [address] PCP - General 02/11/22 Abelino Mars MD [address] [place] [address] Surgeon Colon and Rectal Surgery 06/19/21 Michael Rodriguez MD [address] [facility] [address] [place] [address] Surgeon Surgical Oncology 06/19/21 Luis M Maldonado MD [address] [facility] [address] [place] [address] Consulting Physician Radiation Oncology 06/06/22
--- OUTSIDE RECORDS SUMMARY | 2025-03-01 10:19 | XMS_ITS ---
Author Organization [facility] Address [address] [place] [address] Care Team Providers Care Insurance Administrative Assistant Name Role Phone Abelino Mars MD Unavailable [phone] Michael Rodriguez MD Unavailable [phone] Dolores Grande APRN Primary Care Provider [phone] Luis M Maldonado MD Unavailable [phone] Active Problems Problem Noted Date Diagnosed Date Second hand smoke exposure 05/27/2023 Gastroesophageal reflux disease 02/18/2023 Tobacco use disorder 09/03/2022 Lung nodules 06/06/2022 Malignant neoplasm of rectum 04/24/2021 Cancer Staging:Pathologic stage from 12/12/2020:Stage YASMIN(ypT3, ypN1b, cM1a) - Signed by Michael Rodriguez MD on 05/02/2021 Overview (04/24/2021): Added automatically from request for surgery [id number] Current Treatment and Therapy Plans No current [...]
--- OUTSIDE RECORDS SUMMARY | 2025-03-01 10:19 | XMS_ITS | Encounter Summary ---
Author Organization [facility] Address [address] [place] [address] Care Team Providers Care Welding Machine Assembler Name Role Phone Marcello Merchant MD Primary Care Provider [phone] Abelino Mars MD Unavailable [phone] Michael Rodriguez MD Unavailable [phone] Dolores Grande APRN Primary Care Provider + [phone] Luis M Maldonado MD Unavailable [phone] Encounter Details Date Type Department Care Team (Late st Contact Info) Description 01/12/2021 Abstract [facility] [address] [place] [address] Vera Schaeffer, RN AMB-PRECISION MEDICINE RESEARCH & [...] on filedocumented in this encounter Care Teams Welding Machine Assembler Relationship Specialty Start Date End Date Marcello Merchant MD [address] [place] [address] PCP - General 01/12/21 02/10/22 Dolores Grande APRN [address] [place] [address] PCP - General 02/11/22 Abelino Mars MD [address] [facility] [address] [place] [address] Surgeon Colon and Rectal Surgery 06/19/21 Michael Rodriguez MD [address] [address] Surgeon Surgical Oncology 06/19/21 Luis M Maldonado MD 800 [facility] [address] [place] [address] Consulting Physician Radiation Oncology 06/06/22 documented as of this encounter
--- OUTSIDE RECORDS SUMMARY | 2025-03-01 10:19 | XMS_ITS | Encounter Summary ---
Author Organization [facility] Address [address] [id number] Care Team Providers Care Postpartum Rn Name Role Phone Marcello Merchant MD Primary Care Provider [phone] Abelino Mars MD Unavailable [phone] Mihcael Rodriguez MD Unavailable [phone] Dolores Grande APRN Primary Care Provider [phone] Luis M Maldonado MD Unavailable [phone] Encounter Details Date Type Department Care Team (Late st Contact Info) Description 07/09/2021 Lab Requisition [facility] H Lab [address] [place] [address] Michael Rodriguez MD [address] [phone] Malignant neoplasm of rectosigmoid junction (CMS/HCC); Secondary [...] Result see scan 08/28/2021 10:54 AM EST [facility] See Scanned Result 08/28/2021 10:54 AM EST [facility] Tissue 07/09/2021 12:0 0 PM EST 07/09/2021 3:39 PM EST us Michael Rodriguez MD LAB REF LAB BLOOD AND FLUID ORD Final Result [facility] [address] [place] [address] documented in this encounter Visit Diagnoses Diagnosis 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) documented in this encounter Additional Health Concerns Assessment Noted Time A fall risk assessment has been complete d for the patient 06/19/2021 1:10 PM EDT documented as of this encounter Care Teams Postpartum Rn Relationship Specialty Start Date End Date Marcello Merchant MD [address] [place] [address] PCP - General 01/12/21 02/10/22 Dolores Grande APRN [address] [place] [address] PCP - General 02/11/22 Abelino Mars MD [address] [place] [address] Surgeon Colon and Rectal Surgery 06/19/21 Michael Rodriguez MD [address] [address] Surgeon Surgical Oncology 06/19/21 Luis M Maldonado MD 800 [facility] [address] [place] [address] Consulting Physician Radiation Oncology 06/06/22 documented as of this encounter
--- OUTSIDE RECORDS SUMMARY | 2025-03-01 10:19 | XMS_ITS | Clinical Summary ---
Author Organization [facility] Address [address] [place] [address] Phone Care Team Providers Care Manager Behavior Name Role Phone Unavailable Primary Care Provider Unavailabl e Social History Tobacco Use Types Packs/Day Years Used Date Smoking Tobacco: Never Assessed Sex and Gender Information Value Date Recorded Sex Assigned at Not on file Legal Sex Male 11:03 AM EDT Gender Identity Not on file Sexual Orientation Not on file Plan of Treatment Health Maintenance Due Date Last Done Comments Annual Wellness Exam 1978 DTaP/TDaP/Td (1 - Tdap) 1994 Hepatitis B Vaccine (1 of 3 - 19+ 3-dose series) 1994 Cologuard 2020 Colon Cancer Screening 2020 Colonoscopy 2020 FIT 2020 Sigmoidoscopy 2020 Virtual Colonography 2020 COVID-19 Vaccine (2023-2 5 season) 2024 Influenza Vaccine (Season Ended) 2025 Meningococcal B Vaccine Aged Out No l onger eligible based on patient's age to complete this topic Pneumococcal Vaccine 0-49 Aged Out No longer eligible based on patient's age to complete this topic
[2025-03-01] MEDS: SODIUM CHLORIDE 0.9% 10ML FLUSH SYRINGE 10 ML IV (10:28)
[2025-03-01 10:30] LABS: Hematocrit 39.7 % (42.0-52.0); Hemoglobin 13.2 g/dL (14.1-18.0); Immature Granulocytes % 0.2 %; Mean Corpuscular HGB Conc 33.2 g/dL (31.8-35.4); Mean Corpuscular Hemoglobin 29.9 pg (27.0-31.2); Mean Corpuscular Volume 89.8 fl (80-94); Nucleated Red Blood Cells % 0 %; Platelet Count 144 K/mm3 (142-424); Red Blood Count 4.42 M/mm3 (4.60-6.20); Red Cell Distribution Width-SD 52.0 fL; White Blood Count 5.2 K/mm3 (4.8-10.8)
[2025-03-01 10:39] LABS: Alanine Aminotransferase 39 U/L (12-78); Albumin Level 4.5 g/dl (3.5-5.0); Albumin/Globulin Ratio 1.4 (1.1-1.8); Alkaline Phosphatase 74 U/L (38-126); Anion Gap 12.7 mEq/L (5-15); Aspartate Amino Transferase 43 U/L (17-59); Bilirubin,Total 0.6 mg/dl (0.2-1.3); Blood Urea Nitrogen 10 mg/dl (9-20); Calcium 9.6 mg/dl (8.4-10.2); Carbon Dioxide 26 mmol/L (22.0-30.0); Chloride 102 mmol/L (98-107); Creatinine,Serum 1.00 mg/dl (0.66-1.25); Estimated Glomerular Filt Rate 79 ml/min (>60); GFR (African American) 96 ML/MIN (>60); Globulin 3.2 g/dL (1.3-3.2); Glucose 126 mg/dl (74-100); Potassium 3.7 mmoL/L (3.5-5.1); Sodium 137 mmol/L (136-145); Total Protein,Serum 7.7 g/dl (6.3-8.2)
[2025-03-02 08:41] LABS: CEA 26.6 ng/mL (0.0-4.7)
== END 2025-03-01 23:59 | disposition home or self-care (01) ==
LOC: INF 10:16
PROVIDERS: PCP Nurse Practitioner Family; Visit Provider Internal Medicine Medical Oncology
DX: C18.9 Malignant neoplasm of colon, unspecified (principal)
CPT/HCPCS: 36591; 80053; 82378; 85025; J1642

== ENCOUNTER 2025-03-07 09:32 | Outpatient (POV) | payer MEDICARE, SELFPAY ==
--- OUTSIDE RECORDS SUMMARY | 2025-03-07 09:38 | XMS_ITS | Encounter Summary ---
Author Organization [facility] Address [address] [id number] Care Team Providers Care Strip Mine Supervisor Name Role Phone Marcello Merchant MD Primary Care Provider [phone] Abelino Mars MD Unavailable [phone] Michael Rodriguez MD Unavailable [phone] Dolores Grande APRN Primary Care Provider [phone] Luis M Maldonado MD Unavailable [phone] Encounter Details Date Type Department Care Team (Late st Contact Info) Description 07/09/2021 Lab Requisition [facility] H Lab [address] [place] [address] Michael Rodriguez MD [address] [phone] Malignant neoplasm of rectosigmoid junction (CMS/HCC); Secondary [...] see scan 08/28/2021 10:54 AM EST [facility] See Scanned Result 08/28/2021 10:54 AM EST [facility] Tissue 07/09/2021 12:0 0 PM EST 07/09/2021 3:39 PM EST us Michael Rodriguez MD LAB REF LAB BLOOD AND FLUID ORD Final Result [facility] [address] [place] [address] documented in this encounter Visit Diagnoses Diagnosis 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) documented in this encounter Additional Health Concerns Assessment Noted Time A fall risk assessment has been complete d for the patient 06/19/2021 1:10 PM EDT documented as of this encounter Care Teams Strip Mine Supervisor Relationship Specialty Start Date End Date Marcello Merchant MD [address] [place] [address] PCP - General 01/12/21 02/10/22 Dolores Grande APRN [address] [place] [address] PCP - General 02/11/22 Abelino Mars MD [address] [place] [address] Surgeon Colon and Rectal Surgery 06/19/21 Michael Rodriguez MD [address] [address] Surgeon Surgical Oncology 06/19/21 Luis M Maldonado MD 800 [facility] [address] [place] [address] Consulting Physician Radiation Oncology 06/06/22 documented as of this encounter
--- OUTSIDE RECORDS SUMMARY | 2025-03-07 09:38 | XMS_ITS | Encounter Summary ---
Author Organization [facility] Address [address] [place] [address] Care Team Providers Care Corporate Development Manager Name Role Phone Marcello Merchant MD Primary Care Provider [phone] Abelino Mars MD Unavailable [phone] Michael Rodriguez MD Unavailable [phone] Dolores Grande APRN Primary Care Provider + [phone] Luis M Maldonado MD Unavailable [phone] Encounter Details Date Type Department Care Team (Late st Contact Info) Description 01/12/2021 Abstract [facility] [address] [place] [address] Vera Schaeffer, RN AMB-PRECISION MEDICINE RESEARCH & [...] on filedocumented in this encounter Care Teams Corporate Development Manager Relationship Specialty Start Date End Date Marcello Merchant MD [address] [place] [address] PCP - General 01/12/21 02/10/22 Dolores Grande APRN [address] [place] [address] PCP - General 02/11/22 Abelino Mars MD [address] [facility] [address] [place] [address] Surgeon Colon and Rectal Surgery 06/19/21 Michael Rodriguez MD [address] [address] Surgeon Surgical Oncology 06/19/21 Luis M Maldonado MD 800 [facility] [address] [place] [address] Consulting Physician Radiation Oncology 06/06/22 documented as of this encounter
--- OUTSIDE RECORDS SUMMARY | 2025-03-07 09:38 | XMS_ITS | Encounter Summary ---
Author Organization [facility] Address [address] [place] [address] Care Team Providers Care Crossing Guard Name Role Phone Marcello Merchant MD Primary Care Provider [phone] Abelino Mars MD Unavailable [phone] Michael Rodriguez MD Unavailable [phone] Dolores Grande APRN Primary Care Provider [phone] Luis M Maldonado MD Unavailable [phone] Encounter Details Date Type Department Care Team (Late st Contact Info) Description 07/05/2021 Lab Requisition [facility] H Lab [address] [place] [address] Sherin Saleh MD [address] [place] [address] Malignant neoplasm of rectosigmoid junction (CMS/HCC); [...] EDT) Case Report Historical Case Addendum/Amendment Case: [id number] Authorizing Provider: Sherin Saleh MD Collected: 07/05/2021 1200 Ordering Location: [facility] Lab Received: 07/05/2021 1645 Pathologist: Yusra Blue MD Specimen: [id number] 07/06/2021 2:53 PM EDT [facility] Final Diagnosis This case was collected on 12/11/2020, was originally reported as case [id number].The entire [id number] report can be viewed as a scanned [...] developed by and are performed at the [facility], [address] [place] [address]. All tests reported here, except those addressing [...] LAB at 1453 EDT Gross Description A. [id number] Reaccessioned for billing purposes only. 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) documented in this encounter Additional Health Concerns Assessment Noted Time A fall risk assessment has been complete d for the patient 06/19/2021 1:10 PM EDT documented as of this encounter Care Teams Crossing Guard Relationship Specialty Start Date End Date Marcello Merchant MD [address] [place] [address] PCP - General 01/12/21 02/10/22 Dolores Grande APRN [address] [place] [address] PCP - General 02/11/22 Abelino Mars MD [id number] [place] [address] Surgeon Colon and Rectal Surgery 06/19/21 Michael Rodriguez MD [address] [address] Surgeon Surgical Oncology 06/19/21 Luis M Maldonado MD 800 [facility] [address] [place] [address] Consulting Physician Radiation Oncology 06/06/22 documented as of this encounter
--- OUTSIDE RECORDS SUMMARY | 2025-03-07 09:39 | XMS_ITS | Clinical Summary ---
Author Organization [facility] Address [address] [place] [address] Care Team Providers Care Floorworker Name Role Phone Abelino Mars MD Unavailable [phone] Michael Rodriguez MD Unavailable Dolores Gradne APRN Primary Care Provider [phone] Luis M Maldonado MD Unavailable [phone] Allergies Active Allergy Reactions Criticality Noted [...] (04/24/2021): Added automatically from request for surgery [id number] Family History Medical History Relation Name Comments [...] 1994 UKY-Zoster Vaccines (1 of 2) 1994 [id number] Vaccine (3 - Pfizer risk series) 06/28/2021 [...] this topic Medical Devices Implanted Type Area Customer Sales Service Manager Device Identifier Shelf Expiration Date Model / Serial / Lot Stent Ureteral Double Pigtail Pos 7fr 26cm - S.. - [id number] Implanted:Qty: 1 on 07/03/2022 by Ruy Fleming MD at [facility] Stent Left: [id number] 09/21/2023 [id number] / .. / [id number] Stent Ureteral Double Pigtal Miquel Sun 8.5kye77wd - [id number] Implanted:Qty: 1 on 09/18/2022 by Ruy Fleming MD at [facility] [id number] 02/27/2025 [id number] / / [id number] Port [employer] 8fr - [id number] Implanted:Qty: 1 on 05/16/2021 by Michael Rodriguez MD at [facility] [employer]-[id number] 07/31/2022 [id number] / / Procedures Procedure Name Priority Date/Time [...] of bowel preparation was evaluated using the [place] Bowel Preparation Scale with scores of: right [...] Maintenance Insurance [employer] [place] [address] Care Teams Floorworker Relationship Specialty Start Date End Date Dolores Grande APRN [address] [place] [address] PCP - General 02/11/22 Abelino Mars MD [address] [place] [address] Surgeon Colon and Rectal Surgery 06/19/21 Michael Rodriguez MD 800 [facility] [address] [place] [address] Surgeon Surgical Oncology 06/19/21 Luis M Maldonado MD 800 [facility] [address] [place] [address] Consulting Physician Radiation Oncology 06/06/22
--- OUTSIDE RECORDS SUMMARY | 2025-03-07 09:39 | XMS_ITS | Clinical Summary ---
Author Organization [facility] Address [address] [place] [address] Phone Care Team Providers Care Spectrographic Analyst Name Role Phone Unavailable Primary Care Provider [...] Vaccine (2023-2 5 season) 2024 Influenza Vaccine (#1) 2025 Meningococcal B Vaccine Aged Out No l onger eligible based on patient's age to complete this topic Pneumococcal Vaccine 0-49 Aged Out No longer eligible based on patient's age to complete this topic
--- OUTSIDE RECORDS SUMMARY | 2025-03-07 09:39 | XMS_ITS | Encounter Summary ---
Author Organization [facility] Address [address] [id number] Care Team Providers Care Facilities Technician Name Role Phone Abelino Mars MD Unavailable [phone] Michael Rodriguez MD Unavailable [phone] Dolores Grnade APRN Primary Care Provider + [phone] Luis M Maldonado MD Unavailable [phone] Encounter Details Date Type Department Care Team (Late st Contact Info) Description 01/07/2023 Lab Requisition [facility] H Lab [address] [place] [address] Michael Rodriguez MD [address] [address] Malignant neoplasm of rectum (CMS/HCC) [...] Test (01/07/2023 3:47 PM EDT) Test name [place] Profile 01/30/2023 12:41 PM EDT [facility] Comment:[id number] Test Result see scan 01/30/2023 12:41 PM EDT [facility] See Scanned Result 01/30/2023 12:41 PM EDT [facility] Tissue 01/07/2023 3:47 PM EDT 01/07/2023 3:47 PM EDT Michael Rodriguez MD LAB REF LAB BLOOD AND FLUID ORD Final Result [facility] documented in this encounter [...] documented as of this encounter Care Teams Facilities Technician Relationship Specialty Start Date End Date Dolores Grande APRN [address] [place] [address] PCP - General 02/11/22 Abelino Mars MD [address] [facility] [address] [place] [address] Surgeon Colon and Rectal Surgery 06/19/21 Michael Rodriguez MD [address] [address] Surgeon Surgical Oncology 06/19/21 Luis M Maldonado MD [address] [facility] [address] [place] [address] Consulting Physician Radiation Oncology 06/06/22 documented as of this encounter
--- OUTSIDE RECORDS SUMMARY | 2025-03-07 09:39 | XMS_ITS ---
Author Organization [facility] Address [address] [place] [address] Care Team Providers Care Manager Federal Name Role Phone Abelino Mars MD Unavailable [phone] Michael Rodriguez MD Unavailable [phone] Dolores Grande APRN Primary Care Provider [phone] Luis M Maldondao MD Unavailable [phone] Active Problems Problem Noted Date Diagnosed Date Second hand smoke exposure 05/27/2023 Gastroesophageal reflux disease 02/18/2023 Tobacco use disorder 09/03/2022 Lung nodules 06/06/2022 Malignant neoplasm of rectum 04/24/2021 Cancer Staging:Pathologic stage from 12/12/2020:Stage YASMIN(ypT3, ypN1b, cM1a) - Signed by Michael Rodriguez MD on 05/02/2021 Overview (04/24/2021): Added automatically from request for surgery [id number] Current Treatment and Therapy Plans No current [...]
--- NOTE | 2025-03-07 10:01 | EXP.PAIN.SOA ---
[facility] Disclaimer: The information contained in this section may have been updated after the patient was seen, as this information can be updated by other users. Medical History HTN (hypertension) HLD (hyperlipidemia) STEMI (ST elevation myocardial infarction) Shock On mechanically assisted ventilation Colon cancer Surgical History Hx of tonsillectomy Hx of myringotomy Family History Other No significant family history Social History Smoking Status: Current every day smoker tobacco type: smokeless tobacco alcohol intake: former substance use type: denies use current occupational status: other Travel in the last 8 weeks?: None household members: spouse housing: house current occupation: pain line current occupational exposures/hazards: No caffeine: Yes PM Subjective & Objective Subjective Subjective:: Patient is a pleasant 49-year-old male who presents today for his 1 month medication refill. Today he rates his pain a 8 out of 10. He denies any new trauma or injury from our last appointment. He does state he is doing well with the current medications. He is prescribed Percocet 7.5 mg 4 times a day, methocarbamol 750 mg 3 times a day. He denies any changes to his pharmacy. His William has been reviewed and is appropriate. Review of Systems: General: No recent weight changes, no fever, no sleep disturbances Respiratory: No cough, no shortness of air, no recurring pulmonary infections Cardiovascular/peripheral vascular: No chest pain, no palpitations, no edema, no shortness of breath Gastrointestinal: No new onset incontinence, normal bowel movements reported Genitourinary: No new onset incontinence Musculoskeletal: Low back pain, abdominal pain Psychiatric: [Normal mood/affect] Neurological: [Denies weakness in extremities], [denies balance issues] Pain at rest (0-10 scale): 8 Objective Objective:: Physical Exam: General: Alert and oriented x3, no acute distress, pleasant and cooperative Lungs: Respirations even and unlabored, symmetrical chest expansion Eyes: PERRL Musculoskeletal: Flexion and extension of lumbar [spine] somewhat guarded secondary to pain, [antalgic gait noted] Neurological: Speech clear, no gross sensory deficit Has patient had previous pain injection?: No Conservative treatment options previously tried: Prescription medications Length of treatment: Longer than 12 weeks Meds Home Medications and Allergies Home Medications ?Medication ?Instructions ?Recorded ?Confirmed ?Type aspirin 81 mg chewable tablet 81 mg PO DAILY Blood Thinner #100 10/13/24 03/01/25 Rx tabs gabapentin 300 mg capsule 300 mg PO TID #90 caps 11/02/24 03/01/25 Rx fruquintinib 1 mg capsule 4 mg PO DAILY 12/02/24 03/01/25 History methocarbamol 750 mg tablet 750 mg PO TID #90 tabs 01/05/25 03/01/25 Rx albuterol sulfate 90 mcg/actuation 1 puff inhalation Q6H PRN 01/11/25 03/01/25 Rx aerosol inhaler shortness of breath or wheezing #6.7 grams ibuprofen 800 mg tablet See Rx Instructions .Route 01/18/25 03/01/25 Rx .COMPLEX #90 tabs oxycodone-acetaminophen 7.5 mg-325 1 tab PO QID #120 tabs 02/01/25 03/01/25 Rx mg tablet (Percocet) rosuvastatin 10 mg tablet (Crestor) 10 mg PO DAILY #90 tabs 02/07/25 03/01/25 Rx New Prescriptions to Start Prescriptions: Allergies Allergy/AdvReac Type Severity Reaction Status Date / Time cetuximab (From Erbitux) Allergy Severe Anaphylaxis Verified 03/01/25 10:50 Assessment and Plan *Assessment and plan (1) Low back pain: Status: Acute Qualifiers: Chronicity: acute Back pain laterality: left Sciatica presence: without sciatica Qualified Code(s): M54.50 - Low back pain, unspecified Category: Medical Code(s): M54.50 - Low back pain, unspecified (2) Bulging lumbar disc: Status: Acute Category: Medical Code(s): M51.369 - Other intervertebral disc degeneration, lumbar region without mention of lumbar back pain or lower extremity pain (3) Colon cancer: Status: Acute Qualifiers: Colon location: unspecified part of colon Qualified Code(s): C18.9 - Malignant neoplasm of colon, unspecified Category: Medical Code(s): C18.9 - Malignant neoplasm of colon, unspecified (4) Colon carcinoma metastatic to multiple sites: Status: Acute Category: Medical Code(s): C18.9 - Malignant neoplasm of colon, unspecified Plan I will refill his Percocet methocarbamol and provide a 1 month supply of these medications. Patient will return to clinic in 1 month for reevaluation of symptoms and plan of care. Risks and benefits of the medication have been explained in detail to the patient. The patient does understand the risk of dependence on the medication when given over a prolonged period. Patient has been advised of risks of oversedation with the prescribed medication. Narcan has been offered to the paitent in the event of oversedation. Patient has been advised that a family member should also be educated regarding administration of Narcan. The patient has been advised to consult with his/her primary care provider and pharmacist regarding drug-drug interaction of medications currently prescribed. Patient has been prescribed a controlled substance after being counseled on the medication, medication safety, and possible side effects. Opioid contract was reviewed and signed by the patient, and that they have agreed to all of the terms set forth by our compliance program. A UDS is needed to verify patient's compliance with our office pain contract. This is ordered based off specific treatments related to chronic pain with the potential to abuse certain medications. Patient has been instructed to contact the clinic with any concerns before the next appointment. Dr. Najera has reviewed this note and agrees with this plan of care. This note was dictated using voice recognition software and make contain errors or omissions.
[2025-03-07 10:27] VITALS: BP 124/81; PULSE 71; RESP 18; O2SAT 97; BMI 28.0
== END 2025-03-07 23:59 | disposition home or self-care (01) ==
PROVIDERS: PCP Nurse Practitioner Family; Visit Provider Nurse Practitioner Family
DX: M51.360 Other intervertebral disc degeneration, lumbar region with discogenic back pain only (principal); C18.9 Malignant neoplasm of colon, unspecified; Z79.891 Long term (current) use of opiate analgesic; Z79.899 Other long term (current) drug therapy
CPT/HCPCS: 99212; G0463

== ENCOUNTER 2025-03-26 21:56 | Emergency (ER) | payer MEDICARE, SELFPAY ==
--- OUTSIDE RECORDS SUMMARY | 2025-03-26 22:02 | XMS_ITS ---
Author Organization [facility] Address [address] [place] [address] Care Team Providers Care Train Crew Member Name Role Phone Abelino Mars MD Unavailable [phone] Michael Rodriguez MD Unavailable [phone] Dolores Grande APRN Primary Care Provider [phone] Luis M Maldonado MD Unavailable [phone] Active Problems Problem Noted Date Diagnosed Date Second hand smoke exposure 05/27/2023 Gastroesophageal reflux disease 02/18/2023 Tobacco use disorder 09/03/2022 Lung nodules 06/06/2022 Malignant neoplasm of rectum 04/24/2021 Cancer Staging:Pathologic stage from 12/12/2020:Stage YASMIN(ypT3, ypN1b, cM1a) - Signed by Michael Rodriguez MD on 05/02/2021 Overview (04/24/2021): Added automatically from request for surgery [id number] Current Treatment and Therapy Plans No current plan information found. Past Treatment and Therapy Plans Oncology Treatment Plan Name Start Date Discontinue Date Treatment Medications Discontinue Reason Plan Provider Cycles Panitumumab Biweekly / Irinotecan Biweekly Every 28 Days 3 07/29/2023 irinotecan (Camptosar)rothman itumumab (Vectibix) Patient Preference Trina Bronw MD Treatment not started Past Radiation Episodes [...]
--- OUTSIDE RECORDS SUMMARY | 2025-03-26 22:02 | XMS_ITS | Encounter Summary ---
Author Organization [facility] Address [address] [place] [address] Care Team Providers Care Tie Puller Name Role Phone Marcello Merchant MD Primary Care Provider [phone] Abelino Mars MD Unavailable [phone] Michael Rodriguez MD Unavailable [phone] Dolores Grande APRN Primary Care Provider + [phone] Luis M Maldonado MD Unavailable [phone] Encounter Details Date Type Department Care Team (Late st Contact Info) Description 01/12/2021 Abstract [facility] [address] [place] [address] Vera Schaeffer, RN AMB-PRECISION MEDICINE RESEARCH & [...] on filedocumented in this encounter Care Teams Tie Puller Relationship Specialty Start Date End Date Marcello Merchant MD [address] [place] [address] PCP - General 01/12/21 02/10/22 Dolores Grande APRN [address] [place] [address] PCP - General 02/11/22 Abelino Mars MD [address] [facility] [address] [place] [address] Surgeon Colon and Rectal Surgery 06/19/21 Michael Rodriguez MD [address] [address] Surgeon Surgical Oncology 06/19/21 Luis M Maldonado MD [address] [facility] [address] [place] [address] Consulting Physician Radiation Oncology 06/06/22 documented as of this encounter
--- OUTSIDE RECORDS SUMMARY | 2025-03-26 22:02 | XMS_ITS | Clinical Summary ---
Author Organization [facility] Address [address] [place] [address] Phone Care Team Providers Care Plastics Bench Mechanic Name Role Phone Unavailable Primary Care Provider [...] Sigmoidoscopy 2020 Virtual Colonography 2020 COVID-19 Vaccine ( - 2023-2 5 season) 2024 Influenza Vaccine (#1) 2025 Meningococcal B Vaccine Aged Out No l onger eligible based on patient's age to complete this topic Pneumococcal Vaccine 0-49 Aged Out No longer eligible based on patient's age to complete this topic
--- OUTSIDE RECORDS SUMMARY | 2025-03-26 22:02 | XMS_ITS | Encounter Summary ---
Author Organization [facility] Address [address] [id number] Care Team Providers Care Nurse Behavioral Health Care Name Role Phone Abelino Mars MD Unavailable [phone] Michael Rodriguez MD Unavailable [phone] Dolores Grande APRN Primary Care Provider + [phone] Luis M Maldonado MD Unavailable [phone] Encounter Details Date Type Department Care Team (Late st Contact Info) Description 01/07/2023 Lab Requisition [facility] [address] [place] [address] Michael Rodriguez MD [address] [address] Malignant neoplasm of rectum (CMS/HCC) [...] name [place] Profile 01/30/2023 12:41 PM EDT [facility] Comment:[id number] Test Result see scan 01/30/2023 12:41 PM EDT [facility] See Scanned Result 01/30/2023 12:41 PM EDT [facility] Tissue 01/07/2023 3:47 PM EDT 01/07/2023 3:47 PM EDT Michael Rodriguez MD LAB REF LAB BLOOD AND FLUID ORD Final Result [facility] documented in this encounter Visit Diagnoses [...] documented as of this encounter Care Teams Nurse Behavioral Health Care Relationship Specialty Start Date End Date Dolores Grande APRN [address] [place] [address] PCP - General 02/11/22 Abelino Mars MD [address] [facility] [address] [place] [address] Surgeon Colon and Rectal Surgery 06/19/21 Michael Rodriguez MD [address] [address] Surgeon Surgical Oncology 06/19/21 Luis M Maldonado MD 800 [facility] [address] [place] [address] Consulting Physician Radiation Oncology 06/06/22 documented as of this encounter
--- OUTSIDE RECORDS SUMMARY | 2025-03-26 22:02 | XMS_ITS | Clinical Summary ---
Author Organization [facility] Address [address] [place] [address] Care Team Providers Care Bilingual Teacher Assistant Name Role Phone Abelino Mars MD Unavailable [phone] Michael Rodriguez MD Unavailable [phone] Dolores Grande APRN Primary Care Provider [phone] Luis M Maldonado MD Unavailable [phone] Allergies Active Allergy Reactions Criticality Noted [...] rectum 04/24/2021 Cancer Staging:Pathologic stage from 12/12/2020:Stage YASMNI(ypT3, ypN1b, cM1a) - Signed by Michael Rodriguez MD on 05/02/2021 Overview (04/24/2021): Added automatically from request for surgery [id number] Family History Medical History Relation Name Comments [...] 1994 UKY-Zoster Vaccines (1 of 2) 1994 GKH-[id number]-80 Vaccine (3 - Pfizer risk series) 06/28/2021 [...] this topic Medical Devices Implanted Type Area Heeler Device Identifier Shelf Expiration Date Model / Serial / Lot Stent Ureteral Double Pigtail Pos 7fr 26cm - S.. - [id number] Implanted:Qty: 1 on 07/03/2022 by Ruy Fleming MD at [facility] Stent Left: U[id number] 09/21/2023 [id number] / .. / [id number] Stent Ureteral Double Pigtal Miquel Sun [id number] - [id number] Implanted:Qty: 1 on 09/18/2022 by Ruy Fleming MD at [facility] [id number] 02/27/2025 [id number] / / [id number] [employer] 8fr - [id number] Implanted:Qty: 1 on 05/16/2021 by Michael Rodriguez MD at [facility] [employer]-[id number] 07/31/2022 [id number] / / Procedures Procedure Name Priority Date/Time [...] of bowel preparation was evaluated using the Aurora Bowel Preparation Scale with scores of: right [...] Maintenance Insurance [employer] [place] [address] Care Teams Bilingual Teacher Assistant Relationship Specialty Start Date End Date Dolores Grande APRN [address] [place] [address] PCP - General 02/11/22 Abelino Mars MD [address] [place] [address] Surgeon Colon and Rectal Surgery 06/19/21 Michael Rodriguez MD 800 [facility] [address] [place] [address] Surgeon Surgical Oncology 06/19/21 Luis M Maldonado MD 800 [facility] [address] [place] [address] Consulting Physician Radiation Oncology 06/06/22
--- OUTSIDE RECORDS SUMMARY | 2025-03-26 22:02 | XMS_ITS | Encounter Summary ---
Author Organization [facility] Address [address] [id number] Care Team Providers Care Composite Laminator Name Role Phone Marcello Merchant MD Primary Care Provider [phone] Abelino Mars MD Unavailable [phone] Michael Rodriguez MD Unavailable [phone] Dolores Grande APRN Primary Care Provider [phone] Luis M Maldonado MD Unavailable [phone] Encounter Details Date Type Department Care Team (Late st Contact Info) Description 07/09/2021 Lab Requisition [facility] [address] [place] [address] Michael Rodriguez MD [address] [phone] Malignant neoplasm of rectosigmoid junction (CMS/HCC); Secondary [...] Result see scan 08/28/2021 10:54 AM EST [facility] See Scanned Result 08/28/2021 10:54 AM EST [facility] Tissue 07/09/2021 12:0 0 PM EST 07/09/2021 3:39 PM EST us Michael Rodriguez MD LAB REF LAB BLOOD AND FLUID ORD Final Result [facility] [address] [place] [address] documented in this encounter Visit Diagnoses Diagnosis 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) documented in this encounter Additional Health Concerns Assessment Noted Time A fall risk assessment has been complete d for the patient 06/19/2021 1:10 PM EDT documented as of this encounter Care Teams Composite Laminator Relationship Specialty Start Date End Date Marcello Merchant MD [address] [place] [address] PCP - General 01/12/21 02/10/22 Dolores Grande APRN [address] [place] [address] PCP - General 02/11/22 Abelino Mars MD [address] [place] [address] Surgeon Colon and Rectal Surgery 06/19/21 Michael Rodriguez MD [address] [address] Surgeon Surgical Oncology 06/19/21 Luis M Maldonado MD 800 [facility] [address] [place] [address] Consulting Physician Radiation Oncology 06/06/22 documented as of this encounter
--- OUTSIDE RECORDS SUMMARY | 2025-03-26 22:02 | XMS_ITS | Encounter Summary ---
Author Organization [facility] Address [address] [place] [address] Care Team Providers Care Maintenance Assistant Name Role Phone Marcello Merchant MD Primary Care Provider [phone] Abelino Mars MD Unavailable [phone] Michael Rodriguez MD Unavailable [phone] Dolores Grande APRN Primary Care Provider [phone] Luis M Maldonado MD Unavailable [phone] Encounter Details Date Type Department Care Team (Late st Contact Info) Description 07/05/2021 Lab Requisition [facility] [address] [place] [address] Sherin Saleh MD [address] [place] [address] Malignant neoplasm of rectosigmoid junction (CMS/HCC); [...] EDT) Case Report Historical Case Addendum/Amendment Case: [id number] Authorizing Provider: hSerin Saleh MD Collected: 07/05/2021 1200 Ordering Location: [facility] Received: 07/05/2021 1645 Pathologist: Yusra Blue MD Specimen: [id number] 07/06/2021 2:53 PM EDT [facility] Final Diagnosis This case was collected on 12/11/2020, was originally reported as case [id number].The entire [id number] report can be viewed as a scanned [...] developed by and are performed at the [facility], [address] [place] [address]. All tests reported here, except those addressing [...] LAB at 1453 EDT Gross Description A. [id number] Reaccessioned for billing purposes only. 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) documented in this encounter Additional Health Concerns Assessment Noted Time A fall risk assessment has been complete d for the patient 06/19/2021 1:10 PM EDT documented as of this encounter Care Teams Maintenance Assistant Relationship Specialty Start Date End Date Marcello Merchant MD [address] [place] [address] PCP - General 01/12/21 02/10/22 Dolores Grande APRN [address] [place] [address] PCP - General 02/11/22 Abelino Mars MD [id number] [place] [address] Surgeon Colon and Rectal Surgery 06/19/21 Michael Rodriguez MD [address] [address] Surgeon Surgical Oncology 06/19/21 Luis M Maldonado MD 800 [facility] [address] [place] [address] Consulting Physician Radiation Oncology 06/06/22 documented as of this encounter
[2025-03-26 22:05] VITALS: BP 165/109; PULSE 102; RESP 18; TEMP 36.8; O2SAT 97; BMI 27.8
--- NOTE | 2025-03-26 22:23 | CT_ITS ---
PROCEDURE INFORMATION: Exam: CT Abdomen And Pelvis With Contrast Exam date and time: 03/26/2025 11:03 PM Age: 49 years old Clinical indication: Constipation; Abdominal pain; Generalized; Additional info: Llq pain, no bm, diff urinating, h/o colon cancer TECHNIQUE: Imaging protocol: Computed tomography of the abdomen and pelvis with contrast. Total images: 316 Radiation optimization: All CT scans at this facility use at least one of these dose optimization techniques: automated exposure control; mA and/or kV adjustment per patient size (includes targeted exams where dose is matched to clinical indication); or iterative reconstruction. Contrast material: ISOVUE; Contrast volume: 75 ml; Contrast route: IV; COMPARISON: CT ABDOMEN PELVIS W CON 02/18/2025 8:08 AM FINDINGS: Lungs: Interval worsening innumerable bibasilar lung nodules, increased in size and number with multiple showing cavitation. Also, enlarging 2.5 cm dominant left lower lobe mass. Heart: Normal heart size. Diaphragm: Tiny hiatal hernia. Liver: Nonenlarged liver with steatosis. Similar appearing 3 cm right hepatic nodule/mass. No new liver lesions. Gallbladder and biliary ducts: Status post cholecystectomy. No biliary ductal dilatation. Pancreas: Mild pancreatic atrophy. No pancreatitis. Spleen: Calcified splenic granuloma. No splenomegaly. Adrenal glands: Normal. No mass. Kidneys and ureters: Severe left hydronephrosis and proximal left hydroureter, abruptly tapering into the left periaortic adenopathy, unchanged. Secondary considerable thinning of the left renal cortex. Unremarkable right kidney. Stomach and bowel: Surgical anastomosis in the rectum. Unremarkable stomach and duodenum. No ileus or bowel obstruction. Small bowel appears within normal limits. Mild colonic stool burden. Status post partial colectomy. Appendix: Normal appendix. Intraperitoneal space: Unremarkable. No free air. No significant fluid collection. Vasculature: Atherosclerotic abdominal aorta without aneurysm. Major abdominal vessels enhance appropriately. Lymph nodes: Increasing left periaortic lymphadenopathy. Urinary bladder: Partially collapsed bladder per Reproductive: Moderate prostatomegaly. Bones/joints: Moderate degenerative changes lower thoracic spine. Mild degenerative changes lumbar spine. Mild broad-based thoracolumbar dextrocurvature. No acute osseous abnormality. Soft tissues: Small fat containing bilateral inguinal hernias. Diastasis of the rectus fascia. Multiple fat containing midline abdominal wall hernias. Left periumbilical hernia containing fat and a nonobstructed loop of small bowel. Right mid abdominal wall hernia containing multiple nonobstructed loops of small bowel. IMPRESSION: 1. Interval worsening pulmonary metastases. 2. Enlarging dominant 2.5 cm left lower lobe pulmonary mass. 3. Similar 3 cm right hepatic mass. 4. Mild worsening left periaortic lymphadenopathy. 5. Stable severe long-standing left hydronephrosis secondary to retroperitoneal lymphadenopathy. 6. Multiple anterior abdominal wall hernias, 2 of which now contain nonobstructing loops of small bowel. 7. Status post partial colectomy 8. Moderate prostatomegaly 9. Additional stable chronic and incidental findings.
--- NOTE | 2025-03-26 22:27 | ED_ITS ---
Discharge Plan Disposition Patient Disposition: Home, Self-Care Prescriptions Prescriptions: No Action fruquintinib 1 mg capsule 4 mg PO DAILY rosuvastatin [Crestor] 10 mg tablet 10 mg PO DAILY Qty: 90 3RF aspirin 81 mg tablet,chewable 81 mg PO DAILY Qty: 100 3RF Rx Instructions: TAKE ONE TABLET BY MOUTH EVERY DAY gabapentin 300 mg capsule 300 mg PO TID Qty: 90 2RF albuterol sulfate 90 mcg/actuation HFA aerosol inhaler 1 puff inhalation Q6H PRN (Reason: shortness of breath or wheezing) Qty: 6.7 3RF ibuprofen 800 mg tablet See Rx Instructions .ROUTE .COMPLEX Qty: 90 2RF Dose Instruction: TAKE ONE TABLET BY MOUTH EVERY 8 HOURS --TAKE WITH FOOD-- Rx Instructions: TAKE ONE TABLET BY MOUTH EVERY 8 HOURS --TAKE WITH FOOD-- oxycodone-acetaminophen [Percocet] 7.5-325 mg tablet 1 tab PO QID Qty: 120 0RF methocarbamol 750 mg tablet 750 mg PO TID Qty: 90 2RF Referrals Follow up/Referrals: Dolores Grande APRN [Primary Care Provider, Medical] - See instructions Activity Restrictions/Add. Instructions Additional Instructions/Restrictions: Please follow-up with your primary care provider. Please return to the emergency department if you develop any new or worsening symptoms or become concerned for your health. Clinical Impressions Clinical Impression: Abdominal pain, Weak urine stream, Constipation, Metastatic malignant neoplasm Instructions Patient Instructions: DI for Acute Abdominal Pain Print Language Print Language: [place] Discharge ED Provider: Wai Mensah General Adult HPI <Hafsa Rodriguez, - Last Filed: 03/26/25 23:32> General Chief complaint: Abdominal Pain Stated complaint: Pain on left side Time Seen by Provider: 03/26/25 22:08 Mode of Arrival: Ambulatory Source of Information: Patient Description of Symptoms (Recalled from ER Triage Doc. by RN): patient c/o left sided abdominal pain that started 2 days ago. patient has history of colon, kidney, lung cancer and is currently getting chemo treatments for that. patient also states he has been having difficulty urinating. History of Present Illness HPI narrative: This patient is a 49-year-old male with a history of metastatic colon cancer, hypertension, hyperlipidemia, multiple prior abdominal surgeries, CAD presenting to the emergency department for evaluation with concern for left lower quadrant abdominal pain and difficulty urinating. Patient states that he has had difficulty with urinating since Friday, having a very weak stream and only dribbling. He states that he feels like he cannot empty his bladder completely. He notes that he has had left lower quadrant abdominal pain that started 2 days ago. He notes has not had a bowel movement in 3 days. He denies any fevers, nausea, vomiting, or other concerns. He has received multiple prior treatments for metastatic colorectal cancer, most treatments discontinued for side effects. Disease has continued to progress. He has had multiple prior abdominal surgeries. Related Data Home Medications ?Medication ?Instructions ?Recorded ?Confirmed fruquintinib 1 mg capsule 4 mg PO DAILY 12/02/2403/07 Previous Rx's ?Medication ?Instructions ?Recorded aspirin 81 mg chewable tablet 81 mg PO DAILY Blood Thi nner #100 10/13/24 tabs gabapentin 300 mg capsule 300 mg PO TID #90 caps 11/02 methocarbamol 750 mg tablet 750 mg PO TID #90 tabs 03/25 albuterol sulfate 90 mcg/actuation 1 puff inhalation Q 6H PRN 01/11/25 aerosol inhaler shortness of breath or wheez ing #6.7 grams ibuprofen 800 mg tablet See Rx Instructions .Route 0 01/18/25 .COMPLEX #90 tabs rosuvastatin 10 mg tablet (Crestor) 10 mg PO DAILY #90 tabs 02/07/25 oxycodone-acetaminophen 7.5 mg-325 1 tab PO QID #120 t abs 03/07/25 mg tablet (Percocet) Allergies Allergy/AdvReac Type Severity Reaction Status Date / Time cetuximab (From Erbitux) Allergy Severe Anaphylaxis Verified 03/01/25 10:50 [facility] <Hafsa Rodriguez DO - Last Filed: 03/26/25 23:32> [facility] Disclaimer: The information contained in this section may have been updated after the patient was seen, as this information can be updated by other users. Medical History HTN (hypertension) HLD (hyperlipidemia) STEMI (ST elevation myocardial infarction) Shock On mechanically assisted ventilation Colon cancer Surgical History Hx of tonsillectomy Hx of myringotomy Family History Other No significant family history Social History Smoking Status: Current every day smoker tobacco type: smokeless tobacco alcohol intake: former substance use type: denies use current occupational status: other Travel in the last 8 weeks?: None household members: spouse housing: house current occupation: pain line current occupational exposures/hazards: No caffeine: Yes Have you lived/traveled outside [place] in past 30 days?: No Contact w/someone who lives/traveled outside [place] past 30 days?: No Exposure to someone with infectious disease in past 14 days?: No Do you have a fever (greater than 100.4 F or 38 C)?: No Have you tested positive for COVID-19?: No Exposed to someone with COVID-19 in past 14 days?: No Do you have a sore throat?: No Do you have a cough?: No Do you have any weakness?: No Do you have any diarrhea?: No Are you experiencing any unusual bleeding?: No Do you have any muscle aches/pain?: No Do you have any abdominal pain?: No Are you experiencing loss of taste or smell?: No Other Medical History Have you received the Flu Vaccine for this season: No Have you received the Pneumonia Vaccine: No <Hafsa Rodriguez DO - Last Filed: 03/26/25 23:32> ROS Obtained: Yes All systems reviewed & no additional complaints except as documented Physical Exam <Hafsa Rodriguez DO - Last Filed: 03/26/25 23:32> General General appearance: alert and in no apparent distress Head Head exam: atraumatic and normocephalic Eye Eye exam: Present normal appearance, PERRL and EOMI ENT ENT exam: Present normal exam, normal oropharynx, mucous membranes moist and normal external ear exam Neck Neck exam: Present normal inspection, full ROM and trachea midline; Absent tenderness Chest Chest inspection: Present normal inspection and symmetric chest wall rise; Absent tenderness Respiratory Respiratory exam: Present normal lung sounds bilaterally; Absent respiratory distress, wheezes, stridor or accessory muscle use Cardiovascular Cardiovascular exam: Present regular rate and normal rhythm Abdominal Exam Abdominal exam: Present soft and tenderness (Left lower quadrant); Absent distention, guarding, rebound or rigidity Extremities Exam Extremities exam: Present normal inspection, full ROM and normal capillary refill; Absent tenderness or edema Back Exam Back exam: Present normal inspection and full ROM; Absent tenderness Neurological Exam Neurological exam: Present alert, oriented X3, CN II-XII intact and normal gait; Absent motor sensory deficit Psychiatric Psychiatric exam: Present normal affect and normal mood Skin Skin exam: Present warm and dry Medical Decision Making <Hafsa Rodriguez, DO - Last Filed: 03/26/25 23:32> Medical Records Medical records reviewed: Yes I reviewed the patient's medical records. Screening: Per USPSTF and CDC recommendations, given the prevalence of disease in our region, it is our hospital?s policy to screen for HIV and viral Hepatitis for all patients aged 18 and over and those with ongoing risk factors. William Inquiry Pt receiving controlled substance: No Vital Signs: 03/26/25 22:05 03/26/25 22:30 Temperature 98.2 F Temperature Source Oral Pulse Rate 92 H Pulse Rate [Left] 102 H Respiratory Rate 18 Blood Pressure 132/101 H Blood Pressure [Right Arm] 165/109 H Blood Pressure Mean [Right Arm] 127 Blood Pressure Source [Right Arm] Automatic Cuff Blood Pressure Position [Right Arm] Sitting 02 Sat by Pulse Oximetry 97 97 Oxygen Delivery Method Room Air Lab Data Lab results reviewed: Yes I reviewed the patient's lab results. Lab Results 03/26/25 22:07: WBC 8.4, RBC 4.73, Hgb 14.4, Hct 42.2, MCV 89.2, MCH 30.4, MCHC 34.1, RDW 14.0, Plt Count 175, MPV 9.7, Neut % (Auto) 55.4, Lymph % (Auto) 30.4, Rice % (Auto) 11.6 H, Eos % (Auto) 2.0, Baso % (Auto) 0.4, Neut # (Auto) 4.7, Lymph # (Auto) 2.6, Rice # (Auto) 1.0, Eos # (Auto) 0.2, Baso # (Auto) 0.0, PT 11.4, INR 1.03, Sodium 135 L, Potassium 4.2, Chloride 99, Carbon Dioxide 23, A nion Gap 17.2 H, BUN 22 H, Creatinine 1.00, Estimated Creat Clear 118, Estimated GFR 79, Est GFR ( Amer) 96, Glucose 111 H, Calcium 9.7, Total Bilirubin 0.8, AST 40, ALT 34, Alkaline Phosphatase 101, Total Protein 9.5 H, Albumin 5.2 H, Globulin 4.3 H, Albumin/Globulin Ratio 1.2, Lipase 54 03/26/25 22:16: Urine Color Yellow, Urine Appearance Clear, Urine pH 6.0, Ur Specific [place] 1.020, Urine Protein Trace, Urine Glucose (UA) Negative, Urine Ketones Negative, Urine Blood 2+ A, Urine Nitrate Negative, Urine Bilirubin Negative, Urine Urobilinogen 1.0, Ur Leukocyte Esterase Negative, Urine RBC Tntc, Urine WBC Occasional, Ur Squamous Epith Cells Occasional, Urine Bacteria Trace 03/26/25 22:32: Lactate 2.0 03/26/25 22:07 03/26/25 22:07 Orders (Tests/Meds): ED MEDICATIONS Generic Name Dose Route Start Last Admin Trade Name Freq PRN Reason Stop Dose Admin Sodium Chloride 10 ml 03/26/25 23:01 03/26/25 23:02 Sodium Chloride 0.9% 10ml Syr (Rad Only) IV 04/25/25 23:00 10 ml NEEDED PRN Administration Maintain IV Site Discontinued Medications Generic Name Dose Route Start Last Admin Trade Name Freq PRN Reason Stop Dose Admin Lactated Ringer's 1,000 mls @ 999 mls/hr 03/26/25 22:24 03/26/25 22:28 Lactated Ringer's 1000 Ml Bag IV 03/26/25 23:24 999 mls/hr .Q1H1M ONE Administration Iopamidol 75 ml 03/26/25 23:01 03/26/25 23:02 Iopamidol-370 (76%);100ml Bottle IV 03/26/25 23:02 75 ml ONCE ONE Administration Morphine Sulfate 4 mg 03/26/25 22:24 03/26/25 22:28 Morphine 4mg/Ml Syringe IV 03/26/25 22:25 4 mg ONCE ONE Administration Ondansetron HCl 4 mg 03/26/25 22:24 03/26/25 22:28 Ondansetron 4mg/2ml Vial IV 03/26/25 22:25 4 mg ONCE ONE Administration ORDERS Category Date Time Status CT abdomen pelvis w con Stat Cat Scan 03/26/25 22:23 Completed Complete Blood Count Auto Diff Stat Lab 03/26/25 22:07 Completed Comprehensive Metabolic Panel Stat Lab 03/26/25 22:07 Completed Lactic Acid Stat Lab 03/26/25 22:32 Completed Lipase Stat Lab 03/26/25 22:07 Completed Prothrombin Time INR Stat Lab 03/26/25 22:07 Completed UA [Urinalysis and Microscopic] Stat Lab 03/26/25 22:16 Completed Medical Decision Narrative: In summary, this patient is a 49-year-old male presenting to the Emergency Department for evaluation of left lower quadrant abdominal pain, difficulty urinating, no bowel movement in 3 days. Differential diagnoses considered include but are not limited to bowel obstruction, constipation, fecal impaction, cystitis, pyelonephritis, ureterolithiasis, colitis, worsening metastatic burden. Ruling out the most morbid conditions drove assessment. It should be noted patient's history includes colon cancer which is not at goal therapy. This complicates all aspects of care by increasing patient's risk for morbidity. I reviewed patient's past medical records and noted prior evaluations by oncology for maintenance of therapy. On exam, the patient is sitting upright no acute distress. He has left lower quadrant abdominal tenderness but no rebound, guarding, or rigidity. There is no significant postvoid residual noted on postvoid bladder scan. Workup included CBC, CMP with lipase, lactic acid, urinalysis, CT abdomen pelvis with IV contrast. He was given a bolus of IV fluids as well as IV morphine and Zofran for symptomatic improvement.. Labs obtained are reassuring with no significant leukocytosis or anemia on CBC. He does have a mild hyponatremia, mild elevation in anion gap, and slight elevation in BUN. Fluid resuscitation is ongoing. Urinalysis demonstrates 2+ blood with negative nitrates and leukocyte esterase. CT scan pending at time of signout to Dr. Mensah <Wai Mensah MD - Last Filed: 03/27/25 00:27> Vital Signs: 03/26/25 22:05 03/26/25 22:30 Temperature 98.2 F Temperature Source Oral Pulse Rate 92 H Pulse Rate [Left] 102 H Respiratory Rate 18 Blood Pressure 132/101 H Blood Pressure [Right Arm] 165/109 H Blood Pressure Mean [Right Arm] 127 Blood Pressure Source [Right Arm] Automatic Cuff Blood Pressure Position [Right Arm] Sitting 02 Sat by Pulse Oximetry 97 97 Oxygen Delivery Method Room Air Lab Data Lab Results 03/26/25 22:07: WBC 8.4, RBC 4.73, Hgb 14.4, Hct 42.2, MCV 89.2, MCH 30.4, MCHC 34.1, RDW 14.0, Plt Count 175, MPV 9.7, Neut % (Auto) 55.4, Lymph % (Auto) 30.4, Rice % (Auto) 11.6 H, Eos % (Auto) 2.0, Baso % (Auto) 0.4, Neut # (Auto) 4.7, Lymph # (Auto) 2.6, Rice # (Auto) 1.0, Eos # (Auto) 0.2, Baso # (Auto) 0.0, PT 11.4, INR 1.03, Sodium 135 L, Potassium 4.2, Chloride 99, Carbon Dioxide 23, A nion Gap 17.2 H, BUN 22 H, Creatinine 1.00, Estimated Creat Clear 118, Estimated GFR 79, Est GFR ( Amer) 96, Glucose 111 H, Calcium 9.7, Total Bilirubin 0.8, AST 40, ALT 34, Alkaline Phosphatase 101, Total Protein 9.5 H, Albumin 5.2 H, Globulin 4.3 H, Albumin/Globulin Ratio 1.2, Lipase 54 03/26/25 22:16: Urine Color Yellow, Urine Appearance Clear, Urine pH 6.0, Ur Specific [place] 1.020, Urine Protein Trace, Urine Glucose (UA) Negative, Urine Ketones Negative, Urine Blood 2+ A, Urine Nitrate Negative, Urine Bilirubin Negative, Urine Urobilinogen 1.0, Ur Leukocyte Esterase Negative, Urine RBC Tntc, Urine WBC Occasional, Ur Squamous Epith Cells Occasional, Urine Bacteria Trace 03/26/25 22:32: Lactate 2.0 Orders (Tests/Meds): ED MEDICATIONS Generic Name Dose Route Start Last Admin Trade Name Freq PRN Reason Stop Dose Admin Sodium Chloride 10 ml 03/26/25 23:01 03/26/25 23:02 Sodium Chloride 0.9% 10ml Syr (Rad Only) IV 04/25/25 23:00 10 ml NEEDED PRN Administration Maintain IV Site Discontinued Medications Generic Name Dose Route Start Last Admin Trade Name Freq PRN Reason Stop Dose Admin Lactated Ringer's 1,000 mls @ 999 mls/hr 03/26/25 22:24 03/26/25 22:28 Lactated Ringer's 1000 Ml Bag IV 03/26/25 23:24 999 mls/hr .Q1H1M ONE Administration Iopamidol 75 ml 03/26/25 23:01 03/26/25 23:02 Iopamidol-370 (76%);100ml Bottle IV 03/26/25 23:02 75 ml ONCE ONE Administration Morphine Sulfate 4 mg 03/26/25 22:24 03/26/25 22:28 Morphine 4mg/Ml Syringe IV 03/26/25 22:25 4 mg ONCE ONE Administration Ondansetron HCl 4 mg 03/26/25 22:24 03/26/25 22:28 Ondansetron 4mg/2ml Vial IV 03/26/25 22:25 4 mg ONCE ONE Administration ORDERS Category Date Time Status CT abdomen pelvis w con Stat Cat Scan 03/26/25 22:23 Completed Complete Blood Count Auto Diff Stat Lab 03/26/25 22:07 Completed Comprehensive Metabolic Panel Stat Lab 03/26/25 22:07 Completed Lactic Acid Stat Lab 03/26/25 22:32 Completed Lipase Stat Lab 03/26/25 22:07 Completed Prothrombin Time INR Stat Lab 03/26/25 22:07 Completed UA [Urinalysis and Microscopic] Stat Lab 03/26/25 22:16 Completed Medical Decision Narrative: In summary, this patient is a 49-year-old male presenting to the Emergency Department for evaluation of left lower quadrant abdominal pain, difficulty urinating, no bowel movement in 3 days. Differential diagnoses considered include but are not limited to bowel obstruction, constipation, fecal impaction, cystitis, pyelonephritis, ureterolithiasis, colitis, worsening metastatic burden. Ruling out the most morbid conditions drove assessment. It should be noted patient's history includes colon cancer which is not at goal therapy. This complicates all aspects of care by increasing patient's risk for morbidity. I reviewed patient's past medical records and noted prior evaluations by oncology for maintenance of therapy. On exam, the patient is sitting upright no acute distress. He has left lower quadrant abdominal tenderness but no rebound, guarding, or rigidity. There is no significant postvoid residual noted on postvoid bladder scan. Workup included CBC, CMP with lipase, lactic acid, urinalysis, CT abdomen pelvis with IV contrast. He was given a bolus of IV fluids as well as IV morphine and Zofran for symptomatic improvement.. Labs obtained are reassuring with no significant leukocytosis or anemia on CBC. He does have a mild hyponatremia, mild elevation in anion gap, and slight elevation in BUN. Fluid resuscitation is ongoing. Urinalysis demonstrates 2+ blood with negative nitrates and leukocyte esterase. CT scan pending at time of signout to Dr. Makenna Mensah MD: I assumed care of the patient at the time of handoff from the prior provider. On reassessment patient reports symptomatic improvement. CT imaging has numerous chronic findings including chronic obstruction of the left kidney, chronic hernias without obstruction, worsening lymphadenopathy. No new obstruction, perforation or other pathology that require antibiotics, admission or operative intervention. Please findings were communicated with patient and he was discharged in stable condition with return precautions. Critical Care <Hafsa Rdoriguez, DO - Last Filed: 03/26/25 23:32> Critical Care Time Critical Care Time: No
[2025-03-26 22:28] LABS: Microscopic, Urine URINE MICROSCOPIC (MICROSCOPIC)
[2025-03-26] MEDS: MORPHINE 4MG/ML SYRINGE 4 MG IV (22:28)
[2025-03-26] MEDS: LACTATED RINGERS 1000ML 1,000 ML 999 ML IV (22:28)
[2025-03-26] MEDS: ONDANSETRON 4MG/2ML VIAL 4 MG IV (22:28)
[2025-03-26 22:30] VITALS: BP 132/101; PULSE 92; O2SAT 97
[2025-03-26 22:42] LABS: Albumin Level 5.2 g/dl (3.5-5.0); Chloride 99 mmol/L (98-107); Potassium 4.2 mmoL/L (3.5-5.1); Sodium 135 mmol/L (136-145)
[2025-03-26 22:42] LABS: Bilirubin,Urine Negative (Negative); Color,Urine YELLOW (Yellow); Glucose,Urine (UA) Negative (Negative); Ketones,Urine Negative (Negative); Leukocyte Esterase,Urine Negative (Negative); PH,Urine 6.0 (5.0-8.5); Protein,Urine TRACE (Negative); Specific Gravity, Urine 1.020 (1.005-1.030); Urobilinogen,Urine 1.0 EU/dl (0.2)
[2025-03-26 22:44] LABS: Blood Urea Nitrogen 22 mg/dl (9-20); Creatinine Clearance Estimated 118 mL/min (50-200); Creatinine,Serum 1.00 mg/dl (0.66-1.25); Estimated Glomerular Filt Rate 79 ml/min (>60); GFR (African American) 96 ML/MIN (>60); Hematocrit 42.2 % (42.0-52.0); Hemoglobin 14.4 g/dL (14.1-18.0); Immature Granulocytes % 0.2 %; Mean Corpuscular HGB Conc 34.1 g/dL (31.8-35.4); Mean Corpuscular Hemoglobin 30.4 pg (27.0-31.2); Mean Corpuscular Volume 89.2 fl (80-94); Nucleated Red Blood Cells % 0 %; Platelet Count 175 K/mm3 (142-424); Red Blood Count 4.73 M/mm3 (4.60-6.20); Red Cell Distribution Width-SD 45.1 fL; White Blood Count 8.4 K/mm3 (4.8-10.8)
[2025-03-26 22:45] LABS: Alanine Aminotransferase 34 U/L (12-78); Albumin/Globulin Ratio 1.2 (1.1-1.8); Alkaline Phosphatase 101 U/L (38-126); Anion Gap 17.2 mEq/L (5-15); Aspartate Amino Transferase 40 U/L (17-59); Bilirubin,Total 0.8 mg/dl (0.2-1.3); Calcium 9.7 mg/dl (8.4-10.2); Carbon Dioxide 23 mmol/L (22.0-30.0); Globulin 4.3 g/dL (1.3-3.2); Glucose 111 mg/dl (74-100); Lipase 54 U/L (23-300); Total Protein,Serum 9.5 g/dl (6.3-8.2)
[2025-03-26 22:51] LABS: INR 1.03 (0.9-1.1); Prothrombin Time 11.4 seconds (10.1-12.5)
[2025-03-26] MEDS: SODIUM CHLORIDE 0.9% 10ML SYR (RAD ONLY) 10 ML IV (23:02)
[2025-03-26] MEDS: IOPAMIDOL-370 (76%);100ML BOTTLE 75 ML IV (23:02)
[2025-03-26 23:28] LABS: WBC,Urine Occasional #/hpf (0-3)
[2025-03-26 23:29] LABS: Bacteria,Urine Trace /lpf; RBC,Urine TNTC #/hpf (0-3); Squamous Epithelial Cell,Urine Occasional #/hpf (0-5)
[2025-03-27 00:30] VITALS: BP 145/95; PULSE 89; RESP 18; TEMP 36.7; O2SAT 99
== END 2025-03-27 00:42 | disposition home or self-care (01) ==
PROVIDERS: Emergency Medicine; Emergency Provider Emergency Medicine; PCP Nurse Practitioner Family
DX: R10.32 Left lower quadrant pain (principal); R39.12 Poor urinary stream; K59.00 Constipation, unspecified; F17.210 Nicotine dependence, cigarettes, uncomplicated; I10 Essential (primary) hypertension; E78.5 Hyperlipidemia, unspecified; Z86.79 Personal history of other diseases of the circulatory system; Z85.038 Personal history of other malignant neoplasm of large intestine
CPT/HCPCS: 74177; 80053; 81001; 83605; 83690; 85025; 85610; 96361; 96374; 96375; 99285; J2270; J2405; J7120; Q9967

== ENCOUNTER 2025-04-06 10:29 | Outpatient (POV) | payer MEDICARE, SELFPAY ==
--- OUTSIDE RECORDS SUMMARY | 2025-03-30 11:00 | XMS_ITS | Encounter Summary ---
Author Organization [facility] Address [address] [place] [address] Care Team Providers Care Costume Director Name Role Phone Abelino Mars MD Unavailable [phone] Michael Rodriguez MD Unavailable [phone] Dolores Grande APRN Primary Care Provider [phone] Luis M Maldonado MD Unavailable [phone] Reason for Referral * Imaging (Routine) - Pending Review Specialty Diagnoses / Procedures Referred By Contac t Referred To Contact Radiology Diagnoses Hydronephrosis of left kidney Procedures CT Guided Neph Tube Placement Left Consult to Interventional Radiology Chacha Perales PA [address] [facility] [address] [place] [address] Phone: tel: fax: Referral ID Status Reason Start Date Expiration Date V isits Requested Visits Authorized [id number] Pending Review 03/30/2025 09/29/2026 1 1 Encounter Details Date Type Department Care Team (Late st Contact Info) Description 03/30/2025 11:00 AM EDT Office Visit [place] [facility] [address] [place] [address] Chacha Perales PA [address] [place] [address] Urge incontinence (Primary Dx); Malignant neoplasm of rectum (CMS/HCC); Microhematuria; Hydronephrosis of left kidney Social History Tobacco Use Types Packs/Day Years Used Date Smoking Tobacco: Every Day Cigarettes 0.5 20 Smokeless Tobacco: Current Chew Tobacco Cessation:Ready to Q uit: Not Asked; Counseling Given: Not Answered Alcohol Use Standard Drinks/Week Comments Never 0 (1 standard drink = 0.6 oz pur e alcohol) PHQ-2 Answer Date Recorded Patient Health Questionnaire-2 Score 0 03/30/2025 PHQ-2A Answer Date Recorded Patient Health Questionnaire-2 Score 0 05/27/2023 Sex and Gender Information Value Date Recorded Sex Assigned at Male 09/18/2022 8:50 AM EST Legal Sex Male 7:55 PM EDT Gender Identity Male 09/18/2022 8:50 AM EST Sexual Orientation Not on file documented as of this encounter Last Filed Vital Signs Vital Sign Reading Time Taken Comments Blood Pressure 156/98 03/30/2025 11:04 AM EDT Pulse 72 03/30/2025 10:59 AM EDT Temperature - - Respiratory Rate 16 03/30/2025 10:5 9 AM EDT Oxygen Saturation 98% 03/30/2025 10: 59 AM EDT Inhaled Oxygen Concentration - - Weight 97.4 kg (214 lb 11.7 oz) 025 10:59 AM EDT Height - - Body Mass Index 30.81 05/27/2023 9:35 AM EDT documented in this encounter Functional Status * Over the past 2 weeks, how often have you been bothered by any of the following problems? Question Answer Date of Assessment Author Little interest or pleasure in doing things Not at all 03/30/2025 10:51 AM EDT Katherine Morley Feeling down, depressed, or hopeless Not at all 03/30/2025 10:51 AM EDT Katherine Morley Patient Health Questionnaire -2 Score 0 03/30/2025 10:51 AM EDT Katherine Morley * If you checked off any problems on this questionnaire so far, Question Answer Date of Assessment Author How difficult have these problems made it for you to do your work, take care of things at home, or get along with other people? Not difficult at all 03/30/2025 10:51 AM EDT Avtar Morley documented as of this encounter Miscellaneous Notes * Clinician Note - Katherine Morley - 03/30/2025 11:00 AM EDT The patient was noted to have an elevated blood pressure reading of (157/91). This was rechecked after 5 minutes and still found to be elevated with a reading of (156/98). The provider was notified and the patient was advised to follow-up with their primary care provider for further advice. * Progress Notes - Chacha Perales PA - 03/30/2025 11:00 AM EDT Urology Followup Date of Service: 03/30/2025 Oscar Tomlin is a 49 y.o. 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 He is currently managed by Oncology. Oscar Tomlin is a 49 y.o. male presenting with history of metastatic colon cancer seen atthe request of Drs. Michael Rodriguez and Luis M Maldonado for left hydronephrosis with lesion near left ureter. He was diagnosed with metastatic colorectal cancer and underwent a diverting colostomy in May 2020followed by chemotherapy. He then underwent partial hepatectomy, with microwave ablation of liver lesions and an LAR in November,. His colostomy was reversed and a diverting ileostomy was made at that time. He then underwent an ileostomy reversal and microwave ablation of his liver lesions on 05/16/21. He was recently seen by Drs. Rodriguez and Joel and found to have enlarging lung lesions as well asa lesion either adjacent to or within the mid left ureter. The current treatment plan is for XRT tothe lung and periureteral lesion. He is s/p attempted left URS in 07/2022. Ureteroscope unable to pass beyond area of narrowing in mid left ureter, so 7 Fr x 26 ccm JJ stent placed. 09/18/2022 - Left URS showed ureteral stricture but no tumor seen. Stent exchanged at that time. 10/2022 - Saw [facility], pre-op for possible stent exchange. 02/18/2023 - Underwent cysto in OR. Left RPG was normal at that time, without hydro or filling defects. Decision was reached to remove stent at that time, per pt request. There was felt to be only an area of minimal resistance at the mid- ureter level during stent removal. Delayed RPG at 5 minutes showed retained contrast in kidney, without efflux into ureter. He has been lost to f/u since then. He is now following with Oncology locally, Dr. Caicedo in [place], [place] He was seen at OSH ED 03/26/2025 with LLQ abdominal pain, difficulty urinating, no BM x3 days. UA showed 2+ blood, nitrite negative, trace protein, TNTC RBC, occ WBC, trace bacteria. WBC 8.4, hgb 14.4, creat 1.0, lactate 2.0. CT A/P showed interval worsening innumerable bibasilar lung nodules. Stable 3cm right liver mass. Severe left hydro and proximal hydroureter, abruptly tapering at the level of left periaortic LAD, stable with left renal cortex thinning. Moderate prostatomegaly. Partially decompressed bladder. 03/30/2025 - He relates ongoing sharp pain, points to left low back/side. No real alleviating factors. He has had BM since leaving the ED and no improvement in pain. No dysuria or GH, no F/C. He was on Stivarga for chemo (last option) but stopped this last week due headaches, etc. He is not interested in research studies for his CA. He sees pain management for chronic back pain. He sees Palliativecare as well too, has appt next week. He takes 81mg ASA, not on plavix. Tobacco Use: High Risk (02/18/2023) Patient History Smoking Tobacco Use: Every Day Smokeless Tobacco Use: Current Passive Exposure: Not on file Past Medical History[1] Surgical History[2] Pertinent Family History: Non-contributory Objective Visit Vitals BP (!) 156/98 Pulse 72 Resp 16 Wt 97.4 kg (214 lb 11.7 oz) SpO2 98% BMI 30.81 kg/m?? Smoking Status Every Day BSA 2.19 m?? Physical Exam Vitals reviewed. Exam conducted with a director investment banking present. Constitutional: General: He is not in acute distress. Appearance: Normal appearance. HENT: Head: Normocephalic and atraumatic. Eyes: Conjunctiva/sclera: Conjunctivae normal. Cardiovascular: Rate and Rhythm: Normal rate. Pulmonary: Effort: Pulmonary effort is normal. Abdominal: Palpations: Abdomen is soft. Musculoskeletal: General: Normal range of motion. Neurological: General: No focal deficit present. Mental Status: He is alert and oriented to person, place, and time. Psychiatric: Mood and Affect: Mood normal. Behavior: Behavior normal. Thought Content: Thought content normal. Judgment: Judgment normal. Prior Data Review: UA: 03/26/2025 - 2+ blood, nitrite negative, trace protein, TNTC RBC, occ WBC, trace bacteria 03/30/2025: Latest Reference Range & Units 03/30/25 10:57 POCT Urine Color Yellow POCT Urine Clarity Clear POCT Specific [place], Urine 1.005 - 1.030 1.020 POCT Protein, Urine Negative mg/dL 30 ! POCT pH, Urine 5.0 - 8.0 6.0 POCT Glucose Urine Negative mg/dL Negative POCT Bilirubin, Urine Negative mg/dL Negative POCT Ketones, Urine Negative mg/dL Negative POCT Blood, Urine Negative Moderate ! POCT Urobilinogen, Urine 0.2, 1.0 EU/dL 2.0 ! POCT Leukocyte Esterase, Urine Negative Negative POCT Nitrite, Urine Negative Negative Additional Labs: 03/26/2025 - WBC 8.4, hgb 14.4, creat 1.0, lactate 2.0 Imaging: CT C/A/P (09/05/2023) - calcified right upper paratracheal nodes. Multiple enlarging bilateral pulmonary nodules, up to 1.2cm in RLL and BRYNN. No bony lesions. No renal lesions or stones; interval removal of left sided ureteral stent with reaccumulation of moderate left hydro and parenchymal thinning.Left retroperitoneal soft tissue nodule measuring 1.5 x 1.0cm, abutting left ureter and likely causing left ureteral obstruction. Increased retroperitoneal LAD, including 1.5cm para-aortic node. CT C/A/P (05/27/2024) - slight increase in right lung nodule measuring 1.7cm (was 1.4cm). New nodulein BRYNN measuring 1cm and enlarging nodule in LLL measuring 2.6cm (was 2.2). Slight decrease in right hepatic lobe nodule (3.1 cm --> 2.8cm) but increase in size of left periaortic LAD (up to 2.2cm). CT C/A/P (09/22/2024) - increased pulmonary mets now up to 2cm. Worsening left amna-aortic LAD up to9cm. Bone scan (09/27/2024) - no osseous mets CT C/A/P (02/18/2025) - progressive pulmonary mets, stable liver mets and stable retroperitoneal sam mass with persistent left hydro. CT A/P with (03/26/2025) - interval worsening innumerable bibasilar lung nodules. Stable 3cm right liver mass. Severe left hydro and proximal hydroureter, abruptly tapering at the level of left periaortic LAD, stable with left renal cortex thinning. Moderate prostatomegaly. Partially decompressed bladder. PVR (03/30/2025) - 3mL Assessment/Plan Left hydronephrosis - He was originally found to have new left hydro by CT in 06/2022, secondary toa retroperitoneal left common iliac nodule (node vs tumor deposit) at level of mid left ureter causing obstruction. Left URS was unsuccessful due to area of narrowing in left ureter so stent was placed. In 09/2022, left URS showed a mid-ureteral stricture but no intraluminal tumor; stent changed atthat time. Pt requested for stent to be removed in 01/2023, no hydro or filling defects noted at RPG so stent was removed and he has been lost to f/u. He had CT in 09/2023 that showed reaccumulation of moderate left hydro secondary to a 1.5x1.0 cm retroperitoneal soft tissue nodule abutting left ure ter and likely causing left ureteral obstruction. More recently, was in OSH ED 03/26/2025 with LLQ abdominal pain, difficulty urinating, no BM x3 days. CT there showed interval worsening innumerable bibasilar lung nodules. Stable 3cm right liver mass. Severe left hydro and proximal hydroureter, abruptly tapering at the level of left periaortic LAD, stable with left renal cortex thinning. Moderate prostatomegaly. Partially decompressed bladder. Creat 1.0. His UA today shows moderate blood, trace protein; PVR 3mL - Discussed ongoing left hydro, likely secondary to extrinsic compression of the left ureter by bulky LAD/mets. However, this is a chronic issue, dating back to 2021 so I am not sure this would explain his NEW left sided pain. - Was in ED recently with LLQ pain but also constipation issues. Discussed that hydro could definitely be a source of his pain but may be unrelated also given chronicity of hydro. Renal function remains normal. He is emptying his bladder fine today. - Discussed possible alternative causes of left sided pain, including from known malignancy/metastasis, possible nerve compression from bulky LAD, MSK, constipation - Discussed stent placement vs perc tube to decompress the left kidney. He tolerated ureteral stentpoorly in the past so opts for left PNT placement, will arrange in IR. If pain does not improve with renal decompression, then it is likely not due to hydro and PNT could theoretically be removed. - Urine C&S sent today to ensure no UTI as source of pain Chacha Perales PA-C [1] Past Medical History: Diagnosis Date Cancer (CMS/HCC) met colorectal to liver; lung lesion; left ureteral lesion, last chemo 11/07/22, denies cardiopulmonary issues with chemo Colon cancer (CMS/HCC) 2019 Coughing 10/2022 last 2 weeks, reports no other symptoms, worse at night Exercise tolerance finding 01/07/2023 Can climb 3 flights of stairs w/o SOB GERD (gastroesophageal reflux disease) Hiatal hernia Hx of radiation therapy 10/2022 Lesion of ureter left Liver cancer (CMS/HCC) 2019 Lung nodules 2021 Denies problems from [2] Past Surgical History: Procedure Laterality Date CHOLECYSTECTOMY COLECTOMY PARTIAL / TOTAL N/A Partial Colectomy from [facility] COLON SURGERY LIVER SURGERY LIVER SURGERY 05/16/2021 laparoscopy MWA of seg 02/05, ileostomy closure, mediport MYRINGOTOMY W/ TUBES OTHER SURGICAL HISTORY N/A Low anterior resection from [employer] TONSILLECTOMY URETEROSCOPY Left 07/03/2022 with biopsy and ureteral stent placement. ([facility]) documented in this encounter Plan of Treatment Upcoming Encounters Date Type Department Care Team (Late st Contact Info) Description 09/30/2025 10:40 AM EST Office Visit [place] [facility] [address] [place] [address] Alvina Carroll, EUNICE [address] [place] [address] Scheduled Orders Name Type Priority Associated Diagnoses Orde r Schedule CT Guided Neph Tube Placement Left Imaging Routine Hydronephrosis of left kidney Expected: 03/30/2025, Expires: 10/01/2026 documented as of this encounter Procedures Procedure Name Priority Date/Time Associated Diagnosis Comments URINE CULTURE Routine 03/30/2025 11:13 AM EDT Microhematuria POC US BLADDER SCAN FOR VOLUME Routine 03/30/2025 11:05 AM EDT Malignant neoplasm of rectum (CMS/HCC) Urge incontinence POCT URINALYSIS DIPSTICK Routine 03/30/2025 10:57 AM EDT documented in this encounter Results * (ABNORMAL) Urine Culture - Clinic Collect (03/30/2025 11:13 AM EDT) Culture <10,000 CFU/mL Staphylococcus coagulase negative(A) 04/01/2025 10:38 AM EDT [facility] Culture <10,000 CFU/mL Corynebacterium species(A) 04/01/2025 10:38 AM EDT [facility] Comment:The organism value f or this result has been updated. These results have been appended to the previously preliminary verified report. Urine Urine specimen obtained by clean catch procedure / Unknown Non-blood Collection / Unknown 03/30/2025 11:13 AM EDT 03/30/2025 1:01 PM EDT us [facility] MICROBIOLOGY - GENERAL ORDERABLES Final Result [facility] [address] [place] [address] * POC US Bladder Volume (03/30/2025 11:05 AM EDT) Urine, Volume 3 mL IMAGING Anatomical Region Laterality Modality Other [facility] POINT OF CARE ULTRASOU ND Final Result * (ABNORMAL) POCT URINALYSIS DIPSTICK (03/30/2025 10:57 AM EDT) POCT Urine Color Yellow 03/30/2025 10:59 AM EDT [facility] POCT Urine Clarity Clear 03/30/2025 10:59 AM EDT [facility] POCT Urine Glucose Negative Negative mg/dL 03/30/2025 10:59 AM EDT [facility] POCT Urine Bilirubin Negative Negative mg/dL 03/30/2025 10:59 AM EDT [facility] POCT Urine Ketones Negative Negative mg/dL 03/30/2025 10:59 AM EDT [facility] POCT Urine Specific [place] 1.020 1.005 - 1.030 03/30/2025 10:59 AM EDT [facility] POCT Urine Blood Moderate(A) Negative 03/30/2025 10:59 AM EDT [facility] POCT pH, Urine 6.0 5.0 - 8.0 03/30/2025 10:59 AM EDT [facility] POCT Protein, Urine 30(A) Negative mg/dL 03/30/2025 10:59 AM EDT [facility] POCT Urobilinogen, Urine 2.0(A) 0.2, 1.0 EU/dL 03/30/2025 10:59 AM EDT [facility] POCT Nitrite, Urine Negative Negative 03/30/2025 10:59 AM EDT [facility] POCT Urine Leukocyte Esterase Negative Negative 03/30/2025 10:59 AM EDT [facility] Urine 03/30/2025 10:5 7 AM EDT 03/30/2025 10:59 AM EDT [facility] POINT OF CARE TEST DOCKED DEVICE UNSOLICITED RESULTS Final Result [facility] [address], [place] documented in this encounter Visit Diagnoses Diagnosis Urge incontinence- Primary Malignant neoplasm of rectum (CMS/HCC) Malignant neoplasm of rectum Microhematuria Hydronephrosis of left kidney Hydronephrosis documented in this encounter Additional Health Concerns Assessment Noted Time A fall risk assessment has been complete d for the patient 03/30/2025 10:51 AM EDT A Body Mass Index follow-up plan has been documented for the patient 03/30/2025 12:39 PM EDT documented as of this encounter Care Teams Costume Director Relationship Specialty Start Date End Date Dolores Grande APRN [address] [place] [address] PCP - General 02/11/22 Abelino Mars MD [address] [facility] [address] [place] [address] Surgeon Colon and Rectal Surgery 06/19/21 Michael Rodriguez MD [address] [facility] [address] [place] [phone] Surgeon Surgical Oncology 06/19/21 Luis M Maldonado MD [address] [facility] [address] [place] [phone] Consulting Physician Radiation Oncology 06/06/22 documented as of this encounter
--- OUTSIDE RECORDS SUMMARY | 2025-04-06 10:32 | XMS_ITS | Encounter Summary ---
Author Organization [facility] Address [address] [place] [address] Care Team Providers Care Hand Fabric Cutter Name Role Phone Abelino Mars MD Unavailable [phone] Michael Rodriguez MD Unavailable [phone] Dolores Grande APRN Primary Care Provider + [phone] Luis M Maldonado MD Unavailable [phone] Encounter Details Date Type Department Care Team (Late st Contact Info) Description 04/06/2025 Results Follow-Up [place] [facility] [address] [place] [address] Chacha Perales PA [address] [place] [address] Social History Tobacco Use Types Packs/Day Years [...] as of this encounter Plan of Treatment Upcoming Encounters Date Type Department Care Team (Late st Contact Info) Description 09/30/2025 10:40 AM EST Office Visit [place] [facility] [address] [place] [address] Alvina Carroll, VETERINARY TOXICOLOGIST [address] [place] [address] documented as of this encounter Visit Diagnoses Not on filedocumented in this encounter Additional Health Concerns Assessment Noted Time A fall risk assessment has been complete d for the patient 03/30/2025 10:51 AM EDT A Body Mass Index follow-up plan has been documented for the patient 03/30/2025 12:39 PM EDT documented as of this encounter Care Teams Hand Fabric Cutter Relationship Specialty Start Date End Date Dolores Grande APRN [address] [place] [address] PCP - General 02/11/22 Abelino Mars MD [address] [place] [address] Surgeon Colon and Rectal Surgery 06/19/21 Michael Rodriguez MD [address] [place] [address] Surgeon Surgical Oncology 06/19/21 Luis M Maldonado MD [address] [facility] [address] [place] [address] Consulting Physician Radiation Oncology 06/06/22 documented as of this encounter
--- OUTSIDE RECORDS SUMMARY | 2025-04-06 10:32 | XMS_ITS | Encounter Summary ---
Author Organization [facility] Address [address] [place] [address] Care Team Providers Care Calender Roll Press Operator Name Role Phone Abelino Mars MD Unavailable [phone] Michael Rodriguez MD Unavailable [phone] Dolores Grande APRN Primary Care Provider [phone]- [phone] uLis M Maldonado MD Unavailable [phone] Reason for Visit * Reason Onset Date Comments Records and imaging request 03/29/2025 Encounter Details Date Type Department Care Team (Late st Contact Info) Description 03/29/2025 Telephone [facility] [facility] [address] [place] [address] Chacha Perales, AMY [address] [place] [address] Records and imaging request Social History Tobacco Use Types Packs/Day Years [...] on file documented as of this encounter Miscellaneous Notes * Telephone Encounter - Sherin Reeder - 03/29/2025 12:45 PM EDT Records received and uploaded to media. Images shared and are in chart. * Telephone Encounter - Sherin Reeder - 03/29/2025 10:26 AM EDT Patient was added for an appointment tomorrow without records or images. These have been requested. Records: [phone], had to leave a message, also faxed a request to [phone]. Radiology / main # [phone] then transferred. Willa is to share. documented in this encounter Plan of Treatment Upcoming Encounters Date Type Department Care Team (Late st Contact Info) Description 09/30/2025 10:40 AM EST Office Visit [facility] [facility] [address] [place] [address] Alvina Carroll APRN [address] [facility] [address] [place] [address] documented as of this encounter Visit Diagnoses Not on filedocumented in this encounter Additional Health Concerns Assessment Noted Time A fall risk assessment has been complete d for the patient 05/27/2023 9:38 AM EDT A Body Mass Index follow-up plan has been documented for the patient 02/17/2023 1:57 PM EDT documented as of this encounter Care Teams Calender Roll Press Operator Relationship Specialty Start Date End Date Dolores Grande APRN [address] [place] [address] PCP - General 02/11/22 Abelino Mars MD [address] [place] [address] Surgeon Colon and Rectal Surgery 06/19/21 Michael Rodriguez MD [address] [address] Surgeon Surgical Oncology 06/19/21 Luis M Maldonado MD [address] [facility] [address] [place] [address] Consulting Physician Radiation Oncology 06/06/22 documented as of this encounter
--- OUTSIDE RECORDS SUMMARY | 2025-04-06 10:32 | XMS_ITS | Encounter Summary ---
Author Organization [facility] Address [address] [place] [address] Care Team Providers Care Crester Name Role Phone Marcello Merchant MD Primary Care Provider Abelino Mars MD Unavailable [phone] Michael Rodriguez MD Unavailable [phone] Dolores Grande APRN Primary Care Provider + [phone] Luis M Maldonado MD Unavailable [phone] Encounter Details Date Type Department Care Team (Late st Contact Info) Description 01/12/2021 Abstract [facility] [address] [place] [address] Vera Schaeffer, RN AMB-PRECISION MEDICINE RESEARCH & [...] Description 09/30/2025 10:40 AM EST Office Visit [place] [facility] [address] [place] [address] Alvina Carroll APRN [address] [place] [address] documented as of this encounter Visit Diagnoses Not on filedocumented in this encounter Care Teams Crester Relationship Specialty Start Date End Date Marcello Merchant MD [address] [place] [address] PCP - General 01/12/21 02/10/22 Dolorse Grande APRN [address] [place], [place] [address] PCP - General 02/11/22 Abelino Mars MD [address] [place] [address] Surgeon Colon and Rectal Surgery 06/19/21 Michael Rodriguez MD [address] [address] Surgeon Surgical Oncology 06/19/21 Luis M Maldonado MD [address] [facility] [address] [place] [address] Consulting Physician Radiation Oncology 06/06/22 documented as of this encounter
--- OUTSIDE RECORDS SUMMARY | 2025-04-06 10:32 | XMS_ITS | Encounter Summary ---
Author Organization [facility] Address [address] [place] [address] Care Team Providers Care Financial Advisor Trainee Name Role Phone Abelino Mars MD Unavailable [phone] Michael Rodriguez MD Unavailable [phone] Dolores Grande APRN Primary Care Provider [phone] Luis M Maldonado MD Unavailable [phone] Reason for Visit * Reason Onset Date Comments HCN - Patient Message 03/28/2025 Obstructio n, swollen prostate Encounter Details Date Type Department Care Team (Late st Contact Info) Description 03/28/2025 Telephone [place] [facility] [address] [place] [address] Ruy Fleming MD [address] [place] [address] HCN - Patient Message (Obstruction, swollen prostate ) Social History Tobacco Use Types Packs/Day Years [...] on file documented as of this encounter Functional Status * Over the [...] encounter Miscellaneous Notes * Telephone Encounter - Robetr Patton MD - 03/28/2025 3:48 PM EDT Looks like hydro may be chronic when reviewing chart from 2022. He is set to see Chacha Perales in clinic this week. That seems like appropriate follow up * Telephone Encounter - Tram Aguero LPN - 03/28/2025 1:09 PM EDT I called and spoke with Juliet from [facility]. Patient was seen on Friday with left sided pain. CT scan was done and it showed hydronephrosis on that said and also an enlarge prostate. He had a creatine lvl done and it was a 1. He is voiding but not great in her terms. I also spoke with Radiology and I have requested the images on 03/26 to be sent to the clinic. Patient does not have a future appointment and was last seen in our clinic back in 2022. Please advise. Thanks * Telephone Encounter - Eli Caldera - 03/28/2025 10:14 AM EDT Patient Phone Message Reason for Call: Juliet with [facility] calling to advise pt has left hydronephrosis causing obstruction. Report was sent over today. Best contact number and optimal time of day to reach caller: Juliet [phone] Sanjuanita (pt spouse) [phone] Note: Please do not reply to this message. Follow-up communication and further actions as a result of this message need to be communicated with the patient directly, if the patient is not active onMyChart. If the patient is active on MyChart, they will receive notification of the communication/outcome via [email or web address]. documented in this encounter Plan of Treatment Upcoming Encounters Date Type Department Care Team (Late st Contact Info) Description 09/30/2025 10:40 AM EST Office Visit [place] [facility] [address] [place] [address] Alvina Carroll APRN [address] [place] [address] documented as of this encounter Visit Diagnoses Not on filedocumented in this encounter Additional Health Concerns Assessment Noted Time A fall risk assessment has been complete d for the patient 05/27/2023 9:38 AM EDT A Body Mass Index follow-up plan has been documented for the patient 02/17/2023 1:57 PM EDT documented as of this encounter Care Teams Financial Advisor Trainee Relationship Specialty Start Date End Date Dolores Grande APRN [address] [place] [address] PCP - General 02/11/22 Abelino Mars MD [address] [place] [address] Surgeon Colon and Rectal Surgery 06/19/21 Michael Rodriguez MD [address] [address] Surgeon Surgical Oncology 06/19/21 Luis M Maldonado MD [address] [facility] [address] [place] [address] Consulting Physician Radiation Oncology 06/06/22 documented as of this encounter
--- OUTSIDE RECORDS SUMMARY | 2025-04-06 10:32 | XMS_ITS | Encounter Summary ---
Author Organization [facility] Address [address] [place] [address] Care Team Providers Care Dairy Farmer Name Role Phone Abelino Mars MD Unavailable [phone] Michael Rodriguez MD Unavailable [phone] Dolores Grande APRN Primary Care Provider + [phone] Luis M Maldonado MD Unavailable [phone] Encounter Details Date Type Department Care Team (Latest Contact Info) Description 03/28/2025 Travel Social History Tobacco Use Types Packs/Day Years [...] Office Visit [place] [facility] [address] [place] [address] Alvina Carroll, PORCELAIN MIXER [address] [place] [address] documented as of this encounter Visit Diagnoses Not on filedocumented in this encounter Additional Health Concerns Assessment Noted Time A fall risk assessment has been complete d for the patient 05/27/2023 9:38 AM EDT A Body Mass Index follow-up plan has been documented for the patient 02/17/2023 1:57 PM EDT documented as of this encounter Care Teams Dairy Farmer Relationship Specialty Start Date End Date Dolores Grande APRN [address] [place] [address] PCP - General 02/11/22 Abelino Mars MD [address] [place] [address] Surgeon Colon and Rectal Surgery 06/19/21 Michael Rodriguez MD [address] [address] Surgeon Surgical Oncology 06/19/21 Luis M Maldonado MD [address] [facility] [address] [place] [address] Consulting Physician Radiation Oncology 06/06/22 documented as of this encounter
--- OUTSIDE RECORDS SUMMARY | 2025-04-06 10:32 | XMS_ITS | Encounter Summary ---
Author Organization [facility] Address [address] [place] [address] Care Team Providers Care Resort Host Name Role Phone Marcello Merchant MD Primary Care Provider [phone] Abelino Mars MD Unavailable [phone] Michael Rodriguez MD Unavailable [phone] Dolores Grande APRN Primary Care Provider [phone] Luis M Maldonado MD Unavailable [phone] Encounter Details Date Type Department Care Team (Late st Contact Info) Description 07/05/2021 Lab Requisition [facility] [address] [place] [address] Sherin Saleh MD [address] [place] [address] Malignant neoplasm of rectosigmoid junction (CMS/HCC); [...] Description 09/30/2025 10:40 AM EST Office Visit [place] [facility] [address] [place] [address] Alvina Carroll, SUPERVISOR COMMUNICATIONS AND SIGNALS [address] [place] [address] documented as of this encounter Procedures Procedure Name Priority Date/Time Associated Diagnosis Comments HISTORICAL SURGICAL PATHOLOGY CASE ADDENDUM Routine 07/05/2021 12:00 PM EDT 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) documented in this encounter Results * Historical Surgical Pathology Case Addendum (07/05/2021 12:00 PM EDT) Case Report Historical Case Addendum/Amendment Case: [id number] Authorizing Provider: Sherin Saleh MD Collected: 07/05/2021 1200 Ordering Location: [facility] Received: 07/05/2021 1645 Pathologist: Yusra Blue MD Specimen: [id number] 07/06/2021 2:53 PM EDT [facility] Final Diagnosis This case was collected on 12/11/2020, was originally reported as case [id number].The entire [id number] report can be viewed as a scanned [...] developed by and are performed at the [facility], [address] [facility], [place] [address]. All tests reported here, except those addressing [...] on decalcified specimens. 07/06/2021 2:53 PM EDT [facility] at 1453 EDT Gross Description A. [id number] Reaccessioned for billing purposes only. 07/06/2021 2:53 PM EDT [facility] Note: A resident was involved in the service. I attest I examined the relevant preparations for the specimens and confirmed the diagnosis or interpretation. 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) documented in this encounter Additional Health Concerns Assessment Noted Time A fall risk assessment has been complete d for the patient 06/19/2021 1:10 PM EDT documented as of this encounter Care Teams Resort Host Relationship Specialty Start Date End Date Marcello Merchant MD [address] [place] [address] [place] [address] PCP - General 01/12/21 02/10/22 Dolores Grande APRN [address] [place] [address] PCP - General 02/11/22 Abelino Mars MD [address] [place] [address] Surgeon Colon and Rectal Surgery 06/19/21 Michael Rodriguez MD [address] [address] Surgeon Surgical Oncology 06/19/21 Luis M Maldonado MD [address] [facility] [address] [place] [address] Consulting Physician Radiation Oncology 06/06/22 documented as of this encounter
--- OUTSIDE RECORDS SUMMARY | 2025-04-06 10:32 | XMS_ITS | Encounter Summary ---
Author Organization [facility] Address [address] [id number] Care Team Providers Care Parish Visitor Name Role Phone Marcello Merchant MD Primary Care Provider [phone] Abelino Mars MD Unavailable [phone] Michael Rodriguez MD Unavailable [phone] Dolores Grande APRN Primary Care Provider [phone] Luis M Maldonado MD Unavailable [phone] Encounter Details Date Type Department Care Team (Late st Contact Info) Description 07/09/2021 Lab Requisition [facility] [address] [place] [address] Michael Rodriguez MD [address] [id number] Malignant neoplasm of rectosigmoid junction (CMS/HCC); Secondary [...] Office Visit [place] [facility] [address] [place] [address] Alvina Carroll, CHARGE ENTRY [address] [place] [address] documented as of this encounter Procedures Procedure Name Priority Date/Time Associated Diagnosis Comments AP MISCELLANEOUS LAB TEST (SO) Routine 07/09/2021 12:00 PM EST 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) documented in this encounter Results * - Miscellaneous Test (07/09/2021 12:00 PM EST) Test name Sign[facility] 08/28/2021 10:54 AM EST [facility] Comment:Jackie Test Result see scan 08/28/2021 10:54 AM EST [facility] See Scanned Result 08/28/2021 10:54 AM [facility] Tissue 07/09/2021 12:0 0 PM EST 07/09/2021 3:39 PM EST us Michael Rodriguez MD LAB REF LAB BLOOD AND FLUID ORD Final Result [facility] [address] [place] [address] documented in this encounter Visit Diagnoses Diagnosis 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) documented in this encounter Additional Health Concerns Assessment Noted Time A fall risk assessment has been complete d for the patient 06/19/2021 1:10 PM EDT documented as of this encounter Care Teams Parish Visitor Relationship Specialty Start Date End Date Marcello Merchant MD [address] [place] [address] PCP - General 01/12/21 02/10/22 Dolores Grande APRN [address] [place], [place] [address] PCP - General 02/11/22 Abelino Mars MD [address] [facility] [address] [place] [address] Surgeon Colon and Rectal Surgery 06/19/21 Michael Rodriguez MD [address] [facility] [address] [place] [address] Surgeon Surgical Oncology 06/19/21 Luis M Maldonado MD [address] [facility] [address] [place] [address] Consulting Physician Radiation Oncology 06/06/22 documented as of this encounter
--- OUTSIDE RECORDS SUMMARY | 2025-04-06 10:32 | XMS_ITS | Encounter Summary ---
Author Organization [facility] Address [address] [place] [address] Care Team Providers Care Risk Consulting Treasury Director Name Role Phone Abelino Mars MD Unavailable [phone] Michael Rodriguez MD Unavailable Dolores Grande APRN Primary Care Provider [phone] Luis M Maldonado MD Unavailable [phone] Encounter Details Date Type Department Care Team (Latest Contact Info) Description 03/30/2025 Travel Social History Tobacco Use Types Packs/Day [...] Avtar Morley documented as of this encounter Plan of Treatment Upcoming Encounters Date Type Department Care Team (Late st Contact Info) Description 09/30/2025 10:40 AM EST Office Visit [place] [facility] [address], [address] [place] [address] Alvina Carroll APRN [address] [facility] [address] [place] [address] documented as of this encounter Visit Diagnoses Not on filedocumented in this encounter Additional Health Concerns Assessment Noted Time A fall risk assessment has been complete d for the patient 03/30/2025 10:51 AM EDT A Body Mass Index follow-up plan has been documented for the patient 03/30/2025 12:39 PM EDT documented as of this encounter Care Teams Risk Consulting Treasury Director Relationship Specialty Start Date End Date Dolores Grande APRN [address] [place] [address] PCP - General 02/11/22 Abelino Mars MD [address] [facility] [address] [place] [address] Surgeon Colon and Rectal Surgery 06/19/21 Michael Rodriguez MD [address] [facility] 1st [place] [address] Surgeon Surgical Oncology 06/19/21 uLis M Maldonado MD [address] [facility] [address] [place] [address] Consulting Physician Radiation Oncology 06/06/22 documented as of this encounter
--- OUTSIDE RECORDS SUMMARY | 2025-04-06 10:32 | XMS_ITS | Encounter Summary ---
Author Organization [facility] Address [address] [place] [address] Care Team Providers Care Contact Lens Edge Buffer Name Role Phone Abelino Mars MD Unavailable [phone] Michael Rodriguez MD Unavailable [phone] Dolores Grande APRN Primary Care Provider + [phone] Luis M Maldonado MD Unavailable [phone] Encounter Details Date Type Department Care Team (Late st Contact Info) Description 03/26/2025 Orders Only External Location [address] [place] [address] RodriguezHafsa, DO [address] [place] [address] Social History Tobacco Use Types Packs/Day Years [...] Description 09/30/2025 10:40 AM EST Office Visit [place] [facility] [address], [address] [place] [address] Alvina Carroll APRN [address] [facility] [address] [place] [address] documented as of this encounter Procedures Procedure Name Priority Date/Time Associated Diagnosis Comments CT OUTSIDE IMAGES 03/26/2025 11:03 PM EDT documented in this encounter Results * CT OUTSIDE IMAGES (03/26/2025 11:03 PM EDT) Anatomical Region Laterality Modality Computed Tomogra phy 03/26/2025 11:0 3 PM [address]T [address] PROCEDURES Final Result documented in this encounter Visit Diagnoses Not on filedocumented in this encounter Additional Health Concerns Assessment Noted Time A fall risk assessment has been complete d for the patient 05/27/2023 9:38 AM EDT A Body Mass Index follow-up plan has been documented for the patient 02/17/2023 1:57 PM EDT documented as of this encounter Care Teams Contact Lens Edge Buffer Relationship Specialty Start Date End Date Dolores Grande APRN [address] [place] [address] PCP - General 02/11/22 Abelino Mars MD [address] [facility] [address] [place] [address] Surgeon Colon and Rectal Surgery 06/19/21 Michael Rodriguez MD [address] [place] [address] Surgeon Surgical Oncology 06/19/21 Luis M Maldonado MD [address] [facility] [address] [place] [address] Consulting Physician Radiation Oncology 06/06/22 documented as of this encounter
--- OUTSIDE RECORDS SUMMARY | 2025-04-06 10:32 | XMS_ITS | Encounter Summary ---
Author Organization [facility] Address [address] [place] [address] Care Team Providers Care Psychiatrist Name Role Phone Abelino Mars MD Unavailable [phone] Michael Rodriguez MD Unavailable [phone] Dolores Grande APRN Primary Care Provider + [phone] Luis M Maldonado MD Unavailable [phone] Encounter Details Date Type Department Care Team (Late st Contact Info) Description 03/26/2025 Orders Only External Location [address] [place] [address] Provider, External Social History Tobacco Use Types Packs/Day Years [...] Office Visit [place] [facility] [address] [place] [address] Alvina Carroll, [employer]OC[employer] RO[employer]ER [address] [place] [address] documented as of this encounter Procedures Procedure Name Priority Date/Time Associated Diagnosis Comments CT MSK OUTSIDE IMAGES 03/26/2025 11:03 PM EDT documented in this encounter Results * CT MSK OUTSIDE IMAGES (03/26/2025 11:03 PM EDT) Anatomical Region Laterality Modality Computed Tomogra phy 03/26/2025 11:0 3 PM EDT us External Provider IMG CT PROCEDURES Final Result documented in this encounter Visit Diagnoses Not on filedocumented in this encounter Additional Health Concerns Assessment Noted Time A fall risk assessment has been complete d for the patient 05/27/2023 9:38 AM EDT A Body Mass Index follow-up plan has been documented for the patient 02/17/2023 1:57 PM EDT documented as of this encounter Care Teams Psychiatrist Relationship Specialty Start Date End Date Dolores Grande APRN [address] [place] [address] PCP - General 02/11/22 Abelino Mars MD [address] [facility] [address] [place] [address] Surgeon Colon and Rectal Surgery 06/19/21 Michael Rodriguez MD [address] [address] Surgeon Surgical Oncology 06/19/21 Luis M Maldonado MD [address] [facility] [address] [place] [address] Consulting Physician Radiation Oncology 06/06/22 documented as of this encounter
--- OUTSIDE RECORDS SUMMARY | 2025-04-06 10:34 | XMS_ITS | Clinical Summary ---
Author Organization [facility] Address [address] [place] [address] Phone Care Team Providers Care Supply Cataloguer Name Role Phone Unavailable Primary Care Provider [...]
--- OUTSIDE RECORDS SUMMARY | 2025-04-06 10:34 | XMS_ITS | Encounter Summary ---
Author Organization [facility] Address [address] [id number] Care Team Providers Care Diet Assistant Name Role Phone Abelino Mars MD Unavailable [phone] Michael Rodriguez MD Unavailable [phone] Dolores Grande APRN Primary Care Provider + [phone] Luis M Maldonado MD Unavailable [phone] Encounter Details Date Type Department Care Team (Late st Contact Info) Description 01/07/2023 Lab Requisition [facility] [address] [place] [address] Michael Rodriguez MD [address] [address] Malignant neoplasm of rectum (CMS/HCC) [...] Office Visit [place] [facility] [address] [place] [address] Alvina Carroll APRN [address] [place] [address] documented as of this encounter Procedures Procedure Name Priority Date/Time Associated Diagnosis Comments AP MISCELLANEOUS LAB TEST (SO) Routine 01/07/2023 3:47 PM EDT Malignant neoplasm of rectum (CMS/HCC) documented in this encounter Results * - AP Miscellaneous Test (01/07/2023 3:47 PM EDT) Test name WV Profile 01/30/2023 12:41 PM EDT [facility] Comment:[id number] Test Result see scan 01/30/2023 12:41 PM EDT [facility] See Scanned Result 01/30/2023 12:41 PM EDT [facility] Tissue 01/07/2023 3:47 PM EDT 01/07/2023 3:47 PM EDT us Michael Rodriguez MD LAB REF LAB BLOOD AND FLUID ORD Final Result [facility] documented in this encounter [...] documented as of this encounter Care Teams Diet Assistant Relationship Specialty Start Date End Date Dolores Grande APRN [address] [place] [address] PCP - General 02/11/22 Abelino Mars MD [address] [facility] [address] [place] [address] Surgeon Colon and Rectal Surgery 06/19/21 Michael Rodriguez MD [address] [address] Surgeon Surgical Oncology 06/19/21 Luis M Maldonado MD [address] [facility] [address] [place] [address] Consulting Physician Radiation Oncology 06/06/22 documented as of this encounter
--- OUTSIDE RECORDS SUMMARY | 2025-04-06 10:34 | XMS_ITS | Clinical Summary ---
Author Organization [facility] Address [address] [place] [address] Care Team Providers Care Maintenance Apprentice Name Role Phone Abelino Mars MD Unavailable [phone] Michael Rodriguez MD Unavailable [phone] Dolores Grande APRN Primary Care Provider [phone] Luis M Maldonado MD Unavailable [phone] Allergies Active Allergy Reactions Criticality Noted Date Comments Cetuximab Anaphylaxis High 05/27/2023 STEMI @ OSH w/ Cetuximab Medications Aspirin Low Dose 81 MG chewable tablet Chew 1 tablet (81 mg) 1 (one) time each day. 3 Active atorvastatin (Lipitor) 80 MG tablet Take 1 tablet (80 mg) by mouth every night. 3 Active dexamethasone (Decadron) 4 MG tabletIndicati ons:Malignant neoplasm of rectum (CMS/HCC) Take 2 tablets (8 mg) by mouth 1 (one) time each day. For 2 days starting the day after chemotherapy. 48 tablet 3 Active prochlorperazi ne (Compazine) 10 MG tabletIndicati ons:Malignant neoplasm of rectum (CMS/HCC) Take 1 tablet (10 mg) by mouth every 6 (six) hours if needed for nausea or vomiting. 30 tablet 5 3 Active loperamide (Imodium A-D) 2 MG tabletIndicati ons:Malignant neoplasm of rectum (CMS/HCC) 2 mg by mouth every 2 hours as needed for diarrhea; Not to exceed 16 mg in 24 hours 30 tablet 5 3 Active Stivarga 40 MG chemo tablet 5 Active oxyCODONE-acet aminophen (Percocet) 7.5-325 MG tablet TAKE ONE TABLET BY MOUTH FOUR TIMES DAILY MAY CAUSE DROWSINESS 5 Active methocarbamol (Robaxin) 750 MG tablet Take 1 tablet by mouth 3 times a day. 5 Active ibuprofen 800 MG tablet TAKE ONE TABLET BY MOUTH EVERY 8 HOURS --TAKE WITH FOOD-- 5 Active gabapentin (Neurontin) 300 MG capsule TAKE ONE CAPSULE BY MOUTH THREE TIMES DAILY MAY CAUSE DROWSINESS 5 Active albuterol 108 (90 Base) MCG/ACT inhaler INHALE 1 PUFF BY MOUTH EVERY 6 HOURS NEEDED FOR SHORTNESS OF BREATH OR WHEEZING 5 Active clopidogrel (Plavix) 75 MG tablet Take 1 tablet (75 mg) by mouth 1 (one) time each day. 3 03/30/20 25 Discontinu ed(Per Patient Report) Entresto 24-26 MG tablet Take 1 tablet by mouth. 3 03/30/20 25 Discontinu ed(Per Patient Report) Active Problems Problem Noted Date Diagnosed Date Second hand smoke exposure 05/27/2023 Gastroesophageal reflux disease 02/18/2023 Tobacco use disorder 09/03/2022 Lung nodules 06/06/2022 Malignant neoplasm of rectum 04/24/2021 Cancer Staging:Pathologic stage from 12/12/2020:Stage YASMIN(ypT3, ypN1b, cM1a) - Signed by Michael Rodriguez MD on 05/02/2021 Overview (04/24/2021): Added automatically from request for surgery [id number] Encounters Date Type Department Care Team Description 04/06/2025 Results Follow-Up [facility] Urology [address] [place] [address] Chacha Perales PA 03/30/2025 11:00 AM EDT Office Visit [facility]rology [address] [place] [address] Chacha Perales PA Urge incontinence (Primary Dx); Malignant neoplasm of rectum (CMS/HCC); Microhematuria; Hydronephrosis of left kidney 03/30/2025 Travel 03/29/2025 Telephone [facility] Urology [address] [place] [address] Chacha Perales PA Records and imaging request 03/28/2025 Travel 03/28/2025 Telephone [facility]rology [address] [place] [address] Ruy Fleming MD HCN - Patient Message (Obstruction, swollen prostate ) 03/26/2025 Orders Only External Location [address] [place] [address] Provider, External 03/26/2025 Orders Only External Location [address] [place] [address] Hafsa Rodriguez DO from Last 3 Months Family History Medical History Relation Name Comments [...] Pulse 72 03/30/2025 10:59 AM EDT Temperature 36.5 C (97.7 F) 05/27/2023 9:35 AM EDT Respiratory Rate 16 03/30/2025 10:5 9 AM EDT Oxygen Saturation 98% 03/30/2025 10: 59 AM EDT Inhaled Oxygen Concentration - - Weight 97.4 kg (214 lb 11.7 oz) 025 10:59 AM EDT Height 177.8 cm (5' 10 ) 05/27/2023 9:35 AM EDT Body Mass Index 30.81 05/27/2023 9:35 AM EDT Plan of Treatment Upcoming Encounters Date Type Department Care Team (Late st Contact Info) Description 09/30/2025 10:40 AM EST Office Visit [place] [facility] [address] [place] [address] Alvina Carroll, FEATHER SHAPER [address] [place] [address] Health Maintenance Due Date Last Done Comments CT Colonography 1975 FIT-DNA 1975 FIT 1975 FOBT 1975 Sigmoidoscopy 1975 [facility]-HIV Screening 1975 [facility]-Hepatitis C Screening 1975 [facility]-Medicare Annual Wellness (AWV) 1975 [facility]-Infant/Child/Adol SDOH Screenings 1975 [facility]- SDOH Screenings 1993 [facility]-Adult SDOH Screenings 1993 [facility]-Hepatitis B Vaccines (1 of 3 - 19+ 3-dose series) 1994 [facility]-Pneumococcal Vaccine: Pediatrics (0 to 5 Years) and At-Risk Patients (6 to 49 Years) (1 of 2 - PCV) 1994 [facility]-Zoster Vaccines (1 of 2) 1994 [facility]-ITQPC-00 Vaccine (3 - Pfizer risk series) 06/28/2021 2021, 05/03/2021 Colonoscopy 02/11/2023 02/11/2022, 09/11/2020 [facility]-Colorectal Cancer Screening 02/11/2023 [facility]-Influenza Vaccine (#1) 2025 [facility]-Depression Screening 03/30/2026 03/30/2025, 10/02 [facility]-DTaP,Tdap,and Td Vaccines (2 - Td or Tdap) 01/24/2030 01/25/2020 [facility]-Obesity Intervention Completed 025, 02/11/2023, 12/31/2022, Additional history exists HPV Vaccines Aged Out [...] this topic Medical Devices Implanted Type Area Explosive Ordnance Specialist Device Identifier Shelf Expiration Date Model / Serial / Lot Stent Ureteral Double Pigtail Pos 7fr 26cm - S.. - [id number] Implanted:Qty: 1 on 07/03/2022 by Ruy Fleming MD at [facility] Stent Left: [employer]-[id number] 09/21/2023 [id number] / .. / [id number] Stent Ureteral Double Pigtal Miquel Sun [id number] - [id number] Implanted:Qty: 1 on 09/18/2022 by Ruy Fleming MD at [facility] [employer]-[id number] 02/27/2025 [id number] / / [id number] Port [employer]vue [employer] 8fr - [id number] Implanted:Qty: 1 on 05/16/2021 by Michael Rodriguez MD at [facility] [employer]-[id number] 07/31/2022 [id number] / / Procedures Procedure Name Priority Date/Time Associated Diagnosis Comments URINE CULTURE Routine 03/30/2025 11:13 AM EDT Microhematuria POC US BLADDER SCAN FOR VOLUME Routine 03/30/2025 11:05 AM EDT Malignant neoplasm of rectum (CMS/HCC) Urge incontinence POCT URINALYSIS DIPSTICK Routine 03/30/2025 10:[address] MSK OUTSIDE IMAGES 03/26/2025 11:[address] OUTSIDE IMAGES 03/26/2025 11: 03 PM EDT COLONOSCOPY Routine 02/11/2022 10:41 AM EDT Malignant neoplasm of rectum (CMS/HCC) from Last 3 Months or Most Recently Relevant to Health Maintenance Results * (ABNORMAL) Urine Culture - Clinic Collect (03/30/2025 11:13 AM EDT) Culture <10,000 CFU/mL Staphylococcus coagulase negative(A) 04/01/2025 10:38 AM EDT [facility] Culture <10,000 CFU/mL Corynebacterium species(A) 04/01/2025 10:38 AM EDT [facility] Comment:The organism value f or this result has been updated. These results have been appended to the previously preliminary verified report. Urine Urine specimen obtained by clean catch procedure / Unknown Non-blood Collection / Unknown 03/30/2025 11:13 AM EDT 03/30/2025 1:01 PM EDT us [facility] MICROBIOLOGY - GENERAL ORDERABLES Final Result Performing Organization Address City/State/[facility] Co de Phone Number [facility] [address] [place] [address] * POC US Bladder Volume (03/30/2025 11:05 [...] [facility] POCT Urine Bilirubin Negative Negative mg/dL 03/30/2025 10:59 AM EDT [facility]OLOG[facility] POCT Urine Ketones Negative Negative mg/dL 03/30/2025 10:59 AM EDT [facility] UROLOG[facility] POCT Urine Specific [place] 1.020 1.005 - 1.030 03/30/2025 10:59 AM EDT [facility] UROLOG[facility] POCT Urine Blood Moderate(A) Negative 03/30/2025 10:59 AM EDT [facility] POCT pH, Urine 6.0 5.0 - 8.0 03/30/2025 10:59 AM EDT [facility]OLOG[facility] POCT Protein, Urine 30(A) Negative mg/dL 03/30/2025 10:59 AM EDT [facility] UROLOG[facility] POCT Urobilinogen, Urine 2.0(A) 0.2, 1.0 EU/dL 03/30/2025 10:59 AM EDT [facility]OLOG[facility] POCT Nitrite, Urine Negative Negative 03/30/2025 10:59 AM EDT [facility]OLOG[facility] POCT Urine Leukocyte Esterase Negative Negative 03/30/2025 10:59 AM EDT [facility] Urine 03/30/2025 10:5 7 AM EDT 03/30/2025 10:59 AM EDT us [facility] POINT OF CARE TEST DOCKED DEVICE UNSOLICITED RESULTS Final Result Performing Organization Address City/State/[facility] Co de Phone Number [facility] [address], [place] * CT OUTSIDE IMAGES (03/26/2025 11:03 PM EDT) Anatomical Region Laterality Modality Computed Tomogra phy 03/26/2025 11:0 3 PM EDT us Hafsa N Rodriguez DO IMG CT PROCEDURES Final Result * CT MSK OUTSIDE IMAGES (03/26/2025 11:03 PM EDT) Anatomical Region Laterality Modality Computed Tomogra phy 03/26/2025 11:0 3 PM EDT us External Provider IMG CT PROCEDURES Final Result * Colonoscopy (02/11/2022 10:41 AM EDT) Anatomical [...] of bowel preparation was evaluated using the [place] Bowel Preparation Scale with scores of: right [...] Most Recently Relevant to Health Maintenance Insurance GENERIC MEDICARE ADVANTAGE Care Teams Maintenance Apprentice Relationship Specialty Start Date End Date Dolores Grande APRN [address] [place] [address] PCP - General 02/11/22 Abelino Mars MD [address] [place] [address] Surgeon Colon and Rectal Surgery 06/19/21 Michael Rodriguez MD [address] [place] [address] Surgeon Surgical Oncology 06/19/21 Luis M Maldonado MD [address] [place] [address] Consulting Physician Radiation Oncology 06/06/22
--- OUTSIDE RECORDS SUMMARY | 2025-04-06 10:34 | XMS_ITS ---
Author Organization [facility] Address [address] [place] [address] Care Team Providers Care Scarf And Anneal Operator Name Role Phone Abelino Mars MD Unavailable [phone] Michael Rodriguez MD Unavailable [phone] Dolores Grande APRN Primary Care Provider [phone] Luis M Maldonado MD Unavailable [phone] Active Problems Problem Noted Date Diagnosed Date Second hand smoke exposure 05/27/2023 Gastroesophageal reflux disease 02/18/2023 Tobacco use disorder 09/03/2022 Lung nodules 06/06/2022 Malignant neoplasm of rectum 04/24/2021 Cancer Staging:Pathologic stage from 12/12/2020:Stage YASMIN(ypT3, ypN1b, cM1a) - Signed by Michael Rodriguez MD on 05/02/2021 Overview (04/24/2021): Added automatically from request for surgery [id number] Current Treatment and Therapy Plans No current [...]
--- NOTE | 2025-04-06 10:54 | EXP.PAIN.SOA ---
[facility] Disclaimer: The information contained in this section may have been updated after the patient was seen, as this information can be updated by other users. Medical History HTN (hypertension) HLD (hyperlipidemia) STEMI (ST elevation myocardial infarction) Shock On mechanically assisted ventilation Colon cancer Surgical History Hx of tonsillectomy Hx of myringotomy Family History Other No significant family history Social History Smoking Status: Current every day smoker tobacco type: smokeless tobacco alcohol intake: former substance use type: denies use current occupational status: other Travel in the last 8 weeks?: None household members: spouse housing: house current occupation: pain line current occupational exposures/hazards: No caffeine: Yes PM Subjective & Objective Subjective Subjective:: Patient is a pleasant 49-year-old male who presents today for medication refill and follow-up. Patient does state that he has been having worsening pain along his left flank. He rates his pain at 8 out of 10. He does state that he did go to and it ended up being that his kidney was swollen and 90% blocked. They are planning on putting a tube in very soon in order to allow for this to drain. Patient denies any other changes. He is prescribed Percocet 7.5 mg 4 times a day and methocarbamol 750 mg 3 times a day. He denies any updates on his colon cancer. His William has been reviewed and is appropriate. Review of Systems: General: No recent weight changes, no fever, no sleep disturbances Respiratory: No cough, no shortness of air, no recurring pulmonary infections Cardiovascular/peripheral vascular: No chest pain, no palpitations, no edema, no shortness of breath Gastrointestinal: No new onset incontinence, normal bowel movements reported Genitourinary: No new onset incontinence Musculoskeletal: Low back pain, left flank pain Psychiatric: [Normal mood/affect] Neurological: [Denies weakness in extremities], [denies balance issues] Pain at rest (0-10 scale): 8 Objective Objective:: Physical Exam: General: Alert and oriented x3, no acute distress, pleasant and cooperative Lungs: Respirations even and unlabored, symmetrical chest expansion Eyes: PERRL Musculoskeletal: Flexion and extension of lumbar [spine] somewhat guarded secondary to pain, [antalgic gait noted] Neurological: Speech clear, no gross sensory deficit Has patient had previous pain injection?: No Conservative treatment options previously tried: Prescription medications Length of treatment: Longer than 12 weeks Meds Home Medications and Allergies Home Medications ?Medication ?Instructions ?Recorded ?Confirmed ?Type aspirin 81 mg chewable tablet 81 mg PO DAILY Blood Thinner #100 10/13/24 03/07/25 Rx tabs gabapentin 300 mg capsule 300 mg PO TID #90 caps 11/02/24 03/07/25 Rx fruquintinib 1 mg capsule 4 mg PO DAILY 12/02/24 03/07/25 History albuterol sulfate 90 mcg/actuation 1 puff inhalation Q6H PRN 01/11/25 03/07/25 Rx aerosol inhaler shortness of breath or wheezing #6.7 grams ibuprofen 800 mg tablet See Rx Instructions .Route 01/18/25 03/07/25 Rx .COMPLEX #90 tabs rosuvastatin 10 mg tablet (Crestor) 10 mg PO DAILY #90 tabs 02/07/25 03/07/25 Rx oxycodone-acetaminophen 7.5 mg-325 1 tab PO QID #120 tabs 03/07/25 Rx mg tablet (Percocet) methocarbamol 750 mg tablet See Rx Instructions .Route 04/04/25 Rx .COMPLEX #90 tabs New Prescriptions to Start Prescriptions: Allergies Allergy/AdvReac Type Severity Reaction Status Date / Time cetuximab (From Erbitux) Allergy Severe Anaphylaxis Verified 03/01/25 10:50 Assessment and Plan *Assessment and plan (1) Colon carcinoma metastatic to multiple sites: Status: Acute Category: Medical Code(s): C18.9 - Malignant neoplasm of colon, unspecified (2) Low back pain: Status: Acute Qualifiers: Chronicity: acute Back pain laterality: left Sciatica presence: without sciatica Qualified Code(s): M54.50 - Low back pain, unspecified Category: Medical Code(s): M54.50 - Low back pain, unspecified Plan I did discuss with the patient if he needs any additional assistance during this time related to his enlarged kidney to let us know. I will refill his Percocet make sure he does have refills on his methocarbamol. Patient will return to clinic in 1 month. Risks and benefits of the medication have been explained in detail to the patient. The patient does understand the risk of dependence on the medication when given over a prolonged period. Patient has been advised of risks of oversedation with the prescribed medication. Narcan has been offered to the paitent in the event of oversedation. Patient has been advised that a family member should also be educated regarding administration of Narcan. The patient has been advised to consult with his/her primary care provider and pharmacist regarding drug-drug interaction of medications currently prescribed. Patient has been prescribed a controlled substance after being counseled on the medication, medication safety, and possible side effects. Opioid contract was reviewed and signed by the patient, and that they have agreed to all of the terms set forth by our compliance program. A UDS is needed to verify patient's compliance with our office pain contract. This is ordered based off specific treatments related to chronic pain with the potential to abuse certain medications. Patient has been instructed to contact the clinic with any concerns before the next appointment. Dr. Najera has reviewed this note and agrees with this plan of care. This note was dictated using voice recognition software and make contain errors or omissions.
[2025-04-06 11:45] VITALS: BP 143/95; PULSE 73; RESP 18; O2SAT 97; BMI 27.3
== END 2025-04-06 23:59 | disposition home or self-care (01) ==
PROVIDERS: PCP Nurse Practitioner Family; Visit Provider Nurse Practitioner Family
DX: C18.9 Malignant neoplasm of colon, unspecified (principal); C79.89 Secondary malignant neoplasm of other specified sites; M54.50 Low back pain, unspecified; Z79.899 Other long term (current) drug therapy; Z79.891 Long term (current) use of opiate analgesic
CPT/HCPCS: 99212; G0463

== ENCOUNTER 2025-04-13 11:16 | Outpatient (CLI) | payer MEDICARE, SELFPAY ==
--- OUTSIDE RECORDS SUMMARY | 2025-03-30 11:00 | XMS_ITS | Encounter Summary ---
Author Organization [facility] Address [address] [place] [address] Care Team Providers Care Configuration Specialist Name Role Phone Abelino Mars MD Unavailable [phone] Michael Rodriguez MD Unavailable [phone] Dolores Grande APRN Primary Care Provider [phone] Luis M Maldonado MD Unavailable [phone] Reason for Referral * Imaging (Routine) - Authorized Specialty Diagnoses / Procedures Referred By Contac t Referred To Contact Radiology Diagnoses Hydronephrosis of left kidney Procedures CT Guided Neph Tube Placement Left Consult to Interventional Radiology Chacha Perales PA [address] [address] Phone: tel: fax: Referral ID Status Reason Start Date Expiration Date V isits Requested Visits Authorized [id number] Authorized 03/30/2025 09/29/2026 1 1 Encounter Details Date Type Department Care Team (Late st Contact Info) Description 03/30/2025 11:00 AM EDT Office Visit [place] [facility] [address] [place] [address] Chacha Perales PA [id number] [place] [address] Urge incontinence (Primary Dx); Malignant [...] following with Oncology locally, Dr. Caicedo in [place], [place] He was seen at OSH ED [...] Exam Vitals reviewed. Exam conducted with a pension agent present. Constitutional: General: He is not in [...] Yellow POCT Urine Clarity Clear POCT Specific [place], Urine 1.005 - 1.030 1.020 POCT Protein, [...] PARTIAL / TOTAL N/A Partial Colectomy from [facility] COLON SURGERY LIVER SURGERY LIVER SURGERY 05/16/2021 laparoscopy MWA of seg 02/05, ileostomy closure, mediport MYRINGOTOMY W/ TUBES OTHER SURGICAL HISTORY N/A Low anterior resection from [facility] TONSILLECTOMY URETEROSCOPY Left 07/03/2022 with biopsy and ureteral stent placement. ([facility]) documented in this encounter Plan of Treatment Upcoming Encounters Date Type Department Care Team (Late st Contact Info) Description 04/15/2025 7:30 AM EDT Appointment [facility] Interventional Radiology [address] [place] [address] 09/30/2025 10:40 AM EST Office Visit [place] [facility] [address] [place] [phone] Alvina Carroll Alexy, GRAPHIC ILLUSTRATOR [address] [place] [phone] Scheduled Orders Name Type Priority Associated Diagnoses [...] Staphylococcus coagulase negative(A) 04/01/2025 10:38 AM EDT [facility] Culture <10,000 CFU/mL Corynebacterium species(A) 04/01/2025 10:38 AM EDT [facility] Comment:The organism value f or this result has been updated. These results have been appended to the previously preliminary verified report. Urine Urine specimen obtained by clean catch procedure / Unknown Non-blood Collection / Unknown 03/30/2025 11:13 AM EDT 03/30/2025 1:01 PM EDT us [facility] MICROBIOLOGY - GENERAL ORDERABLES Final Result [facility] [address] [id number] * POC US Bladder Volume (03/30/2025 11:05 AM EDT) Urine, Volume 3 mL IMAGING Anatomical Region Laterality Modality Other us [facility] POINT OF CARE ULTRASOU ND Final Result * (ABNORMAL) POCT URINALYSIS DIPSTICK (03/30/2025 10:57 AM EDT) POCT Urine Color Yellow 03/30/2025 10:59 AM EDT [facility] POCT Urine Clarity Clear 03/30/2025 10:59 AM EDT [facility] POCT Urine Glucose Negative Negative mg/dL 03/30/2025 10:59 AM EDT [facility] POCT Urine Bilirubin Negative Negative mg/dL 03/30/2025 10:59 AM EDT [facility] POCT Urine Ketones Negative Negative mg/dL 03/30/2025 10:59 AM EDT [facility] POCT Urine Specific [place] 1.020 1.005 - 1.030 03/30/2025 10:59 AM EDT [facility] POCT Urine Blood Moderate(A) Negative 03/30/2025 10:59 AM EDT [facility] POCT pH, Urine 6.0 5.0 - 8.0 03/30/2025 10:59 AM EDT [facility] POCT Protein, Urine 30(A) Negative mg/dL 03/30/2025 10:59 AM EDT [facility] POCT Urobilinogen, Urine 2.0(A) 0.2, 1.0 EU/dL 03/30/2025 10:59 AM EDT [facility] POCT Nitrite, Urine Negative Negative 03/30/2025 10:59 AM EDT [facility] POCT Urine Leukocyte Esterase Negative Negative 03/30/2025 10:59 AM EDT [facility] Urine 03/30/2025 10:5 7 AM EDT 03/30/2025 10:59 AM EDT us [facility] POINT OF CARE TEST DOCKED DEVICE UNSOLICITED RESULTS Final Result [facility] [address], [place] documented in this encounter Visit Diagnoses [...] documented as of this encounter Care Teams Configuration Specialist Relationship Specialty Start Date End Date Dolores Grande APRN [address] [place] [address] PCP - General 02/11/22 Abelino Mars MD [address] [facility] [address] [place] [phone] Surgeon Colon and Rectal Surgery 06/19/21 Michael Rodriguez MD [address] [place] [phone] Surgeon Surgical Oncology 06/19/21 Luis M Maldonado MD [address] [facility] [address] [place] [phone] Consulting Physician Radiation Oncology 06/06/22 documented as of this encounter
--- OUTSIDE RECORDS SUMMARY | 2025-04-11 12:00 | XMS_ITS | Encounter Summary ---
Author Organization [facility] Address [address] [place] [address] Care Team Providers Care Product Picker Name Role Phone Abelino Mars MD Unavailable [phone] Michael Rodriguez MD Unavailable [phone] Dolores Grande APRN Primary Care Provider + [phone] Luis M Maldonado MD Unavailable [phone] Encounter Details Date Type Department Care Team (Latest Contact Info) Description 04/11/2025 12:00 PM EDT Office Visit [facility] [address] [place] [address] [place] [address] Noris Herrera, MACHINE MAINTENANCE MECHANIC [address] [place] [address] Hydronephrosis of left kidney (Primary [...] following with Oncology locally, Dr. Caicedo in [place], [place] He is referred to us for [...] Appointment [facility] Interventional Radiology [address] [place] [address] 09/30/2025 10:40 AM EST Office Visit [facility] [address], [address] [place] [address] Alvina Carroll APRN [address] [place] [address] documented as of this encounter Visit Diagnoses Diagnosis Hydronephrosis of left kidney- Primary Hydronephrosis documented in this encounter Additional Health Concerns Assessment Noted Time A fall risk assessment has been complete d for the patient 03/30/2025 10:51 AM EDT A Body Mass Index follow-up plan has been documented for the patient 04/11/2025 12:17 PM EDT documented as of this encounter Care Teams Product Picker Relationship Specialty Start Date End Date Dolores Grande APRN [address] [place] [address] PCP - General 02/11/22 Abelino Mars MD [address] [facility] [address] [place] [address] Surgeon Colon and Rectal Surgery 06/19/21 Michael Rodriguez MD [address] [address] Surgeon Surgical Oncology 06/19/21 Luis M Maldonado MD 800 [facility] [address] [place] [address] Consulting Physician Radiation Oncology 06/06/22 documented as of this encounter
--- OUTSIDE RECORDS SUMMARY | 2025-04-13 11:24 | XMS_ITS | Encounter Summary ---
Author Organization [facility] Address [address] [id number] Care Team Providers Care Roofer Applicator Name Role Phone Marcello Merchant MD Primary Care Provider [phone] Abelino Mars MD Unavailable [phone] Michael Rodriguez MD Unavailable [phone] Dolores Grande APRN Primary Care Provider +- [phone] Luis M Maldonado MD Unavailable [phone] Encounter Details Date Type Department Care Team (Late st Contact Info) Description 07/09/2021 Lab Requisition [facility] Lab [address] [place] [address] Michael Rodriguez MD [address] [id number] Malignant neoplasm of rectosigmoid junction (CMS/HCC); Secondary [...] Appointment [facility] A Interventional Radiology [address] [place] [address] 09/30/2025 10:40 AM EST Office [facility] [place] [facility] [address], 2[address] [place] [address] Alvina Carroll, DAIRY HUSBANDRY WORKER [address] [place] [address] documented as of this encounter Procedures Procedure Name Priority Date/Time Associated Diagnosis Comments AP MISCELLANEOUS LAB TEST (SO) Routine 07/09/2021 12:00 PM EST 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) documented in this encounter Additional Health Concerns Assessment Noted Time A fall risk assessment has been complete d for the patient 06/19/2021 1:10 PM EDT documented as of this encounter Care Teams Roofer Applicator Relationship Specialty Start Date End Date Marcello Merchant MD [address] [place] [address] PCP - General 01/12/21 02/10/22 Dolores Grande APRN [address] [place] [address] PCP - General 02/11/22 Abelino Mars MD [address] [place] [address] Surgeon Colon and Rectal Surgery 06/19/21 Michael Rodriguez MD [address] [address] Surgeon Surgical Oncology 06/19/21 Luis M Maldonado MD 800 [facility] [address] [place] [address] Consulting Physician Radiation Oncology 06/06/22 documented as of this encounter
--- OUTSIDE RECORDS SUMMARY | 2025-04-13 11:24 | XMS_ITS | Encounter Summary ---
Author Organization [facility] Address [address] [place] [address] Care Team Providers Care Lens Edge Grinder Machine Name Role Phone Abelino Mars MD Unavailable [phone] Michael Rodriguez MD Unavailable [phone] Dolores Grande APRN Primary Care Provider [phone] Luis M Maldonado MD Unavailable [phone] Reason for Visit * Reason Onset Date Comments Records and imaging request 03/29/2025 Encounter Details Date Type Department Care Team (Late st Contact Info) Description 03/29/2025 Telephone [facility] [address] [place] [address] Chacha Perales, AMY [address] [place] [address] Records and imaging request Social [...] or images. These have been requested. Records: [phone], had to leave a message, also faxed a request to [phone]. Radiology / main # [phone] then transferred. Willa is to share. documented in this encounter Plan of Treatment Upcoming Encounters Date Type Department Care Team (Late st Contact Info) Description 04/15/2025 7:30 AM EDT Appointment [facility] Interventional Radiology [address] [place] [address] 09/30/2025 10:40 AM EST Office Visit [place] [facility] [address] [place] [address] Alvina Carroll APRN [address] [place] [address] documented as of this encounter Visit Diagnoses Not on filedocumented in this encounter Additional Health Concerns Assessment Noted Time A fall risk assessment has been complete d for the patient 05/27/2023 9:38 AM EDT A Body Mass Index follow-up plan has been documented for the patient 02/17/2023 1:57 PM EDT documented as of this encounter Care Teams Lens Edge Grinder Machine Relationship Specialty Start Date End Date Dolores Grande APRN [address] [place] [address] PCP - General 02/11/22 Abelino Mars MD [address] [place] [address] Surgeon Colon and Rectal Surgery 06/19/21 Michael Rodriguez MD [address] [address] Surgeon Surgical Oncology 06/19/21 Luis M Maldonado MD 800 [facility] [address] [place] [address] Consulting Physician Radiation Oncology 06/06/22 documented as of this encounter
--- OUTSIDE RECORDS SUMMARY | 2025-04-13 11:24 | XMS_ITS | Encounter Summary ---
Author Organization [facility] Address [address] [place] [address] Care Team Providers Care Payroll Director Name Role Phone Abelino Mars MD Unavailable [phone] Michael Rodriguez MD Unavailable [phone] Dolores Grande APRN Primary Care Provider + [phone] Luis M Maldonado MD Unavailable [phone] Encounter Details Date Type Department Care Team (Latest Contact Info) Description 04/08/2025 Travel Social History Tobacco Use Types Packs/Day [...] Appointment [facility] A Interventional Radiology [address] [place] [address] 09/30/2025 10:40 AM EST Office Visit [place] [facility] [address] [place] [address] Alvina Carroll, COMMUNICATIONS BILLING ANALYST [address] [place] [address] documented as of this encounter Visit Diagnoses Not on filedocumented in this encounter Additional Health Concerns Assessment Noted Time A fall risk assessment has been complete d for the patient 03/30/2025 10:51 AM EDT A Body Mass Index follow-up plan has been documented for the patient 03/30/2025 12:39 PM EDT documented as of this encounter Care Teams Payroll Director Relationship Specialty Start Date End Date Dolores Grande APRN [address] [place], [place] [address] PCP - General 02/11/22 Abelino Mars MD [address] [place] [address] Surgeon Colon and Rectal Surgery 06/19/21 Michael Rodriguez MD 800 [facility] [address] [place] [address] Surgeon Surgical Oncology 06/19/21 Luis M Maldonado MD 800 [facility] [address] [place] [address] Consulting Physician Radiation Oncology 06/06/22 documented as of this encounter
--- OUTSIDE RECORDS SUMMARY | 2025-04-13 11:24 | XMS_ITS | Encounter Summary ---
Author Organization [facility] Address [address] [place] [address] Care Team Providers Care Bottle Capping Machine Operator Name Role Phone Abelino Mars MD Unavailable [phone] Michael Rodriguez MD Unavailable [phone] Dolores Grande APRN Primary Care Provider + [phone] Luis M Maldonado MD Unavailable [phone] Encounter Details Date Type Department Care Team (Latest Contact Info) Description 04/11/2025 Travel Social History Tobacco Use Types Packs/Day [...] Appointment [facility] Interventional Radiology [address] [place] [address] 09/30/2025 10:40 AM EST Office Visit [place] [facility] [address] [place] [address] Alvina Carroll, MEDICAL SCREENER [address] [place] [address] documented as of this encounter Visit Diagnoses Not on filedocumented in this encounter Additional Health Concerns Assessment Noted Time A fall risk assessment has been complete d for the patient 03/30/2025 10:51 AM EDT A Body Mass Index follow-up plan has been documented for the patient 04/11/2025 12:17 PM EDT documented as of this encounter Care Teams Bottle Capping Machine Operator Relationship Specialty Start Date End Date Dolores Grande APRN [address] [place], [place] [address] PCP - General 02/11/22 Abelino Mars MD [address] [place] [address] Surgeon Colon and Rectal Surgery 06/19/21 Michael Rodriguez MD 800 [facility] [address] [place] [address] Surgeon Surgical Oncology 06/19/21 Luis M Maldonado MD [address] [facility] [address] [place] [address] Consulting Physician Radiation Oncology 06/06/22 documented as of this encounter
--- OUTSIDE RECORDS SUMMARY | 2025-04-13 11:24 | XMS_ITS | Encounter Summary ---
Author Organization [facility] Address [address] [place] [address] Care Team Providers Care Informatics Consultant Name Role Phone Abelino Mars MD Unavailable [phone] Michael Rodriguez MD Unavailable [phone] Dolores Grande APRN Primary Care Provider [phone] Luis M Maldonado MD Unavailable [phone] Reason for Visit * Reason Onset Date Comments HCN - Patient Message 03/28/2025 Obstructio n, swollen prostate Encounter Details Date Type Department Care Team (Late st Contact Info) Description 03/28/2025 Telephone [place] [facility] [address] [place] [address] Ruy Fleming MD [address] [place] [address] HCN - Patient Message (Obstruction, [...] encounter Miscellaneous Notes * Telephone Encounter - Robert Patton MD - 03/28/2025 3:48 PM EDT Looks like hydro may be chronic when reviewing chart from 2022. He is set to see Chacha Perales in clinic this week. That seems like appropriate follow up * Telephone Encounter - Tram Aguero LPN - 03/28/2025 1:09 PM EDT I called and spoke with Juliet from [facility]. Patient was seen on Friday with [...] Phone Message Reason for Call: Juliet with [facility] calling to advise pt has left hydronephrosis causing obstruction. Report was sent over today. Best contact number and optimal time of day to reach caller: Juliet [phone] Sanjuanita (pt spouse) [phone] Note: Please do not reply to this message. Follow-up communication and further actions as a result of this message need to be communicated with the patient directly, if the patient is not active onMyChart. If the patient is active on MyChart, they will receive notification of the communication/outcome via [employer]. documented in this encounter Plan of Treatment Upcoming Encounters Date Type Department Care Team (Late st Contact Info) Description 04/15/2025 7:30 AM EDT Appointment [facility] Interventional Radiology [address] [place] [address] 09/30/2025 10:40 AM EST Office Visit [place] [facility] [address] [place] [address] Alvina Carroll APRN [address] [place] [address] documented as of this encounter Visit Diagnoses Not on filedocumented in this encounter Additional Health Concerns Assessment Noted Time A fall risk assessment has been complete d for the patient 05/27/2023 9:38 AM EDT A Body Mass Index follow-up plan has been documented for the patient 02/17/2023 1:57 PM EDT documented as of this encounter Care Teams Informatics Consultant Relationship Specialty Start Date End Date Dolores Grande APRN [address] [place] [address] PCP - General 02/11/22 Abelino Mars MD [address] [facility] [address] [place] [address] Surgeon Colon and Rectal Surgery 06/19/21 Michael Rodriguez MD [address] [address] Surgeon Surgical Oncology 06/19/21 Luis M Maldonado MD 800 [facility] [address] [place] [address] Consulting Physician Radiation Oncology 06/06/22 documented as of this encounter
--- OUTSIDE RECORDS SUMMARY | 2025-04-13 11:24 | XMS_ITS | Encounter Summary ---
Author Organization [facility] Address [address] [place] [address] Care Team Providers Care Assistant Construction Superintendent Name Role Phone Abelino Mars MD Unavailable [phone] Michael Rodriguez MD Unavailable [phone] Dolores Grande APRN Primary Care Provider + [phone] Luis M Maldonado MD Unavailable [phone] Encounter Details Date Type Department Care [...] Appointment [facility] A Interventional Radiology [address] [place] [address] 09/30/2025 10:40 AM EST Office Visit [place] [facility] [address] [place] [address] Alvina Carroll, DRAGGER OUT [address] [place] [address] documented as of this encounter Visit Diagnoses Not on filedocumented in this encounter Additional Health Concerns Assessment Noted Time A fall risk assessment has been complete d for the patient 05/27/2023 9:38 AM EDT A Body Mass Index follow-up plan has been documented for the patient 02/17/2023 1:57 PM EDT documented as of this encounter Care Teams Assistant Construction Superintendent Relationship Specialty Start Date End Date Dolores Grande APRN [address] [place], [place] [address] PCP - General 02/11/22 Abelino Mars MD [address] [place] [address] Surgeon Colon and Rectal Surgery 06/19/21 Michael Rodriguez MD 800 [facility] [address] [place] [address] Surgeon Surgical Oncology 06/19/21 Luis M Maldonado MD 800 [facility] [address] [place] [address] Consulting Physician Radiation Oncology 06/06/22 documented as of this encounter
--- OUTSIDE RECORDS SUMMARY | 2025-04-13 11:24 | XMS_ITS | Encounter Summary ---
Author Organization [facility] Address [address] [place] [address] Care Team Providers Care Quartz Miner Name Role Phone Abelino Mars MD Unavailable [phone] Michael Rodriguez MD Unavailable [phone] Dolores Grande APRN Primary Care Provider [phone] Luis M Maldonado MD Unavailable [phone] Encounter Details Date Type Department Care [...] Appointment P[facility] A Interventional Radiology [address] [place] [address] 09/30/2025 10:40 AM EST Office Visit [place] [facility] [address] [place] [address] Alvina Carroll APRN [address] [facility] [address] [place] [address] documented as of this encounter Visit Diagnoses Not on filedocumented in this encounter Additional Health Concerns Assessment Noted Time A fall risk assessment has been complete d for the patient 03/30/2025 10:51 AM EDT A Body Mass Index follow-up plan has been documented for the patient 03/30/2025 12:39 PM EDT documented as of this encounter Care Teams Quartz Miner Relationship Specialty Start Date End Date Dolores Grande APRN [address] [place], [place] [address] PCP - General 02/11/22 Abelino Mars MD [address] [facility] [address] [place] [address] Surgeon Colon and Rectal Surgery 06/19/21 Michael Rodriguez MD [address] [place] [address] Surgeon Surgical Oncology 06/19/21 Luis M Maldonado MD [address] [address] Consulting Physician Radiation Oncology 06/06/22 documented as of this encounter
--- OUTSIDE RECORDS SUMMARY | 2025-04-13 11:24 | XMS_ITS | Encounter Summary ---
Author Organization [facility] Address [address] [place] [address] Care Team Providers Care Vacation Sales Advisor Name Role Phone Marcello Merchant MD Primary Care Provider [phone] Abelino Mars MD Unavailable [phone] Michael Rodriguez MD Unavailable [phone] Dolores Grande APRN Primary Care Provider + [phone] Luis M Maldonado MD Unavailable [phone] Encounter Details Date Type Department Care Team (Late st Contact Info) Description 01/12/2021 Abstract [facility] Mult[facility]cology [facility] [address] [place] [address] Vera Schaeffer, RN AMB-PRECISION MEDICINE RESEARCH & [...] Appointment [facility] A Interventional Radiology [address] [place] [address] 09/30/2025 10:40 AM EST Office Visit [place] [facility] [address] [place] [address] Alvina Carroll, ASSISTANT MEN'S LACROSSE COACH [address] [place] [address] documented as of this encounter Visit Diagnoses Not on filedocumented in this encounter Care Teams Vacation Sales Advisor Relationship Specialty Start Date End Date Marcello Merchant MD [address] [place] [address] PCP - General 01/12/21 02/10/22 Dolores Grande, ASSISTANT MEN'S LACROSSE COACH [address] [place] [address] PCP - General 02/11/22 Abelino Mars MD [address] [place] [address] Surgeon Colon and Rectal Surgery 06/19/21 Michael Rodriguez MD 800 [facility] [address] [place] [address] Surgeon Surgical Oncology 06/19/21 Luis M Maldonado MD 800 [facility] [address] [place] [address] Consulting Physician Radiation Oncology 06/06/22 documented as of this encounter
--- OUTSIDE RECORDS SUMMARY | 2025-04-13 11:24 | XMS_ITS | Encounter Summary ---
Author Organization [facility] Address [address] [place] [address] Care Team Providers Care Attacher Name Role Phone Abelino Mars MD Unavailable [phone] Michael Rodriguez MD Unavailable [phone] Dolores Grande APRN Primary Care Provider + [phone] Luis M Maldonado MD Unavailable [phone] Encounter Details Date Type Department Care Team (Late st Contact Info) Description 03/26/2025 Orders Only External Location [address] [place] [address] Hafsa Rodriguez, DO [address] [place] [address] Social History Tobacco Use Types [...] Appointment [facility] A Interventional Radiology [address] [place] [facility] [address] 09/30/2025 10:40 AM EST [facility] [address] [place] [address] Alvina Carroll APRN [address] [place] [address] documented as of this encounter Procedures Procedure Name Priority Date/Time Associated Diagnosis Comments CT OUTSIDE IMAGES 03/26/2025 11:03 PM EDT documented in this encounter Results * CT OUTSIDE IMAGES (03/26/2025 11:03 PM EDT) Anatomical Region Laterality Modality Computed Tomogra phy 03/26/2025 11:0 3 PM EDT Hafsa N Michael DO IMG CT PROCEDURES Final Result documented in this encounter Visit Diagnoses Not on filedocumented in this encounter Additional Health Concerns Assessment Noted Time A fall risk assessment has been complete d for the patient 05/27/2023 9:38 AM EDT A Body Mass Index follow-up plan has been documented for the patient 02/17/2023 1:57 PM EDT documented as of this encounter Care Teams Attacher Relationship Specialty Start Date End Date Dolores Grande APRN [address] [place] [address] PCP - General 02/11/22 Abelino Mars MD [address] [place] [address] Surgeon Colon and Rectal Surgery 06/19/21 Michael Rodriguez MD [address] [address] Surgeon Surgical Oncology 06/19/21 Luis M Maldonado MD 800 [facility] [address] [place] [address] Consulting Physician Radiation Oncology 06/06/22 documented as of this encounter
--- OUTSIDE RECORDS SUMMARY | 2025-04-13 11:24 | XMS_ITS | Encounter Summary ---
Author Organization [facility] Address [address] [place] [address] Care Team Providers Care Rail Maintenance Worker Name Role Phone Abelino Mars MD Unavailable [phone] Michael Rodriguez MD Unavailable [phone] Dolores Grande APRN Primary Care Provider [phone]- [phone] Luis M Maldonado MD Unavailable [phone] Reason for Visit * Reason Onset Date Comments HCN Clinical Concern/Question 04/06/2025 Encounter Details Date Type Department Care Team (Late st Contact Info) Description 04/06/2025 Telephone [facility] [address], [address] [place] [address] Chacha Perales PA [address] [place] [address] HCN Clinical Concern/Question Social History Tobacco Use Types Packs/Day Years [...] encounter Miscellaneous Notes * Telephone Encounter - Osman Dung Arroyo - 04/06/2025 10:53 AM EDT Clinical Concern/Question Reason for Call: None He is returning a missed call. He didn't know who it was. Best contact number: [phone] (mobile) Optimal time of day to reach caller: ANYTIME Additional comments/information from caller: None Note: Please do not reply to this message. Follow-up communication and further actions as a result of this message need to be communicated with the patient directly, if the patient is not active onMyChart. If the patient is active on MyChart, they will receive notification of the communication/outcome via Dolphinhart. documented in this encounter Plan of Treatment Upcoming Encounters Date Type Department Care Team (Late st Contact Info) Description 04/15/2025 7:30 AM EDT Appointment [facility] Interventional Radiology [address] [place] [address] 09/30/2025 10:40 AM EST Office Visit [place] [facility] [address] [place] [address] Alvina Carroll APRN [address] [place] [address] documented as of this encounter Visit Diagnoses Not on filedocumented in this encounter Additional Health Concerns Assessment Noted Time A fall risk assessment has been complete d for the patient 03/30/2025 10:51 AM EDT A Body Mass Index follow-up plan has been documented for the patient 03/30/2025 12:39 PM EDT documented as of this encounter Care Teams Rail Maintenance Worker Relationship Specialty Start Date End Date Dolores Grande APRN [address] [place] [address] PCP - General 02/11/22 Abelino Mars MD [address] [facility] [address] [place] [address] Surgeon Colon and Rectal Surgery 06/19/21 Michael Rodriguez MD [address] [address] Surgeon Surgical Oncology 06/19/21 Luis M Maldonado MD [address] [facility] [address] [place] [address] Consulting Physician Radiation Oncology 06/06/22 documented as of this encounter
--- OUTSIDE RECORDS SUMMARY | 2025-04-13 11:24 | XMS_ITS | Encounter Summary ---
Author Organization [facility] Address [address] [place] [address] Care Team Providers Care Size Tester Name Role Phone Abelino Mars MD Unavailable [phone] Michael Rodriguez MD Unavailable [phone] Dolores Grande APRN Primary Care Provider + [phone] Luis M Maldonado MD Unavailable [phone] Encounter Details Date Type Department Care Team (Late st Contact Info) Description 04/06/2025 Results Follow-Up [place] [facility] [address] [place] [address] Chacha Perales PA [address] [place] [address] Social History Tobacco Use Types [...] Appointment [facility] Interventional Radiology [address] [place] [address] 09/30/2025 10:40 AM EST Office Visit [place] [facility] [address] [place] [address] Alvina Carroll APRN [address] [facility] [address] [place] [address] documented as of this encounter Visit Diagnoses Not on filedocumented in this encounter Additional Health Concerns Assessment Noted Time A fall risk assessment has been complete d for the patient 03/30/2025 10:51 AM EDT A Body Mass Index follow-up plan has been documented for the patient 03/30/2025 12:39 PM EDT documented as of this encounter Care Teams Size Tester Relationship Specialty Start Date End Date Dolores rGande APRN [address] [place] [address] PCP - General 02/11/22 Abelino Mars MD [address] [facility] [address] [place] [address] Surgeon Colon and Rectal Surgery 06/19/21 Michael Rodriguez MD [address] [place] [address] Surgeon Surgical Oncology 06/19/21 Luis M Maldonado MD 800 [facility] [address] [place] [address] Consulting Physician Radiation Oncology 06/06/22 documented as of this encounter
--- OUTSIDE RECORDS SUMMARY | 2025-04-13 11:24 | XMS_ITS | Encounter Summary ---
Author Organization [facility] Address [address] [place] [address] Care Team Providers Care Gateman Name Role Phone Abelino Mars MD Unavailable [phone] Michael Rordiguez MD Unavailable [phone] Dolores Grande APRN Primary Care Provider + [phone] Luis M Maldonado MD Unavailable [phone] Encounter Details Date Type Department Care Team (Late st Contact Info) Description 03/26/2025 Orders Only External Location [address] [place] [address] Provider, External Social History Tobacco Use Types [...] Encounters Date Type Department Care Team (Late Contact Info) Description 04/15/2025 7:30 AM EDT Appointment [facility] Interventional Radiology [address] [place] [address] 09/30/2025 10:40 AM EST Office Visit [place] [facility] [address] [place] [address] Alvina Carroll APRN [address] [place] [address] documented as of this encounter Procedures Procedure Name Priority Date/Time Associated Diagnosis Comments CT MSK OUTSIDE IMAGES 03/26/2025 11:03 PM EDT documented in this encounter Results * CT MSK OUTSIDE IMAGES (03/26/2025 11:03 PM EDT) Anatomical Region Laterality Modality Computed Tomogra phy 03/26/2025 11:0 3 PM EDT External Provider IMG CT PROCEDURES Final Result documented in this encounter Visit Diagnoses Not on filedocumented in this encounter Additional Health Concerns Assessment Noted Time A fall risk assessment has been complete d for the patient 05/27/2023 9:38 AM EDT A Body Mass Index follow-up plan has been documented for the patient 02/17/2023 1:57 PM EDT documented as of this encounter Care Teams Gateman Relationship Specialty Start Date End Date Dolores Grande APRN [address] [place] [address] PCP - General 02/11/22 Abelino Mars MD [address] [place] [address] Surgeon Colon and Rectal Surgery 06/19/21 Michael Rodriguez MD [address] [place] [address] Surgeon Surgical Oncology 06/19/21 Luis M Maldonado MD [address] [place] [address] Consulting Physician Radiation Oncology 06/06/22 documented as of this encounter
--- OUTSIDE RECORDS SUMMARY | 2025-04-13 11:24 | XMS_ITS | Encounter Summary ---
Author Organization [facility] Address [address] [place] [address] Care Team Providers Care Laundry Tech Name Role Phone Abelino Mars MD Unavailable [phone] Michael Rodriguez MD Unavailable [phone] Dolores Grande APRN Primary Care Provider [phone] Luis M Maldonado MD Unavailable [phone] Encounter Details Date Type Department Care Team (Late st Contact Info) Description 04/07/2025 Orders Only [facility] Vascular Interventional Radiology [address] [place] [address] Payton Argueta, RN [facility] VASCULAR INTERV RADIOL CLINIC Encounter for other preprocedural examination (Primary Dx) Social History Tobacco Use Types [...] PAV A Interventional Radiology [address] [place] [address] 09/30/2025 10:40 AM EST Office Visit [place] [facility] [address] [place] [address] Alvina Carroll, RUG CLEANER [address] [place] [address] documented as of this encounter Results * (ABNORMAL) CBC W/O Differential (04/11/2025 12:04 PM EDT) WBC Count 5.45 3.70 - 10.30 10*3/uL LAB HEMATOLOGY METHOD 04/11/2025 1:48 PM EDT [facility] RBC Count 4.47(L) 4.60 - 6.10 10*6/uL LAB HEMATOLOGY METHOD 04/11/2025 1:48 PM EDT [facility] HGB 13.4(L) 13.7 - 17.5 g/dL LAB HEMATOLOGY METHOD 04/11/2025 1:48 PM EDT [facility] HCT 40.0 40.0 - 51.0 % LAB HEMATOLOGY METHOD 04/11/2025 1:48 PM EDT [facility] Platelet Count 228 155 - 369 10*3/uL LAB HEMATOLOGY METHOD 04/11/2025 1:48 PM EDT [facility] MCV 90 79 - 98 fL LAB HEMATOLOGY METHOD 04/11/2025 1:48 PM EDT [facility] MCH 30.0 26.0 - 32.0 pg LAB HEMATOLOGY METHOD 04/11/2025 1:48 PM EDT [facility] MCHC 33.5 30.7 - 35.5 g/dL LAB HEMATOLOGY METHOD 04/11/2025 1:48 PM EDT [facility] RDW 13.8 11.5 - 14.5 % LAB HEMATOLOGY METHOD 04/11/2025 1:48 PM EDT [facility] MPV 10.1 8.8 - 12.5 fL LAB HEMATOLOGY METHOD 04/11/2025 1:48 PM EDT [facility] nRBC 0.0 <=0.0 per 100 WBCs LAB HEMATOLOGY METHOD 04/11/2025 1:48 PM EDT [facility] Blood Venous blood specimen / Unknown Venipuncture / Unknown 04/11/2025 12:04 PM EDT 04/11/2025 12:04 PM EDT us Noris Herrera RUG CLEANER LAB BLOOD ORDERABLES Final R esult [facility] [address] [place] [address] * Comprehensive Metabolic Panel, Plasma (04/11/2025 12:04 PM EDT) Glucose, Plasma 75 74 - 99 mg/dL 04/11/2025 2:20 PM EDT [facility] BUN, Plasma 15 7 - 21 mg/dL 04/11/2025 2:20 PM EDT [facility] Creatinine, Plasma 1.05 0.70 - 1.20 mg/dL 04/11/2025 2:20 PM EDT [facility] BUN/Creatinine Ratio 14 04/11/2025 2:20 PM EDT [facility] Sodium, Plasma 138 136 - 145 mmol/L 04/11/2025 2:20 PM EDT [facility] Potassium, Plasma 4.1 3.6 - 4.9 mmol/L 04/11/2025 2:20 PM EDT [facility] Chloride, Plasma 103 97 - 107 mmol/L 04/11/2025 2:20 PM EDT [facility] CO2, Plasma 23 22 - 29 mmol/L 04/11/2025 2:20 PM EDT [facility] Anion Gap 12 6 - 16 mmol/L 04/11/2025 2:20 PM EDT [facility] Total Calcium, Plasma 9.5 8.9 - 10.2 mg/dL 04/11/2025 2:20 PM EDT [facility] Total Protein 7.7 6.3 - 7.9 g/dL 04/11/2025 2:20 PM EDT [facility] Albumin, Plasma 4.4 3.5 - 5.2 g/dL 04/11/2025 2:20 PM EDT [facility] AST, Plasma 29 10 - 50 U/L 04/11/2025 2:20 PM EDT [facility] ALT, Plasma 23 10 - 50 U/L 04/11/2025 2:20 PM EDT [facility] Alkaline Phosphatase, Plasma 100 40 - 115 U/L 04/11/2025 2:20 PM EDT [facility] Total Bilirubin, Plasma 0.3 0.2 - 1.1 mg/dL 04/11/2025 2:20 PM EDT [facility] eGFRcr 87.0 mL/min/1.7 3m*2 04/11/2025 2:20 PM EDT [facility] Comment:Reported eGFRcr in m L/min/1.73m2 is based the CKD-EPI 2020 equation that does not use a race coefficient. Blood Venous blood specimen / Unknown Venipuncture / Unknown 04/11/2025 12:04 PM EDT 04/11/2025 12:04 PM EDT Noris Herrera RUG CLEANER LAB BLOOD ORDERABLES Final R esult [facility] [address] [place] [address] * Prothrombin Time/INR (04/11/2025 12:04 PM EDT) Prothrombin Time 13.5 12.0 - 14.3 sec LAB COAGULATION METHOD 04/11/2025 1:56 PM EDT [facility] INR 1.0 0.9 - 1.1 LAB COAGULATION METHOD 04/11/2025 1:56 PM EDT [facility] Blood Venous blood specimen / Unknown Venipuncture / Unknown 04/11/2025 12:04 PM EDT 04/11/2025 12:04 PM EDT Narrative [facility] - 04/11/2025 1:56 PM EDT OPTIMAL INR RANGES FOR PATIENT ON ORAL ANTICOAGULANT THERAPY Prevention of venous thromboembolism INR 2.0 to 3.0 In patients with heart disease: Atrial fibrillation INR 2.0 to 3.0 Valvular heart disease INR 2.0 to 3.0 Tissue heart valves INR 2.0 to 3.0 Mechanical prosthetic valves INR 2.5 to 3.5 Prevention of recurrent GA INR 2.5 to 3.5 us Noris Herrera RUG CLEANER LAB BLOOD ORDERABLES Final R esult [facility] [address] [place] [address] documented in this encounter Visit Diagnoses Diagnosis Encounter for other preprocedural examination- Primary documented in this encounter Additional Health Concerns Assessment Noted Time A fall risk assessment has been complete d for the patient 03/30/2025 10:51 AM EDT A Body Mass Index follow-up plan has been documented for the patient 03/30/2025 12:39 PM EDT documented as of this encounter Care Teams Laundry Tech Relationship Specialty Start Date End Date Dolores Grande APRN [address] [place] [address] PCP - General 02/11/22 Abelino Mars MD [address] [place] [address] Surgeon Colon and Rectal Surgery 06/19/21 Michael Rodriguez MD [address] [facility] [address] [place] [address] Surgeon Surgical Oncology 06/19/21 Luis M Maldonado MD [address] [facility] [address] [place] [address] Consulting Physician Radiation Oncology 06/06/22 documented as of this encounter
--- OUTSIDE RECORDS SUMMARY | 2025-04-13 11:24 | XMS_ITS | Encounter Summary ---
Author Organization [facility] Address [address] [place] [address] Care Team Providers Care Trash Collector Supervisor Name Role Phone Marcello Merchant MD Primary Care Provider [phone] Abelino Mars MD Unavailable [phone] Michael Rodriguez MD Unavailable [phone] Dolores Grande APRN Primary Care Provider [phone] Luis M Maldonado MD Unavailable [phone] Encounter Details Date Type Department Care Team (Late st Contact Info) Description 07/05/2021 Lab Requisition [facility] [address] [place] [address] Sherin Saleh MD [address] [place] [address] Malignant neoplasm of rectosigmoid junction (CMS/HCC); [...] PAV A Interventional Radiology [address] [place] [address] 09/30/2025 10:40 AM EST Office Visit [place] [facility] [address] [place] [address] Alvina Carroll E, ACCREDITATION COORDINATOR [address] [place] [address] documented as of this encounter Procedures Procedure Name Priority Date/Time Associated Diagnosis Comments HISTORICAL SURGICAL PATHOLOGY CASE ADDENDUM Routine 07/05/2021 12:00 PM EDT 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) documented in this encounter Results * Historical Surgical Pathology Case Addendum (07/05/2021 12:00 PM EDT) Case Report Historical Case Addendum/Amendment Case: [id number] Authorizing Provider: Sherin Saleh MD Collected: 07/05/2021 1200 Ordering Location: [facility] Received: 07/05/2021 1645 Pathologist: Yusra Blue MD Specimen: [id number] 07/06/2021 2:53 PM EDT [facility] Final Diagnosis This case was collected on 12/11/2020, was originally reported as case [id number].The entire [id number] report can be viewed as a scanned [...] developed by and are performed at the [facility], [address] [facility], [place] [address]. All tests reported here, except those addressing [...] on decalcified specimens. 07/06/2021 2:53 PM EDT [facility] at 1453 EDT Gross Description A. [id number] Reaccessioned for billing purposes only. 07/06/2021 2:53 PM EDT [facility] Note: A resident was involved in the service. I attest I examined the relevant preparations for the specimens and confirmed the diagnosis or interpretation. 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) documented in this encounter Additional Health Concerns Assessment Noted Time A fall risk assessment has been complete d for the patient 06/19/2021 1:10 PM EDT documented as of this encounter Care Teams Trash Collector Supervisor Relationship Specialty Start Date End Date Marcello Merchant MD [address] [place] [address] PCP - General 01/12/21 02/10/22 Dolores Grande APRN [address] [place] [address] PCP - General 02/11/22 Abelino Mars MD [address] [facility] [address] [place] [address] Surgeon Colon and Rectal Surgery 06/19/21 Michael Rodriguez MD [address] [address] Surgeon Surgical Oncology 06/19/21 Luis M Maldonado MD 800 [facility] [address] [place] [address] Consulting Physician Radiation Oncology 06/06/22 documented as of this encounter
--- OUTSIDE RECORDS SUMMARY | 2025-04-13 11:25 | XMS_ITS | Clinical Summary ---
Author Organization [facility] Address [address] [place] [address] Phone Care Team Providers Care Monitoring Engineer Name Role Phone Unavailable Primary Care Provider [...]
--- OUTSIDE RECORDS SUMMARY | 2025-04-13 11:25 | XMS_ITS | Encounter Summary ---
Author Organization [facility] Address [address] [id number] Care Team Providers Care Marketing Content Specialist Name Role Phone Abelino Mars MD Unavailable [phone] Michael Rodriguez MD Unavailable [phone] Dolores Grande APRN Primary Care Provider + [phone] Luis M Maldonado MD Unavailable [phone] Encounter Details Date Type Department Care Team (Late st Contact Info) Description 01/07/2023 Lab Requisition [facility] [address] [place] [address] Michael Rodriguez MD [address] [address] Malignant neoplasm of rectum (CMS/HCC) [...] Appointment [facility] Interventional Radiology [address] [place] [address] 09/30/2025 10:40 AM EST Office Visit [place] [facility] [address] [place] [address] Alvina Carroll, CASHIER AND WAITER/WAITRESS [address] [place] [address] documented as of this encounter Procedures Procedure Name Priority Date/Time Associated Diagnosis Comments AP MISCELLANEOUS LAB TEST (SO) Routine 01/07/2023 3:47 PM EDT Malignant neoplasm of rectum (CMS/HCC) documented in this encounter Results * - AP Miscellaneous Test (01/07/2023 3:47 PM EDT) Test name FL Profile 01/30/2023 12:41 PM EDT [facility] Comment:[id number] Test Result see scan 01/30/2023 12:41 PM EDT [facility] See Scanned Result 01/30/2023 12:41 PM EDT [facility] Tissue 01/07/2023 3:47 PM EDT 01/07/2023 3:47 PM EDT us Michael Rodriguez MD LAB REF LAB BLOOD AND FLUID ORD Final Result [facility] documented in this encounter Visit [...] documented as of this encounter Care Teams Marketing Content Specialist Relationship Specialty Start Date End Date Dolores Grande APRN [address] [place] [address] PCP - General 02/11/22 Abelino Mars MD [address] [place] [address] Surgeon Colon and Rectal Surgery 06/19/21 Michael Rodriguez MD [address] [place] [address] Surgeon Surgical Oncology 06/19/21 Luis M Maldonado MD [address] [place] [address] Consulting Physician Radiation Oncology 06/06/22 documented as of this encounter
--- OUTSIDE RECORDS SUMMARY | 2025-04-13 11:25 | XMS_ITS | Clinical Summary ---
Author Organization [facility] Address [address] [place] [address] Care Team Providers Care Lab Technologist Name Role Phone Abelino Mars MD Unavailable [phone] Michael Rodriguez MD Unavailable Dolores Grande APRN Primary Care Provider [phone] Luis M Maldonado MD Unavailable [phone] Allergies Active Allergy Reactions Criticality Noted [...] day after chemotherapy. 48 tablet 3 Active Additional Information Patient not taking.Reported on 04/11/2025 prochlorperazi ne (Compazine) 10 MG tabletIndicati ons:Malignant [...] mouth 1 (one) time each day. 3 025 Discontinu ed(Per Patient Report) Entresto 24-26 MG tablet Take 1 tablet by mouth. 3 025 Discontinu ed(Per Patient Report) Active Problems Problem Noted Date Diagnosed Date Second hand smoke exposure 05/27/2023 Gastroesophageal reflux disease 02/18/2023 Tobacco use disorder 09/03/2022 Lung nodules 06/06/2022 Malignant neoplasm of rectum 04/24/2021 Cancer Staging:Pathologic stage from 12/12/2020:Stage YASMIN(ypT3, ypN1b, cM1a) - Signed by Michael Rodriguez MD on 05/02/2021 Overview (04/24/2021): Added automatically from request for surgery [id number] Encounters Date Type Department Care Team Description 04/11/2025 12:00 PM EDT Office Visit [facility] Vascular Interventional Radiology [address] [place] [address] Noris Herrera, CNA PCT Hydronephrosis of left kidney (Primary Dx) 04/11/2025 Travel 04/08/2025 Travel 04/07/2025 Orders Only [facility] Vascular Interventional Radiology [address] [facility] [address] [place] [address] Payton Argueta, RN Encounter for other preprocedural examination (Primary Dx) 04/06/2025 Telephone [facility] Urology [address] [place] [address] Chacha Perales PA HCN Clinical Concern/Question 04/06/2025 Results Follow-Up [facility] Urology [address] [place] [address] Chacha Perales PA 03/30/2025 11:00 AM EDT Office Visit [facility] Urology [address] [place] [address] Chacha Perales PA Urge incontinence (Primary Dx); Malignant neoplasm of rectum (CMS/HCC); Microhematuria; Hydronephrosis of left kidney 03/30/2025 Travel 03/29/2025 Telephone [facility] Urology [address] [place] [address], [address] [place] [address] Chacha Perales PA Records and imaging request 03/28/2025 Travel 03/28/2025 Telephone [facility] Urology [address] [place] [address] Ruy Fleming MD HCN - Patient Message (Obstruction, swollen prostate ) 03/26/2025 Orders Only External Location [address] [place] [address] Provider, External 03/26/2025 Orders Only External Location [address] [place] [address] Hafsa Rodriguez DO from Last [...] F) 04/11/2025 11:36 AM EDT Respiratory Rate 16 03/30/2025 10:59 AM EDT Oxygen Saturation 99% 04/11/2025 11:36 AM EDT Inhaled Oxygen Concentration - - Weight 88.1 kg (194 lb 3.6 oz) 04/11/2025 11:36 AM EDT Height 177.8 cm (5' 10 ) 04/11/2025 11:36 AM EDT Body Mass Index 27.87 04/11/2025 11:36 AM EDT Plan of Treatment Upcoming Encounters Date Type Department Care Team (Late st Contact Info) Description 04/15/2025 7:30 AM EDT Appointment [facility] Interventional Radiology [address] [place] [address] 09/30/2025 10:40 AM EST Office Visit [place] [facility] [address] [place] [address] Alvina Carroll, CNA PCT [address] [place] [address] Health Maintenance Due Date Last Done Comments [...] 1994 [facility]-Zoster Vaccines (1 of 2) 1994 WPE-[id number]-35 Vaccine (3 - Pfizer risk series) 06/28/2021 2021, 05/03/2021 Colonoscopy 02/11/2023 02/11/2022, 09/11/2020 [facility]-Colorectal Cancer Screening 02/11/2023 [facility]-Influenza Vaccine (#1) 2025 [facility]-Depression Screening 03/30/2026 03/30/2025, 10/02 [facility]-DTaP,Tdap,and Td Vaccines (2 - Td or Tdap) 01/24/2030 01/25/2020 [facility]-Obesity Intervention Completed 025, 03/30/2025, 02/11/2023, Additional history exists HPV Vaccines Aged Out [...] this topic Medical Devices Implanted Type Area Bathing Suit Maker Device Identifier Shelf Expiration Date Model / Serial / Lot Stent Ureteral Double Pigtail Pos 7fr 26cm - S.. - [id number] Implanted:Qty: 1 on 07/03/2022 by Ruy Fleming MD at [facility] Stent Left: Ure[employer]-[id number] 09/21/2023 [id number] / .. / [id number] Stent Ureteral Double Pigtal Miquel Sun [id number] - [id number] Implanted:Qty: 1 on 09/18/2022 by Ruy Fleming MD at [facility] St[employer]-[id number] 02/27/2025 [id number] / / [id number] [employer] 8fr - [id number] Implanted:Qty: 1 on 05/16/2021 by Michael Rodriguez MD at [facility] [employer]-[id number] 07/31/2022 [id number] / / Procedures Procedure Name Priority Date/Time Associated Diagnosis Comments PROTHROMBIN TIME(PT) / INR Routine 04/11/2025 12:04 PM EDT Encounter for other preprocedural examination COMPREHENSIVE METABOLIC PANEL, PLASMA Routine 04/11/2025 12:04 PM EDT Encounter for other preprocedural examination CBC W/O DIFFERENTIAL Routine 04/11/2025 12:04 PM EDT Encounter for other preprocedural examination URINE CULTURE Routine 03/30/2025 11:13 AM EDT [...] Recently Relevant to Health Maintenance Results * Prothrombin Time/INR (04/11/2025 12:04 PM EDT) Prothrombin Time 13.5 12.0 - 14.3 sec LAB COAGULATION METHOD 04/11/2025 1:56 PM EDT [facility] INR 1.0 0.9 - 1.1 LAB COAGULATION METHOD 04/11/2025 1:56 PM EDT [facility] Blood Venous blood specimen / Unknown Venipuncture / Unknown 04/11/2025 12:04 PM EDT 04/11/2025 12:04 PM EDT Narrative [facility] - 04/11/2025 1:56 PM EDT OPTIMAL INR RANGES FOR PATIENT ON ORAL ANTICOAGULANT THERAPY Prevention of venous thromboembolism INR 2.0 to 3.0 In patients with heart disease: Atrial fibrillation INR 2.0 to 3.0 Valvular heart disease INR 2.0 to 3.0 Tissue heart valves INR 2.0 to 3.0 Mechanical prosthetic valves INR 2.5 to 3.5 Prevention of recurrent [place] INR 2.5 to 3.5 us Noris Herrera CNA PCT LAB BLOOD ORDERABLES Final R esult [facility] [address] [place] [address] * (ABNORMAL) CBC W/O Differential (04/11/2025 12:04 PM EDT) WBC Count 5.45 3.70 - 10.30 10*3/uL LAB HEMATOLOGY METHOD 04/11/2025 1:48 PM EDT [facility] RBC Count 4.47(L) 4.60 - 6.10 10*6/uL LAB HEMATOLOGY METHOD 04/11/2025 1:48 PM EDT [facility] HGB 13.4(L) 13.7 - 17.5 g/dL LAB HEMATOLOGY METHOD 04/11/2025 1:48 PM EDT [facility] HCT 40.0 40.0 - 51.0 % LAB HEMATOLOGY METHOD 04/11/2025 1:48 PM EDT [facility] Platelet Count 228 155 - 369 10*3/uL LAB HEMATOLOGY METHOD 04/11/2025 1:48 PM EDT [facility] MCV 90 79 - 98 fL LAB HEMATOLOGY METHOD 04/11/2025 1:48 PM EDT [facility] MCH 30.0 26.0 - 32.0 pg LAB HEMATOLOGY METHOD 04/11/2025 1:48 PM EDT [facility] MCHC 33.5 30.7 - 35.5 g/dL LAB HEMATOLOGY METHOD 04/11/2025 1:48 PM EDT [facility] RDW 13.8 11.5 - 14.5 % LAB HEMATOLOGY METHOD 04/11/2025 1:48 PM EDT [facility] MPV 10.1 8.8 - 12.5 fL LAB HEMATOLOGY METHOD 04/11/2025 1:48 PM EDT [facility] nRBC 0.0 <=0.0 per 100 WBCs LAB HEMATOLOGY METHOD 04/11/2025 1:48 PM EDT [facility] Blood Venous blood specimen / Unknown Venipuncture / Unknown 04/11/2025 12:04 PM EDT 04/11/2025 12:04 PM EDT us Noris Herrera CNA PCT LAB BLOOD ORDERABLES Final R esult [facility] [address] [place] [address] * Comprehensive Metabolic Panel, Plasma (04/11/2025 12:04 PM EDT) Glucose, Plasma 75 74 - 99 mg/dL 04/11/2025 2:20 PM EDT [facility] BUN, Plasma 15 7 - 21 mg/dL 04/11/2025 2:20 PM EDT [facility] Creatinine, Plasma 1.05 0.70 - 1.20 mg/dL 04/11/2025 2:20 PM EDT [facility] BUN/Creatinine Ratio 14 04/11/2025 2:20 PM EDT [facility] Sodium, Plasma 138 136 - 145 mmol/L 04/11/2025 2:20 PM EDT [facility] Potassium, Plasma 4.1 3.6 - 4.9 mmol/L 04/11/2025 2:20 PM EDT [facility] Chloride, Plasma 103 97 - 107 mmol/L 04/11/2025 2:20 PM EDT [facility] CO2, Plasma 23 22 - 29 mmol/L 04/11/2025 2:20 PM EDT [facility] Anion Gap 12 6 - 16 mmol/L 04/11/2025 2:20 PM EDT [facility] Total Calcium, Plasma 9.5 8.9 - 10.2 mg/dL 04/11/2025 2:20 PM EDT [facility] Total Protein 7.7 6.3 - 7.9 g/dL 04/11/2025 2:20 PM EDT [facility] Albumin, Plasma 4.4 3.5 - 5.2 g/dL 04/11/2025 2:20 PM EDT [facility] AST, Plasma 29 10 - 50 U/L 04/11/2025 2:20 PM EDT [facility] ALT, Plasma 23 10 - 50 U/L 04/11/2025 2:20 PM EDT [facility] Alkaline Phosphatase, Plasma 100 40 - 115 U/L 04/11/2025 2:20 PM EDT [facility] Total Bilirubin, Plasma 0.3 0.2 - 1.1 mg/dL 04/11/2025 2:20 PM EDT [facility] eGFRcr 87.0 mL/min/1.7 3m*2 04/11/2025 2:20 PM EDT [facility] Comment:Reported eGFRcr in m L/min/1.73m2 is based the CKD-EPI 2020 equation that does not use a race coefficient. Blood Venous blood specimen / Unknown Venipuncture / Unknown 04/11/2025 12:04 PM EDT 04/11/2025 12:04 PM EDT Noris Herrera CNA PCT LAB BLOOD ORDERABLES Final R esult [facility] [address] [place] [address] * (ABNORMAL) Urine Culture - Clinic Collect (03/30/2025 11:13 AM EDT) Culture <10,000 CFU/mL Staphylococcus coagulase negative(A) 04/01/2025 10:38 AM EDT [facility] Culture <10,000 CFU/mL Corynebacterium species(A) 04/01/2025 10:38 AM EDT [facility] Comment:The organism value f or this result has been updated. These results have been appended to the previously preliminary verified report. Urine Urine specimen obtained by clean catch procedure / Unknown Non-blood Collection / Unknown 03/30/2025 11:13 AM EDT 03/30/2025 1:01 PM EDT us Chacha REYES LAB MICROBIOLOGY - GENERAL ORDERABLES Final Result [facility] [address] [place] [address] * POC US Bladder Volume (03/30/2025 11:05 AM EDT) Urine, Volume 3 mL IMAGING Anatomical Region Laterality Modality Other us Chacha REYES IMG POINT OF CARE ULTRASOU ND Final Result * (ABNORMAL) POCT URINALYSIS DIPSTICK (03/30/2025 10:57 AM EDT) POCT Urine Color Yellow 03/30/2025 10:59 AM EDT [facility] POCT Urine Clarity Clear 03/30/2025 10:59 AM EDT [facility] POCT Urine Glucose Negative Negative mg/dL 03/30/2025 10:59 AM EDT [facility] POCT Urine Bilirubin Negative Negative mg/dL 03/30/2025 10:59 AM EDT [facility] POCT Urine Ketones Negative Negative mg/dL 03/30/2025 10:59 AM EDT [facility] POCT Urine Specific [place] 1.020 1.005 - 1.030 03/30/2025 10:59 AM EDT [facility] POCT Urine Blood Moderate(A) Negative 03/30/2025 10:59 AM EDT [facility] POCT pH, Urine 6.0 5.0 - 8.0 03/30/2025 10:59 AM EDT [facility] POCT Protein, Urine 30(A) Negative mg/dL 03/30/2025 10:59 AM EDT [facility] POCT Urobilinogen, Urine 2.0(A) 0.2, 1.0 EU/dL 03/30/2025 10:59 AM EDT [facility] POCT Nitrite, Urine Negative Negative 03/30/2025 10:59 AM EDT [facility] POCT Urine Leukocyte Esterase Negative Negative 03/30/2025 10:59 AM EDT [facility] Urine 03/30/2025 10:5 7 AM EDT 03/30/2025 10:59 AM EDT us Chacha REYES LAB POINT OF CARE TEST DOCKED DEVICE UNSOLICITED RESULTS Final Result [facility] [address], [place] * CT OUTSIDE IMAGES (03/26/2025 11:03 PM EDT) Anatomical Region Laterality Modality Computed Tomogra phy 03/26/2025 11:0 3 PM EDT us Hafsa Rodriguez DO IMG CT PROCEDURES Final Result [...] of bowel preparation was evaluated using the [place] Bowel Preparation Scale with scores of: right [...] Maintenance Insurance GENERIC MEDICARE ADVANTAGE Care Teams Lab Technologist Relationship Specialty Start Date End Date Dolores Grande APRN [address] [place] [address] PCP - General 02/11/22 Abelino Mars [facility] [address] [facility] [address] [place] [address] Surgeon Colon and Rectal Surgery 06/19/21 Michael Rodriguez MD [address] [address] Surgeon Surgical Oncology 06/19/21 Luis M Maldonado MD 800 [facility] [address] [place] [address] Consulting Physician Radiation Oncology 06/06/22
--- OUTSIDE RECORDS SUMMARY | 2025-04-13 11:25 | XMS_ITS ---
Author Organization [facility] Address [address] [place] [address] Care Team Providers Care Assembler Show Motor Name Role Phone Abelino Mars MD Unavailable [phone] Michael Rodriguez MD Unavailable [phone] Dolores Grande APRN Primary Care Provider [phone] Luis M Maldonado MD Unavailable [phone] Active Problems Problem Noted Date Diagnosed Date Second hand smoke exposure 05/27/2023 Gastroesophageal reflux disease 02/18/2023 Tobacco use disorder 09/03/2022 Lung nodules 06/06/2022 Malignant neoplasm of rectum 04/24/2021 Cancer Staging:Pathologic stage from 12/12/2020:Stage YASMIN(ypT3, ypN1b, cM1a) - Signed by Michael Rodriguez MD on 05/02/2021 Overview (04/24/2021): Added automatically from request for surgery [id number] Current Treatment and Therapy Plans No current [...]
[2025-04-13] MEDS: SODIUM CHLORIDE 0.9% 10ML FLUSH SYRINGE 10 ML IV (11:44)
[2025-04-13 11:45] LABS: Hematocrit 38.3 % (42.0-52.0); Hemoglobin 13.1 g/dL (14.1-18.0); Mean Corpuscular HGB Conc 34.2 g/dL (31.8-35.4); Mean Corpuscular Hemoglobin 30.5 pg (27.0-31.2); Mean Corpuscular Volume 89.3 fl (80-94); Platelet Count 206 K/mm3 (142-424); Red Blood Count 4.29 M/mm3 (4.60-6.20); White Blood Count 5.0 K/mm3 (4.8-10.8)
[2025-04-13 11:57] LABS: Alanine Aminotransferase 23 U/L (12-78); Albumin Level 4.3 g/dl (3.5-5.0); Albumin/Globulin Ratio 1.3 (1.1-1.8); Alkaline Phosphatase 99 U/L (38-126); Anion Gap 12.2 mEq/L (5-15); Aspartate Amino Transferase 31 U/L (17-59); Bilirubin,Total 0.5 mg/dl (0.2-1.3); Blood Urea Nitrogen 13 mg/dl (9-20); Calcium 9.2 mg/dl (8.4-10.2); Carbon Dioxide 27 mmol/L (22.0-30.0); Chloride 103 mmol/L (98-107); Creatinine,Serum 1.10 mg/dl (0.66-1.25); Estimated Glomerular Filt Rate 71 ml/min (>60); GFR (African American) 86 ML/MIN (>60); Globulin 3.3 g/dL (1.3-3.2); Glucose 85 mg/dl (74-100); Potassium 4.2 mmoL/L (3.5-5.1); Sodium 138 mmol/L (136-145); Total Protein,Serum 7.6 g/dl (6.3-8.2)
[2025-04-13 12:23] LABS: RBC Morphology Normal
[2025-04-13 12:24] LABS: Total Cells Counted 100
[2025-04-14 12:12] LABS: CEA 55.9 ng/mL (0.0-4.7)
== END 2025-04-13 11:45 | disposition home or self-care (01) ==
LOC: INF 11:16
PROVIDERS: PCP Nurse Practitioner Family; Visit Provider Internal Medicine Medical Oncology
DX: C18.9 Malignant neoplasm of colon, unspecified (principal)
CPT/HCPCS: 36415; 80053; 82378; 85007; 85014; 85018; 85048; 85049; 96523; J1642

== ENCOUNTER 2025-05-04 11:17 | Outpatient (CLI) | payer MEDICARE, SELFPAY ==
--- OUTSIDE RECORDS SUMMARY | 2025-03-30 11:00 | XMS_ITS | Encounter Summary ---
Author Organization [facility] Address [address] [place] [address] Care Team Providers Care Furnace Maintenance Name Role Phone Abelino Mars MD Unavailable [phone] Michael Rodriguez MD Unavailable [phone] Dolores Grande APRN Primary Care Provider [phone]- [phone] Luis M Maldonado MD Unavailable [phone] Reason for Referral * Imaging (Routine) - Pending Review Specialty Diagnoses / Procedures Referred By Contmelodie t Referred To Contact Radiology Diagnoses Hydronephrosis of left kidney Procedures IR Nephrostomy Tube Placement CT Guided Neph Tube Placement Left Consult to Interventional Radiology Chacha Perales PA [address] [facility] [address] [place] [address] Phone: tel: fax: Referral ID Status Reason Start Date Expiration Date V isits Requested Visits Authorized [id number] Pending Review 03/30/2025 09/29/2026 1 1 Encounter Details Date Type Department Care Team (Late st Contact Info) Description 03/30/2025 11:00 AM EDT Office Visit [facility] [facility] [address] [place] [address] Chacha Perales PA [address] [place] [address] Urge incontinence (Primary Dx); Malignant [...] following with Oncology locally, Dr. Caicedo in [place], [place] He was seen at [facility] ED [...] Exam Vitals reviewed. Exam conducted with a toy assembler present. Constitutional: General: He is not in [...] Yellow POCT Urine Clarity Clear POCT Specific [place], Urine 1.005 - 1.030 1.020 POCT Protein, [...] PARTIAL / TOTAL N/A Partial Colectomy from [facility] COLON SURGERY LIVER SURGERY LIVER SURGERY 05/16/2021 laparoscopy MWA of seg 02/05, ileostomy closure, mediport MYRINGOTOMY W/ TUBES OTHER SURGICAL HISTORY N/A Low anterior resection from [facility] TONSILLECTOMY URETEROSCOPY Left 07/03/2022 with biopsy and ureteral stent placement. ([facility]) documented in this encounter Plan of Treatment Upcoming Encounters Date Type Department Care Team (Late st Contact Info) Description 09/30/2025 10:40 AM EST Office Visit [place] [facility] [address] [place] [address] Alvina Carroll, IT SUPPORT TECHNICIAN [address] [place] [address] Scheduled Orders Name Type Priority Associated Diagnoses Orde r Schedule IR Nephrostomy Tube Placement Imaging Routine Hydronephrosis of left kidney Expected: [...] Staphylococcus coagulase negative(A) 04/01/2025 10:38 AM EDT [facility] Culture <10,000 CFU/mL Corynebacterium species(A) 04/01/2025 10:38 AM EDT [facility] Comment:The organism value f or this result has been updated. These results have been appended to the previously preliminary verified report. Urine Urine specimen obtained by clean catch procedure / Unknown Non-blood Collection / Unknown 03/30/2025 11:13 AM EDT 03/30/2025 1:01 PM EDT us [facility] MICROBIOLOGY - GENERAL ORDERABLES Final Result [facility] [address] [place] [address] * POC US Bladder Volume (03/30/2025 11:05 AM EDT) Urine, Volume 3 mL IMAGING Anatomical Region Laterality Modality Other us [facility] IMG POINT OF CARE ULTRASOU ND Final Result * (ABNORMAL) POCT URINALYSIS DIPSTICK (03/30/2025 10:57 AM EDT) POCT Urine Color Yellow 03/30/2025 10:59 AM EDT [facility] POCT Urine Clarity Clear 03/30/2025 10:59 AM EDT [facility] POCT Urine Glucose Negative Negative mg/dL 03/30/2025 10:59 AM EDT [facility] POCT Urine Bilirubin Negative Negative mg/dL 03/30/2025 10:59 AM EDT [facility] POCT Urine Ketones Negative Negative mg/dL 03/30/2025 10:59 AM EDT [facility] POCT Urine Specific [place] 1.020 1.005 - 1.030 03/30/2025 10:59 AM EDT [facility] POCT Urine Blood Moderate(A) Negative 03/30/2025 10:59 AM EDT [facility] POCT pH, Urine 6.0 5.0 - 8.0 03/30/2025 10:59 AM EDT [facility] POCT Protein, Urine 30(A) Negative mg/dL 03/30/2025 10:59 AM EDT [facility] POCT Urobilinogen, Urine 2.0(A) 0.2, 1.0 EU/dL 03/30/2025 10:59 AM EDT [facility] POCT Nitrite, Urine Negative Negative 03/30/2025 10:59 AM EDT [facility] POCT Urine Leukocyte Esterase Negative Negative 03/30/2025 10:59 AM EDT [facility] Urine 03/30/2025 10:5 7 AM EDT 03/30/2025 10:59 AM EDT us [facility] POINT OF CARE TEST DOCKED DEVICE UNSOLICITED RESULTS Final Result [facility] [address], [place] documented in this encounter Visit Diagnoses [...] documented as of this encounter Care Teams Furnace Maintenance Relationship Specialty Start Date End Date Dolores Grande APRN [address] [place] [address] PCP - General 02/11/22 Abelino Mars MD [address] [facility] [address] [place] [address] Surgeon Colon and Rectal Surgery 06/19/21 Michael Rodriguez MD [address] [phone] Surgeon Surgical Oncology 06/19/21 Luis M Maldonado MD [address] [facility] [address] [place] [address] Consulting Physician Radiation Oncology 06/06/22 documented as of this encounter
--- OUTSIDE RECORDS SUMMARY | 2025-04-11 12:00 | XMS_ITS | Encounter Summary ---
Author Organization [facility] Address [address] [place] [place] [address] Care Team Providers Care [facility] Attendant Name Role Phone Abelino Mars MD Unavailable [phone] Michael Rodriguez MD Unavailable [phone] Dolores Grande APRN Primary Care Provider [phone] Luis M Maldonado MD Unavailable [phone] Encounter Details Date Type Department Care Team (Latest Contact Info) Description 04/11/2025 12:00 PM EDT [facility] [address] [place] [address] Noris Herrera, COLLEGE [employer]IVERSITY BUSINESS MANAGER [address] [place] [address] Hydronephrosis of left kidney (Primary Dx) Social History Tobacco Use Types Packs/Day Years [...] Sign Reading Time Taken Comments Blood Pressure 132/83 04/11/2025 11:36 AM EDT Pulse 62 04/11/2025 11:36 AM EDT Temperature 36.5 C (97.7 F) 04/11/2025 11:36 AM EDT Respiratory Rate - - Oxygen Saturation 99% 04/11/2025 11:36 AM EDT Inhaled Oxygen Concentration - - Weight 88.1 kg (194 lb 3.6 oz) 04/11/2025 11:36 AM EDT Height 177.8 cm (5' 10 ) 04/11/2025 11:36 AM EDT Body Mass Index 27.87 04/11/2025 11:36 AM EDT documented in this encounter Miscellaneous Notes * H&P - Noris Herrera APRN - 04/11/2025 12:00 PM EDT Images from the original note were not included. Oscar Tomlin presents today for consultation as requested by Chacha Garza regarding assessment of left hydronephrosis. Subjective History of Present Illness: JULIA Tomlin is a 49 y.o. 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 He is being evaluated for left hydronephrosis. In summary; Regarding his metastatic colorectal cancer and underwent a diverting colostomy in May 2020 followed by chemotherapy. He then underwent partial hepatectomy, with microwave ablation of liver lesions and an LAR in November,. His colostomy was reversed and a diverting ileostomy was made at that time. He then underwent an ileostomy reversal and microwave ablation of his liver lesions on05/16/21. He was evaluated by Drs. Rodriguez and Dr. Maldonado and found to have enlarging lung lesions as well as a lesion either adjacent to or within the mid left ureter. The treatment plan was XRT to the lung and periureteral lesion. He is s/p attempted left URS in 07/2022, however, ureteroscope unable to pass beyond area of narrowing in mid left ureter, so 7 Fr x 26 ccm JJ stent placed. Stent exchanged on 09/18/22. Subsequently taken to OR on 02/18/23 for cysto and at that time, he was without hydro or filling defects. Decision was reached to remove stent at that time, per pt request. More recently [03/26/25], he went to [facility] abdominal pain, difficulty urinating, no BM x3 days. Urine non-infectious appearing. CT A/P showed interval worsening innumerable bibasilar lung nodules. Stable 3cm right liver mass. Severe left hydronephrosis and proximal hydroureter. This is abruptly tapering at the level of left periaortic LAD, stable with left renal cortex thinning. Moderate prostatomegaly. Partially decompressed bladder. Of note, patient had CT A/P during 09/2023 which also demonstrated this. He is now following with Oncology locally, Dr. Caicedo in [place], [place] He is referred to us for left PCNT insertion. He is presenting today to be evaluated prior to left PCNT placement. He is alert, appropriate, and pleasant. He is nontoxic in appearance, on room air. Denies chest pain, abdominal pain, shortness of breath, fever does endorse some ongoing left flank pain but today he says is a good day. Allergies: Cetuximab Medications: Current Medications[1] Past Surgical History: Oscar has a past surgical history that includes Colectomy partial / total (N/A); Other surgical history (N/A); Liver surgery; Tonsillectomy; Liver surgery (05/16/2021); Ureteroscopy (Left, 07/03/2022); Colon surgery; Cholecystectomy; Myringotomy w/ tubes; Colonoscopy; and Tympanoplasty. Past Medical History: He has a past medical history of Cancer (CMS/HCC), Colon cancer (CMS/HCC) (2019), Coughing (10/2022), Exercise tolerance finding (01/07/2023), GERD (gastroesophageal reflux disease), Hiatal hernia, radiation therapy (10/2022), Lesion of ureter, Liver cancer (CMS/HCC) (2019), and Lung nodules (2021). He has no past medical history of Malignant hyperthermia. Past Family History: Hisfamily history includes Cancer in his father; Heart disease in his father. Past Social History: He reports that he has been smoking cigarettes. He has a 10 pack-year smoking history. His smokeless tobacco use includes chew. He reports that he does not drink alcohol and does not use drugs. Review of Systems: Review of Systems 14 point ROS negative except for above. Objective Physical Exam: There were no vitals filed for this visit. Physical Exam Visit Vitals BP 132/83 Pulse 62 Temp 36.5 ??C (97.7 ??F) Ht 1.778 m (5' 10 ) Wt 88.1 kg (194 lb 3.6 oz) SpO2 99% BMI 27.87 kg/m?? Smoking Status Every Day BSA 2.09 m?? General Appearance: Alert, cooperative, no distress, appears stated age Head: Normocephalic, without obvious abnormality, atraumatic Eyes: PERRL, conjunctiva/corneas clear, EOM's intact, fundi benign, both eyes Ears: Normal TM's and external ear canals, both ears Nose: Nares normal, septum midline, mucosa normal, no drainage or sinus tenderness Throat: Lips, mucosa, and tongue normal; teeth and gums normal Neck: Supple, symmetrical, trachea midline, no adenopathy; thyroid: No enlargement/tenderness/nodules; no carotid bruit or JVD Back: Symmetric, no curvature, ROM normal, no CVA tenderness Lungs: Clear to auscultation bilaterally, respirations unlabored Chest wall: No tenderness or deformity Heart: Regular rate and rhythm, S1 and S2 normal, no murmur, rub or gallop Abdomen: Soft, non-tender, bowel sounds active all four quadrants, no masses, no organomegaly Extremities: Extremities normal, atraumatic, no cyanosis or edema Pulses: 2+ and symmetric all extremities Skin: Skin color, texture, turgor normal, no rashes or lesions Lymph nodes: Cervical, supraclavicular, and axillary nodes normal Neurologic: CNII-XII intact. Normal strength, sensation and reflexes throughout Imaging: CT Chest w IV Contrast, CT Abdomen Pelvis w IV Contrast Narrative: CLINICAL INDICATION: rectal cancer TECHNIQUE: Multiple axial CT images were obtained from thoracic inlet through pubic symphysis following administration of IV contrast, Omnipaque 300, 100 mL. Reformatted images of the abdomen and pelvis in the coronal and sagittal planes were generated from the axial data set to facilitate diagnostic accuracy. Total DLP (Dose-Length Product): 536.15 mGy.cm. Please note: The reported value represents the total of one or more individual components during the CT acquisition on this date and at this time, and as such, the same value may appear in more than one CT report depending on the interpreting/reporting physicians. COMPARISON: CT chest, abdomen, pelvis performed December 28, 2022 FINDINGS: Chest: Lymph Nodes and Mediastinum: No lymphadenopathy by CT size criteria. Calcified right upper paratracheal nodes. No mediastinal mass lesions. No suspicious thyroid findings. Cardiovascular: The heart is normal in caliber. Thoracic great vessels are patent. Lungs and Pleura: Multiple enlarging bilateral pulmonary nodules, for example 1.2 cm nodule, previously 6 mm (series 2 image 97), and a 7 mm right lower lobe nodule, previously 3 mm (series 2 image 20). New left lower lobe 7 mm nodule (series 2 image 233). Enlarging left upper lobe 1.2 cm nodule, previously 4 mm (series 2 image 89). Persistent airspace opacities in the right upper lobe and left lower lobe. No pleural effusions or suspicious thickening. Musculoskeletal and Body Wall: No clearly aggressive bone lesions. Abdomen/Pelvis: Solid Abdominal Organs: Redemonstration of segment 2 lesion measuring approximately 8 mm (series 3 image 46), as well as a 7 mm segment IVb lesion (series 3 image 69). Stable appearance of the segment 6/7 ablation cavity measuring approximately 3.1 x 2.1 cm (series 3 image 95). Surgically absent gal lbladder. No suspicious renal mass or lesion. Interval removal of left-sided ureteral stent, with reaccumulation of moderate hydronephrosis with evidence of parenchymal thinning. Unremarkable spleen.No suspicious adrenal findings. No suspicious pancreatic findings. GI Tract/Mesentery/Peritoneum: The large and small bowel appear normal in caliber. Rectal anastomotic suture line is noted. No obvious recurrent mass. Stoma reversal is noted though there is herniation through the stomal defect. Further ventral abdominal wall hernias noted containing uncomplicated small bowel. Left retroperitoneal soft tissue nodule measuring 1.5x 1.0 cm (series 3 image 190), causing left ureteric obstruction. Pelvic Viscera: No suspicious pelvic mass lesions. Lymph Nodes/Vasculature: Interval increased retroperitoneal lymphadenopathy, for example para-aortic lymph node measuring 1.5 cm (series 3 image 163). The aortoiliac vasculature is patent and normal in caliber. Mild calcific atherosclerosis of the abdominal aorta Free Fluid:No ascites Musculoskeletal and Body Wall: No clearly aggressive bone lesions. Impression: Chest: Multiple enlarging and new bilateral pulmonary nodules compatible with progression of metastatic disease. Abdomen/Pelvis: Interval increased retroperitoneal lymphadenopathy, with enlarging left retroperitoneal soft tissue nodule abutting the left ureter with resultant moderate hydronephrosis and parenchymal thinning. Findings compatible with progression of metastatic disease. CRITICAL RESULT: No. COMMUNICATION: Per this written report. By electronically signing this report, I, the attending physician, attest that I have personally reviewed the images/data for the above examination(s) and agree with the final edited report. Drafted by Julian Ramirez MD on 09/05/2023 4:33 PM Final report signed by Surya Schuler MD on 09/05/2023 5:08 PM Labs: Labs in chart were reviewed. Lab Results Component Value Date WBC 4.24 05/27/2023 HGB 11.7 (L) 05/27/2023 HCT 35.0 (L) 05/27/2023 PLT 229 05/27/2023 Lab Results Component Value Date NA 141 05/27/2023 K 3.9 05/27/2023 CL 107 05/27/2023 CO2 23 05/27/2023 BUN 13 05/27/2023 CREATININE 1.24 05/27/2023 GLUCOSE 91 05/27/2023 Lab Results Component Value Date CALCIUM 9.5 05/27/2023 MG 1.9 05/19/2021 PHOS 3.5 05/19/2021 Lab Results Component Value Date AST 29 05/27/2023 ALT 32 05/27/2023 ALKPHOS 123 (H) 05/27/2023 Lab Results Component Value Date APTT 27 12/05/2020 INR 1.2 (H) 12/25/2020 Assessment/Plan Obstructive hydronephrosis, left Stage 4 rectosigmoid adenoCA with mets to liver/lungs -05/2020: s/p diverting colostomy. -s/p chemotherapy. -11/2020: s/p partial hepatectomy, with microwave ablation of liver lesions and an LAR. Colostomy was reversed and a diverting ileostomy was made at that time. -05/16/21: Ileostomy reversal and microwave ablation of his liver lesions. -Personally reviewed CT A/P 06/04/2022: left kidney with hydroureteronephrosis to the level of the mid ureter with associated tumor deposit at the level of the left mid ureter, which abuts and causes ureteral obstruction. -07/2022: s/p left stent placement. -09/18/2022 - Left URS showed ureteral stricture but no tumor seen. Stent exchanged at that time. -02/18/23: Stent removed, he was without hydro or filling defects. -Personally reviewed CT A/P 09/2023: Severe left hydro and proximal hydroureter. -Personally reviewed CT A/P 03/26/25: Severe left hydro and proximal hydroureter, abruptly tapering at the level of left periaortic LAD, stable with left renal cortex thinning. Moderate prostatomegaly. Innumerable lung nodules. Stable 2 cm right liver mass. -Oncology following -Followed by Dr. Rodriguez -Urology following PLAN -Will place left PCNT on 04/15/25. Imaging findings have remained stable from 09/2023 to 03/2025. The procedure is being pursued primarily for management of his left lower quadrant pain. I discussed with the patient that the efficacy of PCNT for pain control is uncertain, and symptom relief may not beachieved. If there is no improvement, we will reassess the necessity of removal. -Anticoagulation; hold ASA 81 mg. -NPO per protocol. -Will obtain labs and consent today. -I explained: This procedure is image guided using real-time ultrasound and X-ray [fluoroscopy] guidance to ensure accuracy and safety. You will be given conscious sedation to help you stay relaxed and comfortable, along with local numbing medicine in the skin over your kidney. Typical patient's are positioned on your stomach (prone), which is the most common position for this procedure, though positioning mayvary depending on your anatomy or clinical condition. Using ultrasound, we carefully inserted a small needle into a lower part of your kidney. We then used a series of wires and dilators to safely guide a drainage tube [called a nephrostomy tube] into the kidney???s collecting system. Once the tube is in place, we confirm good positioning with contrast dye and locked the end into place to help it stay secure. The tube is stitched to your skin and lisa l drain urine out of the kidney into a small external collection bag. We also flushed the kidney and send a sample to the lab for testing. As with any procedure, there are some risks to be aware of. These include bleeding from the kidney or surrounding tissues, infection at the skin site or within the kidney, and potential injury to nearby organs or blood vessels. Some patients may experience urine leakage around the tube site, discomfort at the insertion area, or clogging or dislodgement of the tube. In rare cases, more serious complications such as sepsis or loss of kidney function can occur if problems are not promptly addressed. Fortunately, these complications are uncommon, and most patients do well with appropriate care and monitoring. Going forward, the tube should remain open to gravity drainage and should not be capped. It should be flushed with 5 mL of normal saline every 12 hours to keep it from clogging. If there are no problems, the tube can typically be exchanged in about 10-12 weeks. We???ll see you back in Interventional Radiology clinic in about 2 weeks to check your progress. Thank you for allowing me to participate in the care of Oscar Tomlin. Noris Herrera APRN Vascular & Interventional Radiology I spent >61 minutes on this encounter; including preparing to see the patient, which involved review/interpretation of diagnostics and reports; obtaining and/or reviewing separately obtained history; performing appropriate physical exam; communicating finding, reviewing labs/imaging, counseling/educating the patient; documentation in EMR; and formulating subsequent treatment plan. [1] Current Outpatient Medications: albuterol 108 (90 Base) MCG/ACT inhaler, INHALE 1 PUFF BY MOUTH EVERY 6 HOURS NEEDED FOR SHORTNESS OF BREATH OR WHEEZING, Disp: , Rfl: Aspirin Low Dose 81 MG chewable tablet, Chew 1 tablet (81 mg) 1 (one) time each day., Disp: , Rfl: atorvastatin (Lipitor) 80 MG tablet, Take 1 tablet (80 mg) by mouth every night., Disp: , Rfl: dexamethasone (Decadron) 4 MG tablet, Take 2 tablets (8 mg) by mouth 1 (one) time each day. For 2 days starting the day after chemotherapy., Disp: 48 tablet, Rfl: 0 gabapentin (Neurontin) 300 MG capsule, TAKE ONE CAPSULE BY MOUTH THREE TIMES DAILY MAY CAUSE DROWSINESS, Disp: , Rfl: ibuprofen 800 MG tablet, TAKE ONE TABLET BY MOUTH EVERY 8 HOURS --TAKE WITH FOOD--, Disp: , Rfl: loperamide (Imodium A-D) 2 MG tablet, 2 mg by mouth every 2 hours as needed for diarrhea; Not to exceed 16 mg in 24 hours, Disp: 30 tablet, Rfl: 5 methocarbamol (Robaxin) 750 MG tablet, Take 1 tablet by mouth 3 times a day., Disp: , Rfl: oxyCODONE-acetaminophen (Percocet) 7.5-325 MG tablet, TAKE ONE TABLET BY MOUTH FOUR TIMES DAILY MAYCAUSE DROWSINESS, Disp: , Rfl: prochlorperazine (Compazine) 10 MG tablet, Take 1 tablet (10 mg) by mouth every 6 (six) hours if needed for nausea or vomiting., Disp: 30 tablet, Rfl: 5 Stivarga 40 MG chemo tablet, , Disp: , Rfl: documented in this encounter Plan of Treatment Upcoming Encounters Date Type Department Care Team (Late st Contact Info) Description 09/30/2025 10:40 AM EST [facility] [address] [place] [address] Alvina Carroll APRN [address] [facility] [address] [place] [address] documented as of this encounter Visit Diagnoses Diagnosis Hydronephrosis of left kidney- Primary Hydronephrosis documented in this encounter Additional Health Concerns Assessment Noted Time A fall risk assessment has been complete d for the patient 03/30/2025 10:51 AM EDT A Body Mass Index follow-up plan has been documented for the patient 04/11/2025 12:17 PM EDT documented as of this encounter Care Teams [facility] Attendant Relationship Specialty Start Date End Date Dolores Grande APRN [address] [place] [address] PCP - General 02/11/22 Abelino Mars MD [address] [facility] [address] [place] [address] Surgeon Colon and Rectal Surgery 06/19/21 Michael Rodriguez MD [address] [address] Surgeon Surgical Oncology 06/19/21 Luis M Maldonado MD [address] [facility] [address] [place] [address] Consulting Physician Radiation Oncology 06/06/22 documented as of this encounter
[2025-05-04] MEDS: SODIUM CHLORIDE 0.9% 10ML FLUSH SYRINGE 10 ML IV (11:28)
--- OUTSIDE RECORDS SUMMARY | 2025-05-04 11:38 | XMS_ITS | Encounter Summary ---
Author Organization [facility] Address [address] [place] [address] Care Team Providers Care Pathology Technologist Name Role Phone Abelino Mars MD Unavailable [phone] Michael Rodriguez MD Unavailable [phone] Dolores Grande APRN Primary Care Provider [phone] Luis M Maldonado MD Unavailable [phone] Encounter Details Date Type Department Care [...] Office Visit [place] [facility] [address], [address] [place] [address] Alvina Carroll, STENOGRAPHIC COURT REPORTER [address] [place] [address] documented as of this encounter Visit Diagnoses Not on filedocumented in this encounter Additional Health Concerns Assessment Noted Time A fall risk assessment has been complete d for the patient 03/30/2025 10:51 AM EDT A Body Mass Index follow-up plan has been documented for the patient 04/11/2025 12:17 PM EDT documented as of this encounter Care Teams Pathology Technologist Relationship Specialty Start Date End Date Dolores rGande APRN [address] [place] [address] PCP - General 02/11/22 Abelino Mars MD [address] [place] [address] Surgeon Colon and Rectal Surgery 06/19/21 Michael Rodriguez MD [address] [address] Surgeon Surgical Oncology 06/19/21 Luis M Maldonado MD 800 [facility] [address] [place] [address] Consulting Physician Radiation Oncology 06/06/22 documented as of this encounter
--- OUTSIDE RECORDS SUMMARY | 2025-05-04 11:38 | XMS_ITS | Encounter Summary ---
Author Organization [facility] Address [address] [place] [address] Care Team Providers Care Instrumentation Supervisor Name Role Phone Abelino Mars MD Unavailable [phone] Michael Rodriguez MD Unavailable [phone] Dolores Grande APRN Primary Care Provider [phone] Luis M Maldonado MD Unavailable [phone] Encounter Details Date Type Department Care Team (Late st Contact Info) Description 04/07/2025 Orders Only [facility] Vascular Interventional Radiology [address] [place] [address] Payton Argueta, RN [facility] VASCULAR INTERV RADIOL CLINIC Encounter for other [...] Office Visit [place] [facility] [address] [place] [address] E, ROAD COMMISSIONER [address] [place] [address] documented as of this encounter Results * (ABNORMAL) CBC W/O Differential (04/11/2025 12:04 PM EDT) WBC Count 5.45 3.70 - 10.30 10*3/uL LAB HEMATOLOGY METHOD 04/11/2025 1:[address] [facility] RBC Count 4.47(L) 4.60 - 6.10 10*6/uL LAB HEMATOLOGY METHOD 04/11/2025 1:[address] [facility] HGB 13.4(L) 13.7 - 17.5 g/dL LAB HEMATOLOGY METHOD 04/11/2025 1:[address] [facility] HCT 40.0 40.0 - 51.0 % LAB HEMATOLOGY METHOD 04/11/2025 1:[address] [facility] Platelet Count 228 155 - 369 10*3/uL LAB HEMATOLOGY METHOD 04/11/2025 1:[address] [facility] MCV 90 79 - 98 fL LAB HEMATOLOGY METHOD 04/11/2025 1:[address] [facility] MCH 30.0 26.0 - 32.0 pg LAB HEMATOLOGY METHOD 04/11/2025 1:[address] [facility] MCHC 33.5 30.7 - 35.5 g/dL LAB HEMATOLOGY METHOD 04/11/2025 1:[address] [facility] RDW 13.8 11.5 - 14.5 % LAB HEMATOLOGY METHOD 04/11/2025 1:[address] [facility] MPV 10.1 8.8 - 12.5 fL LAB HEMATOLOGY METHOD 04/11/2025 1:[address] [facility] nRBC 0.0 <=0.0 per 100 WBCs LAB HEMATOLOGY METHOD 04/11/2025 1:[address] [facility] Blood Venous blood specimen / Unknown Venipuncture / Unknown 04/11/2025 12:04 PM EDT 04/11/2025 12:04 PM EDT us Noris Herrera ROAD COMMISSIONER LAB BLOOD ORDERABLES Final R esult [facility] [address] [place] [address] * Comprehensive Metabolic Panel, Plasma (04/11/2025 12:04 PM EDT) Pathologist [facility] Glucose, Plasma 75 74 - 99 mg/dL 04/11/2025 2:[address] [facility] BUN, Plasma 15 7 - 21 mg/dL 04/11/2025 2:[address] [facility] Creatinine, Plasma 1.05 0.70 - 1.20 mg/dL 04/11/2025 2:[address] [facility] BUN/Creatinine Ratio 14 04/11/2025 2:[address] [facility] Sodium, Plasma 138 136 - 145 mmol/L 04/11/2025 2:[address] [facility] Potassium, Plasma 4.1 3.6 - 4.9 mmol/L 04/11/2025 2:[address] [facility] Chloride, Plasma 103 97 - 107 mmol/L 04/11/2025 2:[address] [facility] CO2, Plasma 23 22 - 29 mmol/L 04/11/2025 2:[address] [facility] Anion Gap 12 6 - 16 mmol/L 04/11/2025 2:[address] [facility] Total Calcium, Plasma 9.5 8.9 - 10.2 mg/dL 04/11/2025 2:[address] [facility] Total Protein 7.7 6.3 - 7.9 g/dL 04/11/2025 2:[address] [facility] Albumin, Plasma 4.4 3.5 - 5.2 g/dL 04/11/2025 2:[address] [facility] AST, Plasma 29 10 - 50 U/L 04/11/2025 2:[address] [facility] ALT, Plasma 23 10 - 50 U/L 04/11/2025 2:[address] [facility] Alkaline Phosphatase, Plasma 100 40 - 115 U/L 04/11/2025 2:[address] [facility] Total Bilirubin, Plasma 0.3 0.2 - 1.1 mg/dL 04/11/2025 2:[address] [facility] eGFRcr 87.0 mL/min/1.7 3m*2 04/11/2025 2:[address] [facility] Comment:Reported eGFRcr in m L/min/1.73m2 is based the CKD-EPI 2020 equation that does not use a race coefficient. Blood Venous blood specimen / Unknown Venipuncture / Unknown 04/11/2025 12:04 PM EDT 04/11/2025 12:04 PM EDT us Noris Herrera APRN LAB BLOOD ORDERABLES Final R esult Performing Organization Address City/State/[facility] Co de Phone Number [facility] [address] [place] [address] * Prothrombin Time/INR (04/11/2025 12:04 PM EDT) Prothrombin Time 13.5 12.0 - 14.3 sec LAB COAGULATION METHOD 04/11/2025 1:[address] [facility] INR 1.0 0.9 - 1.1 LAB COAGULATION METHOD 04/11/2025 1:[address] [facility] Blood Venous blood specimen / Unknown Venipuncture / Unknown 04/11/2025 12:04 PM EDT 04/11/2025 12:[address] [facility] - 04/11/2025 1:56 PM EDT OPTIMAL INR RANGES FOR PATIENT ON ORAL ANTICOAGULANT THERAPY Prevention of venous thromboembolism INR 2.0 to 3.0 In patients with heart disease: Atrial fibrillation INR 2.0 to 3.0 Valvular heart disease INR 2.0 to 3.0 Tissue heart valves INR 2.0 to 3.0 Mechanical prosthetic valves INR 2.5 to 3.5 Prevention of recurrent [place] INR 2.5 to 3.5 [address] COMMISSIONER LAB BLOOD ORDERABLES Final R esult [facility] [address] [place] [address] documented in this encounter Visit Diagnoses Diagnosis Encounter for other preprocedural examination- Primary documented in this encounter Additional Health Concerns Assessment Noted Time A fall risk assessment has been complete d for the patient 03/30/2025 10:51 AM EDT A Body Mass Index follow-up plan has been documented for the patient 03/30/2025 12:39 PM EDT documented as of this encounter Care Teams Instrumentation Supervisor Relationship Specialty Start Date End Date Dolores Grande APRN [address] [place] [address] PCP - General 02/11/22 Abelino Mars MD [address] [place] [address] Surgeon Colon and Rectal Surgery 06/19/21 Michael Rodriguez MD 800 [facility] [address] [place] [address] Surgeon Surgical Oncology 06/19/21 Luis M Maldonado MD 800 [facility] [address] [place] [address] Consulting Physician Radiation Oncology 06/06/22 documented as of this encounter
--- OUTSIDE RECORDS SUMMARY | 2025-05-04 11:38 | XMS_ITS | Encounter Summary ---
Author Organization [facility] Address [address] [place] [address] Care Team Providers Care Rn Surgery Name Role Phone Abelino Mars MD Unavailable [phone] Michael Rodriguez MD Unavailable [phone] Dolores Grande APRN Primary Care Provider [phone] Luis M Maldonado MD Unavailable [phone] Reason for Visit * Reason Onset Date Comments HCN Clinical Concern/Question 04/06/2025 Encounter Details Date Type Department Care Team (Late st Contact Info) Description 04/06/2025 Telephone [facility] [address] [place] [address] Chacha Perales PA [address] [place] [address] HCN Clinical Concern/Question Social History [...] encounter Miscellaneous Notes * Telephone Encounter - Dung Osman - 04/06/2025 10:53 AM EDT Clinical Concern/Question Reason for Call: None He is returning a missed call. He didn't know who it was. Best contact number: [phone] (mobile) Optimal time of day to reach caller: ANYTIME Additional comments/information from caller: None Note: Please do not reply to this message. Follow-up communication and further actions as a result of this message need to be communicated with the patient directly, if the patient is not active onMyChart. If the patient is active on MyChart, they will receive notification of the communication/outcome via [employer]. documented in this encounter Plan of Treatment Upcoming Encounters Date Type Department Care Team (Late st Contact Info) Description 09/30/2025 10:40 AM EST Office Visit [facility] [address] [place] [address] Alvina Carroll APRN [address] [place] [address] documented as of this encounter Visit Diagnoses Not on filedocumented in this encounter Additional Health Concerns Assessment Noted Time A fall risk assessment has been complete d for the patient 03/30/2025 10:51 AM EDT A Body Mass Index follow-up plan has been documented for the patient 03/30/2025 12:39 PM EDT documented as of this encounter Care Teams Rn Surgery Relationship Specialty Start Date End Date Dolores Grande APRN [address] [place] [address] PCP - General 02/11/22 Abelino Mars MD [address] [place] [address] Surgeon Colon and Rectal Surgery 06/19/21 Michael Rodriguez MD [address] [address] Surgeon Surgical Oncology 06/19/21 Luis M Maldonado MD [address] [address] Consulting Physician Radiation Oncology 06/06/22 documented as of this encounter
--- OUTSIDE RECORDS SUMMARY | 2025-05-04 11:38 | XMS_ITS | Encounter Summary ---
Author Organization [facility] Address [address] [place] [address] Care Team Providers Care Fashion Model Name Role Phone Abelino Mars MD Unavailable [phone] Michael Rodriguez MD Unavailable [phone] Dolores Grande APRN Primary Care Provider + [phone] Luis M Maldonado MD Unavailable [phone] Encounter Details Date Type Department Care [...] Office Visit [place] [facility] [address], [address] [place] [address] Alvina Carroll, PULLEY WORKER [address] [place] [address] documented as of this encounter Visit Diagnoses Not on filedocumented in this encounter Additional Health Concerns Assessment Noted Time A fall risk assessment has been complete d for the patient 03/30/2025 10:51 AM EDT A Body Mass Index follow-up plan has been documented for the patient 03/30/2025 12:39 PM EDT documented as of this encounter Care Teams Fashion Model Relationship Specialty Start Date End Date Dolores Grande APRN [address] [place] [address] PCP - General 02/11/22 Abelino Mars MD [address] [place] [address] Surgeon Colon and Rectal Surgery 06/19/21 Michael Rodriguez MD [address] [address] Surgeon Surgical Oncology 06/19/21 Luis M Maldonado MD 800 [facility] [address] [place] [address] Consulting Physician Radiation Oncology 06/06/22 documented as of this encounter
--- OUTSIDE RECORDS SUMMARY | 2025-05-04 11:39 | XMS_ITS | Encounter Summary ---
Author Organization [facility] Address [address] [place] [address] Care Team Providers Care Coding Manager Name Role Phone Abelino Mars MD Unavailable [phone] Michael Rodriguez MD Unavailable [phone] Dolores Grande APRN Primary Care Provider + [phone] Luis M Maldonado MD Unavailable [phone] Encounter Details Date Type Department Care Team (Late st Contact Info) Description 03/26/2025 Orders Only External Location [address] [place] [address] RodriguezHafsa, DO [address] [place] [address] Social History Tobacco Use Types [...] Description 09/30/2025 10:40 AM EST Office Visit [place] [facility] [address], [address] [place] [address] Alvina Carroll APRN [address] [facility] [address] [place] [address] documented as of this encounter [...] documented as of this encounter Care Teams Coding Manager Relationship Specialty Start Date End Date Dolores Grande APRN [address] [place] [address] PCP - General 02/11/22 Abelino Mars MD [address] [facility] [address] [place] [address] Surgeon Colon and Rectal Surgery 06/19/21 Michael Rodriguez MD [address] [place] [address] Surgeon Surgical Oncology 06/19/21 Luis M Maldonado MD [address] [facility] [address] [place] [address] Consulting Physician Radiation Oncology 06/06/22 documented as of this encounter
--- OUTSIDE RECORDS SUMMARY | 2025-05-04 11:39 | XMS_ITS | Encounter Summary ---
Author Organization [facility] Address [address] [place] [address] Care Team Providers Care Advertising Space Clerk Name Role Phone Marcello Merchant MD Primary Care Provider [phone] Abelino Mars MD Unavailable [phone] Michael Rodriguez MD Unavailable [phone] Dolores Grande APRN Primary Care Provider [phone] Luis M Maldonado MD Unavailable [phone] Encounter Details Date Type Department Care Team (Late st Contact Info) Description 07/09/2021 Lab Requisition [facility] [address] [place] [address] Michael Rodriguez MD [address] [id number] Malignant neoplasm of rectosigmoid junction (CMS/HCC); Secondary [...] Office Visit [place] [facility] [address], [address] [place] [address] Alvina Carroll, FIRE EXTINGUISHER TESTER [address] [place] [address] documented as of this encounter [...] Result see scan 08/28/2021 10:54 AM EST [facility] See Scanned Result 08/28/2021 10:54 AM [facility] Tissue 07/09/2021 12:0 0 PM EST 07/09/2021 3:39 PM EST us Michael Rodriguez MD LAB REF LAB BLOOD AND FLUID ORD Final Result [facility] [address] [place] [address] documented in this encounter Visit Diagnoses Diagnosis 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) documented in this encounter Additional Health Concerns Assessment Noted Time A fall risk assessment has been complete d for the patient 06/19/2021 1:10 PM EDT documented as of this encounter Care Teams Advertising Space Clerk Relationship Specialty Start Date End Date Marcello Merchant MD [address] [place] [address] PCP - General 01/12/21 02/10/22 Dolores Grande APRN [address] [place], [place] [address] PCP - General 02/11/22 Abelino Mars MD [address] [place] [address] Surgeon Colon and Rectal Surgery 06/19/21 Michael Rodriguez MD 800 [facility] [address] [place] [address] Surgeon Surgical Oncology 06/19/21 Luis M Maldonado MD 800 [facility] [address] [place] [address] Consulting Physician Radiation Oncology 06/06/22 documented as of this encounter
--- OUTSIDE RECORDS SUMMARY | 2025-05-04 11:39 | XMS_ITS | Encounter Summary ---
Author Organization [facility] Address [address] [place] [address] Care Team Providers Care Administration Manager Name Role Phone Abelino Mars MD Unavailable [phone] Michael Rodriguez MD Unavailable [phone] Dolores Grande APRN Primary Care Provider + [phone] Luis M Maldonado MD Unavailable [phone] Encounter Details Date Type Department Care Team (Late st Contact Info) Description 03/26/2025 Orders Only External Location [address] [place] [address] Provider, External Social History Tobacco Use Types [...] Office Visit [place] [facility] [address] [place] [address] Alvina Carroll, SALES AGENT [employer] INSURANCE [address] [place] [address] documented as of this encounter [...] documented as of this encounter Care Teams Administration Manager Relationship Specialty Start Date End Date Dolores Grande APRN [address] [place] [address] PCP - General 02/11/22 Abelino Mars MD [address] [facility] [address] [place] [address] Surgeon Colon and Rectal Surgery 06/19/21 Michael Rodriguez MD [address] [address] Surgeon Surgical Oncology 06/19/21 Luis M Maldonado MD 800 [facility] [address] [place] [address] Consulting Physician Radiation Oncology 06/06/22 documented as of this encounter
--- OUTSIDE RECORDS SUMMARY | 2025-05-04 11:39 | XMS_ITS | Encounter Summary ---
Author Organization [facility] Address [address] [place] [address] Care Team Providers Care Senior Supply Chain Analyst Name Role Phone Abelino Mars MD Unavailable [phone] Michael Rodriguez MD Unavailable [phone] Dolores Grande APRN Primary Care Provider + [phone] Luis M Maldonado MD Unavailable [phone] Encounter Details Date Type Department Care [...] Office Visit [place] [facility] [address] [place] [address] Alvina Carroll, CERTIFIED PROSTHETIST/ORTHOTIST [address] [place] [address] documented as of this encounter Visit Diagnoses Not on filedocumented in this encounter Additional Health Concerns Assessment Noted Time A fall risk assessment has been complete d for the patient 05/27/2023 9:38 AM EDT A Body Mass Index follow-up plan has been documented for the patient 02/17/2023 1:57 PM EDT documented as of this encounter Care Teams Senior Supply Chain Analyst Relationship Specialty Start Date End Date Dolores Grande APRN [address] [place] [address] PCP - General 02/11/22 Abelino Mars MD [address] [place] [address] Surgeon Colon and Rectal Surgery 06/19/21 Michael Rodriguez MD [address] [address] Surgeon Surgical Oncology 06/19/21 Luis M Maldonado MD 800 [facility] [address] [place] [address] Consulting Physician Radiation Oncology 06/06/22 documented as of this encounter
--- OUTSIDE RECORDS SUMMARY | 2025-05-04 11:39 | XMS_ITS | Encounter Summary ---
Author Organization [facility] Address [address] [place] [address] Care Team Providers Care Tie Layer Name Role Phone Marcello Merchant MD Primary Care Provider Abelino Mars MD Unavailable [phone] Michael Rodriguez MD Unavailable [phone] Dolores Grande APRN Primary Care Provider + [phone] Luis M Maldonado MD Unavailable [phone] Encounter Details Date Type Department Care Team (Late st Contact Info) Description 01/12/2021 Abstract [facility] [address] [place] [address] Vera Schaeffer, RN AMB-PRECISION MEDICINE RESEARCH & [...] Description 09/30/2025 10:40 AM EST Office Visit [place] [facility] [address] [place] [address] Alvina Carroll APRN [address] [place] [address] documented as of this encounter Visit Diagnoses Not on filedocumented in this encounter Care Teams Tie Layer Relationship Specialty Start Date End Date Marcello Merchant MD [address] [place] [address] PCP - General 01/12/21 02/10/22 Dolores Grande APRN [address] [place], [place] [address] PCP - General 02/11/22 Abelino Mars MD [address] [place] [address] Surgeon Colon and Rectal Surgery 06/19/21 Michael Rodriguez MD [address] [address] Surgeon Surgical Oncology 06/19/21 Luis M Maldonado MD 800 [facility] [address] [place] [address] Consulting Physician Radiation Oncology 06/06/22 documented as of this encounter
--- OUTSIDE RECORDS SUMMARY | 2025-05-04 11:39 | XMS_ITS | Encounter Summary ---
Author Organization [facility] Address [address] [place] [address] Care Team Providers Care Neurodiagnostic Technician Name Role Phone Abelino Mars MD Unavailable [phone] Michael Rodriguez MD Unavailable Dolores Grande APRN Primary Care Provider [phone] Luis M Maldonado MD Unavailable [phone] Encounter Details Date Type Department Care [...] Office Visit [place] [facility] [address], [address] [place] [address] Alvina Carroll APRN [address] [facility] [address] [place] [address] documented as of this encounter Visit Diagnoses Not on filedocumented in this encounter Additional Health Concerns Assessment Noted Time A fall risk assessment has been complete d for the patient 03/30/2025 10:51 AM EDT A Body Mass Index follow-up plan has been documented for the patient 03/30/2025 12:39 PM EDT documented as of this encounter Care Teams Neurodiagnostic Technician Relationship Specialty Start Date End Date Dolores Grande APRN [address] [place] [address] PCP - General 02/11/22 Abelino Mars MD [address] [facility] [address] [place] [address] Surgeon Colon and Rectal Surgery 06/19/21 Michael Rodriguez MD 800 [facility] 1[address] [place] [address] Surgeon Surgical Oncology 06/19/21 Luis M Maldonado MD 800 [facility] [address] [place] [address] Consulting Physician Radiation Oncology 06/06/22 documented as of this encounter
--- OUTSIDE RECORDS SUMMARY | 2025-05-04 11:39 | XMS_ITS | Encounter Summary ---
Author Organization [facility] Address [address] [place] [address] Care Team Providers Care Farm Contractor Buyer Name Role Phone Abelino Mars MD Unavailable [phone] Michael Rodriguez MD Unavailable [phone] Dolores Grande APRN Primary Care Provider + [phone] Luis M Maldonado MD Unavailable [phone] Encounter Details Date Type Department Care Team (Late st Contact Info) Description 04/06/2025 Results Follow-Up [place] [facility] [address], [address] [place] [address] Chacha Perales PA [address] [place] [address] Social History Tobacco Use Types [...] Office Visit [place] [facility] [address] [place] [address] Alvina Carroll, CELL BIOLOGIST [address] [place] [address] documented as of this encounter Visit Diagnoses Not on filedocumented in this encounter Additional Health Concerns Assessment Noted Time A fall risk assessment has been complete d for the patient 03/30/2025 10:51 AM EDT A Body Mass Index follow-up plan has been documented for the patient 03/30/2025 12:39 PM EDT documented as of this encounter Care Teams Farm Contractor Buyer Relationship Specialty Start Date End Date Dolores Grande APRN [address] [place] [address] PCP - General 02/11/22 Abelino Mars MD [address] [place] [address] Surgeon Colon and Rectal Surgery 06/19/21 Michael Rodriguez MD [address] [place] [address] Surgeon Surgical Oncology 06/19/21 Luis M Maldonado MD 800 [facility] [address] [place] [address] Consulting Physician Radiation Oncology 06/06/22 documented as of this encounter
--- OUTSIDE RECORDS SUMMARY | 2025-05-04 11:39 | XMS_ITS | Encounter Summary ---
Author Organization [facility] Address [address] [place] [address] Care Team Providers Care Traffic Superintendent Name Role Phone Abelino Mars MD Unavailable [phone] Michael Rodriguez MD Unavailable [phone] Dolores Grande APRN Primary Care Provider +[phone] Luis M Maldonado MD Unavailable [phone] Reason for Visit * Reason Onset Date Comments Records and imaging request 03/29/2025 Encounter Details Date Type Department Care Team (Late st Contact Info) Description 03/29/2025 Telephone [place] [facility] [address] [place] [address] Chacha Perales, AMY [address] [place] [address] Records and imaging request Social [...] or images. These have been requested. Records: [phone], had to leave a message, also faxed a request to [phone]. Radiology / main # [phone] then transferred. Willa is to share. documented in this encounter Plan of Treatment Upcoming Encounters Date Type Department Care Team (Late st Contact Info) Description 09/30/2025 10:40 AM EST Office Visit [place] [facility] [address] [place] [address] Alvina Carroll APRN [address] [facility] [address] [place] [address] documented as of this encounter Visit Diagnoses Not on filedocumented in this encounter Additional Health Concerns Assessment Noted Time A fall risk assessment has been complete d for the patient 05/27/2023 9:38 AM EDT A Body Mass Index follow-up plan has been documented for the patient 02/17/2023 1:57 PM EDT documented as of this encounter Care Teams Traffic Superintendent Relationship Specialty Start Date End Date Dolores Grande APRN [address] [place] [address] PCP - General 02/11/22 Abelino Mars MD [address] [place] [address] Surgeon Colon and Rectal Surgery 06/19/21 Michael Rodriguez MD [address] [address] Surgeon Surgical Oncology 06/19/21 Luis M Maldonado MD 800 [facility] [address] [place] [address] Consulting Physician Radiation Oncology 06/06/22 documented as of this encounter
--- OUTSIDE RECORDS SUMMARY | 2025-05-04 11:39 | XMS_ITS | Encounter Summary ---
Author Organization [facility] Address [address] [place] [address] Care Team Providers Care Railroad Repairer Name Role Phone Abelino Mars MD Unavailable [phone] Michael Rodriguez MD Unavailable [phone] Dolores Grande APRN Primary Care Provider [phone] Luis M Maldonado MD Unavailable [phone] Reason for Visit * Reason Onset Date Comments HCN - Patient Message 03/28/2025 Obstructio n, swollen prostate Encounter Details Date Type Department Care Team (Late st Contact Info) Description 03/28/2025 Telephone [place] [facility] [address] [place] [address] Ruy Fleming MD [address] [place] [address] HCN - Patient Message (Obstruction, [...] and spoke with Juliet from [facility]. Patient was seen on Friday with left [...] Phone Message Reason for Call: Juliet with [facility] calling to advise pt has left hydronephrosis causing obstruction. Report was sent over today. Best contact number and optimal time of day to reach caller: Juliet [phone] Sanjuanita (pt spouse) [phone] Note: Please do not reply to this message. Follow-up communication and further actions as a result of this message need to be communicated with the patient directly, if the patient is not active onMyChart. If the patient is active on MyChart, they will receive notification of the communication/outcome via [employer]. documented in this encounter Plan of Treatment Upcoming Encounters Date Type Department Care Team (Late st Contact Info) Description 09/30/2025 10:40 AM EST Office Visit [place] [facility] [address] [place] [address] Alvina Carroll APRN [address] [place] [address] documented as of this encounter Visit Diagnoses Not on filedocumented in this encounter Additional Health Concerns Assessment Noted Time A fall risk assessment has been complete d for the patient 05/27/2023 9:38 AM EDT A Body Mass Index follow-up plan has been documented for the patient 02/17/2023 1:57 PM EDT documented as of this encounter Care Teams Railroad Repairer Relationship Specialty Start Date End Date Dolores Grande APRN [address] [place] [address] PCP - General 02/11/22 Abelino Mars MD [address] [place] [address] Surgeon Colon and Rectal Surgery 06/19/21 Michael Rodriguez MD [address] [address] Surgeon Surgical Oncology 06/19/21 Luis M Maldonado MD 800 [facility] [address] [place] [address] Consulting Physician Radiation Oncology 06/06/22 documented as of this encounter
--- OUTSIDE RECORDS SUMMARY | 2025-05-04 11:39 | XMS_ITS | Encounter Summary ---
Author Organization [facility] Address [address] [place] [address] Care Team Providers Care Buffing And Polishing Wheel Repairer Name Role Phone Marcello Merchant MD Primary Care Provider [phone] Abelino Mars MD Unavailable [phone] Michael Rodriguez MD Unavailable [phone] Dolores Grande APRN Primary Care Provider [phone] Luis M Maldonado MD Unavailable [phone] Encounter Details Date Type Department Care Team (Late st Contact Info) Description 07/05/2021 Lab Requisition [facility] [address] [place] [address] Sherin Saleh MD [address] [place] [address] Malignant neoplasm of rectosigmoid junction (CMS/HCC); [...] Description 09/30/2025 10:40 AM EST Office Visit [place] [facility] [address] [place] [address] Alvina Carroll, ELECTRONIC MASKING SYSTEM OPERATOR [address] [place] [address] documented as of this encounter Procedures Procedure Name Priority Date/Time Associated Diagnosis Comments HISTORICAL SURGICAL PATHOLOGY CASE ADDENDUM Routine 07/05/2021 12:00 PM EDT 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) documented in this encounter Results * Historical Surgical Pathology Case Addendum (07/05/2021 12:00 PM EDT) Case Report Historical Case Addendum/Amendment Case: [id number] Authorizing Provider: Sherin Saleh MD Collected: 07/05/2021 1200 Ordering Location: [facility] Received: 07/05/2021 1645 Pathologist: Yusra Blue MD Specimen: [id number] 07/06/2021 2:53 PM EDT [facility] Final Diagnosis This case was collected on 12/11/2020, was originally reported as case [id number].The entire [id number] report can be viewed as a scanned [...] developed by and are performed at the [facility], [address] [facility], [place] [address]. All tests reported here, except those addressing [...] on decalcified specimens. 07/06/2021 2:53 PM EDT [facility] at 1453 EDT Gross Description A. [id number] Reaccessioned for billing purposes only. 07/06/2021 2:53 PM EDT [facility] Note: A resident was involved in the service. I attest I examined the relevant preparations for the specimens and confirmed the diagnosis or interpretation. 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) documented in this encounter Additional Health Concerns Assessment Noted Time A fall risk assessment has been complete d for the patient 06/19/2021 1:10 PM EDT documented as of this encounter Care Teams Buffing And Polishing Wheel Repairer Relationship Specialty Start Date End Date Marcello Merchant MD [address] [place] [address] [place] [address] PCP - General 01/12/21 02/10/22 Dolores Grande APRN [address] [place] [address] PCP - General 02/11/22 Abelino Mars MD [address] [place] [address] Surgeon Colon and Rectal Surgery 06/19/21 Michael Rodriguez MD [address] [address] Surgeon Surgical Oncology 06/19/21 Luis M Maldonado MD [address] [facility] [address] [place] [address] Consulting Physician Radiation Oncology 06/06/22 documented as of this encounter
--- OUTSIDE RECORDS SUMMARY | 2025-05-04 11:40 | XMS_ITS | Clinical Summary ---
Author Organization [facility] Address [address] [place] [address] Care Team Providers Care Leacher Name Role Phone Abelino Mars MD Unavailable [phone] Michael Rodriguez MD Unavailable [phone] Dolores Grande APRN Primary Care Provider [phone] Luis M Maldonado MD Unavailable [phone] Allergies Active Allergy Reactions Criticality Noted Date Comments Cetuximab Anaphylaxis High 05/27/2023 STEMI @ OSH w/ Cetuximab Medications Aspirin Low Dose 81 MG chewable tablet Chew 1 tablet (81 mg) 1 (one) time each day. 3 Active atorvastatin (Lipitor) 80 MG tablet Take 1 tablet (80 mg) by mouth every night. 3 Active dexamethasone (Decadron) 4 MG tabletIndicatio ns:Malignant neoplasm of rectum (CMS/HCC) Take 2 tablets (8 mg) by mouth 1 (one) time each day. For 2 days starting the day after chemotherapy. 48 tablet 3 Active Additional Information Patient not taking.Reported on 04/11/2025 prochlorperazin e (Compazine) 10 MG tabletIndicatio ns:Malignant neoplasm of rectum (CMS/HCC) Take 1 tablet (10 mg) by mouth every 6 (six) hours if needed for nausea or vomiting. 30 tablet 5 3 Active loperamide (Imodium A-D) 2 MG tabletIndicatio ns:Malignant neoplasm of rectum (CMS/HCC) 2 mg by mouth every 2 hours as needed for diarrhea; Not to exceed 16 mg in 24 hours 30 tablet 5 3 Active Stivarga 40 MG chemo tablet 5 Active oxyCODONE-aceta minophen (Percocet) 7.5-325 MG tablet TAKE ONE TABLET [...] SHORTNESS OF BREATH OR WHEEZING 5 Active Active Problems Problem Noted Date Diagnosed Date Second hand smoke exposure 05/27/2023 Gastroesophageal reflux disease 02/18/2023 Tobacco use disorder 09/03/2022 Lung nodules 06/06/2022 Malignant neoplasm of rectum 04/24/2021 Cancer Staging:Pathologic stage from 12/12/2020:Stage YASMIN(ypT3, ypN1b, cM1a) - Signed by Michael Rodriguez MD on 05/02/2021 Overview (04/24/2021): Added automatically from request for surgery [id number] Encounters Date Type Department Care Team Description 04/11/2025 12:00 PM EDT Office Visit [facility] Vascular Interventional Radiology [address] [facility] [address] [place] [address] Noris Herrera APRN Hydronephrosis of left kidney (Primary Dx) 04/11/2025 Travel 04/08/2025 Travel 04/07/2025 Orders Only [facility] Interventional Radiology [address] [facility] [address] [place] [address] Payton Argueta, RN Encounter for other preprocedural examination (Primary Dx) 04/06/2025 Telephone [facility] Urology [facility] [address] [place] [address] Chacha Perales PA HCN Clinical Concern/Question 04/06/2025 Results Follow-Up [facility] Urology [address] [place] [address] Chacha Perales PA 03/30/2025 11:00 AM EDT Office Visit [facility] [address] [address] Chacha Perales PA Urge incontinence (Primary Dx); Malignant neoplasm of rectum (CMS/HCC); Microhematuria; Hydronephrosis of left kidney 03/30/2025 Travel 03/29/[address] [address] Chacha Perales PA Records and imaging request 03/28/2025 Travel 03/28/[address] [address] Ruy Fleming MD HCN - Patient Message (Obstruction, swollen prostate ) 03/26/2025 Orders Only External Location [address] [place] [address] Provider, External 03/26/2025 Orders Only External Location [address] [place] [address] Hafsa Rodriguez DO from Last [...] Office Visit [facility] [address] [place] [address] Alvina Carroll, SPREADER OPERATOR [address] [place] [address] Health Maintenance Due Date Last Done Comments CT Colonography 1975 FIT-DNA 1975 FIT 1975 FOBT 1975 Sigmoidoscopy 1975 [facility]-HIV Screening 1975 [facility]-Hepatitis C Screening 1975 [facility]-Medicare Annual Wellness (AWV) 1975 [facility]-/Child/Adol SDOH Screenings 1975 [facility]- SDOH Screenings 1993 [facility]-Adult SDOH Screenings 1993 [facility]-Hepatitis B Vaccines (1 of 3 - 19+ 3-dose series) 1994 [facility]-Pneumococcal Vaccine: Pediatrics (0 to 5 Years) and At-Risk Patients (6 to 49 Years) (1 of 2 - PCV) 1994 [facility]-Zoster Vaccines (1 of 2) 1994 [id number] Vaccine (3 - Pfizer risk series) 06/28/2021 [...] this topic Medical Devices Implanted Type Area Power Hair Clipper Device Identifier Shelf Expiration Date Model / Serial / Lot Stent Ureteral Double Pigtail Pos 7fr 26cm - S.. - [id number] Implanted:Qty: 1 on 07/03/2022 by Ruy Fleming MD at [facility] Stent Left: [id number] 09/21/2023 [id number] / .. / [id number] Stent Ureteral Double Pigtal Miquel Sun [id number] - [id number] Implanted:Qty: 1 on 09/18/2022 by Ruy Fleming MD at [facility] [employer]-[id number] 02/27/2025 [id number] / / [id number] [employer] 8fr - [id number] Implanted:Qty: 1 on 05/16/2021 by Michael Rodriguez MD at [facility] [employer]-[id number] 07/31/2022 [id number] / / Procedures Procedure Name Priority Date/Time [...] LAB COAGULATION METHOD 04/11/2025 1:56 PM EDT [facility] INR 1.0 0.9 - 1.1 LAB COAGULATION METHOD 04/11/2025 1:56 PM EDT [facility] Blood Venous blood specimen / Unknown Venipuncture / Unknown 04/11/2025 12:04 PM EDT 04/11/2025 12:04 PM EDT Narrative [facility] - 04/11/2025 1:56 PM EDT OPTIMAL INR RANGES FOR PATIENT ON ORAL ANTICOAGULANT THERAPY Prevention of venous thromboembolism INR 2.0 to 3.0 In patients with heart disease: Atrial fibrillation INR 2.0 to 3.0 Valvular heart disease INR 2.0 to 3.0 Tissue heart valves INR 2.0 to 3.0 Mechanical prosthetic valves INR 2.5 to 3.5 Prevention of recurrent PA INR 2.5 to 3.5 us Noris Herrera SPREADER OPERATOR LAB BLOOD ORDERABLES Final R esult [facility] [address] [place] [address] * (ABNORMAL) CBC W/O Differential (04/11/2025 12:04 PM EDT) Pathologist [facility] WBC Count 5.45 3.70 - 10.30 10*3/uL LAB HEMATOLOGY METHOD 04/11/2025 1:48 PM EDT [facility] RBC Count 4.47(L) 4.60 - 6.10 10*6/uL LAB HEMATOLOGY METHOD 04/11/2025 1:48 PM EDT [facility] HGB 13.4(L) 13.7 - 17.5 g/dL LAB HEMATOLOGY METHOD 04/11/2025 1:48 PM EDT [facility] HCT 40.0 40.0 - 51.0 % LAB HEMATOLOGY METHOD 04/11/2025 1:48 PM EDT [facility] Platelet Count 228 155 - 369 10*3/uL LAB HEMATOLOGY METHOD 04/11/2025 1:48 PM EDT [facility] MCV 90 79 - 98 fL LAB HEMATOLOGY METHOD 04/11/2025 1:48 PM EDT [facility] MCH 30.0 26.0 - 32.0 pg LAB HEMATOLOGY METHOD 04/11/2025 1:48 PM EDT [facility] MCHC 33.5 30.7 - 35.5 g/dL LAB HEMATOLOGY METHOD 04/11/2025 1:48 PM EDT [facility] RDW 13.8 11.5 - 14.5 % LAB HEMATOLOGY METHOD 04/11/2025 1:48 PM EDT [facility] MPV 10.1 8.8 - 12.5 fL LAB HEMATOLOGY METHOD 04/11/2025 1:48 PM EDT [facility] nRBC 0.0 <=0.0 per 100 WBCs LAB HEMATOLOGY METHOD 04/11/2025 1:48 PM EDT [facility] Blood Venous blood specimen / Unknown Venipuncture / Unknown 04/11/2025 12:04 PM EDT 04/11/2025 12:04 PM EDT us Noris Herrera SPREADER OPERATOR LAB BLOOD ORDERABLES Final R esult [facility] [address] [place] [address] * Comprehensive Metabolic Panel, Plasma (04/11/2025 12:04 PM EDT) Glucose, Plasma 75 74 - 99 mg/dL 04/11/2025 2:20 PM EDT [facility] BUN, Plasma 15 7 - 21 mg/dL 04/11/2025 2:20 PM EDT [facility] Creatinine, Plasma 1.05 0.70 - 1.20 mg/dL 04/11/2025 2:20 PM EDT [facility] BUN/Creatinine Ratio 14 04/11/2025 2:20 PM EDT [facility] Sodium, Plasma 138 136 - 145 mmol/L 04/11/2025 2:20 PM EDT [facility] Potassium, Plasma 4.1 3.6 - 4.9 mmol/L 04/11/2025 2:20 PM EDT [facility] Chloride, Plasma 103 97 - 107 mmol/L 04/11/2025 2:20 PM EDT [facility] CO2, Plasma 23 22 - 29 mmol/L 04/11/2025 2:20 PM EDT [facility] Anion Gap 12 6 - 16 mmol/L 04/11/2025 2:20 PM EDT [facility] Total Calcium, Plasma 9.5 8.9 - 10.2 mg/dL 04/11/2025 2:20 PM EDT [facility] Total Protein 7.7 6.3 - 7.9 g/dL 04/11/2025 2:20 PM EDT [facility] Albumin, Plasma 4.4 3.5 - 5.2 g/dL 04/11/2025 2:20 PM EDT [facility] AST, Plasma 29 10 - 50 U/L 04/11/2025 2:20 PM EDT [facility] ALT, Plasma 23 10 - 50 U/L 04/11/2025 2:20 PM EDT [facility] Alkaline Phosphatase, Plasma 100 40 - 115 U/L 04/11/2025 2:20 PM EDT [facility] Total Bilirubin, Plasma 0.3 0.2 - 1.1 mg/dL 04/11/2025 2:20 PM EDT [facility] eGFRcr 87.0 mL/min/1.7 3m*2 04/11/2025 2:20 PM EDT [facility] Comment:Reported eGFRcr in m L/min/1.73m2 is based the CKD-EPI 2020 equation that does not use a race coefficient. Blood Venous blood specimen / Unknown Venipuncture / Unknown 04/11/2025 12:04 PM EDT 04/11/2025 12:04 PM EDT us Noris Herrera APRN LAB BLOOD ORDERABLES Final R esult [facility] [address] [place] [address] * (ABNORMAL) Urine Culture - Clinic Collect (03/30/2025 11:13 AM EDT) Culture <10,000 CFU/mL Staphylococcus coagulase negative(A) 04/01/2025 10:38 AM EDT [facility] Culture <10,000 CFU/mL Corynebacterium species(A) 04/01/2025 10:38 AM EDT [facility] Comment:The organism value f or this result has been updated. These results have been appended to the previously preliminary verified report. Urine Urine specimen obtained by clean catch procedure / Unknown Non-blood Collection / Unknown 03/30/2025 11:13 AM EDT 03/30/2025 1:01 PM EDT us Chacha REYES LAB MICROBIOLOGY - GENERAL ORDERABLES Final Result [facility] [address] [place] [address] * POC US Bladder Volume (03/30/2025 11:05 AM EDT) Urine, Volume 3 mL IMAGING Anatomical Region Laterality Modality Other us Chacha REYES IMG POINT OF CARE ULTRASOU ND Final Result * (ABNORMAL) POCT URINALYSIS DIPSTICK (03/30/2025 10:57 AM EDT) POCT Urine Color Yellow 03/30/2025 10:[address] [facility] POCT Urine Clarity Clear 03/30/2025 10:[address] [facility] POCT Urine Glucose Negative Negative mg/dL 03/30/2025 10:59 AM EDT [facility] POCT Urine Bilirubin Negative Negative mg/dL 03/30/2025 10:[address] [facility] POCT Urine Ketones Negative Negative mg/dL 03/30/2025 10:[address] [facility] POCT Urine Specific [place] 1.020 1.005 - 1.030 03/30/2025 10:[address] [facility] POCT Urine Blood Moderate(A) Negative 03/30/2025 10:[address] [facility] POCT pH, Urine 6.0 5.0 - 8.0 03/30/2025 10:59 AM EDT [facility] POCT Protein, Urine 30(A) Negative mg/dL 03/30/2025 10:[address] [facility] POCT Urobilinogen, Urine 2.0(A) 0.2, 1.0 EU/dL 03/30/2025 10:[address] [facility] POCT Nitrite, Urine Negative Negative 03/30/2025 10:[address] [facility] POCT Urine Leukocyte Esterase Negative Negative 03/30/2025 10:[address] [facility] Urine 03/30/2025 10:5 7 AM EDT 03/30/2025 10:59 AM EDT us Chacha Perales PA LAB POINT OF CARE TEST DOCKED DEVICE UNSOLICITED RESULTS Final Result [facility] [address] [place], [place] * CT OUTSIDE IMAGES (03/26/2025 11:03 [...] of bowel preparation was evaluated using the [place] Bowel Preparation Scale with scores of: right [...] Maintenance Insurance GENERIC MEDICARE ADVANTAGE Care Teams Leacher Relationship Specialty Start Date End Date Dolores Grande APRN [address] [place] [address] PCP - General 02/11/22 Abelino Mars [facility] [address] [facility] [address] [place] [address] Surgeon Colon and Rectal Surgery 06/19/21 Michael Rodriguez MD [address] [address] Surgeon Surgical Oncology 06/19/21 Luis M Maldonado MD [address] [facility] [address] [place] [address] Consulting Physician Radiation Oncology 06/06/22
--- OUTSIDE RECORDS SUMMARY | 2025-05-04 11:40 | XMS_ITS | Clinical Summary ---
Author Organization [facility] Address [address] [place] [address] Phone Care Team Providers Care Vba Developer Name Role Phone Unavailable Primary Care Provider [...] Colonography 2020 COVID-19 Vaccine (2023-2 5 season) 2025 Influenza Vaccine (#1) 2025 Meningococcal B Vaccine Aged Out No l onger eligible based on patient's age to complete this topic Pneumococcal Vaccine 0-49 Aged Out No longer eligible based on patient's age to complete this topic
--- OUTSIDE RECORDS SUMMARY | 2025-05-04 11:40 | XMS_ITS ---
Author Organization [facility] Address [address] [place] [address] Care Team Providers Care Waiter/Waitress Bar Name Role Phone Abelino Mars MD Unavailable [phone] Michael Rodriguez MD Unavailable [phone] Dolores Grande APRN Primary Care Provider [phone] Luis M Maldonado MD Unavailable [phone] Active Problems Problem Noted Date Diagnosed Date Second hand smoke exposure 05/27/2023 Gastroesophageal reflux disease 02/18/2023 Tobacco use disorder 09/03/2022 Lung nodules 06/06/2022 Malignant neoplasm of rectum 04/24/2021 Cancer Staging:Pathologic stage from 12/12/2020:Stage YASMIN(ypT3, ypN1b, cM1a) - Signed by Michael Rodriguez MD on 05/02/2021 Overview (04/24/2021): Added automatically from request for surgery [id number] Current Treatment and Therapy Plans No current [...]
--- OUTSIDE RECORDS SUMMARY | 2025-05-04 11:40 | XMS_ITS | Encounter Summary ---
Author Organization [facility] Address [address] [id number] Care Team Providers Care Loan Originator Name Role Phone Abelino Mars MD Unavailable [phone] Michael Rodriguez MD Unavailable [phone] Dolores Garnde APRN Primary Care Provider [phone] Luis M Maldonado MD Unavailable [phone] Encounter Details Date Type Department Care Team (Late st Contact Info) Description 01/07/2023 Lab Requisition [facility] [address] [place] [address] Michael Rodriguez MD [address] [address] Malignant neoplasm of rectum (CMS/HCC) [...] Office Visit [place] [facility] [address] [place] [address] Alvina Carroll APRN [address] [place] [address] documented as of this encounter Procedures Procedure Name Priority Date/Time Associated Diagnosis Comments AP MISCELLANEOUS LAB TEST (SO) Routine 01/07/2023 3:47 PM EDT Malignant neoplasm of rectum (CMS/HCC) documented in this encounter Results * - AP Miscellaneous Test (01/07/2023 3:47 PM EDT) Test name HI Profile 01/30/2023 12:41 PM EDT [facility] Comment:[id number] Test Result see scan 01/30/2023 12:41 PM EDT [facility] See Scanned Result 01/30/2023 12:41 PM EDT [facility] Tissue 01/07/2023 3:47 PM EDT 01/07/2023 3:47 PM EDT us Michael Rodriguez MD LAB REF LAB BLOOD AND FLUID ORD Final Result [facility] documented in this encounter [...] documented as of this encounter Care Teams Loan Originator Relationship Specialty Start Date End Date Dolores Grande APRN [address] [place] [address] PCP - General 02/11/22 Abelino Mars MD [address] [place] [address] Surgeon Colon and Rectal Surgery 06/19/21 Michael Rodriguez MD [address] [address] Surgeon Surgical Oncology 06/19/21 Luis M Maldonado MD [address] [facility] [address] [place] [address] Consulting Physician Radiation Oncology 06/06/22 documented as of this encounter
[2025-05-04 11:49] LABS: Hematocrit 34.8 % (42.0-52.0); Hemoglobin 11.9 g/dL (14.1-18.0); Immature Granulocytes % 0.2 %; Mean Corpuscular HGB Conc 34.2 g/dL (31.8-35.4); Mean Corpuscular Hemoglobin 30.8 pg (27.0-31.2); Mean Corpuscular Volume 90.2 fl (80-94); Nucleated Red Blood Cells % 0 %; Platelet Count 173 K/mm3 (142-424); Red Blood Count 3.86 M/mm3 (4.60-6.20); Red Cell Distribution Width-SD 47.4 fL; White Blood Count 4.8 K/mm3 (4.8-10.8)
[2025-05-04 12:06] LABS: Alanine Aminotransferase 22 U/L (12-78); Albumin Level 4.2 g/dl (3.5-5.0); Albumin/Globulin Ratio 1.4 (1.1-1.8); Alkaline Phosphatase 79 U/L (38-126); Anion Gap 10.9 mEq/L (5-15); Aspartate Amino Transferase 31 U/L (17-59); Bilirubin,Total 0.4 mg/dl (0.2-1.3); Blood Urea Nitrogen 10 mg/dl (9-20); Calcium 9.2 mg/dl (8.4-10.2); Carbon Dioxide 27 mmol/L (22.0-30.0); Chloride 105 mmol/L (98-107); Creatinine,Serum 1.00 mg/dl (0.66-1.25); Estimated Glomerular Filt Rate 79 ml/min (>60); GFR (African American) 96 ML/MIN (>60); Globulin 3.1 g/dL (1.3-3.2); Glucose 72 mg/dl (74-100); Potassium 3.9 mmoL/L (3.5-5.1); Sodium 139 mmol/L (136-145); Total Protein,Serum 7.3 g/dl (6.3-8.2)
[2025-05-05 13:13] LABS: CEA 47.2 ng/mL (0.0-4.7)
== END 2025-05-04 11:35 | disposition home or self-care (01) ==
LOC: INF 11:18
PROVIDERS: PCP Nurse Practitioner Family; Visit Provider Internal Medicine Medical Oncology
DX: C18.9 Malignant neoplasm of colon, unspecified (principal)
CPT/HCPCS: 36591; 80053; 82378; 85025; J1642

== ENCOUNTER 2025-06-17 11:01 | Outpatient (CLI) | payer MEDICARE, SELFPAY ==
--- OUTSIDE RECORDS SUMMARY | 2025-06-17 11:05 | XMS_ITS | Encounter Summary ---
Author Organization [facility] Address [address] [place] [address] Care Team Providers Care Gas Plumber Name Role Phone Marcello Merchant MD Primary Care Provider [phone] Abelino Mars MD Unavailable [phone] Michael Rodriguez MD Unavailable [phone] Dolores Grande APRN Primary Care Provider [phone] Luis M Maldonado MD Unavailable [phone] Encounter Details Date Type Department Care Team (Late st Contact Info) Description 07/05/2021 Lab Requisition [facility] [address] [place] [address] Sherin Saleh MD [address] [place] [address] Malignant neoplasm of rectosigmoid junction (CMS/HCC); [...] Office Visit [place] [facility] [address] [place] [address] Alvina Carroll, DAM ATTENDANT [address] [place] [address] documented as of this encounter Procedures Procedure Name Priority Date/Time Associated Diagnosis Comments HISTORICAL SURGICAL PATHOLOGY CASE ADDENDUM Routine 07/05/2021 12:00 PM EDT 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) documented in this encounter Results * Historical Surgical Pathology Case Addendum (07/05/2021 12:00 PM EDT) Case Report Historical Case Addendum/Amendment Case: [id number] Authorizing Provider: Sherin Saleh MD Collected: 07/05/2021 1200 Ordering Location: [facility] Received: 07/05/2021 1645 Pathologist: Yusra Blue MD Specimen: [id number] 07/06/2021 2:53 PM EDT [facility] Final Diagnosis This case was collected on 12/11/2020, was originally reported as case [id number].The entire [id number] report can be viewed as a scanned [...] developed by and are performed at the [facility], [address] [facility], [place] [address]. All tests reported here, except those addressing [...] on decalcified specimens. 07/06/2021 2:53 PM EDT [facility] at 1453 EDT Gross Description A. [id number] Reaccessioned for billing purposes only. 07/06/2021 2:53 PM EDT [facility] Note: A resident was involved in the service. I attest I examined the relevant preparations for the specimens and confirmed the diagnosis or interpretation. 07/06/2021 2:53 PM EDT [facility] Tissue 07/05/2021 12:0 0 PM EDT [...] documented as of this encounter Care Teams Gas Plumber Relationship Specialty Start Date End Date Marcello Merchant MD [address] [place] [address] [place] [address] PCP - General 01/12/21 02/10/22 Dolores Grande APRN [address] [place] [address] PCP - General 02/11/22 Abelino Mars MD [address] [place] [address] Surgeon Colon and Rectal Surgery 06/19/21 Michael Rodriguez MD [address] [address] Surgeon Surgical Oncology 06/19/21 Luis M Maldonado MD [address] [facility] [address] [place] [address] Consulting Physician Radiation Oncology 06/06/22 documented as of this encounter
--- OUTSIDE RECORDS SUMMARY | 2025-06-17 11:05 | XMS_ITS ---
Author Organization [facility] Address [address] [place] [address] Care Team Providers Care Medical Investigator Name Role Phone Abelino Mars MD Unavailable [phone] Michael Rodriguez MD Unavailable [phone] Dolores Grande APRN Primary Care Provider [phone] Luis M Maldonado MD Unavailable [phone] Active Problems Problem Noted Date Diagnosed Date Gastroesophageal reflux disease 02/18/2023 Tobacco use disorder 09/03/2022 Malignant neoplasm of rectum 04/24/2021 Cancer Staging:Pathologic stage from 12/12/2020:Stage YASMIN(ypT3, ypN1b, cM1a) - Signed by Michael Rodriguez MD on 05/02/2021 Overview (04/24/2021): Added automatically from request for surgery [id number] Current Treatment and Therapy Plans No current [...] Kerma 60.06 mGy 60.06 mGy 0 mGy Resolved Problems Problem Noted Date Diagnosed Date Resolved Date Second hand smoke exposure 05/27/2023 0 05/22/2025 Lung nodules 06/06/2022 05/22/2025
--- OUTSIDE RECORDS SUMMARY | 2025-06-17 11:05 | XMS_ITS | Encounter Summary ---
Author Organization [facility] Address [address] [place] [address] Care Team Providers Care Barn Boss Name Role Phone Marcello Merchant MD Primary Care Provider Abelino Mars MD Unavailable [phone] Michael Rodriguez MD Unavailable [phone] Dolores Grande APRN Primary Care Provider + [phone] Luis M Maldonado MD Unavailable [phone] Encounter Details Date Type Department Care Team (Late st Contact Info) Description 01/12/2021 Abstract [facility] [address] [place] [address] Vera Schaeffer, RN AMB-PRECISION MEDICINE RESEARCH & [...] Office Visit [place] [facility] [address] [place] [address] Alvina Carroll APRN [address] [place] [address] documented as of this encounter Visit Diagnoses Not on filedocumented in this encounter Care Teams Barn Boss Relationship Specialty Start Date End Date Marcello Merchant MD [address] [place] [address] PCP - General 01/12/21 02/10/22 Dolores Grande APRN [address] [place], [place] [address] PCP - General 02/11/22 Abelino Mars MD [address] [place] [address] Surgeon Colon and Rectal Surgery 06/19/21 Michael Rodriguez MD [address] [address] Surgeon Surgical Oncology 06/19/21 Luis M Maldonado MD [address] [facility] [address] [place] [address] Consulting Physician Radiation Oncology 06/06/22 documented as of this encounter
--- OUTSIDE RECORDS SUMMARY | 2025-06-17 11:05 | XMS_ITS | Clinical Summary ---
Author Organization [facility] Address [address] [place] [address] Phone Care Team Providers Care Well Shooter Name Role Phone Unavailable Primary Care Provider [...] Sigmoidoscopy 2020 Virtual Colonography 2020 COVID-19 Vaccine (1 - 2023-2 5 season) 2025 Influenza Vaccine (#1) 2025 Pneumococcal Vaccine 50+ (1 of 1 - PCV) 2025 Zoster (1 of 2) 2025 Meningococcal B Vaccine Aged Out No l onger eligible based on patient's age to complete this topic
--- OUTSIDE RECORDS SUMMARY | 2025-06-17 11:05 | XMS_ITS | Encounter Summary ---
Author Organization [facility] Address [address] [place] [address] Care Team Providers Care Latin Professor Name Role Phone Abelino Mars MD Unavailable [phone] Michael Rodriguez MD Unavailable [phone] Dolores Grande APRN Primary Care Provider +- [phone] Luis M Maldonado MD Unavailable [phone] Reason for Visit * Reason Onset Date Comments HCN Clinical Concern/Question 04/06/2025 Encounter Details Date Type Department Care Team (Late st Contact Info) Description 04/06/2025 Telephone [place] [facility] [address] [place] [address] Chacha Perales PA [address] [place] [address] HCN Clinical Concern/Question Social History [...] know who it was. Best contact number: [phone] (mobile) Optimal time of day to reach caller: ANYTIME Additional comments/information from caller: None Note: Please do not reply to this message. Follow-up communication and further actions as a result of this message need to be communicated with the patient directly, if the patient is not active onMyChart. If the patient is active on MyChart, they will receive notification of the communication/outcome via [employer]. documented in this encounter Plan of Treatment Upcoming Encounters Date Type Department Care Team (Late st Contact Info) Description 09/30/2025 10:40 AM EST Office Visit [place] [facility] [address] [place] [address] Alvina Carroll APRN [address] [place] [address] documented as of this encounter Visit Diagnoses Not on filedocumented in this encounter Additional Health Concerns Assessment Noted Time A fall risk assessment has been complete d for the patient 03/30/2025 10:51 AM EDT A Body Mass Index follow-up plan has been documented for the patient 03/30/2025 12:39 PM EDT documented as of this encounter Care Teams Latin Professor Relationship Specialty Start Date End Date Dolores Grande APRN [address] [place] [address] PCP - General 02/11/22 Abelino Mars MD [address] [place] [address] Surgeon Colon and Rectal Surgery 06/19/21 Michael Rodriguez MD [address] [address] Surgeon Surgical Oncology 06/19/21 Luis M Maldonado MD [address] [address] Consulting Physician Radiation Oncology 06/06/22 documented as of this encounter
--- OUTSIDE RECORDS SUMMARY | 2025-06-17 11:05 | XMS_ITS | Encounter Summary ---
Author Organization [facility] Address [address] [id number] Care Team Providers Care Press Tender Star Signal Name Role Phone Abelino Mars MD Unavailable [phone] Michael Rodriguez MD Unavailable [phone] Dolores Grande APRN Primary Care Provider + [phone] Luis M Maldonado MD Unavailable [phone] Encounter Details Date Type Department Care Team (Late st Contact Info) Description 01/07/2023 Lab Requisition [facility] [address] [place] [address] Michael Rodriguez MD [address] [address] Malignant neoplasm of rectum (CMS/HCC) [...] Office Visit [place] [facility] [address] [place] [address] Alvina Carroll APRN [address] [place] [address] documented as of this encounter Procedures Procedure Name Priority Date/Time Associated Diagnosis Comments AP MISCELLANEOUS LAB TEST (SO) Routine 01/07/2023 3:47 PM EDT Malignant neoplasm of rectum (CMS/HCC) documented in this encounter Results * - AP Miscellaneous Test (01/07/2023 3:47 PM EDT) Test name UT Profile 01/30/2023 12:41 PM EDT [facility] Comment:[id number] Test Result see scan 01/30/2023 12:41 PM EDT [facility] See Scanned Result 01/30/2023 12:41 PM EDT [facility] Tissue 01/07/2023 3:47 PM EDT 01/07/2023 3:47 PM EDT us Michael Rodriguez MD LAB REF LAB BLOOD AND FLUID ORD Final Result [facility] documented in this encounter Visit [...] documented as of this encounter Care Teams Press Tender Star Signal Relationship Specialty Start Date End Date Dolores Grande APRN [address] [place] [address] PCP - General 02/11/22 Abelino Mars MD [address] [facility] [address] [place] [address] Surgeon Colon and Rectal Surgery 06/19/21 Michael Rodriguez MD [address] [address] Surgeon Surgical Oncology 06/19/21 Luis M Maldonado MD 800 [facility] [address] [place] [address] Consulting Physician Radiation Oncology 06/06/22 documented as of this encounter
--- OUTSIDE RECORDS SUMMARY | 2025-06-17 11:05 | XMS_ITS | Clinical Summary ---
Author Organization [facility] Address [address] [place] [address] Care Team Providers Care Lead Burner Name Role Phone Abelino Mars MD Unavailable [phone] Michael Rodriguez MD Unavailable [phone] Dolores Grande APRN Primary Care Provider [phone] Luis M Maldonado MD Unavailable [phone] Allergies Active Allergy Reactions Criticality Noted [...] (04/24/2021): Added automatically from request for surgery [id number] Resolved Problems Problem Noted Date Diagnosed Date Resolved Date Second hand smoke exposure 05/27/2023 0 05/22/2025 Lung nodules 06/06/2022 05/22/2025 Encounters Date Type Department Care Team Description 04/11/2025 12:00 PM EDT Office Visit [facility] Vascular Interventional Radiology [address] [facility] [address] [place] [address] Noris Herrera APRN Hydronephrosis of left kidney (Primary Dx) 04/11/2025 Travel 04/08/2025 Travel 04/07/2025 Orders Only [facility] Vascular Interventional Radiology [address] [facility] [address] [place] [address] Payton Argueta, RN Encounter for other preprocedural examination (Primary Dx) 04/06/2025 Telephone [facility] Urology 0 [facility], [address] [place] [address] Chacha Perales PA HCN Clinical Concern/Question 04/06/2025 Results Follow-Up [address], [address] [place] [address] Chacha Perales PA 03/30/2025 11:00 AM EDT Office Visit [facility] Urology [address] [place] [address], [address] [place] [address] Chacha Perales PA Urge incontinence (Primary Dx); Malignant neoplasm of rectum (CMS/HCC); Microhematuria; Hydronephrosis of left kidney 03/30/2025 Travel 03/29/2025 [facility]phone [facility] [address] [place] [address], [address] [place] [address] Chacha Perales PA Records and imaging request 03/28/2025 Travel 03/28/2025 Telephone [facility] Urology [address] [place] [address] Ruy Fleming MD HCN - Patient Message (Obstruction, swollen prostate ) 03/26/2025 Orders Only External Location [address] [place] [address] Provider, External 03/26/2025 Orders Only External Location [address] [place] [address] Hafsa Rodriguez DO from Last 3 Months Family History Medical History Relation Name Comments Cancer Father Teo tomlin Heart disease Father Teo tomlin Anesthesia problems Neg Hx Malig Hyperthermia Neg Hx Relation Name Status Comments Father Teo tomlni Social History Tobacco Use Types Packs/Day Years [...] Office Visit [place] [facility] [address], [address] [place] [address] Alvina Carroll, RAIL CAR UNLOADER [address] [place] [address] Health Maintenance Due Date Last Done Comments CT Colonography 1975 FIT-DNA 1975 FIT 1975 FOBT 1975 Sigmoidoscopy 1975 [facility]-HIV Screening 1975 [facility]-Hepatitis C Screening 1975 [facility]-Medicare Annual Wellness (AWV) 1975 [facility]-/Child/Adol SDOH Screenings 1975 [facility]- SDOH Screenings 1993 [facility]-Adult SDOH Screenings 1993 [facility]-Hepatitis B Vaccines (1 of 3 - 19+ 3-dose series) 1994 [facility]-Pneumococcal Vaccine: 50+ Years (1 of 2 - PCV) 1994 [facility]-Zoster Vaccines (1 of 2) 1994 [id number] Vaccine (3 - Pfizer risk series) 06/28/2021 [...] this topic Medical Devices Implanted Type Area Cigarette Packing Machine Operator Device Identifier Shelf Expiration Date Model / Serial / Lot Stent Ureteral Double Pigtail Pos 7fr 26cm - S.. - [id number] Implanted:Qty: 1 on 07/03/2022 by Ruy Fleming MD at [facility] Stent Left: [id number] 09/21/2023 [id number] / .. / [id number] Stent Ureteral Double Pigtal Miquel Sun [id number] - [id number] Implanted:Qty: 1 on 09/18/2022 by Ruy Fleming MD at [facility] Stent [employer]-[id number] 02/27/2025 [id number] / / [id number] Port [employer] 8fr - [id number] Implanted:Qty: 1 on 05/16/2021 by Michael Rodriguez MD at [facility]-[id number] 07/31/2022 [id number] / / Procedures Procedure Name Priority Date/Time [...] LAB COAGULATION METHOD 04/11/2025 1:56 PM EDT [facility] INR 1.0 0.9 - 1.1 LAB COAGULATION METHOD 04/11/2025 1:56 PM EDT [facility] Blood Venous blood specimen / Unknown Venipuncture / Unknown 04/11/2025 12:04 PM EDT 04/11/2025 12:04 PM EDT Narrative [facility] - 04/11/2025 1:56 PM EDT OPTIMAL INR RANGES FOR PATIENT ON ORAL ANTICOAGULANT THERAPY Prevention of venous thromboembolism INR 2.0 to 3.0 In patients with heart disease: Atrial fibrillation INR 2.0 to 3.0 Valvular heart disease INR 2.0 to 3.0 Tissue heart valves INR 2.0 to 3.0 Mechanical prosthetic valves INR 2.5 to 3.5 Prevention of recurrent NH INR 2.5 to 3.5 Noris Herrera RAIL CAR UNLOADER LAB BLOOD ORDERABLES Final R esult [facility] [address] [place] [address] * (ABNORMAL) CBC W/O Differential (04/11/2025 12:04 PM EDT) [facility] WBC Count 5.45 3.70 - 10.30 10*3/uL LAB HEMATOLOGY METHOD 04/11/2025 1:48 PM EDT [facility] RBC Count 4.47(L) 4.60 - 6.10 10*6/uL LAB HEMATOLOGY METHOD 04/11/2025 1:48 PM EDT [facility] HGB 13.4(L) 13.7 - 17.5 g/dL LAB HEMATOLOGY METHOD 04/11/2025 1:48 PM EDT [facility] HCT 40.0 40.0 - 51.0 % LAB HEMATOLOGY METHOD 04/11/2025 1:48 PM EDT [facility] Platelet Count 228 155 - 369 10*3/uL LAB HEMATOLOGY METHOD 04/11/2025 1:48 PM EDT [facility] MCV 90 79 - 98 fL LAB HEMATOLOGY METHOD 04/11/2025 1:48 PM EDT [facility] MCH 30.0 26.0 - 32.0 pg LAB HEMATOLOGY METHOD 04/11/2025 1:48 PM EDT [facility] MCHC 33.5 30.7 - 35.5 g/dL LAB HEMATOLOGY METHOD 04/11/2025 1:48 PM EDT [facility] RDW 13.8 11.5 - 14.5 % LAB HEMATOLOGY METHOD 04/11/2025 1:48 PM EDT [facility] MPV 10.1 8.8 - 12.5 fL LAB HEMATOLOGY METHOD 04/11/2025 1:48 PM EDT [facility] nRBC 0.0 <=0.0 per 100 WBCs LAB HEMATOLOGY METHOD 04/11/2025 1:48 PM EDT [facility] Blood Venous blood specimen / Unknown Venipuncture / Unknown 04/11/2025 12:04 PM EDT 04/11/2025 12:04 PM EDT us Noris Herrera RAIL CAR UNLOADER LAB BLOOD ORDERABLES Final R esult [facility] [address] [place] [address] * Comprehensive Metabolic Panel, Plasma (04/11/2025 12:04 PM EDT) Glucose, Plasma 75 74 - 99 mg/dL 04/11/2025 2:20 PM EDT [facility] BUN, Plasma 15 7 - 21 mg/dL 04/11/2025 2:20 PM EDT [facility] Creatinine, Plasma 1.05 0.70 - 1.20 mg/dL 04/11/2025 2:20 PM EDT [facility] BUN/Creatinine Ratio 14 04/11/2025 2:20 PM EDT [facility] Sodium, Plasma 138 136 - 145 mmol/L 04/11/2025 2:20 PM EDT [facility] Potassium, Plasma 4.1 3.6 - 4.9 mmol/L 04/11/2025 2:20 PM EDT [facility] Chloride, Plasma 103 97 - 107 mmol/L 04/11/2025 2:20 PM EDT [facility] CO2, Plasma 23 22 - 29 mmol/L 04/11/2025 2:20 PM EDT [facility] Anion Gap 12 6 - 16 mmol/L 04/11/2025 2:20 PM EDT [facility] Total Calcium, Plasma 9.5 8.9 - 10.2 mg/dL 04/11/2025 2:20 PM EDT [facility] Total Protein 7.7 6.3 - 7.9 g/dL 04/11/2025 2:20 PM EDT [facility] Albumin, Plasma 4.4 3.5 - 5.2 g/dL 04/11/2025 2:20 PM EDT [facility] AST, Plasma 29 10 - 50 U/L 04/11/2025 2:20 PM EDT [facility] ALT, Plasma 23 10 - 50 U/L 04/11/2025 2:20 PM EDT [facility] Alkaline Phosphatase, Plasma 100 40 - 115 U/L 04/11/2025 2:20 PM EDT [facility] Total Bilirubin, Plasma 0.3 0.2 - 1.1 mg/dL 04/11/2025 2:20 PM EDT [facility] eGFRcr 87.0 mL/min/1.7 3m*2 04/11/2025 2:20 PM EDT [facility] Comment:Reported eGFRcr in m L/min/1.73m2 is based the CKD-EPI 2020 equation that does not use a race coefficient. Blood Venous blood specimen / Unknown Venipuncture / Unknown 04/11/2025 12:04 PM EDT 04/11/2025 12:04 PM EDT us Noris Herrera APRN LAB BLOOD ORDERABLES Final R esult [facility] [address] [place] [address] * (ABNORMAL) Urine Culture - Clinic Collect (03/30/2025 11:13 AM EDT) Culture <10,000 CFU/mL Staphylococcus coagulase negative(A) 04/01/2025 10:38 AM EDT [facility] Culture <10,000 CFU/mL Corynebacterium species(A) 04/01/2025 10:38 AM EDT [facility] Comment:The organism value f or this result has been updated. These results have been appended to the previously preliminary verified report. Urine Urine specimen obtained by clean catch procedure / Unknown Non-blood Collection / Unknown 03/30/2025 11:13 AM EDT 03/30/2025 1:01 PM EDT us Chacha REYES LAB MICROBIOLOGY - GENERAL ORDERABLES Final Result [facility] [address] [place] [id number] * POC US Bladder Volume (03/30/2025 11:05 AM EDT) Urine, Volume 3 mL IMAGING Anatomical Region Laterality Modality Other us Chacha REYES IMG POINT OF CARE ULTRASOU ND Final Result * (ABNORMAL) POCT URINALYSIS DIPSTICK (03/30/2025 10:57 AM EDT) POCT Urine Color Yellow 03/30/2025 10:59 AM EDT [facility] POCT Urine Clarity Clear 03/30/2025 10:59 AM EDT [facility] POCT Urine Glucose Negative Negative mg/dL 03/30/2025 10:59 AM EDT [facility] POCT Urine Bilirubin Negative Negative mg/dL 03/30/2025 10:59 AM EDT [facility] POCT Urine Ketones Negative Negative mg/dL 03/30/2025 10:59 AM EDT [facility] POCT Urine Specific Mat[place]on 1.020 1.005 - 1.030 03/30/2025 10:59 AM EDT [facility] POCT Urine Blood Moderate(A) Negative 03/30/2025 10:59 AM EDT [facility] POCT pH, Urine 6.0 5.0 - 8.0 03/30/2025 10:59 AM EDT [facility] POCT Protein, Urine 30(A) Negative mg/dL 03/30/2025 10:59 AM EDT [facility] POCT Urobilinogen, Urine 2.0(A) 0.2, 1.0 EU/dL 03/30/2025 10:59 AM EDT [facility] POCT Nitrite, Urine Negative Negative 03/30/2025 10:59 AM EDT [facility] POCT Urine Leukocyte Esterase Negative Negative 03/30/2025 10:59 AM EDT [facility] Urine 03/30/2025 10:5 7 AM EDT 03/30/2025 10:59 AM EDT us Chacha REYES LAB POINT OF CARE TEST DOCKED DEVICE UNSOLICITED RESULTS Final Result [facility] [address] [place], [place] * CT OUTSIDE IMAGES (03/26/2025 11:03 [...] Endo Nurse Mykel Elise RN Endo Nurse Calros Alberto Ambrose MD Proceduralist Kendlal Kaba RN Endo Nurse Abelino Mars MD [...] of bowel preparation was evaluated using the [place] Bowel Preparation Scale with scores of: right [...] Maintenance Insurance GENERIC MEDICARE ADVANTAGE Care Teams Lead Burner Relationship Specialty Start Date End Date Dolores Grande APRN [address] [place] [address] PCP - General 02/11/22 Abelino Mars MD [address] [place] [address] Surgeon Colon and Rectal Surgery 06/19/21 Michael Rodriguez MD 800 [facility] [address] [place] [address] Surgeon Surgical Oncology 06/19/21 Luis M Maldonado MD [address] [facility] [address] [place] [address] Consulting Physician Radiation Oncology 06/06/22
--- OUTSIDE RECORDS SUMMARY | 2025-06-17 11:05 | XMS_ITS | Encounter Summary ---
Author Organization [facility] Address [address] [place] [address] Care Team Providers Care Stopboard Assembler Name Role Phone Abelino Mars MD Unavailable [phone] Michael Rodriguez MD Unavailable [phone] Dolores Grande APRN Primary Care Provider + [phone] Luis M Maldonado MD Unavailable [phone] Encounter Details Date Type Department Care Team (Late st Contact Info) Description 04/06/2025 Results Follow-Up [place] [facility] [address] [place] [address] Chacha Perales PA [address] [place] [address] Social History Tobacco Use Types [...] Office Visit [place] [facility] [address] [place] [address] Alvina Carroll, TRACTOR OPERATOR HELPER [address] [place] [address] documented as of this encounter Visit Diagnoses Not on filedocumented in this encounter Additional Health Concerns Assessment Noted Time A fall risk assessment has been complete d for the patient 03/30/2025 10:51 AM EDT A Body Mass Index follow-up plan has been documented for the patient 03/30/2025 12:39 PM EDT documented as of this encounter Care Teams Stopboard Assembler Relationship Specialty Start Date End Date Dolores Grande APRN [address] [place] [address] PCP - General 02/11/22 Abelino Mars MD [address] [place] [address] Surgeon Colon and Rectal Surgery 06/19/21 Michael Rodriguez MD [address] [place] [address] Surgeon Surgical Oncology 06/19/21 Luis M Maldonado MD 800 [facility] [address] [place] [address] Consulting Physician Radiation Oncology 06/06/22 documented as of this encounter
--- OUTSIDE RECORDS SUMMARY | 2025-06-17 11:05 | XMS_ITS | Encounter Summary ---
Author Organization [facility] Address [address] [place] [address] Care Team Providers Care Director Of Rotc Name Role Phone Marcello Merchant MD Primary Care Provider [phone] Abelino Mars MD Unavailable [phone] Michael Rodriguez MD Unavailable [phone] Dolores Grande APRN Primary Care Provider [phone] Luis M Maldonado MD Unavailable [phone] Encounter Details Date Type Department Care Team (Late st Contact Info) Description 07/09/2021 Lab Requisition [facility] [address] [place] [address] Michael Rodriguez MD [address] [id number] Malignant neoplasm of rectosigmoid junction (CMS/HCC); Secondary [...] Office Visit [place] [facility] [address] [place] [address] Alvina Carroll, BOND WRITER [address] [place] [address] documented as of this encounter [...] Result see scan 08/28/2021 10:54 AM EST [facility] See Scanned Result 08/28/2021 10:54 AM [facility] Tissue 07/09/2021 12:0 0 PM EST 07/09/2021 3:39 PM EST us Michael Rodriguez MD LAB REF LAB BLOOD AND FLUID ORD Final Result [facility] [address] [place] [address] documented in this encounter Visit Diagnoses Diagnosis 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) documented in this encounter Additional Health Concerns Assessment Noted Time A fall risk assessment has been complete d for the patient 06/19/2021 1:10 PM EDT documented as of this encounter Care Teams Director Of Rotc Relationship Specialty Start Date End Date Marcello Merchant MD [address] [place] [address] PCP - General 01/12/21 02/10/22 Dolores Grande APRN [address] [place], [place] [id number] PCP - General 02/11/22 Abelino Mars MD [address] [place] [address] Surgeon Colon and Rectal Surgery 06/19/21 Michael Rodriguez MD 800 [facility] [address] [place] [address] Surgeon Surgical Oncology 06/19/21 Luis M Maldonado MD 800 [facility] [address] [place] [address] Consulting Physician Radiation Oncology 06/06/22 documented as of this encounter
--- OUTSIDE RECORDS SUMMARY | 2025-06-17 11:05 | XMS_ITS | Encounter Summary ---
Author Organization [facility] Address [address] [place] [address] Care Team Providers Care Site Superintendent Name Role Phone Abelino Mars MD Unavailable [phone] Michael Rodriguez MD Unavailable [phone] Dolores Grande APRN Primary Care Provider [phone] Luis M Maldonado MD Unavailable [phone] Reason for Visit * Reason Onset Date Comments HCN - Patient Message 03/28/2025 Obstructio n, swollen prostate Encounter Details Date Type Department Care Team (Late st Contact Info) Description 03/28/2025 Telephone [place] [facility] [address] [place] [address] Ruy Fleming MD [address] [place] [address] HCN - Patient Message (Obstruction, [...] 03/30/2025 10:51 AM EDT Katherine Morley * How difficult have these problems made it for you to do your work, take care of things at home, or get along with other people? Answer Date of Assessment Author Not difficult at all 03/30/2025 10:51 AM EDT Katherine Del Rosario documented as of this encounter Miscellaneous Notes [...] I called and spoke with [facility]. Patient was seen on Friday with left [...] Phone Message Reason for Call: Juliet with [facility] calling to advise pt has left hydronephrosis causing obstruction. Report was sent over today. Best contact number and optimal time of day to reach caller: Juliet [phone] Sanjuanita (pt spouse) [phone] Note: Please do not reply to this message. Follow-up communication and further actions as a result of this message need to be communicated with the patient directly, if the patient is not active onMyChart. If the patient is active on MyChart, they will receive notification of the communication/outcome via [employer]. documented in this encounter Plan of Treatment Upcoming Encounters Date Type Department Care Team (Late st Contact Info) Description 09/30/2025 10:40 AM EST Office Visit [place] [facility] [address] [place] [address] Alvina Carroll APRN [address] [place] [address] documented as of this encounter Visit Diagnoses Not on filedocumented in this encounter Additional Health Concerns Assessment Noted Time A fall risk assessment has been complete d for the patient 05/27/2023 9:38 AM EDT A Body Mass Index follow-up plan has been documented for the patient 02/17/2023 1:57 PM EDT documented as of this encounter Care Teams Site Superintendent Relationship Specialty Start Date End Date Dolores Grande APRN [address] [place] [address] PCP - General 02/11/22 Abelino Mars MD [address] [place] [address] Surgeon Colon and Rectal Surgery 06/19/21 Michael Rodriguez MD [address] [address] Surgeon Surgical Oncology 06/19/21 Luis M Maldonado MD 800 [facility] [address] [place] [address] Consulting Physician Radiation Oncology 06/06/22 documented as of this encounter
--- NOTE | 2025-06-17 11:15 | PC.NURSE ---
stuck pt with 23g butterfly needle to LAC x1 attempt. collected labs, orders placed, labs sent to lab. needle removed and 2x2s and coban applied. bleeding controlled. pt tolerated well.
[2025-06-17 11:31] LABS: Hematocrit 37.5 % (42.0-52.0); Hemoglobin 12.5 g/dL (14.1-18.0); Immature Granulocytes % 0.2 %; Mean Corpuscular HGB Conc 33.3 g/dL (31.8-35.4); Mean Corpuscular Hemoglobin 30.5 pg (27.0-31.2); Mean Corpuscular Volume 91.5 fl (80-94); Nucleated Red Blood Cells % 0 %; Platelet Count 223 K/mm3 (142-424); Red Blood Count 4.10 M/mm3 (4.60-6.20); Red Cell Distribution Width-SD 44.2 fL; White Blood Count 5.5 K/mm3 (4.8-10.8)
[2025-06-17 11:32] VITALS: RESP 18; O2SAT 98
[2025-06-17 11:40] VITALS: RESP 16; O2SAT 98
[2025-06-17 12:04] LABS: Alanine Aminotransferase 20 U/L (12-78); Albumin Level 4.5 g/dl (3.5-5.0); Albumin/Globulin Ratio 1.4 (1.1-1.8); Alkaline Phosphatase 130 U/L (38-126); Anion Gap 15.0 mEq/L (5-15); Aspartate Amino Transferase 28 U/L (17-59); Bilirubin,Total 0.6 mg/dl (0.2-1.3); Blood Urea Nitrogen 10 mg/dl (9-20); Calcium 9.5 mg/dl (8.4-10.2); Carbon Dioxide 27 mmol/L (22.0-30.0); Chloride 101 mmol/L (98-107); Creatinine,Serum 1.20 mg/dl (0.66-1.25); Estimated Glomerular Filt Rate 64 ml/min (>60); GFR (African American) 78 ML/MIN (>60); Globulin 3.3 g/dL (1.3-3.2); Glucose 94 mg/dl (74-100); Potassium 4.0 mmoL/L (3.5-5.1); Sodium 139 mmol/L (136-145); Total Protein,Serum 7.8 g/dl (6.3-8.2)
[2025-06-18 08:17] LABS: CEA 236.0 ng/mL (0.0-4.7)
== END 2025-06-17 11:40 | disposition home or self-care (01) ==
LOC: INF 11:01
PROVIDERS: PCP Nurse Practitioner Family; Visit Provider Internal Medicine Medical Oncology
DX: C18.9 Malignant neoplasm of colon, unspecified (principal)
CPT/HCPCS: 36591; 80053; 82378; 85025; J1642

== ENCOUNTER 2025-06-27 08:03 | Outpatient (CLI) | payer MEDICARE, SELFPAY ==
--- NOTE | 2025-06-27 08:30 | CT_ITS ---
FINAL REPORT TECHNIQUE: Routine axial images were obtained from the lung apices to below the diaphragm following IV contrast administration. Individualized dose reduction techniques using automated exposure control or adjustment of the mA and/or kV according to the patient size were employed. CLINICAL HISTORY: colon cancer COMPARISON: 02/18/2025 FINDINGS: Mediastinal vasculature is well-opacified. There are multitude of abnormal enlarged mediastinal lymph nodes which appear larger and more numerous than on the prior exam. A prevascular superior mediastinal lymph node now measures 1.4 cm and previously measured to 0.7 cm. Other lymph nodes are similarly increased in size throughout the mediastinum. No pleural or pericardial effusion is seen. There is a multitude of pulmonary nodules throughout both lungs. A dominant mass in the right upper lobe measures 5.3 x 4.0 cm, significantly increased compared to the prior exam. There is a 3.2 x 2.2 cm right apical nodule increased in size from 9 mm. A dominant left lower lobe nodule now measures 3.2 cm in dimension, previously 2.4 cm. IMPRESSION: Significant progression of pulmonary metastatic disease. Reviewed, Interpreted and Dictated by Abelino Ceballos MD Transcribed by Yazmin Pierce Authenticated and [facility]
--- NOTE | 2025-06-27 08:30 | CT_ITS ---
FINAL REPORT TECHNIQUE: After the administration of intravenous contrast, axial images were obtained through the abdomen and pelvis by computed tomography. The study was performed with techniques to keep radiation dose as low as reasonably achievable, (ALARA). Individual dose reduction techniques using automated exposure control or adjustment of mA and/or kV according to the patient's size were employed. CLINICAL HISTORY: colon cancer COMPARISON: 03/28/2025 FINDINGS: Abdomen: The liver parenchyma is homogeneous. There is a heterogeneous mass in the right lobe of the liver measuring up to 2.6 x 1.9 cm, likely a complex cyst and similar to the prior study. The gallbladder is present. The spleen, pancreas, and adrenals appear unremarkable. There is marked left hydronephrosis and proximal hydroureter. The aorta is normal in caliber. There is a sam conglomerate in the left periaortic region measuring up to 3.9 x 2.8 cm and from the transverse and up to 10 cm craniocaudal dimension. There are hernias of the anterior abdominal singh, larger on the right than left but similar to the prior study. Pelvis: The appendix is not identified. Postoperative changes are present in the rectosigmoid junction. The urinary bladder is unremarkable. The prostate is diffusely enlarged measuring up to 7 cm transverse dimension. There is no free fluid or adenopathy. IMPRESSION: Worsening periaortic adenopathy. Complete obstruction of the proximal left ureter. Hernias of the anterior abdominal singh. Reviewed, Interpreted and Dictated by Abelino Ceballos MD Transcribed by Yazmin Pierce Authenticated and [facility]
[2025-06-27] MEDS: IOPAMIDOL-370 (76%);100ML BOTTLE 75 ML IV (09:01)
[2025-06-27] MEDS: SODIUM CHLORIDE 0.9% 10ML SYR (RAD ONLY) 10 ML IV (09:01)
== END 2025-06-27 23:59 | disposition home or self-care (01) ==
LOC: RAD 08:04
PROVIDERS: PCP Nurse Practitioner Family; Visit Provider Internal Medicine Medical Oncology
DX: C18.9 Malignant neoplasm of colon, unspecified (principal); C78.02 Secondary malignant neoplasm of left lung; C78.01 Secondary malignant neoplasm of right lung; N13.1 Hydronephrosis with ureteral stricture, not elsewhere classified; K43.9 Ventral hernia without obstruction or gangrene; R59.0 Localized enlarged lymph nodes
CPT/HCPCS: 71260; 74177; Q9967

== ENCOUNTER 2025-08-10 09:34 | Outpatient (CLI) | payer MEDICARE, SELFPAY ==
[2025-08-10] MEDS: SODIUM CHLORIDE 0.9% 10ML FLUSH SYRINGE 10 ML IV (09:45)
[2025-08-10 10:05] LABS: Hematocrit 30.6 % (42.0-52.0); Hemoglobin 10.5 g/dL (14.1-18.0); Immature Granulocytes % 0.1 %; Mean Corpuscular HGB Conc 34.3 g/dL (31.8-35.4); Mean Corpuscular Hemoglobin 29.6 pg (27.0-31.2); Mean Corpuscular Volume 86.2 fl (80-94); Nucleated Red Blood Cells % 0 %; Platelet Count 174 K/mm3 (142-424); Red Blood Count 3.55 M/mm3 (4.60-6.20); Red Cell Distribution Width-SD 40.2 fL; White Blood Count 6.8 K/mm3 (4.8-10.8)
[2025-08-10 10:30] LABS: Alanine Aminotransferase 18 U/L (12-78); Albumin Level 4.5 g/dl (3.5-5.0); Alkaline Phosphatase 93 U/L (38-126); Aspartate Amino Transferase 27 U/L (17-59); Bilirubin,Direct 0.3 mg/dl (0.0-0.4); Bilirubin,Indirect 0.3 mg/dL (0.0-0.9); Bilirubin,Total 0.6 mg/dl (0.2-1.3); Bilirubin,Unconjugated 0.3 mg/dL (0.0-1.1); Cholesterol 146 mg/dl (140-200); HDL Cholesterol 26 mg/dl (40-60); Total Protein,Serum 7.9 g/dl (6.3-8.2); Triglycerides 137 mg/dl (30-150)
[2025-08-10 11:26] LABS: Alanine Aminotransferase 17 U/L (12-78); Albumin Level 4.5 g/dl (3.5-5.0); Albumin/Globulin Ratio 1.3 (1.1-1.8); Alkaline Phosphatase 91 U/L (38-126); Anion Gap 17.4 mEq/L (5-15); Aspartate Amino Transferase 27 U/L (17-59); Bilirubin,Total 0.7 mg/dl (0.2-1.3); Blood Urea Nitrogen 31 mg/dl (9-20); Calcium 9.4 mg/dl (8.4-10.2); Carbon Dioxide 20 mmol/L (22.0-30.0); Chloride 107 mmol/L (98-107); Estimated Glomerular Filt Rate 13 ml/min (>60); GFR (African American) 16 ML/MIN (>60); Globulin 3.4 g/dL (1.3-3.2); Glucose 121 mg/dl (74-100); Potassium 3.4 mmoL/L (3.5-5.1); Sodium 141 mmol/L (136-145); Total Protein,Serum 7.9 g/dl (6.3-8.2)
[2025-08-10 11:37] LABS: Creatinine,Serum 4.70 mg/dl (0.66-1.25)
== END 2025-08-10 23:59 | disposition home or self-care (01) ==
PROVIDERS: Physician Assistant; PCP Nurse Practitioner Family; Visit Provider Internal Medicine Medical Oncology
DX: C18.9 Malignant neoplasm of colon, unspecified (principal); I25.10 Atherosclerotic heart disease of native coronary artery without angina pectoris; E78.2 Mixed hyperlipidemia; I10 Essential (primary) hypertension
CPT/HCPCS: 36591; 80053; 80061; 80076; 85025; J1642

== ENCOUNTER 2025-08-11 12:54 | Outpatient (CLI) | payer MEDICARE, SELFPAY | END 2025-08-11 23:59 | disposition home or self-care (01) | LOC: LAB.DROPOF 12:54 | PROVIDERS: PCP Nurse Practitioner Family; Visit Provider Internal Medicine Medical Oncology | DX: C18.9 Malignant neoplasm of colon, unspecified (principal); I25.10 Atherosclerotic heart disease of native coronary artery without angina pectoris; E78.2 Mixed hyperlipidemia; I10 Essential (primary) hypertension | CPT/HCPCS: J1642 ==